=== PATIENT | female | born 1940 | race Caucasian/White ===

== ENCOUNTER 2017-12-24 05:22 | Inpatient (IN) | payer MEDICARE, OTHER, SELFPAY ==
[2017-12-24] VITALS (15 sets, daily range): BP systolic 144–180; BP diastolic 81–107; PULSE 78–112; RESP 16–23; TEMP 36.4–37.1; O2SAT 91–97
--- NOTE | 2017-12-24 05:44 | DI.REPORT_ITS ---
SYMPTOM/DIAGNOSIS: NAUSEA, VOMITING, STATUS POST COLECTOMY FLAT AND UPRIGHT ABDOMEN: Free air is seen beneath the diaphragm, consistent with prior surgery. There is also a question of tiny bilateral pleural effusions. There are dilated bowel loops in the upper abdomen. Suture material is seen in the right upper abdomen. Findings may indicate ileus. IMPRESSION: Mild bowel dilatation.
--- NOTE | 2017-12-24 05:45 | ED.GENADUL ---
Disposition Clinical Impression: Ileus following gastrointestinal surgery Disposition: [facility] INPATIENT Condition: Good Medical Decision Making - Lab Data Laboratory Results - last 24 hr 12/24/17 12/24/17 05:50 05:50 WBC 10.58 RBC 3.56 L Hgb 11.3 L Hct 33.9 L MCV 95.2 H MCH 31.7 MCHC 33.3 RDW 13.2 Plt Count 218 MPV 11.1 H Immature Gran % 0.8 Neutrophils % 90.3 Lymphocytes % 3.2 Monocytes % 5.5 Eosinophils % 0.0 Basophils % 0.2 Absolute Neutrophils 9.56 H Absolute Lymphocytes 0.34 L Absolute Monocytes 0.58 Absolute Eosinophils 0.00 Absolute Basophils 0.02 Sodium 139 Potassium 3.3 L D Chloride 99 Carbon Dioxide 30.3 Anion Gap 9.7 BUN 20 H Creatinine 0.96 Estimated GFR/1.73 m2 56.21 Glucose 169 H Calcium 9.1 Total Bilirubin 0.96 AST 16 ALT 28 Alkaline Phosphatase 86 Total Protein 7.0 Albumin 2.4 L Results reviewed for labs ordered during visit: Yes - EKG Data -: EKG Interpreted by Me 12/24/17 06:35 Sinus tachycardia, rate 103, QRS is narrow, there is no ST segment elevation present. - Radiology Data Radiology results: report reviewed, image reviewed - Medical Decision Making 69-year-old female, postop day #4 status post partial colectomy presents with bloating and nausea. She is afebrile, has a borderline tachycardia, is otherwise well-appearing. Surgical incisions are clean, dry, intact. Differential diagnosis includes ileus, obstruction. Patient IV access established, given antiemetic, fluids, referred for laboratory testing and radiograph. CBC shows white blood cell count of 10. Electrolytes: Notable for mild hypokalemia of 3.3 X-ray consistent dilated small bowel loops with wall thickening. Positive air-fluid levels. There is question of free air per the radiologist. Note the patient was insufflated for laparoscopy. Case discussed with Dr. Bañuelos. Will admit with parenteral fluids, antiemetic, period of observation/re-examination. Will hold on further advanced imaging at this time. History of Present Illness - General Chief complaint: Nausea/Vomit/Diar Stated complaint: PER T DOC Time Seen by Provider: 12/24/17 05:38 Source: patient Mode of arrival: ambulatory Limitations: no limitations - History of Present Illness Initial comments: Vomitin-year-old female who is now postop day #4 status post partial colectomy with Dr. Zhao. She states that she has been at home for 3 days. Today she had the gradual onset of mild bloating and nausea followed by numerous episodes of nonbilious emesis. It has been moderate, intermittent, without significant associated pain. She has not had a fever. States she has been passing some small amounts of flatus but no stool. - Related Data Cholecalciferol (Vitamin D3) [Vitamin D3] 1 cap PO DAILY 12/25/13 Simvastatin 40 mg PO DAILY 12/25/13 Ibuprofen [Motrin] 400 mg PO PRN 12/27/13 Biotin 5 mg PO DAILY 11/21/17 Cyanocobalamin (Vitamin B-12) [Vitamin B12] 5,000 mcg PO DAILY 11/30/17 Gluc Ross/MSM/Magnesium/Vit C [Glucosamine Complex-MSM Cap] 1 each PO DAILY 11/30/17 Polyethylene Glycol 3350 [Miralax] 17 g PO DAILY #255 gm 12/12/17 Acetaminophen [Tylenol] 650 mg PO Q4H PRN PRN #30 tab 12/22/17 Ibuprofen 600 mg PO Q6H PRN PRN #30 tablet 12/22/17 Oxycodone HCl 5 mg PO TID PRN PRN #15 tablet 12/22/17 Allergies Allergy/AdvReac Type Severity Reaction Status Date / Time No Known Allergies Allergy Unverified 12/24/17 05:29 Review of Systems Other: 6 systems reviewed, otherwise negative Past Medical History - Past Medical History Surgical history: cancer surgery General Exam - General Limitations: no limitations General appearance: alert, in no apparent distress - Head Head exam: Present: atraumatic, normocephalic - Eye Eye exam: Present: normal apperance, EOMI - ENT ENT exam: Present: normal exam, mucous membranes dry - Neck Neck exam: Present: normal inspection, full ROM. Absent: meningismus - Respiratory Respiratory exam: Present: normal lung sounds bilaterally. Absent: respiratory distress - Cardiovascular Cardiovascular Exam: Present: normal rhythm, tachycardia - GI/Abdominal GI/Abdominal exam: Present: soft, distended, diminished bowel sounds, other (Surgical incisions clean, dry, intact). Absent: tenderness - Extremities Exam Extremities exam: Present: normal inspection, full ROM - Neurological Exam Neurological exam: Present: alert, oriented X3 - Psychiatric Psychiatric exam: Present: normal affect, normal mood - Skin Skin exam: Present: warm, dry, intact Course Vital Signs - 24 hr 12/24/17 05:27 Temperature 36.6 C Pulse 104 H Respiratory 18 Rate Pulse Oximetry 93 L
--- NOTE | 2017-12-24 05:48 | ED.GENADUL_ITS ---
Disposition Clinical Impression: Ileus following gastrointestinal surgery Disposition: [facility] INPATIENT Condition: Good Medical Decision Making - Lab Data Laboratory Results - last 24 hr 12/24/17 12/24/17 05:50 05:50 WBC 10.58 RBC 3.56 L Hgb 11.3 L Hct 33.9 L MCV 95.2 H MCH 31.7 MCHC 33.3 RDW 13.2 Plt Count 218 MPV 11.1 H Immature Gran % 0.8 Neutrophils % 90.3 Lymphocytes % 3.2 Monocytes % 5.5 Eosinophils % 0.0 Basophils % 0.2 Absolute Neutrophils 9.56 H Absolute Lymphocytes 0.34 L Absolute Monocytes 0.58 Absolute Eosinophils 0.00 Absolute Basophils 0.02 Sodium 139 Potassium 3.3 L D Chloride 99 Carbon Dioxide 30.3 Anion Gap 9.7 BUN 20 H Creatinine 0.96 Estimated GFR/1.73 m2 56.21 Glucose 169 H Calcium 9.1 Total Bilirubin 0.96 AST 16 ALT 28 Alkaline Phosphatase 86 Total Protein 7.0 Albumin 2.4 L Results reviewed for labs ordered during visit: Yes - EKG Data -: EKG Interpreted by Me 12/24/17 06:35 Sinus tachycardia, rate 103, QRS is narrow, there is no ST segment elevation present. - Radiology Data Radiology results: report reviewed, image reviewed - Medical Decision Making 69-year-old female, postop day #4 status post partial colectomy presents with bloating and nausea. She is afebrile, has a borderline tachycardia, is otherwise well-appearing. Surgical incisions are clean, dry, intact. Differential diagnosis includes ileus, obstruction. Patient IV access established, given antiemetic, fluids, referred for laboratory testing and radiograph. CBC shows white blood cell count of 10. Electrolytes: Notable for mild hypokalemia of 3.3 X-ray consistent dilated small bowel loops with wall thickening. Positive air- fluid levels. There is question of free air per the radiologist. Note the patient was insufflated for laparoscopy. Case discussed with Dr. Bañuelos. Will admit with parenteral fluids, antiemetic , period of observation/re-examination. Will hold on further advanced imaging at this time. History of Present Illness - General Chief complaint: Nausea/Vomit/Diar Stated complaint: PER T DOC Time Seen by Provider: 12/24/17 05:38 Source: patient Mode of arrival: ambulatory Limitations: no limitations - History of Present Illness Initial comments: Vomitin-year-old female who is now postop day #4 status post partial colectomy with Dr. Zhao. She states that she has been at home for 3 days. Today she had the gradual onset of mild bloating and nausea followed by numerous episodes of nonbilious emesis. It has been moderate, intermittent, without significant associated pain. She has not had a fever. States she has been passing some small amounts of flatus but no stool. - Related Data Cholecalciferol (Vitamin D3) [Vitamin D3] 1 cap PO DAILY 12/25/13 Simvastatin 40 mg PO DAILY 12/25/13 Ibuprofen [Motrin] 400 mg PO PRN 12/27/13 Biotin 5 mg PO DAILY 11/21/17 Cyanocobalamin (Vitamin B-12) [Vitamin B12] 5,000 mcg PO DAILY 11/30/17 Gluc Ross/MSM/Magnesium/Vit C [Glucosamine Complex-MSM Cap] 1 each PO DAILY Polyethylene Glycol 3350 [Miralax] 17 g PO DAILY #255 gm 12/12/17 Acetaminophen [Tylenol] 650 mg PO Q4H PRN PRN #30 tab 12/22/17 Ibuprofen 600 mg PO Q6H PRN PRN #30 tablet 12/22/17 Oxycodone HCl 5 mg PO TID PRN PRN #15 tablet 12/22/17 Allergies Allergy/AdvReac Type Severity Reaction Status Date / Time No Known Allergies Allergy Unverified 12/24/17 05:29 Review of Systems Other: 6 systems reviewed, otherwise negative Past Medical History - Past Medical History Surgical history: cancer surgery General Exam - General Limitations: no limitations General appearance: alert, in no apparent distress - Head Head exam: Present: atraumatic, normocephalic - Eye Eye exam: Present: normal apperance, EOMI - ENT ENT exam: Present: normal exam, mucous membranes dry - Neck Neck exam: Present: normal inspection, full ROM. Absent: meningismus - Respiratory Respiratory exam: Present: normal lung sounds bilaterally. Absent: respiratory distress - Cardiovascular Cardiovascular Exam: Present: normal rhythm, tachycardia - GI/Abdominal GI/Abdominal exam: Present: soft, distended, diminished bowel sounds, other ( Surgical incisions clean, dry, intact). Absent: tenderness - Extremities Exam Extremities exam: Present: normal inspection, full ROM - Neurological Exam Neurological exam: Present: alert, oriented X3 - Psychiatric Psychiatric exam: Present: normal affect, normal mood - Skin Skin exam: Present: warm, dry, intact Course Vital Signs - 24 hr 12/24/17 05:27 Temperature 36.6 C Pulse 104 H Respiratory 18 Rate Pulse Oximetry 93 L
[2017-12-24] MEDS: Normal Saline 1,000 ML 1000 ML IV (06:01)
[2017-12-24] MEDS: Ondansetron 4 MG/2 ML VIAL IVP ×2 (06:01→07:18)
[2017-12-24 06:05] LABS: Abs Immature Grans 0.08 k/cumm (0.0-0.09); Absolute Basophil Count 0.02 k/cumm (0.0-0.2); Absolute Lymphocyte Count 0.34 k/cumm (1.2-3.4); Absolute Monocyte Count 0.58 k/cumm (0.11-0.7); Absolute Neutrophil Count 9.56 k/cumm (1.2-6.7); Basophils % 0.2; HCT 33.9 % (36.0-46.0); HGB 11.3 g/dL (12.0-15.5); Immature Grans % 0.8; Lymphocytes % 3.2; Mean Corp. HGB Concentration 33.3 g/dL (32.0-36.0); Mean Corpuscular Hemoglobin 31.7 pg (27.0-33.0); Mean Corpuscular Volume 95.2 fL (80-95); Mean Platelet Volume 11.1 fL (8.0-11.0); Monocytes % 5.5; Neutrophils % 90.3; Platelet Count 218 x1000/uL (130-400); RBC 3.56 m/cumm (4.00-5.20); RBC Distribution Width 13.2 % (11.7-14.6); White Blood Cell Count 10.58 k/cumm (4.4-10.8)
[2017-12-24 06:15] LABS: ALT 28 U/L (14-59); AST 16 U/L (15-37); Albumin 2.4 g/dL (3.4-5.0); Alkaline Phosphatase 86 U/L (46-116); Anion Gap 9.7 mmol/L (3-11); BUN 20 mg/dL (7-18); Bilirubin, Total 0.96 mg/dL (0.2-1.0); CO2 30.3 mmol/L (21.0-32.0); CREATININE 0.96 mg/dL (0.55-1.02); Calcium 9.1 mg/dL (8.5-10.1); Chloride 99 mmol/L (98-107); Estimated GFR 56.21 (mL/min/1.73m2); Glucose 169 mg/dL (70-100); Sodium 139 mmol/L (136-145)
[2017-12-24 06:22] LABS: Potassium 3.3 mmol/L (3.5-5.1)
--- NOTE | 2017-12-24 06:26 | DI.VRAD_ITS ---
EXAM: XR Abdomen, 2 Views CLINICAL HISTORY: 77 years old, female; Pain; Abdominal pain TECHNIQUE: Frontal view of the abdomen/pelvis with upright view of the abdomen. COMPARISON: No relevant prior studies available. FINDINGS: Intraperitoneal space: Possible free intraperitoneal air. Gastrointestinal tract: Dilated small bowel loops with wall thickening. There are air-fluid levels. Organs: Unremarkable as visualized. Bones/joints: Unremarkable. IMPRESSION: Enteritis and/or small bowel obstruction. Suboptimal imaging of the hemidiaphragms but there is question of free intraperitoneal air. Consider a CT scan. Dictated and Authenticated by: Andre Lynn MD. Ordering:FARIDA GARCÍA MD
[2017-12-24] MEDS: Pantoprazole 40 MG VIAL IVP (06:30)
--- NOTE | 2017-12-24 08:27 | PDOC.HP_ITS ---
Assessment/Plan - Assessment/Plan (1) Postoperative ileus Assessment: patient is stable at this time Has some HTN. Will monitor. She is not usually on BP meds Plan: IV hydration and bowel rest If symptoms progress will get a CT scan History of Present Illness - History of Present Illness Chief Complaint: POst Op Ileus History of Present Illness: Mrs Grant is a pleasant 77 year old female who underwent a Right Hemicolectomy on Tuesday with Dr. Ceja. She did quite well after surgery and was passing gas and having BM's on POD #1. POD #2 she was eating a regular diet, walking around and pain was well controlled on Toradol and Tylenol. She went home and did well up until last night, early this am when she started to feel bloated and had nausea and vomiting. She came back to the ER. XRay showed an ileus pattern. Patient states she is passing some gas but a lot less then on . - Past Medical History Cardiac: Hyperlipidemia CHIEF EMBALMER: Other (neuropathic pain) Gastrointestinal: Other (splenic hemangioma, tubulovillous adenoma of cecum) Psych: Anxiety Musculoskeletal: Other (osteopenia) Endocrine: Hypothyroidism (subclinical), Other (Vitamin D deficiency) Dermatology: Other (hidrotic ectodermal dysplacia syndrome) - Past Surgical History Past Surgical History: Arthroscopy, Hysterectomy, Other (colonoscopy x 2), Other (Right hemicolectomy) - Past Family History Family History: Other (melanoma) - Past Social History Smoke: Quit Alcohol: Rare Drugs: None Lives: Alone Review of Systems - Review of Systems Constitutional: denies: Fever, Chills, Sweats, Weakness, Malaise, Other Respiratory: denies: Cough, Dry, Shortness of Breath, Hemoptysis, SOB with Excertion, Pleuritic Pain, Sputum, Wheezing, Other Cardiovascular: denies: Chest Pain, Palpitations, Orthopnea, Paroxysmal Noc. Dyspnea, Edema, Light Headedness, Other Gastrointestinal: Nausea, Vomiting. denies: Abdominal Pain, Diarrhea, Constipation, Melena, Hematochezia, Other Genitourinary: denies: Dysuria, Frequency, Incontinence, Hematuria, Retention, Other Musculoskeletal: denies: Neck Pain, Shoulder Pain, Arm Pain, Back Pain, Hand Pain, Leg Pain, Foot Pain, Other Skin: denies: Rash, Lesions, Amari, Bruising, Other Neurological: denies: Weakness, Numbness, Incoordination, Change in Speech, Confusion, Seizures, Other - Medications/Allergies Allergies/Adverse Reactions: Allergies Allergy/AdvReac Type Severity Reaction Status Date / Time No Known Allergies Allergy Unverified 12/24/17 05:29 Medications: Current Medications Acetaminophen 1,000 mg/ Device 100 mls @ 400 mls/hr IVPB Q8H RASHEEDA Potassium Chloride/Sodium Chloride (Kcl 20meq/D5-0.45% Nacl) 1,000 mls @ 125 mls/hr IV INFUSION RASHEEDA Famotidine 20 mg/ Device 50 mls @ 100 mls/hr IVPB Q12H RASHEEDA Potassium Chloride 10 meq/ (Device) 100 mls @ 100 mls/hr IVPB NOW ONE Stop: 12/24/17 09:15 IV Miscellaneous Supplies () 1 each IV DIRECTED RASHEEDA IV Miscellaneous Supplies () 1 each IV DIRECTED RASHEEDA Ketorolac Tromethamine (Toradol Injection) 15 mg IVP Q6H PRN PRN Stop: 12/29/17 08:11 Ondansetron HCl (Zofran Injection) 4 mg IVP Q4H PRN PRN Sodium Chloride (Saline Flush 10 Ml Syringe) 0 ml IVP PRN PRN Sodium Chloride (Saline Flush 10 Ml Syringe) 0 ml IVP PRN PRN Objective - Exam Vitals and I&O: Vital Signs Temp 36.5 C 12/24/17 08:01 Pulse 97 H 12/24/17 08:01 Resp 20 12/24/17 08:01 BP 167/107 12/24/17 08:01 Pulse Ox 97 12/24/17 08:01 Intake & Output 12/23/17 12/23/17 12/24/17 11:59 23:59 11:59 Weight 79.379 kg General: Alert, Oriented x3, Cooperative, No acute distress HEENT: Atraumatic Neck: Supple Lungs: Clear to auscultation Cardiovascular: Regular rate Abdomen: Soft, Tenderness (mildly tender to palpation ), Other (hypoactive BS) Extremities: Normal pulses. denies: Clubbing, Cyanosis, Edema Psych/Mental Status: Mental status NL Results - Laboratory Data Result Diagrams: 12/24/17 05:50 12/24/17 05:50 Laboratory Results: Laboratory Tests 12/24/17 12/24/17 05:50 05:50 WBC 10.58 RBC 3.56 L Hgb 11.3 L Hct 33.9 L MCV 95.2 H MCH 31.7 MCHC 33.3 RDW 13.2 Plt Count 218 MPV 11.1 H Immature Gran % 0.8 Neutrophils % 90.3 Lymphocytes % 3.2 Monocytes % 5.5 Eosinophils % 0.0 Basophils % 0.2 Absolute Neutrophils 9.56 H Absolute Lymphocytes 0.34 L Absolute Monocytes 0.58 Absolute Eosinophils 0.00 Absolute Basophils 0.02 Sodium 139 Potassium 3.3 L D Chloride 99 Carbon Dioxide 30.3 Anion Gap 9.7 BUN 20 H Creatinine 0.96 Estimated GFR/1.73 m2 56.21 Glucose 169 H Calcium 9.1 Total Bilirubin 0.96 AST 16 ALT 28 Alkaline Phosphatase 86 Total Protein 7.0 Albumin 2.4 L
[2017-12-24] MEDS: POTASSIUM CHLORIDE/D5-0.45NACL 1,000 ML 125 MEQ IV ×2 (08:48→21:02)
[2017-12-24] MEDS: Normal Saline Flush 10 ML SYR IVP (08:48)
--- NOTE | 2017-12-24 11:12 | PDOC.CMIN ---
Care Management Initial Assess REASON FOR HOSPITALIZATION:: Post Operative Ileus PAST MEDICAL HISTORY/PAST SURGICAL HISTORY:: Anxiety, Asymptomatic varicose veins, colon polyps, hemangioma of spleen, hidrotic ectodermal dysplasia syndrome, hyperlipidemia, hypothyroid, neuropathic pain, osteopenia, Vitamin D deficiency, former smoker, cataracts, hysterectomy, knee surgery/arthroscopy, menorrhagia, fracture right shoulder, intraocular lens PREVIOUS FUNCTIONAL STATUS/SOCIAL/FAMILY SUPPORTS:: Vannessa resides in [place], [place]. She shares her after a period of illness at [facility]. She identifies spirtually as Jainism and attends services at [facility]. Her primary support is her son, Phylicia ([phone]) who resides in [facility]. She reports a close friend and neighbor who had the same surgical intervention; and reports the two enjoy walking the trails together. Vannessa discharged from [facility] 12/22/17, and is re-admitted for suspected ileus. CURRENT FUNCTIONAL STATUS:: Vannessa remains pleasant in interaction, she requested to update her HIPPA to add her friend, grandson and neighbor/friend; Marisol Saeed who she reports has provided much support to her through this ordeal. ADVANCE DIRECTIVES:: None on file at [facility]. Has patient been provided with information about the portal?: Yes Did the patient sign up for the portal?: No CODE STATUS:: Full Code INSURANCE COVERAGE / FINANCIAL ISSUES:: Medicare. CURRENT HOME/COMMUNITY SERVICES/EQUIPMENT:: Grab bars, hand held shower PRIMARY CARE PHYSICIAN:: Andre Davidson M.D. POTENTIAL DISCHARGE NEEDS:: Review community based supports, follow up appointment with Dr. Davidson and [facility] Surgical services. PATIENT/FAMILY EDUCATION NEEDS:: Review community based supports, discharge instructions, discuss Ask Me Three. ANTICIPATED BARRIERS TO DISCHARGE:: None identified at this time. TRANSPORTATION:: Via private vehicle with her friend, Katherin. PLAN:: Due to developing an ileus, Vannessa was admitted to [facility] and will be monitored and treated with IV fluids and bowel rest, if symptoms persist she will have a CT scan to inform next steps in treatment. Vannessa will return home when ready per MD, she will follow up with [facility] Surgical services and her plan of care as prescribed as well as her PCP. No additional services anticipated at this time. She will transport home via private vehicle with her friend, Paige
[2017-12-24] MEDS: Calcium Carbonate *TUMS* 500 MG CHEW PO (11:31)
[2017-12-24] MEDS: LORazepam 0.5 MG TAB PO (11:31)
[2017-12-24] MEDS: Potassium Chloride 10 MEQ TABCR 20 MEQ PO (14:22)
--- NOTE | 2017-12-24 14:25 | INITIAL_ITS ---
Care Management Initial Assess REASON FOR HOSPITALIZATION:: Post Operative Ileus PAST MEDICAL HISTORY/PAST SURGICAL HISTORY:: Anxiety, Asymptomatic varicose veins, colon polyps, hemangioma of spleen, hidrotic ectodermal dysplasia syndrome, hyperlipidemia, hypothyroid, neuropathic pain, osteopenia, Vitamin D deficiency, former smoker, cataracts, hysterectomy, knee surgery/arthroscopy, menorrhagia, fracture right shoulder, intraocular lens PREVIOUS FUNCTIONAL STATUS/SOCIAL/FAMILY SUPPORTS:: Vannessa resides in [place], [place]. She shares her after a period of illness at [facility]. She identifies spirtually as Anabaptism and attends services at [facility]. Her primary support is her son, Phylicia ([phone]) who resides in [facility]. She reports a close friend and neighbor who had the same surgical intervention; and reports the two enjoy walking the trails together. Vannessa discharged from [facility] 12/22/17, and is re-admitted for suspected ileus. CURRENT FUNCTIONAL STATUS:: Vannessa remains pleasant in interaction, she requested to update her HIPPA to add her friend, grandson and neighbor/friend; Marisol Saeed who she reports has provided much support to her through this ordeal. ADVANCE DIRECTIVES:: None on file at [facility]. Has patient been provided with information about the portal?: Yes Did the patient sign up for the portal?: No CODE STATUS:: Full Code INSURANCE COVERAGE / FINANCIAL ISSUES:: Medicare. CURRENT HOME/COMMUNITY SERVICES/EQUIPMENT:: Grab bars, hand held shower PRIMARY CARE PHYSICIAN:: Andre Davidson M.D. POTENTIAL DISCHARGE NEEDS:: Review community based supports, follow up appointment with Dr. Davidson and [facility] Surgical services. PATIENT/FAMILY EDUCATION NEEDS:: Review community based supports, discharge instructions, discuss Ask Me Three. ANTICIPATED BARRIERS TO DISCHARGE:: None identified at this time. TRANSPORTATION:: Via private vehicle with her friend, Katherin. PLAN:: Due to developing an ileus, Vannessa was admitted to [facility] and will be monitored and treated with IV fluids and bowel rest, if symptoms persist she will have a CT scan to inform next steps in treatment. Vannessa will return home when ready per MD, she will follow up with [facility] Surgical services and her plan of care as prescribed as well as her PCP. No additional services anticipated at this time. She will transport home via private vehicle with her friend, Paige
[2017-12-24 14:32] LABS: Abs Immature Grans 0.09 k/cumm (0.0-0.09); Absolute Basophil Count 0.01 k/cumm (0.0-0.2); Absolute Eosinophil Count 0.03 k/cumm (0.0-0.7); Absolute Lymphocyte Count 0.56 k/cumm (1.2-3.4); Absolute Monocyte Count 1.18 k/cumm (0.11-0.7); Absolute Neutrophil Count 8.85 k/cumm (1.2-6.7); Basophils % 0.1; Eosinophils % 0.3; HCT 31.5 % (36.0-46.0); HGB 10.3 g/dL (12.0-15.5); Immature Grans % 0.8; Lymphocytes % 5.2; Mean Corp. HGB Concentration 32.7 g/dL (32.0-36.0); Mean Corpuscular Hemoglobin 31.5 pg (27.0-33.0); Mean Corpuscular Volume 96.3 fL (80-95); Mean Platelet Volume 11.4 fL (8.0-11.0); Neutrophils % 82.6; Platelet Count 188 x1000/uL (130-400); RBC 3.27 m/cumm (4.00-5.20); RBC Distribution Width 13.2 % (11.7-14.6); White Blood Cell Count 10.72 k/cumm (4.4-10.8)
[2017-12-24 14:42] LABS: Anion Gap 8.1 mmol/L (3-11); BUN 22 mg/dL (7-18); CO2 27.9 mmol/L (21.0-32.0); CREATININE 0.95 mg/dL (0.55-1.02); Calcium 8.7 mg/dL (8.5-10.1); Chloride 101 mmol/L (98-107); Estimated GFR 56.89 (mL/min/1.73m2); Glucose 159 mg/dL (70-100); Potassium 3.5 mmol/L (3.5-5.1); Sodium 137 mmol/L (136-145)
[2017-12-24 14:43] LABS: Magnesium 1.8 mg/dL (1.8-2.4)
--- NOTE | 2017-12-24 14:43 | PROG.BLANK ---
Date of Service: 12/24/17 Time of Service: 14:30 Progress Note Called at home regrading patient BP being elevated and heart rate in the 100's. No abdominal pain per report S: Vannessa feels fine. She states that her abdomen doesn't hurt. She denies passing gas. She does complain of burping and intermittent heart Burn. She also told the nurse she feels like there is a knot in her chest. When I asked her about the heart burn and whether it started after she vomited last night she tells me that she started with heart burn first and then threw up. TUMS does seem to help. She did get some ativan and that did not help. O: BP: 172/103 P 100 Afeb Narrow Complex tachycardia of monitor in ICU EKG from this morning and now look the same, but it is different then the EKG from 2005. Abdomen: soft, distended, NTTP, minimal BS incisions c/d/i A: Continued hypertension and tachycardia despite hydration. Heart Burn ? vs a cardiac issue She has no know history of hypertension or cardiovascular disease. She does have hyperlipidemia which is treated with simvastatin. P: I have asked Dr. Dugan to consult on the patient. Draw stat CBC, BMP, MAG EKG and Troponin ordered by Dr. Dugan. Appreciate Dr. Dugan assisting me with Vannessa's care
[2017-12-24] MEDS: Metoprolol 25 MG TAB PO ×2 (14:59→21:02)
[2017-12-24 15:02] LABS: Troponin I < 0.02 ng/mL (0.00-0.06)
[2017-12-24] MEDS: Normal Saline 500 ML IV (15:42)
[2017-12-24] MEDS: Aspirin 325 MG TAB PO (16:44)
[2017-12-24 19:22] LABS: Troponin I < 0.02 ng/mL (0.00-0.06)
[2017-12-24] MEDS: Atorvastatin 40 MG TAB 80 MG PO (21:02)
[2017-12-24 23:54] LABS: Troponin I < 0.02 ng/mL (0.00-0.06)
[2017-12-25] VITALS (18 sets, daily range): BP systolic 92–186; BP diastolic 48–100; PULSE 86–157; RESP 18–36; TEMP 36.7–38.3; O2SAT 92–99
[2017-12-25 06:55] LABS: Abs Immature Grans 0.11 k/cumm (0.0-0.09); Absolute Eosinophil Count 0.04 k/cumm (0.0-0.7); Absolute Lymphocyte Count 0.42 k/cumm (1.2-3.4); Absolute Monocyte Count 1.28 k/cumm (0.11-0.7); Eosinophils % 0.6; HCT 29.3 % (36.0-46.0); HGB 9.5 g/dL (12.0-15.5); Immature Grans % 1.6; Lymphocytes % 6.1; Mean Corp. HGB Concentration 32.4 g/dL (32.0-36.0); Mean Corpuscular Hemoglobin 31.5 pg (27.0-33.0); Mean Platelet Volume 11.3 fL (8.0-11.0); Monocytes % 18.6; Neutrophils % 73.1; Platelet Count 205 x1000/uL (130-400); RBC 3.02 m/cumm (4.00-5.20); RBC Distribution Width 13.1 % (11.7-14.6)
[2017-12-25 07:04] LABS: Anion Gap 5.4 mmol/L (3-11); BUN 17 mg/dL (7-18); CO2 26.6 mmol/L (21.0-32.0); CREATININE 0.83 mg/dL (0.55-1.02); Calcium 8.1 mg/dL (8.5-10.1); Chloride 102 mmol/L (98-107); Cholesterol 133 mg/dL (50-200); Glucose 161 mg/dL (70-100); HDL Cholesterol 15 mg/dL (40-60); LDL CHOLESTEROL 94 mg/dL (<100); Magnesium 1.8 mg/dL (1.8-2.4); Potassium 3.7 mmol/L (3.5-5.1); Sodium 134 mmol/L (136-145); Triglyceride 133 mg/dL (30-150)
[2017-12-25 07:06] LABS: Absolute Neutrophil Count 5.04 k/cumm (1.2-6.7)
[2017-12-25] MEDS: Normal Saline Flush 10 ML SYR IVP ×2 (07:39→19:44)
[2017-12-25] MEDS: Pantoprazole 40 MG VIAL IVP ×2 (07:39→19:41)
[2017-12-25] MEDS: Metoprolol 25 MG TAB PO (07:40)
[2017-12-25] MEDS: Aspirin E.C. 81 MG TABEC PO (07:40)
--- NOTE | 2017-12-25 07:44 | PDOC.CMPRO ---
Care Management Progress Note S/O: Vannessa diet was advance to full around lunchtime today. She has been up walking independently. Dr. Bañuelos requested Med consult with Dr. Dugan as there is some question as to if Vannessa is presenting with cardiac issue as her BP had been elevated and heart rate in the 100s. Vannessa will likely meet with the penal officer tomorrow. CM will continue to follow and support discharge planning considerations. A: 77 year old female admitted to [facility] 12/24/17 for Post Operative Ileus P: Vannessa will return home when ready per MD, she will follow up with [facility] Surgical services and her plan of care as prescribed as well as her PCP. CM will continue to monitor need for further discharge considerations. She will transport home via private vehicle with her friend, Katherin.
--- NOTE | 2017-12-25 07:50 | CMPROGNOTE_ITS ---
Care Management Progress Note S/O: Vannessa diet was advance to full around lunchtime today. She has been up walking independently. Dr. Bañuelos requested Med consult with Dr. Dugan as there is some question as to if Vannessa is presenting with cardiac issue as her BP had been elevated and heart rate in the 100s. Vannessa will likely meet with the milk treater tomorrow. CM will continue to follow and support discharge planning considerations. A: 77 year old female admitted to [facility] 12/24/17 for Post Operative Ileus P: Vannessa will return home when ready per MD, she will follow up with [facility] Surgical services and her plan of care as prescribed as well as her PCP. CM will continue to monitor need for further discharge considerations. She will transport home via private vehicle with her friend, Katherin.
[2017-12-25] MEDS: Magnesium Oxide 400 MG TAB PO (08:07)
[2017-12-25] MEDS: Potassium Chloride 10 MEQ TABCR 30 MEQ PO (08:07)
[2017-12-25] MEDS: Metoprolol 12.5 MG TAB PO (08:07)
--- NOTE | 2017-12-25 10:36 | PROG.BLANK ---
Date of Service: 12/25/17 Time of Service: 10:00 Progress Note PAD #2 s/p Ileus S: Vannessa is feeling better today. The chest pressure and heart burn is almost gone except for right after she takes her pills. She is hungry and has had several BM's and is passing gas. She tells me she has been up and walking as well. O: VSS AFeb BP is lower then yesterday. Still with slight tachycardia. Troponins negative ABdomen: soft, NTTP, mild distention. Some bowel sounds A: Vannessa is 5 days status post right hemicolectomy. She was readmitted with an ileus. yesterday she had Hypertension and chest pressure with heart burn. Dr. Dugan was consulted and a cardiac workup started. BP today is better. Her chest pressure has resolved. She still has heart burn but feels that now it is only when she is taking oral meds on an empty stomach. She has had several BM's, has passed gas and is hungry. P: Start on clear liquids and advance as tolerated. Appreciate Dr. Dugan assisting with cardiac workup and hypertension Patient is scheduled for ECHO and cardiac consult for tomorrow.
--- NOTE | 2017-12-25 11:45 | PHARADMIT ---
Addendum entered by Kali Turpin III 01/06/18 10:27: Pharmacy Note Subjective Patient transferring to Swing Bed today, on Hospitalist service with Surgical consult. Objective VS-OK K+3.1 WBC-21.23 H&H-up 9.1/28.8 Liquid BM 01/05 Assessment Vanccomycin & Zosyn switching to Cipro later today. Plan Awaiting orders for Swing Bed transition Original Note: Addendum entered by Kali Turpin III 01/05/18 16:14: Pharmacy Note Subjective Ate 50% of lunch (240cc). MD reports improving Objective BP-159/88 HR-101, K+3.7 Mag-2.1 No WBC/Afebrile, Last BM-01/01 Assessment Vancomycin trough (16.4) no changes, Zosyn continues for Enterococcus & Enterobacter Plan MD anticipates Swing Bed 01/06 pending progress. Original Note: Addendum entered by Alice Benavidez 01/04/18 16:53: Pharmacy Note Subjective pt taking some PO Objective HR-95 other VS okay Na-134 WBC-27.66 (down slightly) h/h-8.6/27.2 Assessment TPN and fat emulsion discontinued along with insulin aspart sliding scale vanco dose retimed and one dose of zosyn missed yesterday due to pt leaving the facility for a procedure at [facility] [place] Plan trough scheduled for tomorrow @1300, adjust vanco dosing if needed watch WBC Original Note: Addendum entered by Kali Turpin III 01/02/18 12:26: Pharmacy Note Subjective No new surgery notes yet Objective HR-99 BP-158/91 K+3.1 Mag-2.0 Na-136 Albumin-1.1 WBC-29.71 Assessment Vancomycin started yesterday, Zosyn continues. TPN- K-phos added, K+ to 30mEq/bag total addition plus what's in the Nutrilytes. Potassium 20mEq x 2 bolus bags for todays low K+3.1 Plan Watch Vanco trough, JJA-Keexm-Qdme &K+, WBC Original Note: Addendum entered by Alice Benavidez 01/01/18 11:30: Pharmacy Note Subjective pt confused which is not her baseline per morning report Objective HR-99 other VS okay Na-134 K+3.4 WBC-29.37(up) Assessment TPN continues, zosyn continues, blood cultures pending Plan MD mentioned possibly adding vanco yesterday to cover for entercoccus but no order yet. Watch for BC results and possible addition/change in antibiotics Original Note: Addendum entered by Kali Turpin III 12/30/17 15:03: Pharmacy Note Subjective Patient transferred to [facility], Not eating well yet. Objective BP-149/96 HR-102 K+3.2 Mag-1.5 WBC-16.81 Wgt-89 kg Assessment TPN formula adjusted (Mag 1gm/KCl-!0mEq,Pepcid 20mg/per bag added) KCL 10mEq boluses x 4 given this AM. Lasix 20mg IVP x1 for fluid overload Plan Follow lytes in TPN and wgt , Zosyn continues for now. Original Note: Addendum entered by Kali Turpin III 12/29/17 15:51: Pharmacy Note Subjective Patient reported to be feeling better, but weak. Has not eaten in 5 days, TPN started, MD to advance diet slowly. Objective VS-OK Pain: 03/05 Lytes-OK WBC-15.86 H&H-down (8.1/24.7) Plts-225 Wgt-UP (90.6 kg) Assessment Zosyn continues Plan Will transferred to [facility] tomorrow Original Note: Addendum entered by Kali Turpin III 12/28/17 16:46: Pharmacy Note Subjective Transfered to Hospitalist service. no notes Objective VS-OK HR-101 K+3.3 SCr-0.95 WBC-20.111 H&H-declining, Assessment Turned Off Epidural, dc'D Norepi, Phenylephrine drips. Zosyn continues Plan No MD note yet today. Original Note: Addendum entered by Iris Cuadra 12/27/17 15:12: Pharmacy Note Subjective Hypotensive last evening from the OR, had Norepi drip and Phenylephrine drips going Anesthesia had started an Epidural ~ 6pm for pain control Objective BP 105/56 HR>100, lytes good, Scr 1.35 w/CrCl~32ml/min, wt about the same WBC up 24.78, H/H 9.8/29.6 Micro of Peritoneum: Heavy growth Enterococcus & Gram neg rods Micro of Urine: 10-50K also being treated w/Zosyn court officer concerned w/fluid overload post-op, so watch weights/I&O closely, has julio, has G-tube w/drainage Had procedure resulting in Ileostomy Epidural was stopped by Anesthesia inventory control supervisor due to low BP's. (I noted to nurse that the original order was never documented as being started, she will mention to Anesthesia) Pressors have been on hold since this morning Has Fentanyl IVPush for pain Has Heparin SC for DVT prophylaxis MD aware of high WBC, continues on Zosyn Possible PICC line tomorrow if needed Zantac is IVP q8h Plan Watch for Micro sensitivities, I/O and weight, pain control, BP, WBC Remains NPO at this time, being treated by Surgery Original Note: Admission Pharmacy Clinical Review Post-op ileus Code Status DNR/DNI Current Weight Wgt-79.3 kg Renally Cleared and Narrow Therapeutic Index Meds CrCl~ 52.2 mL/min Meds-OK QTc Value / Action Taken QTc-435 na BP Control, Fever BP-137/83 Tmax-37.3C Electrolytes reviewed Na-134 K+3.7 Mag-1.8 Ca++ 8.1 DVT Prophylaxis none (??Surgery) Opiate Usage / Scheduled Bowel Regimen Ordered No No Plt/SCr for Heparin / Enoxaparin Plts-205 SCr-0.83 INR for Warfarin na H/H stable, WBC/Bands H&H- 9.5/29.3 WBC-6.90 Antibiotic appropriateness none Cultures and Sensitivities none Surgical ABX d/c within 24 hr na DM control / Insulin Dosing BG-161 Heart Failure (Check EF%) (ELIJAH's, B-Block, Diuretics) Lopressor, NTG Oint & Tabs IV to PO Switch No Home Meds Reviewed Yes Home Meds Not Ordered Biotin, Vit-D, Gluco/Chondr, Ibuprofen, Oxycodone, Simvastatin, Vit-B12 Comments
--- NOTE | 2017-12-25 11:51 | MCONE_ITS ---
DATE OF CONSULTATION: December 24, 2017 DATE OF ADMISSION: December 24, 2017 ASSESSMENT AND PLAN: #1. Heartburn. Patient with development of heartburn that she indicates represents a substernal-lik e pressure in the setting of a recent operation and/or potential postoperative ileus/small bowel obst ruction. Mrs. Grant's EKG does have some subtle ST segment abnormalities anteriorly, and this does appear to be a change from her prior EKG, but her prior tracing from 2005. However, given the fact that sublingu al nitroglycerin did relieve her symptoms of heartburn, and given her age, setting of her symptoms, h istory, and development of SVTs, it is prudent to ensure lack of cardiac etiology for the patient's s ymptoms. Administered large-dose aspirin now followed by daily low-dose aspirin. The patient was started on b eta fito therapy with plans on titration for improved heart rate and blood pressure control. Home statin was changed to a high-potency statin, with a check of a.m. lipids as well. The patient will be maintained on telemetry, an echocardiogram was obtained. Nitroglycerin in the form of sublingual tablets on a p.r.n. basis, as well as low-dose topical nitroglycerin have been ordered. The patient' s Toradol was also discontinued. Of note, although the patient's age is over 65 and she likely has r isk factors for underlying CAD, she does not have any known underlying coronary disease or any daily aspirin use over the last seven days. Her symptoms also do no consist of severe angina, and there is no evidence of significant ST deviation. Her JAIDA score currently does not justify benefit from act zita anticoagulation or early revascularization. Will instead rule her out with serial cardiac biomar kers and monitor her closely. Approximately 60 minutes were spent in review of patient's history and in providing care for today's consultation. CONSULTING SERVICE: Chanda Bañuelos M.D., General Surgery CONSULTED SERVICE: Hospitalist Team DICTATING PHYSICIAN: Kirill Dugan M.D. REASON FOR CONSULTATION: Tachycardia, chest pressure. HISTORY OF PRESENT ILLNESS: Very pleasant 77-year-old woman admitted from the [facility] Emergency [facility] ent today with a possible postop ileus, with the Hospitalist Team being consulted for evaluation and treatment of development of a rapid heart rate as well as potential chest pressure in the form of he artburn. Mrs. Grant is a very pleasant woman who underwent a colonoscopy due to heme-positive stools in early . At that time evidence of a fairly large tubulovillous adenoma was found in the cecum, for whic h she underwent an elective right-sided hemicolectomy on the of this month. Following her hemic olectomy, she was hospitalized until 12/22/17, at which time she had passed flatus, had had a successf ul bowel movement, and was tolerating oral intake well. Upon return home, the patient initially did well, but the day after her discharge she began to experi ence a decrease in appetite and the start of what she describes as heartburn, which upon further qu estioning appears to be a pressure type sensation in her substernal area. She initially took Rolaids with some modest relief, but with return of her symptoms. By overnight her nausea and vomiting bibi me quite significant, and were accompanied by fairly distressing symptoms that included heartburn aga in. At that time, she presented to the Emergency Department. In the ER, the patient was found to have fairly insignificant lab work, but imaging of her abdomen sh owed evidence of possible enteritis and/or a small bowel obstruction. At that time the decision was made to admit the patient for further evaluation and treatment by the surgical team. Following admission, Mrs. Grant went to experience continued symptoms, with ongoing nausea that appear ed to be intractable. She also went on to develop a rapid heart rate which appeared to be SVTs by te lemetry, with some premature ventricular beats. At that time, given her overall symptoms, the Hospit alist Team was consulted for further assistance. PAST MEDICAL HISTORY: 1. Dyslipidemia. 2. Splenic hemangioma. 3. History of villous adenomas, including a large tubulovillous adenoma with high-grade dysplasia ne cessitating right-sided hemicolectomy. 4. Anxiety. 5. Osteopenia. 6. Subclinical hypothyroidism. 7. Vitamin D deficiency. 8. History of anal fissures. PAST SURGICAL HISTORY: 1. Right-sided laparoscopic hemicolectomy with anastomosis. 2. Status post hysterectomy. FAMILY HISTORY: Apparent CVA in both mother and father. Denies any history of heart disease in pare nts or siblings. SOCIAL HISTORY: The patient is , her approximately seven years ago of com plications of Parkinson's disease. This was her second marriage. She has two children from her firs t marriage. 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 She has a 20 + pack year history of smoking, quit approximately 35 years ago. Minimal alcohol use only. ALLERGIES: No known drug allergies. HOME MEDICATIONS: 1. Simvastatin 40 mg daily. 2. Vitamin D3 1000 units daily. 3. Ibuprofen 400 mg p.r.n. 4. Biotin 5 mg daily. 5. Vitamin B12 5000 mcg daily. 6. MiraLAX 17 grams daily p.r.n. 7. Oxycodone 5 mg t.i.d. p.r.n. 8. Tylenol 650 mg q.4h. p.r.n. REVIEW OF SYSTEMS: Full twelve-point review of systems performed. Pertinent positives include nause a, vomiting, chest pressure, and heartburn as per history of present illness. Minimal abdominal di scomfort also noted. All other review of systems are negative. Specifically, the patient denies fev ers, chills, dyspnea, neck or jaw pain, or upper extremity discomfort. PHYSICAL EXAM: General: The patient is lying in bed, anxious appearing but in no acute distress. Awake, alert, gloria ented x3. Vitals: Temperature 36.6 and afebrile. Blood pressure 152/95 with a systolic range of 150s to 180s. Heart rate 106 with a range in the 90s to one teens. Pulse oximetry 94% on room air. Neck: Supple. CV: Regular, non-tachycardic at time of exam, 3/6 murmur left lower sternal border. Pulm: Clear to auscultation bilaterally, without crackles, rhonchi, or wheezing. Abdomen: Bowel sounds are diminished. Abdomen appears minimally distended only but soft. Minimal d iffuse tenderness only. Musculoskeletal: No reproducible chest wall pain. Vascular: No overt lower extremity edema. Neurologic: Cranial nerves II-XII appear grossly intact. No focal deficits noted. The patient is m oving all four extremities. LABS: Sodium 137, potassium 3.5, chloride 101, bicarb 27.9, BUN 22, creatinine 0.95, magnesium 1.8. LFTs are normal. Troponin checked and initial value <0.02. CBC with a normal white count, hemoglobin 10.3, platelet count 188,000. STUDIES: #1. X-ray of the abdomen: Enteritis and/or small bowel obstruction. Suboptimal imaging of the kelly diaphragm but there is a question of free intraperitoneal air. Consider CT scan. #2. EKG: Normal sinus rhythm. Normal axis. Questionable left atrial enlargement. Potential Q wav e limited to lead III, appears chronic. T wave abnormalities with an inverted T wave in V1 and V2, n ew as compared with EKG from 2006. [address] segment abnormalities noted.
[2017-12-25 12:33] LABS: Bilirubin Negative (Negative); Blood Small (Negative); Clarity Clear; Glucose 250 mg/dL (Negative); Ketones Negative (Negative); Leukocyte Esterase Negative (Negative); Nitrite Negative (Negative); Specific Gravity >= 1.030 (1.005-1.025); Urobilinogen 0.2 EU/dL (Up TO 0.2)
[2017-12-25 12:46] LABS: Epithelial Cells Many HPF (Negative)
[2017-12-25 12:47] LABS: Bacteria Negative HPF (Negative); C & S Indicated? No/Sq. Contamination; Casts Negative LPF (Negative); Crystals Negative HPF (Negative); Mucus Negative (Negative)
[2017-12-25] MEDS: POTASSIUM CHLORIDE/D5-0.45NACL 1,000 ML 80 MEQ IV (15:46)
--- NOTE | 2017-12-25 17:02 | PGE_ITS ---
DECEMBER 25, 2017 >>>>>>>>>>>>>>>>>>>>>>>>>>>>>> ASSESSMENT AND PLAN: 1. HEARTBURN The patient with development of heartburn that she indicated also representing substernal pressure-li ke sensation in the setting of a recent operation and postop ileus/ small bowel obstruction. Ms. Grant's EKG was checked and had some subtle ST segment abnormalities anteriorly which were a valladares e, but as in comparison to a prior tracing from 2005. Nitroglycerin also did alleviate her pain. She also had development of supraventricular tachycardia. Serially cardiac biomarkers were checked and remained negative. The patient was initiated on daily aspirin and high potency statin as well as beta fito therapy. Beta fito was increased today for additional blood pressure control and she was started on low dos e bright inhibitor as well. Unsure if the patient's symptoms are arising from a cardiac or GI origin. Will discontinue the patient's Nitro paste and continue attempts at blood pressure control. Interesting that she has similar sensation when swallowing hot liquids that she did yesterday, making cardiac etiology less likely although not impossible. Will wait and see if the patient's symptoms reappear again with discontinuation of nitro patch. Will increase proton pump inhibitor coverage to b.i.d. dosing. Await echocardiogram results tomorrow and consider official cardiac consultation as well in regards to potential stress testing or further evaluation. Approximately 40 minutes were spent on coordinating today's care. >>>>>>>>>>>>>>>>>>>>>>>>>>>>>> SUBJECTIVE: Very pleasant, 77-year-old woman admitted to [facility] with a possible postop ileus versus sm all bowel obstruction following a right sided hemicolectomy on December 24. Medical Services were consulted by surgery for development of supraventricular tachycardia along with significant heartburn causing nausea and vomiting. Following initial evaluation the patient was started on a regimen that included an aspirin, a statin and beta fito therapy. Since that time telemetry shows no further runs of supraventricular tachy cardia and an improvement in her blood pressure overall. She was also started on Nitroglycerin, both sublingual and by paste. Interestingly, the patient does report that while her heartburn has improved she still experiences the sensation, especially with ta samira oral medication, and now that she is eating again, with ingestion of hot liquids such as her nithya p. Serial cardiac biomarkers were obtained and remained undetectable and negative. There were no other overnight events reported. The patient remains afebrile. HYSICAL EXAMINATION: VITAL SIGNS - temperature 37.1 and afebrile, blood pressure 137/83 with a ran ge between 130s to 180s, pulse 86, pulse oximetry 94% on room air. GENERAL - the patient appears quite comfortable sitting in bed. No acute distress noted. She is florina ke, alert, oriented x3. NECK - supple. CARDIOVASCULAR - regular, nontachycardic. III/ left lower sternal border murmur. PULM - clear to auscultation bilaterally without crackles, rhonchi or wheezing. ABDOMEN - bowel sounds continue to be diminished but are present. Minimally distended but soft. VASCULAR - no overt lower extremity edema noted. CLINICAL DATA: LABORATORY STUDIES: Sodium 134, potassium 3.7, chloride 102, bicarb 26, BUN 17, creatinine .83, glu cose 161, magnesium 1.8. LDL 94, HDL 15. WBC 6.9, platelet count 206,000, hemoglobin 9.5 (down from 10.3 previously). Urinalysis was checked and was negative for nitrites or leukocyte esterase with 5-10 WBCs only. Troponin also checked and trended serially, undetectable with less than 0.02 x3.
[2017-12-25] MEDS: Metoprolol 5 MG/5 ML VIAL IVP (19:41)
--- NOTE | 2017-12-25 21:25 | PDOC.PROG ---
Date of Service: 12/25/17 Time of Service: 21:26 History of Present Illness - History of Present Illness Chief Complaint: none History of Present Illness: Called to see the patient for abrupt onset of intense rigors with teeth chattering and confusion. The patient herself is comfortable confused, and has no specific c/o. She has not pain, is disoriented to place and time, identifies her son and names him correctly, but cannot identify me as a doctor. She responds to questions with normal prosody but does not make sense, relating to me the details of her neighbors finding her at home vomiting. Review of Systems - Review of Systems Constitutional: Chills. denies: Fever, Sweats, Weakness Eyes: denies: Vision Change Respiratory: denies: Cough, Shortness of Breath Cardiovascular: denies: Chest Pain Gastrointestinal: Other (abdomen soft, doughy, with mild diffuse tenderness, bowel sounds absent). denies: Nausea, Vomiting, Abdominal Pain Neurological: Incoordination, Confusion, Other (pupils are equal, facies symmetric, grossly nonfocal, ). denies: Change in Speech - Medications/Allergies Allergies/Adverse Reactions: Allergies Allergy/AdvReac Type Severity Reaction Status Date / Time No Known Allergies Allergy Unverified 12/24/17 05:29 Medications: Current Medications Calcium Carbonate (Tums) 500 mg PO QID PRN PRN Last Admin: 12/24/17 11:31 Dose: 500 mg Haloperidol Lactate (Haldol Injection) 1 mg IM/IV Q1H PRN Hydralazine HCl (Apresoline Injection) 10 mg IVP Q6H PRN PRN Ringer's Solution () 1,000 mls @ 125 mls/hr IV [facility] IV Miscellaneous Supplies () 1 each IV DIRECTED [facility] Metoprolol Tartrate (Lopressor Injection) 5 mg IVP Q6H [facility] Last Admin: 12/25/17 19:41 Dose: 5 mg Nitroglycerin (Nitrostat) 0.4 mg SL Q5 MIN PRN X3 PRN PRN Reason: Chest Pain Last Admin: 12/24/17 20:27 Dose: 0.4 mg Ondansetron HCl (Zofran Injection) 4 mg IVP Q4H PRN PRN Pantoprazole Sodium (Protonix Injection) 40 mg IVP BID [facility] Last Admin: 04/01/18 19:41 Dose: 40 mg Sodium Chloride (Saline Flush 10 Ml Syringe) 0 ml IVP PRN PRN Last Admin: 12/25/17 19:44 Dose: 10 ml Objective - Exam Vitals and I&O: Vital Signs Temp 36.7 C 12/25/17 15:37 Pulse 118 H 12/25/17 19:29 Resp 36 H 12/25/17 19:29 BP 133/74 12/25/17 20:42 Pulse Ox 95 12/25/17 19:29 Intake & Output 12/24/17 12/25/17 12/25/17 23:59 11:59 23:59 Intake Total 1721 1306 1003 Output Total 25 525 650 Balance 1696 781 353 Intake: IV 1721 1026 1003 Oral 280 Output: Gastric Drainage 0 Right Nare 0 Urine 25 525 550 Emesis 100 Other: Urine Color Yellow Light Calista Yellow Urine Appearance Clear Clear Urine Odor Normal Strong Comment Unable to send for UA, contaminated with stool. Amt in hat from previous void. Stool Size Moderate Small Smear Stool Characteristics Soft Soft Brown Brown Black Emesis Description Bile Voiding Methods Toilet Toilet Toilet - Results Results: Laboratory Results WBC 6.90 k/cumm (4.4-10.8) D 12/25/17 06:05 RBC 3.02 m/cumm (4.00-5.20) L 12/25/17 06:05 Hgb 9.5 g/dL (12.0-15.5) L 12/25/17 06:05 Hct 29.3 % (36.0-46.0) L 12/25/17 06:05 MCV 97.0 fL (80-95) H 12/25/17 06:05 MCH 31.5 pg (27.0-33.0) 12/25/17 06:05 MCHC 32.4 g/dL (32.0-36.0) 12/25/17 06:05 RDW 13.1 % (11.7-14.6) 12/25/17 06:05 Plt Count 205 x1000/uL (130-400) 12/25/17 06:05 MPV 11.3 fL (8.0-11.0) H 12/25/17 06:05 Immature Gran % 1.6 12/25/17 06:05 Neutrophils % 73.1 12/25/17 06:05 Lymphocytes % 6.1 12/25/17 06:05 Monocytes % 18.6 12/25/17 06:05 Eosinophils % 0.6 12/25/17 06:05 Basophils % 0.0 12/25/17 06:05 Absolute Neutrophils 5.04 k/cumm (1.2-6.7) 12/25/17 06:05 Absolute Lymphocytes 0.42 k/cumm (1.2-3.4) L 12/25/17 06:05 Absolute Monocytes 1.28 k/cumm (0.11-0.7) H 12/25/17 06:05 Absolute Eosinophils 0.04 k/cumm (0.0-0.7) 12/25/17 06:05 Absolute Basophils 0.00 k/cumm (0.0-0.2) 12/25/17 06:05 Sodium 134 mmol/L (136-145) L 12/25/17 06:05 Potassium 3.7 mmol/L (3.5-5.1) 12/25/17 06:05 Chloride 102 mmol/L (98-107) 12/25/17 06:05 Carbon Dioxide 26.6 mmol/L (21.0-32.0) 12/25/17 06:05 Anion Gap 5.4 mmol/L (3-11) 12/25/17 06:05 BUN 17 mg/dL (7-18) 12/25/17 06:05 Creatinine 0.83 mg/dL (0.55-1.02) 12/25/17 06:05 Estimated GFR/1.73 m2 >= 60.00 (mL/min/1.73m2) 12/25/17 06:05 Glucose 161 mg/dL (70-100) H 12/25/17 06:05 Calcium 8.1 mg/dL (8.5-10.1) L 12/25/17 06:05 Magnesium 1.8 mg/dL (1.8-2.4) 12/25/17 06:05 Total Bilirubin 0.96 mg/dL (0.2-1.0) 12/24/17 05:50 AST 16 U/L (15-37) 12/24/17 05:50 ALT 28 U/L (14-59) 12/24/17 05:50 Alkaline Phosphatase 86 U/L (46-116) 12/24/17 05:50 Troponin I < 0.02 ng/mL (0.00-0.06) 12/24/17 23:01 Total Protein 7.0 g/dL (6.4-8.2) 12/24/17 05:50 Albumin 2.4 g/dL (3.4-5.0) L 12/24/17 05:50 Triglycerides 133 mg/dL (30-150) 12/25/17 06:05 Total Cholesterol 133 mg/dL (50-200) 12/25/17 06:05 LDL Cholesterol Direct 94 mg/dL (<100) 12/25/17 06:05 HDL Cholesterol 15 mg/dL (40-60) L 12/25/17 06:05 Urine Color Yellow (Yellow) 12/25/17 12:25 Urine Clarity Clear 12/25/17 12:25 Urine pH 6.0 (5-8) 12/25/17 12:25 Ur Specific Turrell >= 1.030 (1.005-1.025) H 12/25/17 12:25 Urine Protein 100 mg/dL (Negative) H 12/25/17 12:25 Urine Ketones Negative mg/dL (Negative) 12/25/17 12:25 Urine Blood Small (Negative) H 12/25/17 12:25 Urine Nitrite Negative (Negative) 12/25/17 12:25 Urine Bilirubin Negative (Negative) 12/25/17 12:25 Urine Urobilinogen 0.2 EU/dL (Up TO 0.2) 12/25/17 12:25 Ur Leukocyte Esterase Negative (Negative) 12/25/17 12:25 Urine RBC 5-10 (0-2) H 12/25/17 12:25 Urine WBC 3-5 HPF (0-5) 12/25/17 12:25 Ur Epithelial Cells Many HPF (Negative) 12/25/17 12:25 Urine Crystals Negative HPF (Negative) 12/25/17 12:25 Urine Bacteria Negative HPF (Negative) 12/25/17 12:25 Urine Casts Negative LPF (Negative) 12/25/17 12:25 Urine Mucus Negative (Negative) 12/25/17 12:25 Ur Culture Indicated? No/sq. contamination 12/25/17 12:25 Urine Glucose 250 mg/dL (Negative) H 12/25/17 12:25
[2017-12-25] MEDS: Lactated Ringers 1,000 ML 125 ML IV (21:36)
--- NOTE | 2017-12-25 21:36 | PDOC.PROG_ITS ---
Date of Service: 12/25/17 Time of Service: 21:26 History of Present Illness - History of Present Illness Chief Complaint: none History of Present Illness: Called to see the patient for abrupt onset of intense rigors with teeth chattering and confusion. The patient herself is comfortable confused, and has no specific c/o. She has not pain, is disoriented to place and time, identifies her son and names him correctly, but cannot identify me as a doctor. She responds to questions with normal prosody but does not make sense, relating to me the details of her neighbors finding her at home vomiting. Review of Systems - Review of Systems Constitutional: Chills. denies: Fever, Sweats, Weakness Eyes: denies: Vision Change Respiratory: denies: Cough, Shortness of Breath Cardiovascular: denies: Chest Pain Gastrointestinal: Other (abdomen soft, doughy, with mild diffuse tenderness, bowel sounds absent). denies: Nausea, Vomiting, Abdominal Pain Neurological: Incoordination, Confusion, Other (pupils are equal, facies symmetric, grossly nonfocal, ). denies: Change in Speech - Medications/Allergies Allergies/Adverse Reactions: Allergies Allergy/AdvReac Type Severity Reaction Status Date / Time No Known Allergies Allergy Unverified 12/24/17 05:29 Medications: Current Medications Calcium Carbonate (Tums) 500 mg PO QID PRN PRN Last Admin: 12/24/17 11:31 Dose: 500 mg Haloperidol Lactate (Haldol Injection) 1 mg IM/IV Q1H PRN Hydralazine HCl (Apresoline Injection) 10 mg IVP Q6H PRN PRN Ringer's Solution () 1,000 mls @ 125 mls/hr IV INFUSION [facility] IV Miscellaneous Supplies () 1 each IV DIRECTED [facility] Metoprolol Tartrate (Lopressor Injection) 5 mg IVP Q6H [facility] Last Admin: 12/25/17 19:41 Dose: 5 mg Nitroglycerin (Nitrostat) 0.4 mg SL Q5 MIN PRN X3 PRN PRN Reason: Chest Pain Last Admin: 12/24/17 20:27 Dose: 0.4 mg Ondansetron HCl (Zofran Injection) 4 mg IVP Q4H PRN PRN Pantoprazole Sodium (Protonix Injection) 40 mg IVP BID [facility] Last Admin: 04/01/18 19:41 Dose: 40 mg Sodium Chloride (Saline Flush 10 Ml Syringe) 0 ml IVP PRN PRN Last Admin: 12/25/17 19:44 Dose: 10 ml Objective - Exam Vitals and I&O: Vital Signs Temp 36.7 C 12/25/17 15:37 Pulse 118 H 12/25/17 19:29 Resp 36 H 12/25/17 19:29 BP 133/74 12/25/17 20:42 Pulse Ox 95 12/25/17 19:29 Intake & Output 12/24/17 12/25/17 12/25/17 23:59 11:59 23:59 Intake Total 1721 1306 1003 Output Total 25 525 650 Balance 1696 781 353 Intake: IV 1721 1026 1003 Oral 280 Output: Gastric Drainage 0 Right Nare 0 Urine 25 525 550 Emesis 100 Other: Urine Color Yellow Light Calista Yellow Urine Appearance Clear Clear Urine Odor Normal Strong Comment Unable to send for UA, contaminated with stool. Amt in hat from previous void. Stool Size Moderate Small Smear Stool Characteristics Soft Soft Brown Brown Black Emesis Description Bile Voiding Methods Toilet Toilet Toilet - Results Results: Laboratory Results WBC 6.90 k/cumm (4.4-10.8) D 12/25/17 06:05 RBC 3.02 m/cumm (4.00-5.20) L 12/25/17 06:05 Hgb 9.5 g/dL (12.0-15.5) L 12/25/17 06:05 Hct 29.3 % (36.0-46.0) L 12/25/17 06:05 MCV 97.0 fL (80-95) H 12/25/17 06:05 MCH 31.5 pg (27.0-33.0) 12/25/17 06:05 MCHC 32.4 g/dL (32.0-36.0) 12/25/17 06:05 RDW 13.1 % (11.7-14.6) 12/25/17 06:05 Plt Count 205 x1000/uL (130-400) 12/25/17 06:05 MPV 11.3 fL (8.0-11.0) H 12/25/17 06:05 Immature Gran % 1.6 12/25/17 06:05 Neutrophils % 73.1 12/25/17 06:05 Lymphocytes % 6.1 12/25/17 06:05 Monocytes % 18.6 12/25/17 06:05 Eosinophils % 0.6 12/25/17 06:05 Basophils % 0.0 12/25/17 06:05 Absolute Neutrophils 5.04 k/cumm (1.2-6.7) 12/25/17 06:05 Absolute Lymphocytes 0.42 k/cumm (1.2-3.4) L 12/25/17 06:05 Absolute Monocytes 1.28 k/cumm (0.11-0.7) H 12/25/17 06:05 Absolute Eosinophils 0.04 k/cumm (0.0-0.7) 12/25/17 06:05 Absolute Basophils 0.00 k/cumm (0.0-0.2) 12/25/17 06:05 Sodium 134 mmol/L (136-145) L 12/25/17 06:05 Potassium 3.7 mmol/L (3.5-5.1) 12/25/17 06:05 Chloride 102 mmol/L (98-107) 12/25/17 06:05 Carbon Dioxide 26.6 mmol/L (21.0-32.0) 12/25/17 06:05 Anion Gap 5.4 mmol/L (3-11) 12/25/17 06:05 BUN 17 mg/dL (7-18) 12/25/17 06:05 Creatinine 0.83 mg/dL (0.55-1.02) 12/25/17 06:05 Estimated GFR/1.73 m2 >= 60.00 (mL/min/1.73m2) 12/25/17 06:05 Glucose 161 mg/dL (70-100) H 12/25/17 06:05 Calcium 8.1 mg/dL (8.5-10.1) L 12/25/17 06:05 Magnesium 1.8 mg/dL (1.8-2.4) 12/25/17 06:05 Total Bilirubin 0.96 mg/dL (0.2-1.0) 12/24/17 05:50 AST 16 U/L (15-37) 12/24/17 05:50 ALT 28 U/L (14-59) 12/24/17 05:50 Alkaline Phosphatase 86 U/L (46-116) 12/24/17 05:50 Troponin I < 0.02 ng/mL (0.00-0.06) 12/24/17 23:01 Total Protein 7.0 g/dL (6.4-8.2) 12/24/17 05:50 Albumin 2.4 g/dL (3.4-5.0) L 12/24/17 05:50 Triglycerides 133 mg/dL (30-150) 12/25/17 06:05 Total Cholesterol 133 mg/dL (50-200) 12/25/17 06:05 LDL Cholesterol Direct 94 mg/dL (<100) 12/25/17 06:05 HDL Cholesterol 15 mg/dL (40-60) L 12/25/17 06:05 Urine Color Yellow (Yellow) 12/25/17 12:25 Urine Clarity Clear 12/25/17 12:25 Urine pH 6.0 (5-8) 12/25/17 12:25 Ur Specific [place] >= 1.030 (1.005-1.025) H 12/25/17 12:25 Urine Protein 100 mg/dL (Negative) H 12/25/17 12:25 Urine Ketones Negative mg/dL (Negative) 12/25/17 12:25 Urine Blood Small (Negative) H 12/25/17 12:25 Urine Nitrite Negative (Negative) 12/25/17 12:25 Urine Bilirubin Negative (Negative) 12/25/17 12:25 Urine Urobilinogen 0.2 EU/dL (Up TO 0.2) 12/25/17 12:25 Ur Leukocyte Esterase Negative (Negative) 12/25/17 12:25 Urine RBC 5-10 (0-2) H 12/25/17 12:25 Urine WBC 3-5 HPF (0-5) 12/25/17 12:25 Ur Epithelial Cells Many HPF (Negative) 12/25/17 12:25 Urine Crystals Negative HPF (Negative) 12/25/17 12:25 Urine Bacteria Negative HPF (Negative) 12/25/17 12:25 Urine Casts Negative LPF (Negative) 12/25/17 12:25 Urine Mucus Negative (Negative) 12/25/17 12:25 Ur Culture Indicated? No/sq. contamination 12/25/17 12:25 Urine Glucose 250 mg/dL (Negative) H 12/25/17 12:25
[2017-12-25 21:37] LABS: Bilirubin Negative (Negative); Blood Small (Negative); Clarity Clear; Glucose 250 mg/dL (Negative); Ketones Negative (Negative); Leukocyte Esterase Negative (Negative); Nitrite Negative (Negative); Specific Gravity >= 1.030 (1.005-1.025); Urobilinogen 0.2 EU/dL (Up TO 0.2)
[2017-12-25 21:48] LABS: Bacteria Few HPF (Negative); Crystals Negative HPF (Negative); Epithelial Cells Many HPF (Negative); Mucus Negative (Negative); RBC 0-2 (0-2)
[2017-12-25 21:49] LABS: C & S Indicated? C&S Done As Ordered; Casts Negative LPF (Negative)
[2017-12-25 21:51] LABS: Abs Immature Grans 0.09 k/cumm (0.0-0.09); HCT 34.9 % (36.0-46.0); HGB 11.6 g/dL (12.0-15.5); Mean Corp. HGB Concentration 33.2 g/dL (32.0-36.0); Mean Corpuscular Hemoglobin 31.5 pg (27.0-33.0); Mean Corpuscular Volume 94.8 fL (80-95); Mean Platelet Volume 10.9 fL (8.0-11.0); Platelet Count 240 x1000/uL (130-400); RBC 3.68 m/cumm (4.00-5.20); RBC Distribution Width 13.1 % (11.7-14.6); White Blood Cell Count 3.88 k/cumm (4.4-10.8)
[2017-12-25 22:00] LABS: C-Reactive Protein 17.25 mg/dL (0.0-0.3)
[2017-12-25 22:04] LABS: ALT 98 U/L (14-59); AST 96 U/L (15-37); Alkaline Phosphatase 198 U/L (46-116); Anion Gap 11.4 mmol/L (3-11); BUN 14 mg/dL (7-18); Bilirubin, Total 2.03 mg/dL (0.2-1.0); CO2 24.6 mmol/L (21.0-32.0); CREATININE 0.88 mg/dL (0.55-1.02); Calcium 8.1 mg/dL (8.5-10.1); Chloride 99 mmol/L (98-107); Glucose 157 mg/dL (70-100); Potassium 3.6 mmol/L (3.5-5.1); Sodium 135 mmol/L (136-145); Total Protein 6.1 g/dL (6.4-8.2)
[2017-12-25 22:12] LABS: TSH (W/Ref FT4) 1.41 uIU/mL (0.358-3.74)
[2017-12-25 22:16] LABS: Absolute Neutrophil Count 3.14 k/cumm (1.2-6.7)
[2017-12-25 22:17] LABS: Absolute Eosinophil Count 0.04 k/cumm (0.0-0.7); Absolute Lymphocyte Count 0.27 k/cumm (1.2-3.4); Absolute Monocyte Count 0.27 k/cumm (0.11-0.7); Anisocytosis 2+; Atypical Lymphocytes % 0; Diff Comment Manual Differential
--- NOTE | 2017-12-25 22:18 | DI.RPTCT_ITS ---
SYMPTOM/DIAGNOSIS: ACUTE CONFUSION, NEW DX COLON CA. NONCONTRAST HEAD CT: There is mild atrophy. Patchy areas of decreased attenuation in the white matter consistent with microvascular disease. No skull fracture, acute hemorrhage or mass is seen. The ventricles are normal in size for degree of atrophy. IMPRESSION: No acute abnormality.
--- NOTE | 2017-12-25 22:19 | DI.REPORT_ITS ---
SYMPTOM/DIAGNOSIS: RIGORS, CHILLS AP AND LATERAL CHEST: Comparison is made with 03 Oct 1996. The heart size is normal. The lungs are expiratory. Free air is noted beneath the diaphragm, presumably post operative. There is basilar atelectasis and small bilateral pleural effusions. IMPRESSION: Basilar atelectasis and tiny pleural effusions.
--- NOTE | 2017-12-25 22:36 | DI.VRAD_ITS ---
EXAM: XR Chest, 2 Views CLINICAL HISTORY: 77 years old, female; Signs and symptoms; Fever; Prior surgery; Surgery date: <1 month; Surgery type: Bowel resection. HX colon ca; Patient HX: Rigors, chils. Pt has had bowel resection within the last 2 weeks TECHNIQUE: Frontal and lateral views of the chest. COMPARISON: CT - CHEST ABD PELVIS WITH CONTRAST 2017-12-09 09:48 FINDINGS: Lungs: Bibasilar atelectasis. Pleural space: Suspect small right effusion No pneumothorax. Heart: Unremarkable. No cardiomegaly. Mediastinum: Unremarkable. Bones/joints: Degenerative changes throughout the spine. Vasculature: Atherosclerotic calcification of the aorta without aneurysm. Upper abdomen: There appears to be free air in the upper abdomen as described on prior abdomen study of 12/25/2015. This may have increased slightly. IMPRESSION: 1. Suspected free intraperitoneal air is increased relative to study of 12/24/2017. 2. Bibasilar atelectasis. 3. Small right effusion. Dictated and Authenticated by: Dutch Doll MD. Ordering:YAAKOV WARNER MD
[2017-12-25 22:40] LABS: ESR 93 MM/HR (0-30)
[2017-12-25] MEDS: Haloperidol 5 MG/ML VIAL 1 MG IM (22:41)
--- NOTE | 2017-12-25 22:45 | DI.VRAD_ITS ---
EXAM: CT Head Without Intravenous Contrast CLINICAL HISTORY: 77 years old, female; Signs and symptoms; Altered mental status/memory loss; Confusion or disorientation; Patient HX: Acute confusion, new dx colon ca TECHNIQUE: Axial computed tomography images of the head/brain without intravenous contrast. All CT scans at this facility use one or more dose reduction techniques, viz.: automated exposure control; ma/kV adjustment per patient size (including targeted exams where dose is matched to indication; i.e. head); or iterative reconstruction technique. Coronal and sagittal reformatted images were created and reviewed. COMPARISON: No relevant prior studies available. FINDINGS: Brain: Mild chronic age-related ischemic white matter disease. No hemorrhage. Ventricles: Mild prominence of the ventricular system compatible with volume loss/atrophy. Bones/joints: Unremarkable. No acute fracture. Soft tissues: Unremarkable. Sinuses: Unremarkable as visualized. No acute sinusitis. Mastoid air cells: Unremarkable as visualized. No mastoid effusion. IMPRESSION: No acute findings. Mild atrophy with chronic age-related ischemic white matter disease. Dictated and Authenticated by: Dutch Doll MD. Ordering:YAAKOV WARNER MD
[2017-12-25] MEDS: Haloperidol 5 MG/ML VIAL 2 MG IM (23:36)
[2017-12-26] VITALS (106 sets, daily range): BP systolic 60–171; BP diastolic 12–98; PULSE 63–168; RESP 9–40; TEMP 36.4–37.4; O2SAT 78–99
[2017-12-26] MEDS: Normal Saline 1,000 ML 1000 ML IV ×2 (00:10→19:35)
[2017-12-26] MEDS: Haloperidol 5 MG/ML VIAL 2 MG IM (01:19)
[2017-12-26] MEDS: Normal Saline 1,000 ML 200 ML IV (01:40)
[2017-12-26] MEDS: Metoprolol 5 MG/5 ML VIAL IVP (05:03)
[2017-12-26 07:19] LABS: HCT 32.4 % (36.0-46.0); HGB 10.8 g/dL (12.0-15.5); Mean Corp. HGB Concentration 33.3 g/dL (32.0-36.0); Mean Corpuscular Hemoglobin 31.4 pg (27.0-33.0); Mean Corpuscular Volume 94.2 fL (80-95); Mean Platelet Volume 11.3 fL (8.0-11.0); RBC 3.44 m/cumm (4.00-5.20); RBC Distribution Width 13.2 % (11.7-14.6); White Blood Cell Count 12.53 k/cumm (4.4-10.8)
--- NOTE | 2017-12-26 07:40 | MERGE_ITS ---
*[facility]* *[facility]* [address] [place] [address] Date of study: 12/26/2017 Transthoracic Echocardiography M-mode, complete 2D, complete spectral Doppler, and color Doppler *STUDY CONCLUSIONS* Summary: 1. Left ventricle: The cavity size was normal. Wall thickness was increased in a pattern of mild LVH. Systolic function was hyperdynamic. The estimated ejection fraction was 65-70%. 2. Right ventricle: The cavity size was normal. Wall thickness was normal. The moderator band was prominent. Systolic function was normal. 3. Atrial septum: No defect or patent foramen ovale was identified. 4. Pulmonary arteries: Pulmonary systolic pressure was in the range of 45mm Hg to 55mm Hg. 5. Inferior vena cava: The vessel was normal in size. The respirophasic diameter changes were in the normal range (greater than or equal to 50%), consistent with normal central venous pressure. *PATIENT PRESENTATION* Height: 167.6cm ((66in) ) S/D Pressure: 103 / 69 Weight: 79.4kg ((174.6lb) ) BSA: 1.94m^2 Test start time: 07:40 AM. Test stop time: 08:46 AM. PERFORMING Unknown ORDERING Kirill Dugan REFERRING Kirill Dugan PERFORMING [facility] CLERICAL PROOFREADER RT Asaf (R)([email or web address])PEREZ *PROCEDURE DATA* Procedure information: The patient was identified by two identifiers. This study was interpreted by [facility]. Pertinent images and digital data are archived for permanent storage and are available for subsequent review. No prior study was available for comparison. Study status: Routine. Transthoracic echocardiography. M-mode, complete 2D, complete spectral Doppler, and color Doppler. A Transthoracic Echocardiogram was performed. Scanning was performed from the parasternal, apical, subcostal, and suprasternal notch acoustic windows. Images were obtained using an [id number] cardiac ultrasound machine. Image quality was adequate. Study completion: The patient tolerated the procedure well. History: PMH: EKG changes. Post of ileus. Heartburn in elderly female. *CARDIAC ANATOMY* Left ventricle: The cavity size was normal. Wall thickness was increased in a pattern of mild LVH. Systolic function was hyperdynamic. The estimated ejection fraction was 65-70%. The tissue Doppler parameters were normal. Diastolic parameters were normal for age. There was no evidence of elevated ventricular filling pressure by Doppler parameters. Aortic valve: Probably trileaflet; mildly thickened, mildly calcified leaflets. Doppler: There was no stenosis. There was no regurgitation. VTI ratio of LVOT to aortic valve: 0.7. Valve area (VTI): 2cm^2. Indexed valve area (VTI): 1.1cm^2/m^2. Peak velocity ratio of LVOT to aortic valve: 0.71. Valve area (Vmax): 2.1cm^2. Indexed valve area (Vmax): 1.1cm^2/m^2. Mean velocity ratio of LVOT to aortic valve: 0.87. Valve area (Vmean): 2.5cm^2. Indexed valve area (Vmean): 1.3cm^2/m^2. Mean gradient (S): 6.8mm Hg. Peak gradient (S): 13mm Hg. Aorta: Aortic root: The aortic root was normal in size. Ascending aorta: The ascending aorta was normal in size. Mitral valve: Doppler: There was no evidence for stenosis. There was no significant regurgitation. Valve area by pressure half-time: 11.7cm^2. Indexed valve area by pressure half-time: 6cm^2/m^2. Left atrium: The atrium was normal in size. Atrial septum: No defect or patent foramen ovale was identified. Right ventricle: The cavity size was normal. Wall thickness was normal. The moderator band was prominent. Systolic function was normal. Pulmonic valve: Doppler: There was no evidence for stenosis. There was trivial regurgitation. Peak gradient (S): 10.9mm Hg. Tricuspid valve: Doppler: There was mild regurgitation. Pulmonary artery: Poorly visualized. Pulmonary systolic pressure was in the range of 45mm Hg to 55mm Hg. Right atrium: The atrium was normal in size. Pericardium: There was no significant pericardial effusion. Systemic veins: Inferior vena cava: Poorly visualized. The vessel was normal in size. The respirophasic diameter changes were in the normal range (greater than or equal to 50%), consistent with normal central venous pressure. Baseline ECG: Tachycardia. Measurements Left ventricle Value Reference LV ID, ED, PLAX (L) 3.4 cm 3.5 - 6.0 LV ID, ES, PLAX 2.4 cm 2.1 - 4.0 LV PW thickness, ED, PLAX 1.1 cm LV end-diastolic volume, 1-p A2C 26 ml LV ejection fraction, 1-p A2C 62 % LV end-diastolic volume, 1-p A4C 40 ml LV ejection fraction, 1-p A4C 70 % LV e', medial 0.075 m/sec LV E/e', medial 8 Ventricular septum Value Reference IVS thickness, ED, PLAX 1.3 cm LVOT Value Reference LVOT ID, A-P 1.9 cm LVOT area 2.9 cm^2 LVOT peak velocity, S 1.28 m/sec LVOT mean velocity, S 1.08 m/sec LVOT VTI, S 17.3 cm LVOT peak gradient, S 6.5 mm Hg LVOT mean gradient, S 4.9 mm Hg Stroke volume (SV), LVOT DP 50 ml Stroke index (SV/bsa), LVOT DP 26 ml/m^2 Aortic valve Value Reference Aortic valve peak velocity, S 1.8 m/sec Aortic valve mean velocity, S 1.23 m/sec Aortic valve VTI, S 24.5 cm Aortic mean gradient, S 6.8 mm Hg Aortic peak gradient, S 13 mm Hg VTI ratio, LVOT/AV 0.7 Aortic valve area, VTI 2 cm^2 Velocity ratio, peak, LVOT/AV 0.71 Aortic valve area, peak velocity 2.1 cm^2 Velocity ratio, mean, LVOT/AV 0.87 Aortic valve area, mean velocity 2.5 cm^2 Aortic valve area/bsa, mean velocity 1.3 cm^2/m^2 Aorta Value Reference Aortic root ID, ED 2.9 cm Ascending aorta ID, A-P, S 3.1 cm RVOT Value Reference RVOT VTI, S 14.3 cm Left atrium Value Reference LA ID, A-P, ES 3.6 cm LA ID/bsa, A-P 1.8 cm/m^2 <=2.2 LA area, ES, A4C 14.3 cm^2 8.8 - 23.4 LA area, ES, A2C 14 cm^2 LA volume/bsa, ES, 1-p A4C 21 ml/m^2 LA volume, ES, 2-p 34 ml LA volume/bsa, ES, 2-p 17 ml/m^2 LA/aortic root ratio 1.22 Mitral valve Value Reference Mitral E-wave peak velocity 0.64 m/sec Mitral A-wave peak velocity 1.19 m/sec Mitral deceleration time (L) 65 ms 150 - 230 Mitral pressure half-time 19 ms Mitral E/A ratio, peak 0.54 Mitral valve area, PHT, DP 11.7 cm^2 Pulmonary veins Value Reference Pulmonary vein peak velocity, S 0.44 m/sec Tricuspid valve Value Reference Tricuspid regurg peak velocity 3.4 m/sec Tricuspid peak RV-RA gradient 45.1 mm Hg Right atrium Value Reference RA area, ES, A4C 8.7 cm^2 8.3 - 19.5 Pulmonic valve Value Reference Pulmonic peak gradient, S 10.9 mm Hg Legend: (L) and (H) kendall values outside specified reference range. I have personally reviewed the images and have reviewed and edited the reported findings. Electronically signed by Benny Rodrigues MD 12/26/2017 10:24
[2017-12-26 07:47] LABS: ALT 74 U/L (14-59); AST 63 U/L (15-37); Albumin 1.6 g/dL (3.4-5.0); Alkaline Phosphatase 150 U/L (46-116); Anion Gap 11.8 mmol/L (3-11); BUN 17 mg/dL (7-18); Bilirubin, Total 1.59 mg/dL (0.2-1.0); CO2 21.2 mmol/L (21.0-32.0); CREATININE 1.09 mg/dL (0.55-1.02); Calcium 7.6 mg/dL (8.5-10.1); Chloride 104 mmol/L (98-107); Estimated GFR 48.55 (mL/min/1.73m2); Glucose 136 mg/dL (70-100); Potassium 3.8 mmol/L (3.5-5.1); Sodium 137 mmol/L (136-145)
[2017-12-26 08:23] LABS: Troponin I 0.06 ng/mL (0.00-0.06)
[2017-12-26 08:47] LABS: Hemoglobin A1C 5.5 % (4.5-6.2)
[2017-12-26] MEDS: Omnipaque 350 MG/ML 50 ML BTL PO (08:58)
[2017-12-26 08:59] LABS: Lipase 54 U/L (73-393)
[2017-12-26] MEDS: Breeza Beverage 473 ML BTL PO ×2 (08:59→09:00)
[2017-12-26] MEDS: Pantoprazole 40 MG VIAL IVP (09:44)
[2017-12-26] MEDS: Normal Saline Flush 10 ML SYR IVP ×2 (09:44→20:34)
--- NOTE | 2017-12-26 10:15 | PDOC.PROG ---
Date of Service: 12/26/17 Time of Service: 07:15 Assessment/Plan - Assessment/Plan (1) Postoperative ileus Assessment: POST-operative ileus. New onset of confusion, rigors and temp last night I am worried about a small leak no although up until last night she had had no fevers and her abdomen was soft and NT Now has bandemia as well. Plan: CT scan ABDO and pelvis ordered. Patient may need to go back to surgery for exploration History of Present Illness - History of Present Illness Chief Complaint: POst-op Ilesu History of Present Illness: Events of last night reviewed. Patient became very confused. She had rigors last night as well. Repeat WBC count last night did show bandemia which is new from yesterday morning. Patient vomited after eating a clear liquid tray last night. This morning patient is still very confused, trying to get out of bed. keeps stating that she needs to get dressed and go to [place]. No Bm's since yesterday afternoon. NO flatus, but patient is not a reliable historian at this point. Review of Systems - Review of Systems Constitutional: Fever. denies: Chills, Sweats, Weakness, Malaise, Other Respiratory: denies: Cough, Dry, Shortness of Breath, Hemoptysis, SOB with Excertion, Pleuritic Pain, Sputum, Wheezing, Other Cardiovascular: denies: Chest Pain, Palpitations, Orthopnea, Paroxysmal Noc. Dyspnea, Edema, Light Headedness, Other Gastrointestinal: Vomiting. denies: Nausea, Abdominal Pain, Diarrhea, Constipation, Melena, Hematochezia - Medications/Allergies Allergies/Adverse Reactions: Allergies Allergy/AdvReac Type Severity Reaction Status Date / Time No Known Allergies Allergy Unverified 12/24/17 05:29 Medications: Current Medications Hydralazine HCl (Apresoline Injection) 10 mg IVP Q6H PRN PRN Sodium Chloride (Saline 1000ml Bag) 1,000 mls @ 150 mls/hr IV INFUSION [facility] Last Admin: 12/26/17 01:40 Dose: 200 mls/hr Piperacillin/Tazobactam/ (Dextrose 3.375 gm/ Device) 50 mls @ 100 mls/hr IVPB Q6H [facility] IV Miscellaneous Supplies () 1 each IV DIRECTED [facility] Miscellaneous Medication (Breeza Tropical Fruit Flavor) 473 ml PO DIRECTED [facility] Last Admin: 12/26/17 09:00 Dose: 473 ml Nitroglycerin (Nitrostat) 0.4 mg SL Q5 MIN PRN X3 PRN PRN Reason: Chest Pain Last Admin: 12/24/17 20:27 Dose: 0.4 mg Ondansetron HCl (Zofran Injection) 4 mg IVP Q4H PRN PRN Pantoprazole Sodium (Protonix Injection) 40 mg IVP BID [facility] Last Admin: 12/26/17 09:44 Dose: 40 mg Sodium Chloride (Saline Flush 10 Ml Syringe) 0 ml IVP PRN PRN Last Admin: 12/26/17 09:44 Dose: 20 ml Objective - Exam Vitals and I&O: Vital Signs Temp 37.4 C 12/26/17 07:10 Pulse 117 H 12/26/17 07:10 Resp 19 12/26/17 07:10 BP 109/74 12/26/17 07:10 Pulse Ox 92 L 12/26/17 07:10 Intake & Output 12/25/17 12/25/17 12/26/17 11:59 23:59 11:59 Intake Total 1306 1457 1901 Output Total 525 1050 150 Balance 933 191 0822 Intake: IV 1026 1457 1901 Oral 280 Output: Gastric Drainage 0 Right Nare 0 Urine 525 550 150 Emesis 500 Other: Urine Color Light Calista Yellow Dark Calista Urine Appearance Clear Clear Clear Urine Odor Normal Strong Comment Unable to send for UA, contaminated with stool. Amt in hat from previous void. Stool Size Small Smear Moderate Stool Characteristics Soft Brown Black Emesis Description Bile Fecal Voiding Methods Toilet Toilet General: Alert, Mild distress, Other (confused) Lungs: Clear to auscultation. denies: Normal air movement, Other Cardiovascular: Regular rate (tachycradic) Abdomen: Other (absent BS, more distended and firm then yesterday) Extremities: denies: Clubbing, Cyanosis, Edema, Normal pulses, Tenderness/swelling, Other Psych/Mental Status: Other (confused) - Results Results: Laboratory Results WBC 12.53 k/cumm (4.4-10.8) H D 12/26/17 06:32 RBC 3.44 m/cumm (4.00-5.20) L 12/26/17 06:32 Hgb 10.8 g/dL (12.0-15.5) L 12/26/17 06:32 Hct 32.4 % (36.0-46.0) L 12/26/17 06:32 MCV 94.2 fL (80-95) 12/26/17 06:32 MCH 31.4 pg (27.0-33.0) 12/26/17 06:32 MCHC 33.3 g/dL (32.0-36.0) 12/26/17 06:32 RDW 13.2 % (11.7-14.6) 12/26/17 06:32 Plt Count 250 x1000/uL (130-400) 12/26/17 06:32 MPV 11.3 fL (8.0-11.0) H 12/26/17 06:32 Immature Gran % 0.0 12/25/17 21:45 Neutrophils % 34.0 12/25/17 21:45 Lymphocytes % 7.0 12/25/17 21:45 Monocytes % 7.0 12/25/17 21:45 Eosinophils % 1.0 12/25/17 21:45 Basophils % 0.0 12/25/17 21:45 Absolute Neutrophils 3.14 k/cumm (1.2-6.7) 12/25/17 21:45 Band Neutrophils 47.0 % 12/25/17 21:45 Absolute Lymphocytes 0.27 k/cumm (1.2-3.4) L 12/25/17 21:45 Absolute Monocytes 0.27 k/cumm (0.11-0.7) 12/25/17 21:45 Absolute Eosinophils 0.04 k/cumm (0.0-0.7) 12/25/17 21:45 Absolute Basophils 0.00 k/cumm (0.0-0.2) 12/25/17 21:45 Metamyelocytes 4.0 % 12/25/17 21:45 Differential Comment Manual differential 12/25/17 21:45 Atypical Lymphocytes 0 12/25/17 21:45 RBC Morphology See below 12/25/17 21:45 Anisocytosis 2+ 12/25/17 21:45 ESR 93 MM/HR (0-30) H 12/25/17 21:45 Sodium 137 mmol/L (136-145) 12/26/17 06:32 Potassium 3.8 mmol/L (3.5-5.1) 12/26/17 06:32 Chloride 104 mmol/L (98-107) 12/26/17 06:32 Carbon Dioxide 21.2 mmol/L (21.0-32.0) 12/26/17 06:32 Anion Gap 11.8 mmol/L (3-11) H 12/26/17 06:32 BUN 17 mg/dL (7-18) 12/26/17 06:32 Creatinine 1.09 mg/dL (0.55-1.02) H 12/26/17 06:32 Estimated GFR/1.73 m2 48.55 (mL/min/1.73m2) 12/26/17 06:32 Glucose 136 mg/dL (70-100) H 12/26/17 06:32 Hemoglobin A1c 5.5 % (4.5-6.2) 12/25/17 21:45 Calcium 7.6 mg/dL (8.5-10.1) L 12/26/17 06:32 Magnesium 1.8 mg/dL (1.8-2.4) 12/25/17 06:05 Total Bilirubin 1.59 mg/dL (0.2-1.0) H 12/26/17 06:32 AST 63 U/L (15-37) H 12/26/17 06:32 ALT 74 U/L (14-59) H 12/26/17 06:32 Alkaline Phosphatase 150 U/L (46-116) H 12/26/17 06:32 Troponin I 0.06 ng/mL (0.00-0.06) 12/26/17 06:23 C-Reactive Protein 17.25 mg/dL (0.0-0.3) H 12/25/17 21:45 Total Protein 5.0 g/dL (6.4-8.2) L 12/26/17 06:32 Albumin 1.6 g/dL (3.4-5.0) L 12/26/17 06:32 Triglycerides 133 mg/dL (30-150) 12/25/17 06:05 Total Cholesterol 133 mg/dL (50-200) 12/25/17 06:05 LDL Cholesterol Direct 94 mg/dL (<100) 12/25/17 06:05 HDL Cholesterol 15 mg/dL (40-60) L 12/25/17 06:05 Lipase 54 U/L (73-393) L 12/26/17 06:32 TSH 1.41 uIU/mL (0.358-3.74) 12/25/17 21:45 Urine Color Yellow (Yellow) 12/25/17 21:27 Urine Clarity Clear 12/25/17 21: Urine pH 6.0 (5-8) 12/25/17 21:27 Ur Specific [place] >= 1.030 (1.005-1.025) H 12/25/17 21:27 Urine Protein 100 mg/dL (Negative) H 12/25/17 21:27 Urine Ketones Negative mg/dL (Negative) 12/25/17 21: Urine Blood Small (Negative) H 12/25/17 21:27 Urine Nitrite Negative (Negative) 12/25/17 21:27 Urine Bilirubin Negative (Negative) 12/25/17 21:27 Urine Urobilinogen 0.2 EU/dL (Up TO 0.2) 12/25/17 21:27 Ur Leukocyte Esterase Negative (Negative) 12/25/17 21:27 Urine RBC 0-2 (0-2) 12/25/17 21:27 Urine WBC 3-5 HPF (0-5) 12/25/17 21:27 Ur Epithelial Cells Many HPF (Negative) 12/25/17 21:27 Urine Crystals Negative HPF (Negative) 12/25/17 21:27 Urine Bacteria Few HPF (Negative) 12/25/17 21:27 Urine Casts Negative LPF (Negative) 12/25/17 21:27 Urine Mucus Negative (Negative) 12/25/17 21:27 Ur Culture Indicated? C&s done as ordered 12/25/17 21:27 Urine Glucose 250 mg/dL (Negative) H 12/25/17 21:27 Path Cons Comment Cancelled 12/25/17 21:45
--- NOTE | 2017-12-26 10:28 | DI.RPTCT_ITS ---
SYMPTOM/DIAGNOSIS: POST OPERATIVE ILEUS, NOT RESOLVING CT ABDOMEN AND PELVIS: Comparison is made with 09 Dec 2017. The patient is status post right hemicolectomy. Images were performed from the lung bases through the ischial tuberosities after IV and oral contrast. There are small to moderate size bilateral pleural effusions and adjacent atelectasis. No definite consolidation is seen. The stomach and proximal small bowel are markedly distended. There is gradual tapering of the bowel, normal caliber bowel distally. The colon is decompressed. The area of the anastomosis appears grossly intact. There is no evidence of obstruction at the level of the anastomosis. There is fluid in the pelvis and surrounding the liver containing multiple bubbles of free air. A Sultana catheter is noted in the bladder which is decompressed. No focal abscess is identified. Multiple low density lesions are again noted in the spleen. The liver, gallbladder, pancreas, adrenals and kidneys are unremarkable. IMPRESSION: Large quantity of fluid in the abdomen and pelvis with large amount of free air. The area of the anastomosis appears grossly intact. There is dilatation of the stomach and proximal small bowel. No definite focal transition point is identified.
--- NOTE | 2017-12-26 10:36 | PDOC.PROG ---
Date of Service: 12/25/17 Time of Service: 23:00 History of Present Illness - History of Present Illness History of Present Illness: Additional note; After my preliminary evaluation for rigors and confusion the patient became hypotensive and febrile. Head CT and CXR WNL, WBC now elevated, exam unchanged, H/H elevated. She appears to be volume depleted and impending sepsis, likely from abdominal process. Will fluid resuscitate, place julio, start empiric Zosyn, hold metoprolol. Staff advised to call general surgery for abd pain, worsening of condition, recurrent fever, etc. Total duration of critical care 110 minutes. Review of Systems - Review of Systems Respiratory: denies: Cough, Shortness of Breath Cardiovascular: denies: Chest Pain Gastrointestinal: denies: Nausea, Vomiting, Abdominal Pain, Diarrhea Neurological: Confusion. denies: Weakness, Incoordination, Change in Speech - Medications/Allergies Allergies/Adverse Reactions: Allergies Allergy/AdvReac Type Severity Reaction Status Date / Time No Known Allergies Allergy Unverified 12/24/17 05:29 Medications: Current Medications Hydralazine HCl (Apresoline Injection) 10 mg IVP Q6H PRN PRN Sodium Chloride (Saline 1000ml Bag) 1,000 mls @ 150 mls/hr IV INFUSION [facility] Last Admin: 12/26/17 01:40 Dose: 200 mls/hr Piperacillin/Tazobactam/ (Dextrose 3.375 gm/ Device) 50 mls @ 100 mls/hr IVPB Q6H [facility] IV Miscellaneous Supplies () 1 each IV DIRECTED [facility] Miscellaneous Medication (Breeza Tropical Fruit Flavor) 473 ml PO DIRECTED [facility] Last Admin: 12/26/17 09:00 Dose: 473 ml Nitroglycerin (Nitrostat) 0.4 mg SL Q5 MIN PRN X3 PRN PRN Reason: Chest Pain Last Admin: 12/24/17 20:27 Dose: 0.4 mg Ondansetron HCl (Zofran Injection) 4 mg IVP Q4H PRN PRN Pantoprazole Sodium (Protonix Injection) 40 mg IVP BID [facility] Last Admin: 12/26/17 09:44 Dose: 40 mg Sodium Chloride (Saline Flush 10 Ml Syringe) 0 ml IVP PRN PRN Last Admin: 12/26/17 09:44 Dose: 20 ml Objective - Exam Vitals and I&O: Vital Signs Temp 37.4 C 12/26/17 07:10 Pulse 117 H 12/26/17 07:10 Resp 19 12/26/17 07:10 BP 109/74 12/26/17 07:10 Pulse Ox 92 L 12/26/17 07:10 Intake & Output 12/25/17 12/25/17 12/26/17 11:59 23:59 11:59 Intake Total 1306 1457 1921 Output Total 525 1050 150 Balance 737 211 2617 Intake: IV 1026 1457 1921 Oral 280 Output: Gastric Drainage 0 Right Nare 0 Urine 525 550 150 Emesis 500 Other: Urine Color Light Calista Yellow Dark Calista Urine Appearance Clear Clear Clear Urine Odor Normal Strong Comment Unable to send for UA, contaminated with stool. Amt in hat from previous void. Stool Size Small Smear Moderate Stool Characteristics Soft Brown Black Emesis Description Bile Fecal Voiding Methods Toilet Toilet General: Alert, Cooperative, No acute distress. denies: Oriented x3 Lungs: Clear to auscultation Cardiovascular: Regular rate. denies: Murmurs Abdomen: Soft, Tenderness (exam unchanged, soft abdomen with mild diffuse tenderness, no peritoneal signs). denies: Normal bowel sounds Extremities: denies: Edema - Results Results: Laboratory Results WBC 12.53 k/cumm (4.4-10.8) H D 12/26/17 06:32 RBC 3.44 m/cumm (4.00-5.20) L 12/26/17 06:32 Hgb 10.8 g/dL (12.0-15.5) L 12/26/17 06:32 Hct 32.4 % (36.0-46.0) L 12/26/17 06:32 MCV 94.2 fL (80-95) 12/26/17 06:32 MCH 31.4 pg (27.0-33.0) 12/26/17 06:32 MCHC 33.3 g/dL (32.0-36.0) 12/26/17 06:32 RDW 13.2 % (11.7-14.6) 12/26/17 06:32 Plt Count 250 x1000/uL (130-400) 12/26/17 06:32 MPV 11.3 fL (8.0-11.0) H 12/26/17 06:32 Immature Gran % 0.0 12/25/17 21:45 Neutrophils % 34.0 12/25/17 21:45 Lymphocytes % 7.0 12/25/17 21:45 Monocytes % 7.0 12/25/17 21:45 Eosinophils % 1.0 12/25/17 21:45 Basophils % 0.0 12/25/17 21:45 Absolute Neutrophils 3.14 k/cumm (1.2-6.7) 12/25/17 21:45 Band Neutrophils 47.0 % 12/25/17 21:45 Absolute Lymphocytes 0.27 k/cumm (1.2-3.4) L 12/25/17 21:45 Absolute Monocytes 0.27 k/cumm (0.11-0.7) 12/25/17 21:45 Absolute Eosinophils 0.04 k/cumm (0.0-0.7) 12/25/17 21:45 Absolute Basophils 0.00 k/cumm (0.0-0.2) 12/25/17 21:45 Metamyelocytes 4.0 % 12/25/17 21:45 Differential Comment Manual differential 12/25/17 21:45 Atypical Lymphocytes 0 12/25/17 21:45 RBC Morphology See below 12/25/17 21:45 Anisocytosis 2+ 12/25/17 21:45 ESR 93 MM/HR (0-30) H 12/25/17 21:45 Sodium 137 mmol/L (136-145) 12/26/17 06:32 Potassium 3.8 mmol/L (3.5-5.1) 12/26/17 06:32 Chloride 104 mmol/L (98-107) 12/26/17 06:32 Carbon Dioxide 21.2 mmol/L (21.0-32.0) 12/26/17 06:32 Anion Gap 11.8 mmol/L (3-11) H 12/26/17 06:32 BUN 17 mg/dL (7-18) 12/26/17 06:32 Creatinine 1.09 mg/dL (0.55-1.02) H 12/26/17 06:32 Estimated GFR/1.73 m2 48.55 (mL/min/1.73m2) 12/26/17 06:32 Glucose 136 mg/dL (70-100) H 12/26/17 06:32 Hemoglobin A1c 5.5 % (4.5-6.2) 12/25/17 21:45 Calcium 7.6 mg/dL (8.5-10.1) L 12/26/17 06:32 Magnesium 1.8 mg/dL (1.8-2.4) 12/25/17 06:05 Total Bilirubin 1.59 mg/dL (0.2-1.0) H 12/26/17 06:32 AST 63 U/L (15-37) H 12/26/17 06:32 ALT 74 U/L (14-59) H 12/26/17 06:32 Alkaline Phosphatase 150 U/L (46-116) H 12/26/17 06:32 Troponin I 0.06 ng/mL (0.00-0.06) 12/26/17 06:23 C-Reactive Protein 17.25 mg/dL (0.0-0.3) H 12/25/17 21:45 Total Protein 5.0 g/dL (6.4-8.2) L 12/26/17 06:32 Albumin 1.6 g/dL (3.4-5.0) L 12/26/17 06:32 Triglycerides 133 mg/dL (30-150) 12/25/17 06:05 Total Cholesterol 133 mg/dL (50-200) 12/25/17 06:05 LDL Cholesterol Direct 94 mg/dL (<100) 12/25/17 06:05 HDL Cholesterol 15 mg/dL (40-60) L 12/25/17 06:05 Lipase 54 U/L (73-393) L 12/26/17 06:32 TSH 1.41 uIU/mL (0.358-3.74) 12/25/17 21:45 Urine Color Yellow (Yellow) 12/25/17 21:27 Urine Clarity Clear 12/25/17 21:27 Urine pH 6.0 (5-8) 12/25/17 21:27 Ur Specific [place] >= 1.030 (1.005-1.025) H 12/25/17 21:27 Urine Protein 100 mg/dL (Negative) H 12/25/17 21:27 Urine Ketones Negative mg/dL (Negative) 12/25/17 21:27 Urine Blood Small (Negative) H 12/25/17 21:27 Urine Nitrite Negative (Negative) 12/25/17 21:27 Urine Bilirubin Negative (Negative) 12/25/17 21:27 Urine Urobilinogen 0.2 EU/dL (Up TO 0.2) 12/25/17 21:27 Ur Leukocyte Esterase Negative (Negative) 12/25/17 21:27 Urine RBC 0-2 (0-2) 12/25/17 21:27 Urine WBC 3-5 HPF (0-5) 12/25/17 21:27 Ur Epithelial Cells Many HPF (Negative) 12/25/17 21:27 Urine Crystals Negative HPF (Negative) 12/25/17 21:27 Urine Bacteria Few HPF (Negative) 12/25/17 21:27 Urine Casts Negative LPF (Negative) 12/25/17 21:27 Urine Mucus Negative (Negative) 12/25/17 21:27 Ur Culture Indicated? C&s done as ordered 12/25/17 21:27 Urine Glucose 250 mg/dL (Negative) H 12/25/17 21:27 Path Cons Comment Cancelled 12/25/17 21:45
--- NOTE | 2017-12-26 10:41 | PDOC.PROG_ITS ---
Date of Service: 12/25/17 Time of Service: 23:00 History of Present Illness - History of Present Illness History of Present Illness: Additional note; After my preliminary evaluation for rigors and confusion the patient became hypotensive and febrile. Head CT and CXR WNL, WBC now elevated, exam unchanged, H/H elevated. She appears to be volume depleted and impending sepsis, likely from abdominal process. Will fluid resuscitate, place julio, start empiric Zosyn , hold metoprolol. Staff advised to call general surgery for abd pain, worsening of condition, recurrent fever, etc. Total duration of critical care 110 minutes. Review of Systems - Review of Systems Respiratory: denies: Cough, Shortness of Breath Cardiovascular: denies: Chest Pain Gastrointestinal: denies: Nausea, Vomiting, Abdominal Pain, Diarrhea Neurological: Confusion. denies: Weakness, Incoordination, Change in Speech - Medications/Allergies Allergies/Adverse Reactions: Allergies Allergy/AdvReac Type Severity Reaction Status Date / Time No Known Allergies Allergy Unverified 12/24/17 05:29 Medications: Current Medications Hydralazine HCl (Apresoline Injection) 10 mg IVP Q6H PRN PRN Sodium Chloride (Saline 1000ml Bag) 1,000 mls @ 150 mls/hr IV INFUSION [facility] Last Admin: 12/26/17 01:40 Dose: 200 mls/hr Piperacillin/Tazobactam/ (Dextrose 3.375 gm/ Device) 50 mls @ 100 mls/hr IVPB Q6H [facility] IV Miscellaneous Supplies () 1 each IV DIRECTED [facility] Miscellaneous Medication (Breeza Tropical Fruit Flavor) 473 ml PO DIRECTED [facility] Last Admin: 12/26/17 09:00 Dose: 473 ml Nitroglycerin (Nitrostat) 0.4 mg SL Q5 MIN PRN X3 PRN PRN Reason: Chest Pain Last Admin: 12/24/17 20:27 Dose: 0.4 mg Ondansetron HCl (Zofran Injection) 4 mg IVP Q4H PRN PRN Pantoprazole Sodium (Protonix Injection) 40 mg IVP BID [facility] Last Admin: 12/26/17 09:44 Dose: 40 mg Sodium Chloride (Saline Flush 10 Ml Syringe) 0 ml IVP PRN PRN Last Admin: 12/26/17 09:44 Dose: 20 ml Objective - Exam Vitals and I&O: Vital Signs Temp 37.4 C 12/26/17 07:10 Pulse 117 H 12/26/17 07:10 Resp 19 12/26/17 07:10 BP 109/74 12/26/17 07:10 Pulse Ox 92 L 12/26/17 07:10 Intake & Output 12/25/17 12/25/17 12/26/17 11:59 23:59 11:59 Intake Total 1306 1457 1921 Output Total 525 1050 150 Balance 256 687 6818 Intake: IV 1026 1457 1921 Oral 280 Output: Gastric Drainage 0 Right Nare 0 Urine 525 550 150 Emesis 500 Other: Urine Color Light Calista Yellow Dark Calista Urine Appearance Clear Clear Clear Urine Odor Normal Strong Comment Unable to send for UA, contaminated with stool. Amt in hat from previous void. Stool Size Small Smear Moderate Stool Characteristics Soft Brown Black Emesis Description Bile Fecal Voiding Methods Toilet Toilet General: Alert, Cooperative, No acute distress. denies: Oriented x3 Lungs: Clear to auscultation Cardiovascular: Regular rate. denies: Murmurs Abdomen: Soft, Tenderness (exam unchanged, soft abdomen with mild diffuse tenderness, no peritoneal signs). denies: Normal bowel sounds Extremities: denies: Edema - Results Results: Laboratory Results WBC 12.53 k/cumm (4.4-10.8) H D 12/26/17 06:32 RBC 3.44 m/cumm (4.00-5.20) L 12/26/17 06:32 Hgb 10.8 g/dL (12.0-15.5) L 12/26/17 06:32 Hct 32.4 % (36.0-46.0) L 12/26/17 06:32 MCV 94.2 fL (80-95) 12/26/17 06:32 MCH 31.4 pg (27.0-33.0) 12/26/17 06:32 MCHC 33.3 g/dL (32.0-36.0) 12/26/17 06:32 RDW 13.2 % (11.7-14.6) 12/26/17 06:32 Plt Count 250 x1000/uL (130-400) 12/26/17 06:32 MPV 11.3 fL (8.0-11.0) H 12/26/17 06:32 Immature Gran % 0.0 12/25/17 21:45 Neutrophils % 34.0 12/25/17 21:45 Lymphocytes % 7.0 12/25/17 21:45 Monocytes % 7.0 12/25/17 21:45 Eosinophils % 1.0 12/25/17 21:45 Basophils % 0.0 12/25/17 21:45 Absolute Neutrophils 3.14 k/cumm (1.2-6.7) 12/25/17 21:45 Band Neutrophils 47.0 % 12/25/17 21:45 Absolute Lymphocytes 0.27 k/cumm (1.2-3.4) L 12/25/17 21:45 Absolute Monocytes 0.27 k/cumm (0.11-0.7) 12/25/17 21:45 Absolute Eosinophils 0.04 k/cumm (0.0-0.7) 12/25/17 21:45 Absolute Basophils 0.00 k/cumm (0.0-0.2) 12/25/17 21:45 Metamyelocytes 4.0 % 12/25/17 21:45 Differential Comment Manual differential 12/25/17 21:45 Atypical Lymphocytes 0 12/25/17 21:45 RBC Morphology See below 12/25/17 21:45 Anisocytosis 2+ 12/25/17 21:45 ESR 93 MM/HR (0-30) H 12/25/17 21:45 Sodium 137 mmol/L (136-145) 12/26/17 06:32 Potassium 3.8 mmol/L (3.5-5.1) 12/26/17 06:32 Chloride 104 mmol/L (98-107) 12/26/17 06:32 Carbon Dioxide 21.2 mmol/L (21.0-32.0) 12/26/17 06:32 Anion Gap 11.8 mmol/L (3-11) H 12/26/17 06:32 BUN 17 mg/dL (7-18) 12/26/17 06:32 Creatinine 1.09 mg/dL (0.55-1.02) H 12/26/17 06:32 Estimated GFR/1.73 m2 48.55 (mL/min/1.73m2) 12/26/17 06:32 Glucose 136 mg/dL (70-100) H 12/26/17 06:32 Hemoglobin A1c 5.5 % (4.5-6.2) 12/25/17 21:45 Calcium 7.6 mg/dL (8.5-10.1) L 12/26/17 06:32 Magnesium 1.8 mg/dL (1.8-2.4) 12/25/17 06:05 Total Bilirubin 1.59 mg/dL (0.2-1.0) H 12/26/17 06:32 AST 63 U/L (15-37) H 12/26/17 06:32 ALT 74 U/L (14-59) H 12/26/17 06:32 Alkaline Phosphatase 150 U/L (46-116) H 12/26/17 06:32 Troponin I 0.06 ng/mL (0.00-0.06) 12/26/17 06:23 C-Reactive Protein 17.25 mg/dL (0.0-0.3) H 12/25/17 21:45 Total Protein 5.0 g/dL (6.4-8.2) L 12/26/17 06:32 Albumin 1.6 g/dL (3.4-5.0) L 12/26/17 06:32 Triglycerides 133 mg/dL (30-150) 12/25/17 06:05 Total Cholesterol 133 mg/dL (50-200) 12/25/17 06:05 LDL Cholesterol Direct 94 mg/dL (<100) 12/25/17 06:05 HDL Cholesterol 15 mg/dL (40-60) L 12/25/17 06:05 Lipase 54 U/L (73-393) L 12/26/17 06:32 TSH 1.41 uIU/mL (0.358-3.74) 12/25/17 21:45 Urine Color Yellow (Yellow) 12/25/17 21:27 Urine Clarity Clear 12/25/17 21:27 Urine pH 6.0 (5-8) 12/25/17 21:27 Ur Specific [place] >= 1.030 (1.005-1.025) H 12/25/17 21:27 Urine Protein 100 mg/dL (Negative) H 12/25/17 21:27 Urine Ketones Negative mg/dL (Negative) 12/25/17 21:27 Urine Blood Small (Negative) H 12/25/17 21:27 Urine Nitrite Negative (Negative) 12/25/17 21:27 Urine Bilirubin Negative (Negative) 12/25/17 21:27 Urine Urobilinogen 0.2 EU/dL (Up TO 0.2) 12/25/17 21:27 Ur Leukocyte Esterase Negative (Negative) 12/25/17 21:27 Urine RBC 0-2 (0-2) 12/25/17 21:27 Urine WBC 3-5 HPF (0-5) 12/25/17 21:27 Ur Epithelial Cells Many HPF (Negative) 12/25/17 21:27 Urine Crystals Negative HPF (Negative) 12/25/17 21:27 Urine Bacteria Few HPF (Negative) 12/25/17 21:27 Urine Casts Negative LPF (Negative) 12/25/17 21:27 Urine Mucus Negative (Negative) 12/25/17 21:27 Ur Culture Indicated? C&s done as ordered 12/25/17 21:27 Urine Glucose 250 mg/dL (Negative) H 12/25/17 21:27 Path Cons Comment Cancelled 12/25/17 21:45
[2017-12-26 10:59] LABS: Absolute Lymphocyte Count 1.38 k/cumm (1.2-3.4); Absolute Monocyte Count 1.38 k/cumm (0.11-0.7); Absolute Neutrophil Count 9.52 k/cumm (1.2-6.7)
[2017-12-26] MEDS: Omnipaque 350 MG/ML 100 ML BTL IJ (10:59)
[2017-12-26 11:00] LABS: Diff Comment Manual Differential; Nucleated RBC 1 /100WBC
[2017-12-26 11:02] LABS: Platelet Count 250 x1000/uL (130-400)
[2017-12-26] MEDS: Lactated Ringers 1,000 ML 1900 ML IV (13:07)
[2017-12-26] MEDS: Propofol 200 MG/20 ML VIAL 50 MG IV (13:10)
[2017-12-26] MEDS: Ondansetron 4 MG/2 ML VIAL IV (13:10)
[2017-12-26] MEDS: Ketamine 500 MG/5 ML VIAL 40 MG IV (13:10)
[2017-12-26] MEDS: Succinylcholine 100 MG/5 ML SYR IV (13:10)
[2017-12-26] MEDS: Dexamethasone 4 MG/ML VIAL IV (13:10)
[2017-12-26] MEDS: Rocuronium 50 MG/5 ML SYR 70 MG IV (13:25)
[2017-12-26] MEDS: Lidocaine 1% Pres-Free 5 ML VIAL 30 ML (13:35)
[2017-12-26] MEDS: Phenylephrine 10 MG/ML VIAL 16 MG IV (13:40)
--- NOTE | 2017-12-26 14:23 | BOWEL_PTH ---
PATIENT: Vannessa Grant LOC: U#:[id number] AGE/SX: 77/F ROOM: RE12/24/[address]: Gregor Ceja DO : 1940 BED: A DIS: 01/06/2018 SPEC #: [id number] RECD: 12/26/17 18:23 STATUS: JUAN REQ #: [id number] HORTENSIA: 12/26/17 14:[address]: Gregor Ceja DEPT: Surgical Specimen RECD BY: Chiquis Nash ENTERED: 12/26/17 18:24 SP TYPE: Bowel OTHR DR: MD Stuart Lugo Timothy Tissues: 1 - BOWEL RESECTION(OTHER) Procedures: GROSS AND MICRO LEVEL 5 Comments: [id number]
[2017-12-26] MEDS: Lactated Ringers 1,000 ML 800 ML IV (15:26)
--- NOTE | 2017-12-26 15:34 | PGE_ITS ---
DATE OF SERVICE: December 26, 2017 ASSESSMENT AND PLAN: #1. Sepsis. Suspected sepsis based on development of a fever, tachycardia, leukocytosis with signif icant bandemia, and a new unexplained altered mental status, with suspected infectious source being i ntraabdominal. Patient also with significant hypotension overnight. Continue aggressive IV fluid resuscitation. The patient was started on piperacillin/tazobactam by th e covering physician overnight. Plan per Surgery is for continuation of n.p.o. status and surgical e valuation of her abdomen. Will await results of this. #2. Heartburn. Following workup that included EKG, echocardiogram, and telemetry monitoring, unlike ly that the patient's symptoms represent ischemia. Will recommend that after the patient's acute gunjan nts are over consideration may be given to further workup with stress testing, likely as an outpatien t. For now continue b.i.d. PPI. SUBJECTIVE: Pleasant 77-year-old woman admitted to [facility] with probable small bowel obstruction versus postoperative ileus following a right-sided hemicolectomy. Following hospitalization, the patient developed supraventricular tachycardia, with the Medicine Serv ice consulted for further evaluation. She was also found to have heartburn and some mild changes on EKG, with a concern for possible underlying ischemia. The patient under went further evaluation with negative serial troponins, was started on a cardiac regimen without anticoagulation, and echocardiog cheo was also obtained. Following reinitiation of a liquid diet yesterday, Mrs. Grant went on to develop significant vomiting again. Overnight she also went to develop confusion, rigors, and hypotension with tachycardia. At t hat time her antihypertensive regimen was discontinued appropriately and she was started on aggressiv e IV fluid resuscitation. White count this morning appears elevated with a significant bandemia. PHYSICAL EXAM: General: The patient is awake and alert but does appear confused and off of her baseline. Vitals: Temperature 37.1 with a T-max of 38.3 overnight. Blood pressure 103/69 with a range of 92 t o 116, down from prior values yesterday that were mainly in the 150s to 170s range. Pulse oximetry 9 2% on room air. Heart rate 124 at last check. Neck: Supple. CV: Regular, tachycardic. Pulm: Clear to auscultation on somewhat limited anterior and lateral exam. Abdomen: Bowel sounds are further diminished than prior exam, increased distention noted since yeste rday but continues to be soft. Diffuse tenderness also noted. Vascular: No overt lower extremity edema noted. LABS: Sodium 137, potassium 3.8, chloride 104, bicarb 21, BUN 17, creatinine 1.09. LFTs elevated wi th an AST of 63, ALT of 74, alkaline phosphatase of 150. White count now increased at 12.53 with 22% segs and 54 bands, 11 lymphocytes, 11 monocytes. Urine without evidence of nitrite or leukocyte esterase. STUDIES: #1. CT of the abdomen and pelvis: Large quantity of fluid in the abdomen and pelvis with a large am ount of free air. The area of the anastomosis appears grossly intact. There is distention of the st omach and proximal small bowel. No definitive focal transition point is identified. #2. Echocardiogram performed 12/26/17: Normal LV systolic function. Hyperdynamic mild LVH. Normal R V systolic function. Pulmonary arterial pressures of 45-55. No mention of wall motion abnormalities . #3. Chest x-ray: Basilar atelectasis and tiny pleural effusions. #4. Head CT: Official read from [facility] with no acute findings. Mild atrophy and chronic age-related ischemic white matter disease.
[2017-12-26] MEDS: Bupivacaine 0.25% Pres-Free 30 ML VIAL (15:51)
--- NOTE | 2017-12-26 16:30 | PDOC.CMPRO ---
Care Management Progress Note S/O: Vannessa had a challenging night last night. She was confused, vomiting and febrile with rigors last night. Vannessa was brought to the OR today for exploration. Undetermined course at this time. A: 77 year old female admitted to [facility] 12/24/17 for Post Operative Ileus P: Undetermined course at this time. CM will continue to monitor need for further discharge considerations. She will likely transport home via private vehicle with her friend, Katherin and may require increased services.
--- NOTE | 2017-12-26 16:33 | CMPROGNOTE_ITS ---
Care Management Progress Note S/O: Vannessa had a challenging night last night. She was confused, vomiting and febrile with rigors last night. Vannessa was brought to the OR today for exploration. Undetermined course at this time. A: 77 year old female admitted to [facility] 12/24/17 for Post Operative Ileus P: Undetermined course at this time. CM will continue to monitor need for further discharge considerations. She will likely transport home via private vehicle with her friend, Katherin and may require increased services.
[2017-12-26 17:14] LABS: Abs Immature Grans 0.13 k/cumm (0.0-0.09); HCT 35.9 % (36.0-46.0); HGB 11.8 g/dL (12.0-15.5); Mean Corp. HGB Concentration 32.9 g/dL (32.0-36.0); Mean Corpuscular Volume 94.2 fL (80-95); Mean Platelet Volume 10.8 fL (8.0-11.0); Platelet Count 274 x1000/uL (130-400); RBC 3.81 m/cumm (4.00-5.20); RBC Distribution Width 13.9 % (11.7-14.6); White Blood Cell Count 13.14 k/cumm (4.4-10.8)
[2017-12-26 17:22] LABS: Anion Gap 13.2 mmol/L (3-11); BUN 21 mg/dL (7-18); CO2 17.8 mmol/L (21.0-32.0); CREATININE 1.39 mg/dL (0.55-1.02); Calcium 7.6 mg/dL (8.5-10.1); Chloride 104 mmol/L (98-107); Estimated GFR 36.67 (mL/min/1.73m2); Glucose 134 mg/dL (70-100); Magnesium 2.2 mg/dL (1.8-2.4); Sodium 135 mmol/L (136-145)
[2017-12-26 17:47] LABS: Absolute Lymphocyte Count 1.05 k/cumm (1.2-3.4); Absolute Monocyte Count 0.79 k/cumm (0.11-0.7); Absolute Neutrophil Count 10.77 k/cumm (1.2-6.7); Atypical Lymphocytes % 0
--- NOTE | 2017-12-26 21:52 | ROE_ITS ---
DATE: December 26, 2017 PREOPERATIVE DIAGNOSIS: Abdominal abscess. POSTOPERATIVE DIAGNOSIS: Anastomotic leak with abscess. PROCEDURES: #1. Diagnostic laparoscopy converted to exploratory laparotomy with single enterotomy repair. #2. Diverting loop ileostomy. SURGEON: Gregor Ceja D.O. EMPLOYEE RELATIONS MANAGER: Chanda Bañuelos M.D. ANESTHESIA: General by Hasmukh Perdue CRNA ASA III Mallampati class II Local 1% lidocaine, 0.25% Bupivicaine, 1.3% exparel ESTIMATED BLOOD LOSS: 100 mL SPECIMEN: Anastomosis. 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 She did well after the surgery and was discharged in two days, tolerating a diet, afebrile, up walking around. On postop day #5 she returned to the Emergency Room with what was believed to be a postoperative ileus. She was admitted and treated conservatively but failed to improve. A CT scan performed earlier in the day of surgery did demonstrate a few large fluid collections, one in the pelvis and one above the liver with air-fluid levels in this concerning for an abscess. No definitive leak was seen of the anastomosis and no other area of potential perforation was identified. It was recommended she undergo diagnostic laparoscopy and possible exploratory laparotomy. The risks and benefits were discussed with her and consent was obtained to proceed. FINDINGS: On entering the abdomen, the proximal small bowel was still dilated though the stomach had been decompressed by OG tube placement. The fluid collection in the pelvis and above the liver was noted to be a lot of bilious fluid with a lot of inflammatory phlegmon present. I could not see the anastomosis due to the omentum overlying it. Given these findings, the procedure was converted to an open procedure. The anastomosis was exposed and a leak was identified, though the size and whether it had been walled off was undetermined due to the further injury by exposing it. The anastomosis was subsequently redone and a diverting ileostomy was performed. PROCEDURE: The patient was brought to the preanesthesia staging area where identification was confirmed and consent signed. Prior to bringing her to the Operating Room an OG tube had been placed with decompression of the stomach and over 3 liters of fluid being drained. She was then brought to the Operating Room and positioned supine. A Sultana catheter had been placed prior to being brought to the Operating Room when she was on Med/Surg. Sequential compression devices were placed. An endotracheal tube was placed and sedation was titrated for effect. Once adequate sedation was reached her abdomen was prepped with ChloraPrep and block draped in a standard sterile fashion. Her arms were tucked at her side. All bony prominences were padded. I began by making a stab incision in the left upper quadrant in the midclavicular line subcostally. A Veress needle was introduced in the abdomen. The abdomen was then insufflated to 18 mmHg without apparent incident. I then placed a 5-mm trocar in the left upper quadrant through a prior trocar incision site. Under direct visualization this was advanced into the abdomen. I inspected the area under my trocar insertion and saw no apparent injury. I examined the Veress needle insertion site and saw no injury. I examined the abdomen and the bowel was still fairly distended. I could see the fluid collection present over the liver and when closely examined there was a lot of inflammatory exudate and fluid. I placed a second 5-mm trocar at the level of the umbilicus in the anterior axillary line under direct visualization. Once this was in place, I did take down most of the filmy inflammatory adhesions over the liver. I evacuated a large amount of fluid. It was murky bilious colored. No mary stool was seen. I could not see the anastomosis due to the omentum overlying this. I then lifted the pelvis and saw again more murky fluid with inflammatory adhesions present. I tried to evacuate as much fluid as I could and take the adhesions as much as possible though in doing this I did not spend an inordinate amount of time to be able to visualize the anastomosis. It was hanson now so I proceeded to open the abdomen which was left insufflated but I turned my attention to a prior linear transverse incision in the right upper quadrant just above the umbilicus. I opened this incision and carried it down to the anterior rectus fascia. I divided this and then continue through the posterior fascia which had been closed. Once these were opened, I extended the skin and fascial incision laterally past the fascia into the transversalis fascia and through the internal/external oblique musculature. Medially this was extended past the midline into the left rectus anterior and posterior fascia for approximately 2 cm. This allowed good visualization. We then started to peel back the omentum overlying the anastomosis. In doing so , I did free up the anastomosis which had a lot of inflammation around it. In so doing, I did enter the anastomosis causing a tear. It was clear that there had been a leak from this though the size was unobtainable as now I did cause an almost complete tear of anastomosis from the large bowel to the terminal ileum, so I am not able to describe how large the leak was. There were a lot of inflammatory markers around this, a lot of shotty looking like it had leaked. I do think the leak had been contained but due to the amount of inflammation this clearly needed to be repaired even prior to my injuring it further. Once this was found, I then ran the small bowel from the anastomotic site to the ligament of Treitz. I saw only one small serosal tear which was repaired in limbric fashion with #3-0 silk sutures. There was some inflammatory exudate over the bowel. I removed as I possibly could easily without causing any further injury. I then turned my attention to repairing the ileocolo anastomosis. It looked like there might have been some ischemia in the small bowel part which could have caused a small leak though unsure. I did trim back the small and large bowel probably 4 to 5 cm on each end to healthy tissue. Windows were created in the mesentery on each side and an EndoGIA linear cutting stapler 75-mm long with 3.8-mm ankit was used to divide and create new ends and the stumps were passed off. I cleared the mesentery back long enough to make viable anastomotic ends of the small bowel and colon. I then created an end-to-end sewn anastomosis with the small bowel placed next to the transverse colon without tension. A posterior line of silk limbric sutures was placed. Then the staple lines were divided. Then, using a #2-0 Vicryl suture, I did full- thickness suturing of the posterior bowel schuster and sewed those together placing two sutures, one running from the center laterally to the left, and the other running to the right, sewing out laterally until I inverted the suture, and then started going from outside to inside, inside to outside. I then started running my suture back on itself, closing the anterior wall again with an outside to inside, inside to outside closures. Once I had brought both sides to the center of the outside full-thickness stitch, I tied these off, and leak tested the anastomosis. I then closed the anterior with a second layer of silk limbric sutures across. With my anastomosis done and leak tested, I then irrigated out the abdomen. I irrigated out over the liver, evacuating any fluid collection and washing out as much fibrinous material as possible. I continued that with the pelvis and then over the spleen, trying to evacuate many pockets, and then 3 liters of saline were used to wash out the abdomen until the effluent was fairly clear on evacuation. With the abdomen evacuated, I created my ileostomy site two fingerbreadths below the umbilicus and two fingerbreadths lateral to the right of the umbilicus. The skin was grasped with an Allis clamp and elevated. A 10 blade suture was used to create a circular defect in the skin. I then removed the fat with a cylinder running down to the fascia. A cruciate incision was made in the anterior rectus fascia and I used #0 Vicryl sutures to tag each corner of the cruciate. Once that was done, I created a hole in the posterior rectus fascia, brought the limbus loop of small bowel up through this, positioning it so it was not twisted. I then reinspected the anastomosis and made sure there was no bleeding. I closed the posterior rectus fascia and lateral fascia using #0 Vicryl suture in a running suture, midline running lateral to the right. I did create a second midline suture of #0 Vicryl suture running from midline to the left, closing the small defect, and running over the midline. Once the posterior rectus fascia was closed, the anterior rectus fascia was closed using #1 Vicryl suture in [id number] stitches. The skin was closed using ankit. I then matured the ostomy. The #0 Vicryl suture that I had used for stay sutures for the corners of the cruciate incision were then tacked in four-point fixation to the serosa of the ileostomy at the fascia level. Then using #3-0 Vicryl sutures to tack down the ileostomy edges after the antimesenteric border was opened using cautery, full-thickness bites were obtained through the edges in four quadrants and tacked down to the fascia through the serosa into the skin. Once this was done, I then filled in the spaces in between using a full- thickness suture through the stoma and to the skin. With this having been completed, an ostomy bag was attached. Prior to closure of the abdominal wound , the OG tube had been replaced with an NG tube and the new NG tube was placed in the body of the stomach manually by palpation. The patient was extubated in the Operating Room and brought directly to the ICU. All counts were recorded as correct.There were no apparent complications. The patient tolerated the procedure well.
[2017-12-27] VITALS (106 sets, daily range): BP systolic 71–133; BP diastolic 39–98; PULSE 85–126; RESP 10–37; TEMP 36.3–37; O2SAT 92–97
[2017-12-27] MEDS: Normal Saline Flush 10 ML SYR IVP ×4 (02:54→18:58)
--- NOTE | 2017-12-27 04:49 | NUR.NOTE ---
Nursing Note: Patient receiving Phenylephrine--order is to titrate--Unable to titrate in [place]. Nursing detail supervisor, IS an Pharmacy notified--they are unable to fix titration in emar at this time. Follwoing are titration doses and times for Phenylephrine: 2158 - 55 mcg/min 2220 - 60 mcg/min 2310 - 65 mcg/min 2330 - 70 mcg/min 0035 - 75 mcg/min 0130 - 80 mcg/min 0240 - 85 mcg/min
[2017-12-27] MEDS: Lactated Ringers 1,000 ML 125 ML IV ×3 (06:43→19:52)
[2017-12-27 07:19] LABS: Anion Gap 13.5 mmol/L (3-11); BUN 25 mg/dL (7-18); CO2 17.5 mmol/L (21.0-32.0); CREATININE 1.35 mg/dL (0.55-1.02); Calcium 7.1 mg/dL (8.5-10.1); Chloride 107 mmol/L (98-107); Estimated GFR 37.93 (mL/min/1.73m2); Glucose 101 mg/dL (70-100); Magnesium 2.1 mg/dL (1.8-2.4); Potassium 3.8 mmol/L (3.5-5.1); Sodium 138 mmol/L (136-145)
[2017-12-27 07:41] LABS: HCT 29.6 % (36.0-46.0); HGB 9.8 g/dL (12.0-15.5); Mean Corp. HGB Concentration 33.1 g/dL (32.0-36.0); Mean Corpuscular Hemoglobin 30.6 pg (27.0-33.0); Mean Corpuscular Volume 92.5 fL (80-95); Mean Platelet Volume 11.2 fL (8.0-11.0); Platelet Count 286 x1000/uL (130-400); RBC Distribution Width 13.7 % (11.7-14.6); White Blood Cell Count 24.78 k/cumm (4.4-10.8)
[2017-12-27 07:55] LABS: Absolute Lymphocyte Count 1.24 k/cumm (1.2-3.4); Absolute Monocyte Count 0.99 k/cumm (0.11-0.7); Absolute Neutrophil Count 22.55 k/cumm (1.2-6.7); Burr Cells (echinocyte) 2+; Polychromasia Present
[2017-12-27 07:56] LABS: Diff Comment Manual Differential
--- NOTE | 2017-12-27 09:19 | PDOC.CMPRO ---
Date of Service: 12/27/17 Time of Service: 09:20 Care Management Progress Note S/O:CM met with patient at the bedside. She is pleasant with occasional smile, she states she is feeling a little better. She has a NG tube she is unaware of the ileostomy and some of the most recent events leading up to surgery. She continues to require ICU level of care anticipate no changes in status today. CM completed chart review, participated in multidisciplinary rounds and met consulted with primary nurse r/t A: 77 year old female admitted to [facility] 12/24/17 for Post Operative Ileus, s/p ileostomy on 12/26/17 P: Discharge plan to be determined anticipate pt will return home with increase in services through [facility]. CM will continue to monitor need for further discharge considerations. Anticipate new home health services for nursing, OT and PT. She will likely transport home via private vehicle with her friend, Katherin.
--- NOTE | 2017-12-27 09:22 | CMPROGNOTE_ITS ---
Date of Service: 12/27/17 Time of Service: 09:20 Care Management Progress Note S/O:CM met with patient at the bedside. She is pleasant with occasional smile, she states she is feeling a little better. She has a NG tube she is unaware of the ileostomy and some of the most recent events leading up to surgery. She continues to require ICU level of care anticipate no changes in status today. CM completed chart review, participated in multidisciplinary rounds and met consulted with primary nurse r/t A: 77 year old female admitted to [facility] 12/24/17 for Post Operative Ileus, s/p ileostomy on 12/26/17 P: Discharge plan to be determined anticipate pt will return home with increase in services through [facility]. CM will continue to monitor need for further discharge considerations. Anticipate new home health services for nursing, OT and PT. She will likely transport home via private vehicle with her friend, Katherin.
[2017-12-27] MEDS: fentaNYL 100 MCG/2 ML VIAL 50 MCG IVP ×2 (10:18→18:58)
--- NOTE | 2017-12-27 11:15 | CHAPLAIN ---
Vannessa and I remembered each other from her pervious admission, last week. She is bed watching TV when I visit. She tells me she's feeling about the same and can't remember exactly when she was admitted. Vannessa is a member of the [employer], and she said her administration specialist, Rev. Mohit Giles, knows she is here. Vannessa was looking for magazines to read, and we found some for her. She asked me to pray for her.
--- NOTE | 2017-12-27 11:39 | PGE_ITS ---
PROGRESS NOTE DATE OF SERVICE December 27, 2017 at 9 -19 a.m. DIAGNOSIS Ileocolonic anastomotic leak. ASSESSMENT A 77-year-old female stable after repair of anastomotic leak and washout of abdomen with loop ileosto my creation. PLAN Neuro. We have turned off her epidural for now due to blood pressure issues, which seemed to have im proved. She is really not having much pain. She currently has fentanyl ordered if she does need some thing. We will try to limit narcotics to limit confusion. CARDIAC - Aggressively wean her pressors off today. I think that she if she is more awake, she will b e able to tolerate that better. RESPIRATORY - She seems to be doing well. Will continue pulmonary toilet. GASTROINTESTINAL - NG tube is still putting out a large amount. We will continue to watch this and on ce the volumes start dropping off, remove this and start seeing if we can advance her diet once we st art to see some bowel return. GENITOURINARY - Creatinine 1.35, remains stable. Slightly improved from yesterday. Her bicarb remai ns stable. Hopefully, this will improve as we wean off pressors and start reperfusing the kidneys a l ittle better. Will continue to monitor this. VASCULAR - Will continue DVT prophylaxes. INFECTIOUS DISEASE - Will continue her on Zosyn. Cultures are pending, though I suspect this multi m icrobial given the source. White count is elevated today, but not unexpected given the amount of infl ammatory tissue we washed out, so will continue to follow this. LINES AND TUBES - Will continue gastric tube until we start to see this drop off. We may need to plac e a central line today, but if we could wean off pressors today, will plan on PICC line tomorrow. DISPOSITION Continue current care. SUBJECTIVE The patient is stable overnight. Still requiring pressors, but good oxygenation. No nausea or vomiti ng. No fevers. Mentation is better this morning. OBJECTIVE VITAL SIGNS - T-max 37.4, T-current 36.3. Vital signs have been stable. Overnight her MAPS have bee n hovering in the 60s Jae-Synephrine and norepinephrine. The most recent blood pressure shows 103/60 . MAP is 65. Pulse 101. Respiratory rate 34. O2 sats 95% on room air. She had 6 liters in, 1350 out. Overnight she has put out about 1.3 liters in gastric drainage, 600 in urine and 30 out of her ileostomy. GENERAL - She is awake, alert and oriented it appears x3. CHEST - Lungs are clear, diminished at the bases a little. HEART - Heart is regular. ABDOMEN - Abdomen is soft. Tender to palpation over her incisions. Her wound is clean, dry, and int act. Ostomy is pink mostly just sweat in the bag, no air. EXTREMITIES - No clubbing, cyanosis, or edema. INTEGUMENT - Warm and dry. LABS Potassium 3.8, bicarb is 17.5, BUN 25, creatinine 1.35, glucose 101, calcium 7.1, magnesium 2.1 . White count is 24.78 this morning, hemoglobin 9.8, hematocrit 30, platelets 286, 76% neutrophils, 5% lymphs, 4% monos.
--- NOTE | 2017-12-27 14:23 | NUR.NOTE ---
Addendum entered by Alicja Gonzales 12/27/17 14:24: shut off per Dr. Ceja Original Note: 0852 Phenylephrine shut off at this time. BP 138/65, HR 102. 0900 BP 94/75. 0906 113/63 Peña Sweet RN Nursing Note:
--- NOTE | 2017-12-27 18:36 | PROG.BLANK ---
Date of Service: 12/27/17 Time of Service: 18:30 Progress Note POD #1 s/p ex-lap S: Patient is doing OK. Minimal pain. Has had one dose of fentanyl this morning. Mostly complaining of back pain O: VSS AFEB BP are slightly lower then earlier and she is a bit more tachycardic Chest: CTA CVS: RRR ABDO: soft, distended, dressings intact NG with 200 cc bilious discharge in last 2 hours UOP: about 30 cc and hour. STill very dark meryl A: status post exploration. Found an anastamotic leak. Anastamosis redone and diverting loop ileostomy created. P: Continue with monitoring Give a 500 cc bolus of LR Patient may have ice chips, hard candy and chewing gum Continue with NG decompression
[2017-12-27] MEDS: Lactated Ringers 500 ML IV (19:15)
[2017-12-28] VITALS (103 sets, daily range): BP systolic 106–154; BP diastolic 51–120; PULSE 91–115; RESP 17–39; TEMP 36.2–37.2; O2SAT 90–97
[2017-12-28] MEDS: Normal Saline Flush 10 ML SYR IVP ×4 (01:56→15:12)
[2017-12-28] MEDS: Lactated Ringers 1,000 ML 125 ML IV (04:38)
[2017-12-28 07:29] LABS: Abs Immature Grans 0.32 k/cumm (0.0-0.09); HCT 27.1 % (36.0-46.0); HGB 8.9 g/dL (12.0-15.5); Mean Corp. HGB Concentration 32.8 g/dL (32.0-36.0); Mean Corpuscular Volume 94.4 fL (80-95); Platelet Count 227 x1000/uL (130-400); RBC 2.87 m/cumm (4.00-5.20); RBC Distribution Width 13.8 % (11.7-14.6); White Blood Cell Count 20.11 k/cumm (4.4-10.8)
[2017-12-28 07:32] LABS: Anion Gap 13.3 mmol/L (3-11); BUN 24 mg/dL (7-18); CO2 19.7 mmol/L (21.0-32.0); CREATININE 0.95 mg/dL (0.55-1.02); Calcium 7.9 mg/dL (8.5-10.1); Chloride 108 mmol/L (98-107); Estimated GFR 56.89 (mL/min/1.73m2); Glucose 74 mg/dL (70-100); Magnesium 2.1 mg/dL (1.8-2.4); Potassium 3.3 mmol/L (3.5-5.1); Sodium 141 mmol/L (136-145)
[2017-12-28 08:03] LABS: Absolute Monocyte Count 1.21 k/cumm (0.11-0.7)
[2017-12-28 08:04] LABS: Diff Comment Manual Differential; Polychromasia Present
[2017-12-28] MEDS: POTASSIUM CHLORIDE/D5-0.45NACL 1,000 ML 125 MEQ IV ×2 (09:19→19:55)
--- NOTE | 2017-12-28 13:14 | DI.REPORT_ITS ---
SYMPTOMS/DIAGNOSIS: PICC LINE PLACEMENT CONFIRMATION PORTABLE CHEST: Comparison is made with [id number]. A PICC line has been inserted via the left arm. The tip projects in the upper right atrium. The PICC line should be pulled back 4-5 cm. There are stable bilateral pleural effusions. The free air previously visible is no longer seen. An nasogastric tube is in place. IMPRESSION: PICC line is positioned in the right atrium. Stable bilateral pleural effusions.
--- NOTE | 2017-12-28 13:59 | DI.REPORT_ITS ---
SYMPTOMS/DIAGNOSIS: PICC LINE PLACEMENT CONFIRMATION PORTABLE CHEST: Comparison is made with the exam performed earlier the same day. The PICC line has been pulled back and now lies in the lower SVC. There is no evidence of pneumothorax. There are stable bilateral pleural effusions. There has been no change in the positioning of the nasogastric tube, projecting in the stomach. IMPRESSION: Satisfactory placement of left sided PICC line. Stable bilateral pleural effusions.
--- NOTE | 2017-12-28 15:52 | PDOC.ANES ---
Date of Service: 12/28/17 Time of Service: 15:52 Anesthesia Note - Report Anesthesia Note: Patient upstairs doing well. She c/o pain 1/10 when supine. Upon ambulation, pain is tolerable per patient. Decision made to remove epidural catheter. Pt. moved to lateral position, dressing removed, noted scant amount of serous drainage from insertion site. Catheter tip intact after easy removal without resistance. Site cleaned with alcohol prep, 2x2 gauze and band aide placed over site. Advised RN to contact anesthesia if any concerns arise (spinal headache etc). Pt. has no complaints of numbness/tingling in lower extremities and no back discomfort. Last dose of Heparin > 6 hours ago. Epidural solution returned to pharmacy.
--- NOTE | 2017-12-28 16:04 | PDOC.CMPRO ---
Care Management Progress Note S/O: Vannessa remains in ICU at this time. She had a long day, visiting with visitors and speaking on the phone most of the morning and then spending hours this afternoon getting her PICC line inserted. She was sleeping soundly when CM attempted to meet with her, Johnie was in agreement to allow Vannessa to rest. A: 77 year old female admitted to [facility] 12/24/17 for Post Operative Ileus P: Undetermined course at this time. CM will continue to monitor need for further discharge considerations. She will likely transport home via private vehicle with her friend, Katherin and will likely require increased services.
--- NOTE | 2017-12-28 20:08 | PGE_ITS ---
DATE: December 28, 2017 ASSESSMENT: Gnhbays-whkaf-sequ-old female doing well after repair of anastomotic leak and diverting loop ileostomy. PLAN: #1. Neuro. Spoke with Anesthesia. Plan for removal of epidural today if pain remains minimal. Flavio l try to minimize any narcotics for any confusion. #2. Cardiac. Continue cardiac monitoring. Blood pressure much improved. Will continue to watch ta chycardia but I think this will improve as we get her more mobilized. #3. Respiratory. On room air and seems to be doing well. Will watch fluid and try to decrease this , don't want to overload her. #4. GI. Awaiting start of bowel function. Her NG tube output is dropping off. Will do a clamping trial today and remove the tube. Possibly start her on diet tomorrow if her ostomy continues to incr ease its output. May start TPN at the same time as I think she needs more nutrition. #5. . Creatinine improved to <1. Continue to monitor. Might need to give her some Lasix to [place] more fluid. #6. Nutrition/electrolytes. Will replace potassium today. Recheck this tomorrow. Consider startin g TPN. Try to limit her overall fluids though I think she needs nutrition and will try to start her on a diet also. #7. Lines/tubes. Will have a PICC line placed today in anticipation of possible TPN though she seem s to be doing well. #8. Infectious Disease. Will continue on IV antibiotics. White count continues to improve. She wi ll probably need to continue on at least a two-week regimen. #9. Disposition. Continue current care. Possible transfer to floor tomorrow. DIAGNOSIS: Anastomotic leak with sepsis. SUBJECTIVE: The patient did well overnight. No nausea or vomiting. NG tube putting out over a lite r. No fever or chills. Pain under good control. OBJECTIVE: VITAL SIGNS: T-max 37.2, T-current 36.2. Remainder of vital signs have been stable. Most recent set of vital signs: Blood pressure 137/60, MAP is 79. Pulse 101. Respiratory rate 32. O2 saturation is 96% on room air. She is up fairly significantly on weight with her current weight 92.5 kg, up from 79.1 kg yesterday. GENERAL: She is awake, alert, appropriate. LUNGS: Diminished at the bases. HEART: Regular, a little tachy. ABDOMEN: Soft, nondistended. Tender to palpation over incision. Ostomy is pink and patent. INTEGUMENT: Warm and dry. LABS: Potassium 3.3, chloride 108, CO2 19.7, BUN 24, creatinine 0.95, glucose 74, calcium 7.9, magne sium 2.1. White count 20.11 today, hemoglobin 8.9, hematocrit 27, platelets 227,000, 85% neutrophils.
[2017-12-29] VITALS (29 sets, daily range): BP systolic 120–163; BP diastolic 61–131; PULSE 80–110; RESP 17–35; TEMP 36–36.9; O2SAT 92–98
[2017-12-29] MEDS: POTASSIUM CHLORIDE/D5-0.45NACL 1,000 ML 125 MEQ IV (05:18)
[2017-12-29] MEDS: Normal Saline Flush 10 ML SYR IVP ×2 (05:41→08:17)
[2017-12-29 07:02] LABS: Abs Immature Grans 0.31 k/cumm (0.0-0.09); HCT 24.7 % (36.0-46.0); HGB 8.1 g/dL (12.0-15.5); Mean Corp. HGB Concentration 32.8 g/dL (32.0-36.0); Mean Corpuscular Hemoglobin 30.9 pg (27.0-33.0); Mean Corpuscular Volume 94.3 fL (80-95); Mean Platelet Volume 10.8 fL (8.0-11.0); Platelet Count 225 x1000/uL (130-400); RBC 2.62 m/cumm (4.00-5.20); RBC Distribution Width 13.7 % (11.7-14.6); White Blood Cell Count 15.86 k/cumm (4.4-10.8)
[2017-12-29 07:17] LABS: Anion Gap 6.7 mmol/L (3-11); BUN 20 mg/dL (7-18); CO2 24.3 mmol/L (21.0-32.0); CREATININE 0.86 mg/dL (0.55-1.02); Calcium 7.3 mg/dL (8.5-10.1); Chloride 107 mmol/L (98-107); Glucose 130 mg/dL (70-100); Potassium 3.9 mmol/L (3.5-5.1); Sodium 138 mmol/L (136-145)
[2017-12-29 07:23] LABS: Absolute Eosinophil Count 0.63 k/cumm (0.0-0.7); Absolute Lymphocyte Count 0.63 k/cumm (1.2-3.4); Absolute Monocyte Count 0.32 k/cumm (0.11-0.7); Absolute Neutrophil Count 14.12 k/cumm (1.2-6.7); Atypical Lymphocytes % 1; Diff Comment Manual Differential; Polychromasia Present
[2017-12-29] MEDS: Furosemide 20 MG/2 ML VIAL IVP (08:16)
[2017-12-29 09:17] LABS: Bilirubin, Total 1.47 mg/dL (0.2-1.0)
--- NOTE | 2017-12-29 10:24 | IN_ITS ---
INPATIENT PHYSICAL THERAPY EVALUATION Date:12/29/17 Referring Doctor: Gregor Ceja PT Orders: PT Consult eval/treat post operative strengthening Precautions: Fall precautions PATIENT PROFILE/ADMITTING DIAGNOSIS: Pt is a 77yr old female admitted with post operative ileus s/p right hemicolectomy, during admission she underwent exploratory laparotomy with enterotomy repair and diverting loop ileostomy PMHX: osteopenia, anxiety, right shoulder fracture, knee arthroscopy, neuropathic pain, hyperlipidemia, splenic hemangioma, tubulovillous adenoma cecum, hypothyroidism, vitamin D deficiency, hidrotic ectodermal dysplasia syndrome, hysterectomy, colonoscopy 2x2 Social History/Home Situation: Lives alone in house in [place], 4 steps with railing to enter, baseline mobility independent gait with no device, walking 5 miles per day, independent with ADLS. Was attending [facility] for right hip strengthening prior to admission. Equipment owned/DME: grab bars, hand held shower SUBJECTIVE: Pt sitting on commode, states she cannot go, agreeable to PT consult. States she is very tired because she has not been walking for several days since admission but she want to improve her mobility. OBJECTIVE: General Observation: ileostomy, telemetry, IV, julio catheter, pt was on room air 02 sats 90-95% Mental Status: A& O x3 Pain: c/o pain in abdomen with movement, not rates Vital Signs: room air 90-95% oxygen ROM: RUE: AROM WNL LUE AROM WNL RLE AROM WNL LLE AROM WNL STRENGTH: RUE: 4/5throughout LUE 4/5 throughout RLE 4/5 throughout LLE 4/5 throughout BED MOBILITY/TRANSFERS: Sit-stand: CGA with FWW, cues for hand placement Chair-bed: CGA with FWW Stand-sit: SBA Sit-supine: HOB Flat maxA for LE's into bed GAIT: CGA with FWW 15ft in room. Pt stating she is too tired to mobilize out of room this morning. THEREX Pt sat at edge of bed for sitting therex: long arc quads x 10, hip flexion x 3 bilaterally BALANCE: Static sitting normal Dynamic Sitting normal Static Standing fair Dynamic Standing fair SPECIAL TESTS: Mobility Limitations Standardized Measure [facility] -PAC 6 clicks Basic Mobility Inpatient Short Form: raw score: 18 standardized score: 43.63 CMS score: 46.58% CMS modifier: CK INFORMED CONSENT/EDUCATION: Pt instructed in purpose of PT Consult and plan of care ASSESSMENT: Pt is a 77yr old female admitted with post operative ileus s/p right hemicolectomy, during admission she underwent exploratory laparotomy with enterotomy repair and diverting loop ileostomy 12/26/17 in setting of osteopenia, anxiety, right shoulder fracture, knee arthroscopy, neuropathic pain. Patient presents with the following impairment level findings: generalized weakness post operatively due to immobility, decreased strength with bed mobility requiring assist to get legs into bed, decreased strength with standing transfers and gait requiring FWW for stability due to weakness and decreased standing balance. Pt will benefit from skilled therapy intervention to assist return to prior level of function. May require rehab stay prior to return to home setting. Pt would benefit from FWW for gait stability at discharge. Impairments are contributing to the following functional limitations: AMPAC score CMS score: 46.58% Patient is assessed as a * high [id number] complexity based on the following: History: post operative ileus s/p right hemicolectomy, during admission she underwent exploratory laparotomy with enterotomy repair and diverting loop ileostomy 12/26/17 in setting of osteopenia, anxiety, right shoulder fracture, knee arthroscopy, neuropathic pain. Examination: generalized weakness post operatively due to immobility, decreased strength with bed mobility requiring assist to get legs into bed, decreased strength with standing transfers and gait requiring FWW for stability due to weakness and decreased standing balance. Presentation: evolving Decision Making: AMPAC score CMS score: 46.58% GOALS Goals x1 week 1. Supine-sit: independent 2. Sit-Supine: independent 3. Sit-Stand: independent 4. Stand-sit: independent 5. Bed-chair: supervision with FWW 6. Chair-bed: supervision with FWW 7. Gait: supervision with FWW 75ftx2 8. Stairs: up/down 4 steps with railing, supervision PLAN OF CARE/TREATMENT PLAN: 1-2x/day, 7 days/ week x 1 week Plan of care has been reviewed with the SANITARY AIDE providing the service under Physical therapy direction. Initiate physical therapy intervention for strengthening, bed mobility, transfers, gait, stairs, balance training, use of assistive device. DISCHARGE RECOMMENDATIONS Rehab vs home with home PT, may need FWW at discharge TREATMENT TIME/MINUTES/CODES 20min IE 9:25 G Codes in the area mobility of walking and moving around: current status [id number] -CK projected status GP [id number] . Discharge status ( if discharging) GP [id number] kdkri on AMPAC score CMS score: 46.58% Kati Nayak PT
--- NOTE | 2017-12-29 10:55 | PDOC.CMPRO ---
Date of Service: 12/29/17 Time of Service: 10:55 Care Management Progress Note S/O:CM met with pt at the bedside she states that she is feeling better but still weak. She will continue in the ICU today and have TPN started. Plan to transfer for her on Tuesday to acute status. CM reviewed SB1 with pt for short term rehab here at [facility] after consulting with PT. She would appreciate transition to SB1 here when ready. Pt is at baseline very active she walks daily prior to acute illness. A: 77 year old female admitted to [facility] 12/24/17 for Post Operative Ileus, s/p ileostomy on 12/26/17 P: Pt will continue ICU level of care today anticipate transition to medical surgical unit on Tuesday. Pt will transition to SB1 after her acute stay as recommended by PT. After her SB1 stay she will transition to home with new home health services [facility]. CM will continue to monitor need for further discharge considerations. She will likely transport home via private vehicle with her friend, Marisol-Darlin or family.
--- NOTE | 2017-12-29 11:10 | CMPROGNOTE_ITS ---
Date of Service: 12/29/17 Time of Service: 10:55 Care Management Progress Note S/O:CM met with pt at the bedside she states that she is feeling better but still weak. She will continue in the ICU today and have TPN started. Plan to transfer for her on Tuesday to acute status. CM reviewed SB1 with pt for short term rehab here at [facility] after consulting with PT. She would appreciate transition to SB1 here when ready. Pt is at baseline very active she walks daily prior to acute illness. A: 77 year old female admitted to [facility] 12/24/17 for Post Operative Ileus, s/p ileostomy on 12/26/17 P: Pt will continue ICU level of care today anticipate transition to medical surgical unit on Tuesday. Pt will transition to SB1 after her acute stay as recommended by PT. After her SB1 stay she will transition to home with new home health services [facility]. CM will continue to monitor need for further discharge considerations. She will likely transport home via private vehicle with her friend, Marisol-Darlin or family.
--- NOTE | 2017-12-29 12:06 | NT_ITS ---
OT orders received, however, unable to see due to nursing procedure then PT with patient. Will see tomorrow.
[2017-12-29] MEDS: Acetaminophen 325 MG TAB 650 MG PO ×2 (14:10→22:23)
--- NOTE | 2017-12-29 16:37 | PGE_ITS ---
DATE: December 29, 2017 ASSESSMENT: [age]ia[age]vbnvc[age]ief-old woman continuing to improve after repair of anastomotic leak with diverting ileostomy. PLANS: #1. Neuro. Epidural catheter removed. She is not requiring much for pain medication now that she i s receiving Tylenol. We will convert this to p.o. Will add in other pain medications if needed. Fo r now will keep the IV Tylenol and supplement with Dilaudid as needed. Minimized confusion. #2. Cardiac. Blood pressure much improved though her urine output is still low and her weight is sl ightly up. Will try to give her a little Lasix to try to even out her fluid balance. #3. Respiratory. Still is on 2 liters of nasal cannula today. She dropped into the 80s overnight. Will wean oxygen today as she is doing fine. Also Lasix may help with this. #4. GI. Ostomy is starting to work. We will advance her diet. #5. Nutrition and electrolytes. Electrolytes look pretty good. We replaced her potassium yesterday and it looks much better today at 3.9. Magnesium is still good. For nutrition besides advancing he r diet I am going to start TPN for a few days as I don't think she is going to eat a while lot at [facility] and she has been nutritionally deplete for awhile. #6. . Bicarb continues to improve, normalized today at 24. Creatinine is normal at 0.86. Will p onesimo to remove Sultana tomorrow. #7. Musculoskeletal. Will have Physical Therapy and Occupational Therapy work with her for strength ening and ADLs. #8. Infectious Disease. Continue Zosyn for now. Her white count continues to drop. She has been a febrile. #9. Hematology. Hemoglobin is 8.1, some of this is dilutional. I have turned down her fluid rate o nce TPN is started. #10. Lines/tubes. PICC line is in place. We will start using that today. #11. Disposition. Anticipate transfer to floor. DIAGNOSIS: Anastomotic leak. SUBJECTIVE: Postop day #3. The patient did well overnight. NG tube was removed without nausea or v omiting. Ostomy started functioning this morning with some gas and stool in the bag. OBJECTIVE: VITAL SIGNS: T-max 36.0, T-current 36.6. Remainder of vital signs are stable. Please see EMR for t he last 24 hours. Most recent set of vital signs: Blood pressure 156/75, MAP is 96. Pulse 88. Respiratory rate 17. O2 saturation 98% on 2 liters nasal cannula. She has 3.4 liters in yesterday, 2.2 liters out. GENERAL: She is awake, alert, appropriate. LUNGS: Normal air movement, diminished at the bases bilaterally. HEART: Regular. ABDOMEN: Soft. Tender to palpation over incisions. Wound clean, dry, and intact. EXTREMITIES: No clubbing, cyanosis, or edema. INTEGUMENT: Warm and dry. LABS: Potassium 3.9, chloride 107, CO2 24, BUN 20, creatinine 0.86, calcium 7.3, bilirubin 1.47. White count 15.9, hemoglobin 8.1, hematocrit 25, platelets 225,000, 88% neutrophils.
--- NOTE | 2017-12-29 16:52 | NUR.NOTE ---
12/29/17 0077 Peña Sweet RN was in the room with the patient every hour today and emotional support and care was given in helping patient cope with discouragement. Patient had very busy day with medications, assessments, feedings, and needs. Patient was closely monitored and was improving over the course of the shift mentally and physically. IV sites remained intact, dressings CD&I, and patient having appropriate output from ostomy and julio Nursing Note:
[2017-12-30] VITALS (25 sets, daily range): BP systolic 141–189; BP diastolic 76–96; PULSE 84–113; RESP 18–37; TEMP 35.6–37.5; O2SAT 94–98
[2017-12-30] MEDS: Insulin Aspart 300 UNITS/3 ML PEN SC ×2 (00:28→14:12)
[2017-12-30] MEDS: POTASSIUM CHLORIDE/D5-0.45NACL 1,000 ML 75 MEQ IV (00:31)
--- NOTE | 2017-12-30 04:58 | CMPROGNOTE_ITS ---
Date of Service: 12/30/17 Time of Service: 04:58 Care Management Progress Note S/O:CM met with pt at the bedside she is moving better and working with PT. Plan to have pt transition to the medical surgical unit today. She will transition to SB1 for PT and OT when medically ready. A: 77 year old female admitted to [facility] 12/24/17 for Post Operative Ileus, s/p ileostomy on 12/26/17 P: Anticipate pt will transition to medical surgical unit today. Pt will transition to SB1 after her acute stay as recommended by PT. After her SB1 stay she will transition to home with new home health services [facility]. CM will continue to monitor need for further discharge considerations. She will likely transport home via private vehicle with her friend, Marisol-Darlin or family.
[2017-12-30] MEDS: Ondansetron 4 MG/2 ML VIAL IVP (06:11)
[2017-12-30] MEDS: Normal Saline Flush 10 ML SYR IVP ×4 (06:13→15:07)
[2017-12-30 07:23] LABS: Abs Immature Grans 1.45 k/cumm (0.0-0.09); HCT 27.3 % (36.0-46.0); HGB 8.9 g/dL (12.0-15.5); Mean Corp. HGB Concentration 32.6 g/dL (32.0-36.0); Mean Corpuscular Hemoglobin 30.8 pg (27.0-33.0); Mean Corpuscular Volume 94.5 fL (80-95); Mean Platelet Volume 10.8 fL (8.0-11.0); Platelet Count 218 x1000/uL (130-400); RBC 2.89 m/cumm (4.00-5.20); RBC Distribution Width 13.6 % (11.7-14.6); White Blood Cell Count 16.81 k/cumm (4.4-10.8)
[2017-12-30] MEDS: Acetaminophen 325 MG TAB 650 MG PO (07:45)
[2017-12-30 07:47] LABS: ALT 29 U/L (14-59); AST 39 U/L (15-37); Alkaline Phosphatase 169 U/L (46-116); Anion Gap 6.7 mmol/L (3-11); BUN 15 mg/dL (7-18); Bilirubin, Total 1.12 mg/dL (0.2-1.0); CO2 26.3 mmol/L (21.0-32.0); CREATININE 0.72 mg/dL (0.55-1.02); Calcium 7.4 mg/dL (8.5-10.1); Chloride 104 mmol/L (98-107); Glucose 139 mg/dL (70-100); Magnesium 1.5 mg/dL (1.8-2.4); Potassium 3.2 mmol/L (3.5-5.1); Sodium 137 mmol/L (136-145); Total Protein 4.9 g/dL (6.4-8.2)
[2017-12-30 08:02] LABS: Absolute Lymphocyte Count 1.01 k/cumm (1.2-3.4); Absolute Monocyte Count 1.68 k/cumm (0.11-0.7); Absolute Neutrophil Count 13.78 k/cumm (1.2-6.7)
[2017-12-30 08:03] LABS: Diff Comment Manual Differential; Nucleated RBC 3 /100WBC
--- NOTE | 2017-12-30 09:33 | OTIE_ITS ---
INPATIENT OCCUPATIONAL THERAPY EVALUATION Date:12/30/17 Referring Doctor: Gregor Ceja OT Orders: OT Consult post operative strengthening eval/treat Precautions: Fall precautions, standard. PATIENT PROFILE/ADMITTING DIAGNOSIS: Pt is a 77yr old female admitted with post operative ileus s/p right hemicolectomy. During admission she underwent exploratory laparotomy with enterotomy repair and diverting loop ileostomy PMHX: Osteopenia, anxiety, right shoulder fracture, knee arthroscopy, neuropathic pain, hyperlipidemia, splenic hemangioma, tubulovillous adenoma cecum, hypothyroidism, vitamin D deficiency, hidrotic ectodermal dysplasia syndrome, hysterectomy and colonoscopy 2x2 Social History/Home Situation: Lives alone in house in [place], 2 steps then landing and 2 more steps with rails to enter home. One level home with tub shower. Has bars, no bench. Baseline mobility independent gait with no device, walking 5 miles per day, independent with ADLS. Was attending [facility] for right hip strengthening prior to admission. Equipment owned/DME: grab bars, hand held shower SUBJECTIVE: Pt sitting up in chair and agreeable to OT. OBJECTIVE: General Observation: ileostomy, telemetry, IV, julio catheter, Mental Status: A& O x3 Pain: c/o pain in abdomen with movement and back. Rates as achey ROM: RUE: AROM WNL LUE AROM WNL STRENGTH: RUE: 4/5throughout LUE 4/5 throughout FUNCTIONAL MOBILITY/ADLS: Transfers Sit-Stand min assist to come forward in chair, then SBA with v/cs hand placement. Stand-sit SBA with v/cs hand placement. Functional mobility: CGA with FWW. BATHING Bathing UE I Post setup seated. Bathing LE SBA standing post setup for ruy area. Dep. below knees. DRESSING Dressing UE I post setup seated. Dressing LE Max assist. GROOMING I post setup seated. TOILETING Not tested. Julio and ileostomy. EATING I BALANCE: Static sitting N Dynamic Sitting G Static Standing G Dynamic Standing F SPECIAL TESTS: Daily Activity Limitations Standardized Measure [facility] AM -PAC 6 clicks Daily Activity Inpatient Short Form: Raw score: 17 standardized score: 37.26 CMS score: 50.11% CMS modifier: CK INFORMED CONSENT/EDUCATION: Pt instructed in purpose of OT Consult and plan of care. ADLS session completed. ASSESSMENT: Patient is a 77-year-old female, referred to occupational therapy services with diagnosis of post operative ileus s/p right hemicolectomy. Patient presents with clinical signs and symptoms consistent with diagnosis , as demonstrated by the following impairment level findings: Weakness, decreased tolerance to activity, pain, decreased balance. Impairments are contributing to the following functional limitations: Decreased I with transfers , mobility and adls. [facility] score 17 . Patient is assessed as a Low 97161 Moderate 97162__x____ high 97163 complexity based on the following: History: post operative ileus s/p right hemicolectomy.Osteopenia, anxiety, right shoulder fracture, knee arthroscopy, neuropathic pain, hyperlipidemia, splenic hemangioma, tubulovillous adenoma cecum, hypothyroidism, vitamin D deficiency, hidrotic ectodermal dysplasia syndrome, hysterectomy and colonoscopy 2x2 Examination: See eval. Presentation: Evolving Decision Making: [facility] 17 GOALS Goals x1 week 1. Transfers for ADLS i in hospital setting. 2. Dressing I with AE PRN 3. Bathing I with AE PRN 4. Toileting I with AE PRN PLAN OF CARE/TREATMENT PLAN: 1x/day, 5 days/ week x 1week Initiate Occupational Therapy Services for bathing, dressing, grooming, toileting, AE training, transfer training. DISCHARGE RECOMMENDATIONS Swing stay with HH on returning home. TREATMENT TIME/MINUTES/CODES 45 mns 1IE 1 sct G Codes in the area of self- : washing oneself, toileting, dressing, eating and drinking, current status [id number] ____CK___ projected status GP [id number] . Discharge status (if discharging) GP [id number]-
[2017-12-30] MEDS: Furosemide 20 MG/2 ML VIAL IVP (09:45)
--- NOTE | 2017-12-30 10:44 | PDOC.PROG ---
Date of Service: 12/30/17 Time of Service: 10:44 Assessment/Plan - Assessment/Plan (1) Postop check Assessment: POD # 4 s/p repair of anastomotic leak and diverting loop ileostomy. Plan: Encouraged po as tolerated. Labs reviewed. Continue TPN. Discussed adjusting electrolytes in TPN with pharmacist. Pain controlled with epidural d/c'd 12/29/17. To have julio d/c'd today. (2) Peritoneal abscess Assessment: Enterococcus and enterobacter on peritoneal culture. Plan: Monitor WBC. Afebrile. Continue Zosyn. History of Present Illness - History of Present Illness Chief Complaint: s/p repair of anastomotic leak, diverting loop ileostomy 12/26 History of Present Illness: 77 y/o female s/p lap hand-assisted right hemicolectomy 12/20/17. s/p repair of anastomotic leak and diverting loop ileostomy 12/26. Patient c/o feeling tired. Took only small amount of po this am - 1/2 ice cream and 1/2 milk. On TPN. Review of Systems - Medications/Allergies Allergies/Adverse Reactions: Allergies Allergy/AdvReac Type Severity Reaction Status Date / Time No Known Allergies Allergy Unverified 12/24/17 05:29 Medications: Current Medications Acetaminophen (Tylenol) 650 mg PO Q4H PRN PRN Last Admin: 12/30/17 07:45 Dose: 650 mg Fentanyl Citrate (Sublimaze) 50 mcg IVP Q2H PRN PRN Last Admin: 12/27/17 18:58 Dose: 50 mcg Heparin Sodium (Porcine) () 5,000 units SC Q12H [facility] Last Admin: 12/30/17 06:13 Dose: 5,000 units Piperacillin/Tazobactam/ (Dextrose 3.375 gm/ Device) 50 mls @ 100 mls/hr IVPB Q6H [facility] Last Admin: 12/30/17 07:46 Dose: 100 mls/hr Fat Emulsion 250 ml/ Device 250 mls @ 31.25 mls/hr IV DAILY@1000 [facility] Last Admin: 12/29/17 10:17 Dose: 31.25 mls/hr Sodium/Potass/Mag/Gregg/Chlor/Acetate 20 ml/ Multivitamins 10 ml/ Chromium/Copper/Manganese/Zinc 1 ml/ Amino Acids/Dextrose 1,031 mls @ 85.917 mls/hr IV .BY DURATION [facility] Last Admin: 12/30/17 03:34 Dose: 85.917 mls/hr Sodium/Potass/Mag/Gregg/Chlor/Acetate 20 ml/ Amino Acids/Dextrose 1,020 mls @ 85 mls/hr IV .BY DURATION [facility] Last Admin: 12/30/17 01:52 Dose: Not Given Sodium Chloride (Saline 1000ml Bag) 1,000 mls @ 0 mls/hr IV INFUSION [facility] PRN Reason: KVO Potassium Chloride 10 meq/ (Device) 100 mls @ 100 mls/hr IVPB Q1H [facility] Stop: 12/30/17 12:59 Last Admin: 12/30/17 09:46 Dose: 100 mls/hr IV Miscellaneous Supplies () 1 each IV DIRECTED [facility] Insulin Aspart (Novolog Flexpen) 0 units SC Q6H [facility] PRN Reason: Protocol Last Admin: 12/30/17 06:14 Dose: Not Given Naloxone HCl (Narcan) 0 mg IVP DIRECTED PRN Nitroglycerin (Nitrostat) 0.4 mg SL Q5 MIN PRN X3 PRN PRN Reason: Chest Pain Last Admin: 12/24/17 20:27 Dose: 0.4 mg Ondansetron HCl (Zofran Injection) 4 mg IVP Q6H PRN PRN Last Admin: 12/30/17 06:11 Dose: 4 mg Ranitidine HCl (Zantac Injection) 50 mg IVP Q8H [facility] Last Admin: 12/30/17 09:46 Dose: 50 mg Sodium Chloride (Saline Flush 10 Ml Syringe) 0 ml IVP PRN PRN Last Admin: 12/30/17 09:47 Dose: 30 ml Objective - Exam Vitals and I&O: Vital Signs Temp 36.3 C L 12/30/17 07:45 Pulse 95 H 12/30/17 08:02 Resp 26 H 12/30/17 10:00 BP 176/90 12/30/17 08:02 Pulse Ox 97 12/30/17 03:53 Intake & Output 12/29/17 12/29/17 12/30/17 11:59 23:59 11:59 Intake Total 1071 2410 1596 Output Total 930 3701 6018 Balance 453 -1225 171 Weight 90.6 kg 89 kg Intake: IV 928 1700 1296 Oral 150 50 300 Output: Urine 300 2400 1175 Stool 325 575 250 Other: Urine Color Light Meryl Light Meryl Straw Urine Appearance Cloudy Clear Clear Urine Odor Normal Comment Julio in place at this time Julio in place at this time with meryl urine julio in place draining dark yellow urine Stool Occult Blood Positive Stool Size Large Stool Characteristics Brown Brown Green Green Voiding Methods Indwelling Catheter General: Alert, Oriented x3, Cooperative, No acute distress HEENT: Atraumatic, EOMI Lungs: Other (breathing comfortably at rest on room air) Cardiovascular: Regular rate Abdomen: Soft, Other (dressings - D/C/I; ilesotomy - functioning). denies: Tenderness Skin: denies: Rashes Neurological: Normal speech Psych/Mental Status: Mental status NL, Mood NL - Results Results: Laboratory Results WBC 16.81 k/cumm (4.4-10.8) H 12/30/17 06:20 RBC 2.89 m/cumm (4.00-5.20) L 12/30/17 06:20 Hgb 8.9 g/dL (12.0-15.5) L 12/30/17 06:20 Hct 27.3 % (36.0-46.0) L 12/30/17 06:20 MCV 94.5 fL (80-95) 12/30/17 06:20 MCH 30.8 pg (27.0-33.0) 12/30/17 06:20 MCHC 32.6 g/dL (32.0-36.0) 12/30/17 06:20 RDW 13.6 % (11.7-14.6) 12/30/17 06:20 Plt Count 218 x1000/uL (130-400) 12/30/17 06:20 MPV 10.8 fL (8.0-11.0) 12/30/17 06:20 Immature Gran % See Differential 12/30/17 06:20 Neutrophils % 80.0 12/30/17 06:20 Lymphocytes % 6.0 12/30/17 06:20 Monocytes % 10.0 12/30/17 06:20 Eosinophils % 0.0 12/30/17 06:20 Basophils % 0.0 12/30/17 06:20 Absolute Neutrophils 13.78 k/cumm (1.2-6.7) H 12/30/17 06:20 Band Neutrophils 2.0 % 12/30/17 06:20 Absolute Lymphocytes 1.01 k/cumm (1.2-3.4) L 12/30/17 06:20 Absolute Monocytes 1.68 k/cumm (0.11-0.7) H 12/30/17 06:20 Absolute Eosinophils 0.00 k/cumm (0.0-0.7) 12/30/17 06:20 Absolute Basophils 0.00 k/cumm (0.0-0.2) 12/30/17 06:20 Metamyelocytes 1.0 % 12/30/17 06:20 Nucleated RBCs 3 /100WBC 12/30/17 06:20 Differential Comment Manual differential 12/30/17 06:20 Atypical Lymphocytes 1 12/29/17 06:10 RBC Morphology See below 12/29/17 06:10 Polychromasia Present 12/29/17 06:10 Anisocytosis 2+ 12/25/17 21:45 [place] Cells 2+ 12/27/17 06:25 ESR 93 MM/HR (0-30) H 12/25/17 21:45 Sodium 137 mmol/L (136-145) 12/30/17 06:20 Potassium 3.2 mmol/L (3.5-5.1) L 12/30/17 06:20 Chloride 104 mmol/L (98-107) 12/30/17 06:20 Carbon Dioxide 26.3 mmol/L (21.0-32.0) 12/30/17 06:20 Anion Gap 6.7 mmol/L (3-11) 12/30/17 06:20 BUN 15 mg/dL (7-18) 12/30/17 06:20 Creatinine 0.72 mg/dL (0.55-1.02) 12/30/17 06:20 Estimated GFR/1.73 m2 >= 60.00 (mL/min/1.73m2) 12/30/17 06:20 Glucose 139 mg/dL (70-100) H 12/30/17 06:20 Hemoglobin A1c 5.5 % (4.5-6.2) 12/25/17 21:45 Calcium 7.4 mg/dL (8.5-10.1) L 12/30/17 06:20 Magnesium 1.5 mg/dL (1.8-2.4) L 12/30/17 06:20 Total Bilirubin 1.12 mg/dL (0.2-1.0) H 12/30/17 06:20 AST 39 U/L (15-37) H 12/30/17 06:20 ALT 29 U/L (14-59) 12/30/17 06:20 Alkaline Phosphatase 169 U/L (46-116) H 12/30/17 06:20 Troponin I 0.06 ng/mL (0.00-0.06) 12/26/17 06:23 C-Reactive Protein 17.25 mg/dL (0.0-0.3) H 12/25/17 21:45 Total Protein 4.9 g/dL (6.4-8.2) L 12/30/17 06:20 Albumin 1.0 g/dL (3.4-5.0) L 12/30/17 06:20 Triglycerides 133 mg/dL (30-150) 12/25/17 06:05 Total Cholesterol 133 mg/dL (50-200) 12/25/17 06:05 LDL Cholesterol Direct 94 mg/dL (<100) 12/25/17 06:05 HDL Cholesterol 15 mg/dL (40-60) L 12/25/17 06:05 Lipase 54 U/L (73-393) L 12/26/17 06:32 TSH 1.41 uIU/mL (0.358-3.74) 12/25/17 21:45 Urine Color Yellow (Yellow) 12/25/17 21:27 Urine Clarity Clear 12/25/17 21:27 Urine pH 6.0 (5-8) 12/25/17 21:27 Ur Specific [place] >= 1.030 (1.005-1.025) H 12/25/17 21:27 Urine Protein 100 mg/dL (Negative) H 12/25/17 21:27 Urine Ketones Negative mg/dL (Negative) 12/25/17 21:27 Urine Blood Small (Negative) H 12/25/17 21:27 Urine Nitrite Negative (Negative) 12/25/17 21: Urine Bilirubin Negative (Negative) 12/25/17 21: Urine Urobilinogen 0.2 EU/dL (Up TO 0.2) 12/25/17 21:27 Ur Leukocyte Esterase Negative (Negative) 12/25/17 21:27 Urine RBC 0-2 (0-2) 12/25/17 21:27 Urine WBC 3-5 HPF (0-5) 12/25/17 21:27 Ur Epithelial Cells Many HPF (Negative) 12/25/17 21:27 Urine Crystals Negative HPF (Negative) 12/25/17 21:27 Urine Bacteria Few HPF (Negative) 12/25/17 21:27 Urine Casts Negative LPF (Negative) 12/25/17 21:27 Urine Mucus Negative (Negative) 12/25/17 21:27 Ur Culture Indicated? C&s done as ordered 12/25/17 21:27 Urine Glucose 250 mg/dL (Negative) H 12/25/17 21:27 Path Cons Comment 12/26/17 06:32
--- NOTE | 2017-12-30 10:47 | PDOC.PROG_ITS ---
Date of Service: 12/30/17 Time of Service: 10:44 Assessment/Plan - Assessment/Plan (1) Postop check Assessment: POD # 4 s/p repair of anastomotic leak and diverting loop ileostomy. Plan: Encouraged po as tolerated. Labs reviewed. Continue TPN. Discussed adjusting electrolytes in TPN with pharmacist. Pain controlled with epidural d/c'd . To have julio d/c'd today. (2) Peritoneal abscess Assessment: Enterococcus and enterobacter on peritoneal culture. Plan: Monitor WBC. Afebrile. Continue Zosyn. History of Present Illness - History of Present Illness Chief Complaint: s/p repair of anastomotic leak, diverting loop ileostomy 12/26 History of Present Illness: 77 y/o female s/p lap hand-assisted right hemicolectomy 12/20/17. s/p repair of anastomotic leak and diverting loop ileostomy 12/26. Patient c/o feeling tired. Took only small amount of po this am - 1/2 ice cream and 1/2 milk. On TPN. Review of Systems - Medications/Allergies Allergies/Adverse Reactions: Allergies Allergy/AdvReac Type Severity Reaction Status Date / Time No Known Allergies Allergy Unverified 12/24/17 05:29 Medications: Current Medications Acetaminophen (Tylenol) 650 mg PO Q4H PRN PRN Last Admin: 12/30/17 07:45 Dose: 650 mg Fentanyl Citrate (Sublimaze) 50 mcg IVP Q2H PRN PRN Last Admin: 12/27/17 18:58 Dose: 50 mcg Heparin Sodium (Porcine) () 5,000 units SC Q12H [facility] Last Admin: 12/30/17 06:13 Dose: 5,000 units Piperacillin/Tazobactam/ (Dextrose 3.375 gm/ Device) 50 mls @ 100 mls/hr IVPB Q6H [facility] Last Admin: 12/30/17 07:46 Dose: 100 mls/hr Fat Emulsion 250 ml/ Device 250 mls @ 31.25 mls/hr IV DAILY@1000 [facility] Last Admin: 12/29/17 10:17 Dose: 31.25 mls/hr Sodium/Potass/Mag/Gregg/Chlor/Acetate 20 ml/ Multivitamins 10 ml/ Chromium/Copper/ Manganese/Zinc 1 ml/ Amino Acids/Dextrose 1,031 mls @ 85.917 mls/hr IV .BY DURATION [facility] Last Admin: 12/30/17 03:34 Dose: 85.917 mls/hr Sodium/Potass/Mag/Gregg/Chlor/Acetate 20 ml/ Amino Acids/Dextrose 1,020 mls @ 85 mls/hr IV .BY DURATION [facility] Last Admin: 12/30/17 01:52 Dose: Not Given Sodium Chloride (Saline 1000ml Bag) 1,000 mls @ 0 mls/hr IV INFUSION [facility] PRN Reason: KVO Potassium Chloride 10 meq/ (Device) 100 mls @ 100 mls/hr IVPB Q1H [facility] Stop: 12/30/17 12:59 Last Admin: 12/30/17 09:46 Dose: 100 mls/hr IV Miscellaneous Supplies () 1 each IV DIRECTED [facility] Insulin Aspart (Novolog Flexpen) 0 units SC Q6H [facility] PRN Reason: Protocol Last Admin: 12/30/17 06:14 Dose: Not Given Naloxone HCl (Narcan) 0 mg IVP DIRECTED PRN Nitroglycerin (Nitrostat) 0.4 mg SL Q5 MIN PRN X3 PRN PRN Reason: Chest Pain Last Admin: 12/24/17 20:27 Dose: 0.4 mg Ondansetron HCl (Zofran Injection) 4 mg IVP Q6H PRN PRN Last Admin: 12/30/17 06:11 Dose: 4 mg Ranitidine HCl (Zantac Injection) 50 mg IVP Q8H [facility] Last Admin: 12/30/17 09:46 Dose: 50 mg Sodium Chloride (Saline Flush 10 Ml Syringe) 0 ml IVP PRN PRN Last Admin: 12/30/17 09:47 Dose: 30 ml Objective - Exam Vitals and I&O: Vital Signs Temp 36.3 C L 12/30/17 07:45 Pulse 95 H 12/30/17 08:02 Resp 26 H 12/30/17 10:00 BP 176/90 12/30/17 08:02 Pulse Ox 97 12/30/17 03:53 Intake & Output 12/29/17 12/29/17 12/30/17 11:59 23:59 11:59 Intake Total 1075 5140 1596 Output Total 792 4168 2150 Balance 453 -1225 171 Weight 90.6 kg 89 kg Intake: IV 928 1700 1296 Oral 150 50 300 Output: Urine 300 2400 1175 Stool 325 575 250 Other: Urine Color Light Meryl Light Meryl Straw Urine Appearance Cloudy Clear Clear Urine Odor Normal Comment Julio in place at this time Julio in place at this time with meryl urine julio in place draining dark yellow urine Stool Occult Blood Positive Stool Size Large Stool Characteristics Brown Brown Green Green Voiding Methods Indwelling Catheter General: Alert, Oriented x3, Cooperative, No acute distress HEENT: Atraumatic, EOMI Lungs: Other (breathing comfortably at rest on room air) Cardiovascular: Regular rate Abdomen: Soft, Other (dressings - D/C/I; ilesotomy - functioning). denies: Tenderness Skin: denies: Rashes Neurological: Normal speech Psych/Mental Status: Mental status NL, Mood NL - Results Results: Laboratory Results WBC 16.81 k/cumm (4.4-10.8) H 12/30/17 06:20 RBC 2.89 m/cumm (4.00-5.20) L 12/30/17 06:20 Hgb 8.9 g/dL (12.0-15.5) L 12/30/17 06:20 Hct 27.3 % (36.0-46.0) L 12/30/17 06:20 MCV 94.5 fL (80-95) 12/30/17 06:20 MCH 30.8 pg (27.0-33.0) 12/30/17 06:20 MCHC 32.6 g/dL (32.0-36.0) 12/30/17 06:20 RDW 13.6 % (11.7-14.6) 12/30/17 06:20 Plt Count 218 x1000/uL (130-400) 12/30/17 06:20 MPV 10.8 fL (8.0-11.0) 12/30/17 06:20 Immature Gran % See Differential 12/30/17 06:20 Neutrophils % 80.0 12/30/17 06:20 Lymphocytes % 6.0 12/30/17 06:20 Monocytes % 10.0 12/30/17 06:20 Eosinophils % 0.0 12/30/17 06:20 Basophils % 0.0 12/30/17 06:20 Absolute Neutrophils 13.78 k/cumm (1.2-6.7) H 12/30/17 06:20 Band Neutrophils 2.0 % 12/30/17 06:20 Absolute Lymphocytes 1.01 k/cumm (1.2-3.4) L 12/30/17 06:20 Absolute Monocytes 1.68 k/cumm (0.11-0.7) H 12/30/17 06:20 Absolute Eosinophils 0.00 k/cumm (0.0-0.7) 12/30/17 06:20 Absolute Basophils 0.00 k/cumm (0.0-0.2) 12/30/17 06:20 Metamyelocytes 1.0 % 12/30/17 06:20 Nucleated RBCs 3 /100WBC 12/30/17 06:20 Differential Comment Manual differential 12/30/17 06:20 Atypical Lymphocytes 1 12/29/17 06:10 RBC Morphology See below 12/29/17 06:10 Polychromasia Present 12/29/17 06:10 Anisocytosis 2+ 12/25/17 21:45 [place] Cells 2+ 12/27/17 06:25 ESR 93 MM/HR (0-30) H 12/25/17 21:45 Sodium 137 mmol/L (136-145) 12/30/17 06:20 Potassium 3.2 mmol/L (3.5-5.1) L 12/30/17 06:20 Chloride 104 mmol/L (98-107) 12/30/17 06:20 Carbon Dioxide 26.3 mmol/L (21.0-32.0) 12/30/17 06:20 Anion Gap 6.7 mmol/L (3-11) 12/30/17 06:20 BUN 15 mg/dL (7-18) 12/30/17 06:20 Creatinine 0.72 mg/dL (0.55-1.02) 12/30/17 06:20 Estimated GFR/1.73 m2 >= 60.00 (mL/min/1.73m2) 12/30/17 06:20 Glucose 139 mg/dL (70-100) H 12/30/17 06:20 Hemoglobin A1c 5.5 % (4.5-6.2) 12/25/17 21:45 Calcium 7.4 mg/dL (8.5-10.1) L 12/30/17 06:20 Magnesium 1.5 mg/dL (1.8-2.4) L 12/30/17 06:20 Total Bilirubin 1.12 mg/dL (0.2-1.0) H 12/30/17 06:20 AST 39 U/L (15-37) H 12/30/17 06:20 ALT 29 U/L (14-59) 12/30/17 06:20 Alkaline Phosphatase 169 U/L (46-116) H 12/30/17 06:20 Troponin I 0.06 ng/mL (0.00-0.06) 12/26/17 06:23 C-Reactive Protein 17.25 mg/dL (0.0-0.3) H 12/25/17 21:45 Total Protein 4.9 g/dL (6.4-8.2) L 12/30/17 06:20 Albumin 1.0 g/dL (3.4-5.0) L 12/30/17 06:20 Triglycerides 133 mg/dL (30-150) 12/25/17 06:05 Total Cholesterol 133 mg/dL (50-200) 12/25/17 06:05 LDL Cholesterol Direct 94 mg/dL (<100) 12/25/17 06:05 HDL Cholesterol 15 mg/dL (40-60) L 12/25/17 06:05 Lipase 54 U/L (73-393) L 12/26/17 06:32 TSH 1.41 uIU/mL (0.358-3.74) 12/25/17 21:45 Urine Color Yellow (Yellow) 12/25/17 21:27 Urine Clarity Clear 12/25/17 21:27 Urine pH 6.0 (5-8) 12/25/17 21:27 Ur Specific [place] >= 1.030 (1.005-1.025) H 12/25/17 21:27 Urine Protein 100 mg/dL (Negative) H 12/25/17 21:27 Urine Ketones Negative mg/dL (Negative) 12/25/17 21:27 Urine Blood Small (Negative) H 12/25/17 21:27 Urine Nitrite Negative (Negative) 12/25/17 21: Urine Bilirubin Negative (Negative) 12/25/17 21: Urine Urobilinogen 0.2 EU/dL (Up TO 0.2) 12/25/17 21:27 Ur Leukocyte Esterase Negative (Negative) 12/25/17 21:27 Urine RBC 0-2 (0-2) 12/25/17 21:27 Urine WBC 3-5 HPF (0-5) 12/25/17 21:27 Ur Epithelial Cells Many HPF (Negative) 12/25/17 21:27 Urine Crystals Negative HPF (Negative) 12/25/17 21:27 Urine Bacteria Few HPF (Negative) 12/25/17 21:27 Urine Casts Negative LPF (Negative) 12/25/17 21:27 Urine Mucus Negative (Negative) 12/25/17 21:27 Ur Culture Indicated? C&s done as ordered 12/25/17 21:27 Urine Glucose 250 mg/dL (Negative) H 12/25/17 21:27 Path Cons Comment 12/26/17 06:32
--- NOTE | 2017-12-30 11:19 | NT_ITS ---
12/30/17 Held morning PT session, per nursing, as patient is fatigued following transfers and mobility in room with nursing this morning. Will attempt to resume PT services this afternoon. Shirley Bishop, PAVING MACHINE OPERATOR
[2017-12-30] MEDS: Metoprolol 12.5 MG TAB PO ×2 (12:20→19:46)
--- NOTE | 2017-12-30 13:24 | NT_ITS ---
Physical Therapy Note Date:12/30/17 Pt sleeping soundly, hold PT per RN to allow pt to rest. Will see 12/31/17. Mari Resendiz SPT under direct supervision of Kati Nayak PT
--- NOTE | 2017-12-30 14:58 | NUR.NOTE ---
Nursing Note: 12/30/17@1432-Transfered from ICU to room 206 via recliner chair. See VS intervention. Oriented to call [place] system. States is comfortable. Enc to sit up for a little bit.
--- NOTE | 2017-12-30 15:10 | SATEXT_ITS ---
Assessment: Ms. Grant presents with anastomotic leak. She has been NPO for 5 days this admission. She started a regular diet with a normal consistency on 12/29/17. She has been unable to take much PO intake at all. We are offering her soft, high protein, nutrient dense foods like custards and milkshake type foods. She reports that her appetite is poor. She is 65 and her current weight is 89 kg which is down from the last few days but up from admission. Suspect there is some fluid variation in her weight. Her BMI currently is 31 c/ w class 1 obesity. Nutritional Diagnosis: Inadequate intake of oral foods and fluids. Intervention: We will continue to see Ms. Grant prior to each meal and offer and encourage nutrient dense soft foods. Will track her intake via percent eaten in [employer] and by meal rounds. Would consider nutrition support if Ms. Grant is unable to consistently consume 75% of her meals or greater consistently after the next 48 hours to prevent malnutrition. Monitoring and Evaluation: 1. Monitor weight and PO intakes. 2. Evaluate nutrition care plan on going and adjust accordingly.
[2017-12-30] MEDS: Normal Saline 1,000 ML 30 ML IV (15:58)
[2017-12-31] VITALS (8 sets, daily range): BP systolic 144–171; BP diastolic 72–97; PULSE 98–103; RESP 16–20; TEMP 36.5–37.8; O2SAT 93–97
[2017-12-31] MEDS: Acetaminophen 325 MG TAB 650 MG PO ×2 (00:04→11:23)
[2017-12-31] MEDS: Insulin Aspart 300 UNITS/3 ML PEN SC ×2 (00:10→06:40)
[2017-12-31 07:36] LABS: Abs Immature Grans 3.44 k/cumm (0.0-0.09); HGB 8.7 g/dL (12.0-15.5); Mean Corp. HGB Concentration 32.2 g/dL (32.0-36.0); Mean Corpuscular Hemoglobin 30.6 pg (27.0-33.0); Mean Corpuscular Volume 95.1 fL (80-95); Mean Platelet Volume 11.2 fL (8.0-11.0); Platelet Count 243 x1000/uL (130-400); RBC 2.84 m/cumm (4.00-5.20); RBC Distribution Width 13.7 % (11.7-14.6)
[2017-12-31 07:50] LABS: ALT 25 U/L (14-59); AST 32 U/L (15-37); Albumin 1.1 g/dL (3.4-5.0); Alkaline Phosphatase 197 U/L (46-116); Anion Gap 6.9 mmol/L (3-11); BUN 17 mg/dL (7-18); Bilirubin, Total 0.76 mg/dL (0.2-1.0); CO2 28.1 mmol/L (21.0-32.0); CREATININE 0.69 mg/dL (0.55-1.02); Calcium 7.5 mg/dL (8.5-10.1); Chloride 105 mmol/L (98-107); Glucose 118 mg/dL (70-100); Magnesium 1.8 mg/dL (1.8-2.4); Potassium 3.1 mmol/L (3.5-5.1); Sodium 140 mmol/L (136-145); Total Protein 5.1 g/dL (6.4-8.2)
[2017-12-31 08:13] LABS: Absolute Eosinophil Count 0.27 k/cumm (0.0-0.7); Absolute Lymphocyte Count 1.86 k/cumm (1.2-3.4); Absolute Monocyte Count 2.66 k/cumm (0.11-0.7); Absolute Neutrophil Count 19.69 k/cumm (1.2-6.7); White Blood Cell Count 26.61 k/cumm (4.4-10.8)
[2017-12-31 08:15] LABS: Diff Comment Manual Differential; Nucleated RBC 2 /100WBC; Other Cells 1
--- NOTE | 2017-12-31 09:33 | PDOC.PROG ---
Date of Service: 12/31/17 Time of Service: 09:33 Assessment/Plan - Assessment/Plan (1) Postop check Assessment: Elevated WBC and low grade fever today. May be related to wound infection. Wound care and dressing changes ordered. Continue Zosyn. Will check blood cultures and CXR. If leukcytosis persists, will consider CT abd/pelvis. Labs reviewed. On TPN. Patient seen and discussed with RN. (2) Peritoneal abscess Assessment: Continue Zosyn. History of Present Illness - History of Present Illness Chief Complaint: s/p repair of anastomotic leak/diverting loop ileostomy 12/26 History of Present Illness: Patient was noted by staff to be confused this am - A&O to self only. She is more lucid at this time - A&O x 3 on questioning. Patient noted to have low grade temp overnight to 37.7. WBC up to ~ 27k. Taking small amounts of po full liquids. Abdomen somewhat sore but denies any significant abdominal pain, nausea, or vomiting. Ileostomy functioning. Few drops of clear fluid noted on back this am from previous epidural site. Anesthesia notified and dry dressing applied. Review of Systems - Medications/Allergies Allergies/Adverse Reactions: Allergies Allergy/AdvReac Type Severity Reaction Status Date / Time No Known Allergies Allergy Unverified 12/24/17 05:29 Medications: Current Medications Acetaminophen (Tylenol) 650 mg PO Q4H PRN PRN Last Admin: 12/31/17 00:04 Dose: 650 mg Fentanyl Citrate (Sublimaze) 50 mcg IVP Q2H PRN PRN Last Admin: 12/27/17 18:58 Dose: 50 mcg Heparin Sodium (Porcine) () 5,000 units SC Q12H [facility] Last Admin: 12/31/17 06:14 Dose: 5,000 units Piperacillin/Tazobactam/ (Dextrose 3.375 gm/ Device) 50 mls @ 100 mls/hr IVPB Q6H [facility] Last Admin: 12/31/17 08:27 Dose: 100 mls/hr Fat Emulsion 250 ml/ Device 250 mls @ 31.25 mls/hr IV DAILY@1000 [facility] Last Admin: 12/30/17 11:26 Dose: 31.25 mls/hr Sodium Chloride (Saline 1000ml Bag) 1,000 mls @ 0 mls/hr IV INFUSION [facility] PRN Reason: KVO Last Admin: 12/30/17 15:58 Dose: 30 mls/hr Sodium/Potass/Mag/Gregg/Chlor/Acetate 20 ml/ Multivitamins 10 ml/ Chromium/Copper/Manganese/Zinc 1 ml/ Magnesium Sulfate 8.12 meq/ Potassium Chloride 10 meq/ Famotidine 20 mg/ Amino Acids/Dextrose 1,040 mls @ 85.917 mls/hr IV .BY DURATION [facility] Stop: 12/30/18 16:59 Last Admin: 12/30/17 16:42 Dose: 85.917 mls/hr Sodium/Potass/Mag/Gregg/Chlor/Acetate 20 ml/ Magnesium Sulfate 8.12 meq/ Potassium Chloride 10 meq/ Famotidine 20 mg/ Amino Acids/Dextrose 1,029 mls @ 85 mls/hr IV .BY DURATION [facility] Stop: 12/30/18 16:59 Last Admin: 12/31/17 04:42 Dose: 85 mls/hr IV Miscellaneous Supplies () 1 each IV DIRECTED [facility] Insulin Aspart (Novolog Flexpen) 0 units SC Q6H [facility] PRN Reason: Protocol Last Admin: 12/31/17 00:10 Dose: 2 units Metoprolol Tartrate (Lopressor) 12.5 mg PO BID [facility] Last Admin: 12/30/17 19:46 Dose: 12.5 mg Naloxone HCl (Narcan) 0 mg IVP DIRECTED PRN Nitroglycerin (Nitrostat) 0.4 mg SL Q5 MIN PRN X3 PRN PRN Reason: Chest Pain Last Admin: 12/24/17 20:27 Dose: 0.4 mg Ondansetron HCl (Zofran Injection) 4 mg IVP Q6H PRN PRN Last Admin: 12/30/17 06:11 Dose: 4 mg Sodium Chloride (Saline Flush 10 Ml Syringe) 0 ml IVP PRN PRN Last Admin: 12/30/17 15:07 Dose: 20 ml Objective - Exam Vitals and I&O: Vital Signs Temp 36.5 C 12/31/17 07:36 Pulse 102 H 12/31/17 07:36 Resp 20 12/31/17 07:36 BP 146/72 12/31/17 07:36 Pulse Ox 94 L 12/31/17 07:36 Intake & Output 12/30/17 12/30/17 12/31/17 11:59 23:59 11:59 Intake Total 1686 2087 1688 Output Total 1721 3140 1425 Balance -39 -1513 263 Weight 89 kg Intake: IV 1386 1987 1438 Oral 300 100 250 Output: Urine 1175 2900 1350 Stool 550 700 75 Other: Urine Color Yellow Yellow Yellow Urine Appearance Cloudy Clear Clear Urine Odor Normal Normal Comment Sultana in place at this time Incontinent (of a large amount of urine) x1 in the briefs. Pt. also voided on the bedside commode. Briefs and bedpad were changed. Stool Characteristics Brown Green Voiding Methods Indwelling Catheter Bedside Commode Bedside Commode General: Alert, Oriented x3, Cooperative, No acute distress HEENT: Atraumatic Lungs: Other (breathing comfortably at rest on room air) Abdomen: Soft, Other (dressing removed from transverse abdominal incision - purulent drainage noted on skin, a few ankit removed and skin edges gently probed with minimal drainage noted). denies: Tenderness Skin: denies: Rashes Neurological: Normal speech Psych/Mental Status: Mood NL - Results Results: Laboratory Results WBC 26.61 k/cumm (4.4-10.8) H* D 12/31/17 06:30 RBC 2.84 m/cumm (4.00-5.20) L 12/31/17 06:30 Hgb 8.7 g/dL (12.0-15.5) L 12/31/17 06:30 Hct 27.0 % (36.0-46.0) L 12/31/17 06:30 MCV 95.1 fL (80-95) H 12/31/17 06:30 MCH 30.6 pg (27.0-33.0) 12/31/17 06:30 MCHC 32.2 g/dL (32.0-36.0) 12/31/17 06:30 RDW 13.7 % (11.7-14.6) 12/31/17 06:30 Plt Count 243 x1000/uL (130-400) 12/31/17 06:30 MPV 11.2 fL (8.0-11.0) H 12/31/17 06:30 Immature Gran % See Differential 12/31/17 06:30 Neutrophils % 66.0 12/31/17 06:30 Lymphocytes % 7.0 12/31/17 06:30 Monocytes % 10.0 12/31/17 06:30 Eosinophils % 1.0 12/31/17 06:30 Basophils % 0.0 12/31/17 06:30 Absolute Neutrophils 19.69 k/cumm (1.2-6.7) H 12/31/17 06:30 Band Neutrophils 8.0 % 12/31/17 06:30 Absolute Lymphocytes 1.86 k/cumm (1.2-3.4) 12/31/17 06:30 Absolute Monocytes 2.66 k/cumm (0.11-0.7) H 12/31/17 06:30 Absolute Eosinophils 0.27 k/cumm (0.0-0.7) 12/31/17 06:30 Absolute Basophils 0.00 k/cumm (0.0-0.2) 12/31/17 06:30 Metamyelocytes 5.0 % 12/31/17 06:30 Myelocytes 2.0 % 12/31/17 06:30 Nucleated RBCs 2 /100WBC 12/31/17 06:30 Differential Comment Manual differential 12/31/17 06:30 Atypical Lymphocytes 1 12/29/17 06:10 Other Cell Type 1 12/31/17 06:30 RBC Morphology See below 12/29/17 06:10 Polychromasia Present 12/29/17 06:10 Anisocytosis 2+ 12/25/17 21:45 [place] Cells 2+ 12/27/17 06:25 ESR 93 MM/HR (0-30) H 12/25/17 21:45 Sodium 140 mmol/L (136-145) 12/31/17 06:30 Potassium 3.1 mmol/L (3.5-5.1) L 12/31/17 06:30 Chloride 105 mmol/L (98-107) 12/31/17 06:30 Carbon Dioxide 28.1 mmol/L (21.0-32.0) 12/31/17 06:30 Anion Gap 6.9 mmol/L (3-11) 12/31/17 06:30 BUN 17 mg/dL (7-18) 12/31/17 06:30 Creatinine 0.69 mg/dL (0.55-1.02) 12/31/17 06:30 Estimated GFR/1.73 m2 >= 60.00 (mL/min/1.73m2) 12/31/17 06:30 Glucose 118 mg/dL (70-100) H 12/31/17 06:30 Hemoglobin A1c 5.5 % (4.5-6.2) 12/25/17 21:45 Calcium 7.5 mg/dL (8.5-10.1) L 12/31/17 06:30 Magnesium 1.8 mg/dL (1.8-2.4) 12/31/17 06:30 Total Bilirubin 0.76 mg/dL (0.2-1.0) 12/31/17 06:30 AST 32 U/L (15-37) 12/31/17 06:30 ALT 25 U/L (14-59) 12/31/17 06:30 Alkaline Phosphatase 197 U/L (46-116) H 12/31/17 06:30 Troponin I 0.06 ng/mL (0.00-0.06) 12/26/17 06:23 C-Reactive Protein 17.25 mg/dL (0.0-0.3) H 12/25/17 21:45 Total Protein 5.1 g/dL (6.4-8.2) L 12/31/17 06:30 Albumin 1.1 g/dL (3.4-5.0) L 12/31/17 06:30 Triglycerides 133 mg/dL (30-150) 12/25/17 06:05 Total Cholesterol 133 mg/dL (50-200) 12/25/17 06:05 LDL Cholesterol Direct 94 mg/dL (<100) 12/25/17 06:05 HDL Cholesterol 15 mg/dL (40-60) L 12/25/17 06:05 Lipase 54 U/L (73-393) L 12/26/17 06:32 TSH 1.41 uIU/mL (0.358-3.74) 12/25/17 21:45 Urine Color Yellow (Yellow) 12/25/17 21: Urine Clarity Clear 12/25/17 21:27 Urine pH 6.0 (5-8) 12/25/17 21:27 Ur Specific [place] >= 1.030 (1.005-1.025) H 12/25/17 21:27 Urine Protein 100 mg/dL (Negative) H 12/25/17 21:27 Urine Ketones Negative mg/dL (Negative) 12/25/17 21:27 Urine Blood Small (Negative) H 12/25/17 21:27 Urine Nitrite Negative (Negative) 12/25/17 21:27 Urine Bilirubin Negative (Negative) 12/25/17 21:27 Urine Urobilinogen 0.2 EU/dL (Up TO 0.2) 12/25/17 21:27 Ur Leukocyte Esterase Negative (Negative) 12/25/17 21:27 Urine RBC 0-2 (0-2) 12/25/17 21:27 Urine WBC 3-5 HPF (0-5) 12/25/17 21:27 Ur Epithelial Cells Many HPF (Negative) 12/25/17 21:27 Urine Crystals Negative HPF (Negative) 12/25/17 21:27 Urine Bacteria Few HPF (Negative) 12/25/17 21:27 Urine Casts Negative LPF (Negative) 12/25/17 21:27 Urine Mucus Negative (Negative) 12/25/17 21:27 Ur Culture Indicated? C&s done as ordered 12/25/17 21:27 Urine Glucose 250 mg/dL (Negative) H 12/25/17 21:27 Path Cons Comment 12/26/17 06:32
[2017-12-31] MEDS: Normal Saline Flush 10 ML SYR IVP ×2 (09:34→14:26)
[2017-12-31] MEDS: Metoprolol 12.5 MG TAB PO ×2 (09:34→19:44)
--- NOTE | 2017-12-31 09:37 | PDOC.PROG_ITS ---
Date of Service: 12/31/17 Time of Service: 09:33 Assessment/Plan - Assessment/Plan (1) Postop check Assessment: Elevated WBC and low grade fever today. May be related to wound infection. Wound care and dressing changes ordered. Continue Zosyn. Will check blood cultures and CXR. If leukcytosis persists, will consider CT abd/pelvis. Labs reviewed. On TPN. Patient seen and discussed with RN. (2) Peritoneal abscess Assessment: Continue Zosyn. History of Present Illness - History of Present Illness Chief Complaint: s/p repair of anastomotic leak/diverting loop ileostomy 12/26 History of Present Illness: Patient was noted by staff to be confused this am - A&O to self only. She is more lucid at this time - A&O x 3 on questioning. Patient noted to have low grade temp overnight to 37.7. WBC up to ~ 27k. Taking small amounts of po full liquids. Abdomen somewhat sore but denies any significant abdominal pain, nausea, or vomiting. Ileostomy functioning. Few drops of clear fluid noted on back this am from previous epidural site. Anesthesia notified and dry dressing applied. Review of Systems - Medications/Allergies Allergies/Adverse Reactions: Allergies Allergy/AdvReac Type Severity Reaction Status Date / Time No Known Allergies Allergy Unverified 12/24/17 05:29 Medications: Current Medications Acetaminophen (Tylenol) 650 mg PO Q4H PRN PRN Last Admin: 12/31/17 00:04 Dose: 650 mg Fentanyl Citrate (Sublimaze) 50 mcg IVP Q2H PRN PRN Last Admin: 12/27/17 18:58 Dose: 50 mcg Heparin Sodium (Porcine) () 5,000 units SC Q12H [facility] Last Admin: 12/31/17 06:14 Dose: 5,000 units Piperacillin/Tazobactam/ (Dextrose 3.375 gm/ Device) 50 mls @ 100 mls/hr IVPB Q6H [facility] Last Admin: 12/31/17 08:27 Dose: 100 mls/hr Fat Emulsion 250 ml/ Device 250 mls @ 31.25 mls/hr IV DAILY@1000 RASHEEDA Last Admin: 12/30/17 11:26 Dose: 31.25 mls/hr Sodium Chloride (Saline 1000ml Bag) 1,000 mls @ 0 mls/hr IV INFUSION [facility] PRN Reason: KVO Last Admin: 12/30/17 15:58 Dose: 30 mls/hr Sodium/Potass/Mag/Gregg/Chlor/Acetate 20 ml/ Multivitamins 10 ml/ Chromium/Copper/ Manganese/Zinc 1 ml/ Magnesium Sulfate 8.12 meq/ Potassium Chloride 10 meq/ Famotidine 20 mg/ Amino Acids/Dextrose 1,040 mls @ 85.917 mls/hr IV .BY DURATION [facility] Stop: 12/30/18 16:59 Last Admin: 12/30/17 16:42 Dose: 85.917 mls/hr Sodium/Potass/Mag/Gregg/Chlor/Acetate 20 ml/ Magnesium Sulfate 8.12 meq/ Potassium Chloride 10 meq/ Famotidine 20 mg/ Amino Acids/Dextrose 1,029 mls @ 85 mls/hr IV .BY DURATION [facility] Stop: 12/30/18 16:59 Last Admin: 12/31/17 04:42 Dose: 85 mls/hr IV Miscellaneous Supplies () 1 each IV DIRECTED [facility] Insulin Aspart (Novolog Flexpen) 0 units SC Q6H [facility] PRN Reason: Protocol Last Admin: 12/31/17 00:10 Dose: 2 units Metoprolol Tartrate (Lopressor) 12.5 mg PO BID [facility] Last Admin: 12/30/17 19:46 Dose: 12.5 mg Naloxone HCl (Narcan) 0 mg IVP DIRECTED PRN Nitroglycerin (Nitrostat) 0.4 mg SL Q5 MIN PRN X3 PRN PRN Reason: Chest Pain Last Admin: 12/24/17 20:27 Dose: 0.4 mg Ondansetron HCl (Zofran Injection) 4 mg IVP Q6H PRN PRN Last Admin: 12/30/17 06:11 Dose: 4 mg Sodium Chloride (Saline Flush 10 Ml Syringe) 0 ml IVP PRN PRN Last Admin: 12/30/17 15:07 Dose: 20 ml Objective - Exam Vitals and I&O: Vital Signs Temp 36.5 C 12/31/17 07:36 Pulse 102 H 12/31/17 07:36 Resp 20 12/31/17 07:36 BP 146/72 12/31/17 07:36 Pulse Ox 94 L 12/31/17 07:36 Intake & Output 12/30/17 12/30/17 12/31/17 11:59 23:59 11:59 Intake Total 1686 2087 1688 Output Total 1726 3950 1425 Balance -39 -1513 263 Weight 89 kg Intake: IV 1386 1987 1438 Oral 300 100 250 Output: Urine 1175 2900 1350 Stool 550 700 75 Other: Urine Color Yellow Yellow Yellow Urine Appearance Cloudy Clear Clear Urine Odor Normal Normal Comment Sultana in place at this time Incontinent (of a large amount of urine) x1 in the briefs. Pt. also voided on the bedside commode. Briefs and bedpad were changed. Stool Characteristics Brown Green Voiding Methods Indwelling Catheter Bedside Commode Bedside Commode General: Alert, Oriented x3, Cooperative, No acute distress HEENT: Atraumatic Lungs: Other (breathing comfortably at rest on room air) Abdomen: Soft, Other (dressing removed from transverse abdominal incision - purulent drainage noted on skin, a few ankit removed and skin edges gently probed with minimal drainage noted). denies: Tenderness Skin: denies: Rashes Neurological: Normal speech Psych/Mental Status: Mood NL - Results Results: Laboratory Results WBC 26.61 k/cumm (4.4-10.8) H* D 12/31/17 06:30 RBC 2.84 m/cumm (4.00-5.20) L 12/31/17 06:30 Hgb 8.7 g/dL (12.0-15.5) L 12/31/17 06:30 Hct 27.0 % (36.0-46.0) L 12/31/17 06:30 MCV 95.1 fL (80-95) H 12/31/17 06:30 MCH 30.6 pg (27.0-33.0) 12/31/17 06:30 MCHC 32.2 g/dL (32.0-36.0) 12/31/17 06:30 RDW 13.7 % (11.7-14.6) 12/31/17 06:30 Plt Count 243 x1000/uL (130-400) 12/31/17 06:30 MPV 11.2 fL (8.0-11.0) H 12/31/17 06:30 Immature Gran % See Differential 12/31/17 06:30 Neutrophils % 66.0 12/31/17 06:30 Lymphocytes % 7.0 12/31/17 06:30 Monocytes % 10.0 12/31/17 06:30 Eosinophils % 1.0 12/31/17 06:30 Basophils % 0.0 12/31/17 06:30 Absolute Neutrophils 19.69 k/cumm (1.2-6.7) H 12/31/17 06:30 Band Neutrophils 8.0 % 12/31/17 06:30 Absolute Lymphocytes 1.86 k/cumm (1.2-3.4) 12/31/17 06:30 Absolute Monocytes 2.66 k/cumm (0.11-0.7) H 12/31/17 06:30 Absolute Eosinophils 0.27 k/cumm (0.0-0.7) 12/31/17 06:30 Absolute Basophils 0.00 k/cumm (0.0-0.2) 12/31/17 06:30 Metamyelocytes 5.0 % 12/31/17 06:30 Myelocytes 2.0 % 12/31/17 06:30 Nucleated RBCs 2 /100WBC 12/31/17 06:30 Differential Comment Manual differential 12/31/17 06:30 Atypical Lymphocytes 1 12/29/17 06:10 Other Cell Type 1 12/31/17 06:30 RBC Morphology See below 12/29/17 06:10 Polychromasia Present 12/29/17 06:10 Anisocytosis 2+ 12/25/17 21:45 Amanda Cells 2+ 12/27/17 06:25 ESR 93 MM/HR (0-30) H 12/25/17 21:45 Sodium 140 mmol/L (136-145) 12/31/17 06:30 Potassium 3.1 mmol/L (3.5-5.1) L 12/31/17 06:30 Chloride 105 mmol/L (98-107) 12/31/17 06:30 Carbon Dioxide 28.1 mmol/L (21.0-32.0) 12/31/17 06:30 Anion Gap 6.9 mmol/L (3-11) 12/31/17 06:30 BUN 17 mg/dL (7-18) 12/31/17 06:30 Creatinine 0.69 mg/dL (0.55-1.02) 12/31/17 06:30 Estimated GFR/1.73 m2 >= 60.00 (mL/min/1.73m2) 12/31/17 06:30 Glucose 118 mg/dL (70-100) H 12/31/17 06:30 Hemoglobin A1c 5.5 % (4.5-6.2) 12/25/17 21:45 Calcium 7.5 mg/dL (8.5-10.1) L 12/31/17 06:30 Magnesium 1.8 mg/dL (1.8-2.4) 12/31/17 06:30 Total Bilirubin 0.76 mg/dL (0.2-1.0) 12/31/17 06:30 AST 32 U/L (15-37) 12/31/17 06:30 ALT 25 U/L (14-59) 12/31/17 06:30 Alkaline Phosphatase 197 U/L (46-116) H 12/31/17 06:30 Troponin I 0.06 ng/mL (0.00-0.06) 12/26/17 06:23 C-Reactive Protein 17.25 mg/dL (0.0-0.3) H 12/25/17 21:45 Total Protein 5.1 g/dL (6.4-8.2) L 12/31/17 06:30 Albumin 1.1 g/dL (3.4-5.0) L 12/31/17 06:30 Triglycerides 133 mg/dL (30-150) 12/25/17 06:05 Total Cholesterol 133 mg/dL (50-200) 12/25/17 06:05 LDL Cholesterol Direct 94 mg/dL (<100) 12/25/17 06:05 HDL Cholesterol 15 mg/dL (40-60) L 12/25/17 06:05 Lipase 54 U/L (73-393) L 12/26/17 06:32 TSH 1.41 uIU/mL (0.358-3.74) 12/25/17 21:45 Urine Color Yellow (Yellow) 12/25/17 21: Urine Clarity Clear 12/25/17 21:27 Urine pH 6.0 (5-8) 12/25/17 21:27 Ur Specific [place] >= 1.030 (1.005-1.025) H 12/25/17 21:27 Urine Protein 100 mg/dL (Negative) H 12/25/17 21:27 Urine Ketones Negative mg/dL (Negative) 12/25/17 21:27 Urine Blood Small (Negative) H 12/25/17 21:27 Urine Nitrite Negative (Negative) 12/25/17 21:27 Urine Bilirubin Negative (Negative) 12/25/17 21:27 Urine Urobilinogen 0.2 EU/dL (Up TO 0.2) 12/25/17 21:27 Ur Leukocyte Esterase Negative (Negative) 12/25/17 21:27 Urine RBC 0-2 (0-2) 12/25/17 21:27 Urine WBC 3-5 HPF (0-5) 12/25/17 21:27 Ur Epithelial Cells Many HPF (Negative) 12/25/17 21:27 Urine Crystals Negative HPF (Negative) 12/25/17 21:27 Urine Bacteria Few HPF (Negative) 12/25/17 21:27 Urine Casts Negative LPF (Negative) 12/25/17 21:27 Urine Mucus Negative (Negative) 12/25/17 21:27 Ur Culture Indicated? C&s done as ordered 12/25/17 21:27 Urine Glucose 250 mg/dL (Negative) H 12/25/17 21:27 Path Cons Comment 12/26/17 06:32
--- NOTE | 2017-12-31 09:48 | DI.REPORT_ITS ---
SYMPTOM/DIAGNOSIS: LEUKOCYTOSIS, LOW GRADE FEVER PORTABLE CHEST: Comparison is made with 28 December 2017. There has been no change in small bilateral pleural effusions and adjacent atelectasis. There has been no change in the positioning of the left sided PICC line. The nasogastric tube has been removed. There is some air in the stomach but no abnormal gastric distension. IMPRESSION: Stable bilateral pleural effusions.
--- NOTE | 2017-12-31 10:04 | DI.VRAD_ITS ---
EXAM: XR Chest, 1 View CLINICAL HISTORY: 77 years old, female; Signs and symptoms; Fever TECHNIQUE: Frontal view of the chest. COMPARISON: CR - PORTABLE AP CHEST, POST LINE 2017-12-28 14:22 FINDINGS: Lungs: Unremarkable. No consolidation. Pleural space: Persistent bibasilar pleural effusions are noted. No pneumothorax. Heart: Unremarkable. No cardiomegaly. Mediastinum: Unremarkable. Bones/joints: Unremarkable. Vasculature: A left upper extremity PIC line remains unchanged in position with its distal tip in the region of the SVC. IMPRESSION: 1. A left upper extremity PIC line remains unchanged in position. 2. Small bibasilar persistent pleural effusions are noted. 3. No significant interval change. Dictated and Authenticated by: Shiv Hyatt MD. Ordering:LIZZIE WILKINSON MD
--- NOTE | 2017-12-31 10:31 | NT_ITS ---
Pt declined treatment today, she said that she is really exhausted and did not sleep well last night, reported she will do more next session.
--- NOTE | 2017-12-31 13:23 | PDOC.CMPRO ---
Care Management Progress Note S/O: Vannessa was just returning to bed and required assistance from the clinical staff for ambulation and also to raise her legs back up onto the bed. Remains acute level of care at this time and further diagnostic testing as well as medication adjustments may be needed. Alert and readily engaged in conversation. A: 77 year old female admitted to 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 P: When medically cleared for level of care change, plan SB1 as recommended by PT. After her SB1 stay she will transition to home with new home health services through [facility] if needed. Anticipate transport home via private vehicle with her friend, Marisol-Darlin or family at time of discharge.
--- NOTE | 2017-12-31 13:30 | CMPROGNOTE_ITS ---
Care Management Progress Note S/O: Vannessa was just returning to bed and required assistance from the clinical staff for ambulation and also to raise her legs back up onto the bed. Remains acute level of care at this time and further diagnostic testing as well as medication adjustments may be needed. Alert and readily engaged in conversation. A: 77 year old female admitted to [facility] 12/24/17 for Post Operative Ileus, s/p ileostomy on 12/26/17. P: When medically cleared for level of care change, plan SB1 as recommended by PT. After her SB1 stay she will transition to home with new home health services through [facility] if needed. Anticipate transport home via private vehicle with her friend, Marisol-Darlin or family at time of discharge.
[2018-01-01] MEDS: Insulin Aspart 300 UNITS/3 ML PEN SC (00:44)
[2018-01-01] MEDS: Acetaminophen 325 MG TAB 650 MG PO (01:13)
[2018-01-01 03:20] VITALS: BP 131/84; PULSE 117; RESP 18; TEMP 36.8; O2SAT 95
[2018-01-01] MEDS: Normal Saline 1,000 ML 30 ML IV ×2 (04:49→19:08)
[2018-01-01 07:24] VITALS: BP 148/87; PULSE 99; RESP 18; TEMP 36.7; O2SAT 95
[2018-01-01] MEDS: Normal Saline Flush 10 ML SYR IVP ×2 (07:44→13:08)
[2018-01-01 08:36] LABS: Abs Immature Grans 3.71 k/cumm (0.0-0.09); HCT 26.8 % (36.0-46.0); HGB 8.7 g/dL (12.0-15.5); Mean Corp. HGB Concentration 32.5 g/dL (32.0-36.0); Mean Corpuscular Volume 95.4 fL (80-95); Mean Platelet Volume 10.9 fL (8.0-11.0); Platelet Count 309 x1000/uL (130-400); RBC 2.81 m/cumm (4.00-5.20); RBC Distribution Width 13.7 % (11.7-14.6)
[2018-01-01 08:42] LABS: White Blood Cell Count 29.37 k/cumm (4.4-10.8)
[2018-01-01 08:52] LABS: ALT 23 U/L (14-59); AST 28 U/L (15-37); Albumin 1.1 g/dL (3.4-5.0); Alkaline Phosphatase 208 U/L (46-116); Anion Gap 3.8 mmol/L (3-11); BUN 18 mg/dL (7-18); CO2 27.2 mmol/L (21.0-32.0); CREATININE 0.63 mg/dL (0.55-1.02); Calcium 7.5 mg/dL (8.5-10.1); Chloride 103 mmol/L (98-107); Glucose 152 mg/dL (70-100); Potassium 3.4 mmol/L (3.5-5.1); Sodium 134 mmol/L (136-145); Total Protein 5.4 g/dL (6.4-8.2)
[2018-01-01] MEDS: Metoprolol 12.5 MG TAB PO ×2 (08:54→20:01)
[2018-01-01 08:55] LABS: Absolute Lymphocyte Count 2.35 k/cumm (1.2-3.4); Absolute Neutrophil Count 20.56 k/cumm (1.2-6.7)
[2018-01-01 08:56] LABS: Absolute Monocyte Count 2.64 k/cumm (0.11-0.7); Diff Comment Manual Differential; Nucleated RBC 5 /100WBC; Other Cells 1
--- NOTE | 2018-01-01 09:10 | PDOC.PROG ---
Date of Service: 01/01/18 Time of Service: 09:10 Assessment/Plan - Assessment/Plan (1) Postop check Assessment: Clinically looks better. Elevated WBC to 29k. Afebrile. Blood cultures pending. CXR 12/31/17 stable with small bilateral effusions. Plan: Encouraged po as tolerated. Continue TPN. (2) Peritoneal abscess Plan: Continue Zosyn. Will check CT abd/pelvis with po/iv contrast to r/o persistent peritoneal abscess. (3) Wound infection after surgery Assessment: Few ankit d/c'd 12/31/17 to allow drainage. Draining adequately. Plan: Continue dry dressing changes. History of Present Illness - History of Present Illness Chief Complaint: s/p repair of anasdtomotic leak/ diverting loop ileostomy 12/26 History of Present Illness: Patient is up in chair doing exercises. Patient notes that she is feeling a little stronger today. Denies nausea or vomiting. Tolerating some po. WBC elevated to ~ 29k. Afebrile. Review of Systems - Medications/Allergies Allergies/Adverse Reactions: Allergies Allergy/AdvReac Type Severity Reaction Status Date / Time No Known Allergies Allergy Unverified 12/24/17 05:29 Medications: Current Medications Acetaminophen (Tylenol) 650 mg PO Q4H PRN PRN Last Admin: 01/01/18 01:13 Dose: 650 mg Fentanyl Citrate (Sublimaze) 50 mcg IVP Q2H PRN PRN Last Admin: 12/27/17 18:58 Dose: 50 mcg Heparin Sodium (Porcine) () 5,000 units SC Q12H [facility] Last Admin: 01/01/18 07:27 Dose: 5,000 units Piperacillin/Tazobactam/ (Dextrose 3.375 gm/ Device) 50 mls @ 100 mls/hr IVPB Q6H [facility] Last Admin: 01/01/18 08:54 Dose: 100 mls/hr Fat Emulsion 250 ml/ Device 250 mls @ 31.25 mls/hr IV DAILY@1000 RASHEEDA Last Admin: 12/31/17 11:14 Dose: 31.25 mls/hr Sodium Chloride (Saline 1000ml Bag) 1,000 mls @ 0 mls/hr IV INFUSION [facility] PRN Reason: KVO Last Admin: 01/01/18 04:49 Dose: 30 mls/hr Sodium/Potass/Mag/Gregg/Chlor/Acetate 20 ml/ Multivitamins 10 ml/ Chromium/Copper/Manganese/Zinc 1 ml/ Magnesium Sulfate 8.12 meq/ Potassium Chloride 10 meq/ Famotidine 20 mg/ Amino Acids/Dextrose 1,040 mls @ 85.917 mls/hr IV .BY DURATION [facility] Stop: 12/30/18 16:59 Last Admin: 12/31/17 17:40 Dose: 85.917 mls/hr Sodium/Potass/Mag/Gregg/Chlor/Acetate 20 ml/ Magnesium Sulfate 8.12 meq/ Potassium Chloride 10 meq/ Famotidine 20 mg/ Amino Acids/Dextrose 1,029 mls @ 85 mls/hr IV .BY DURATION [facility] Stop: 12/30/18 16:59 Last Admin: 01/01/18 05:41 Dose: 85 mls/hr IV Miscellaneous Supplies () 1 each IV DIRECTED [facility] Insulin Aspart (Novolog Flexpen) 0 units SC Q6H [facility] PRN Reason: Protocol Last Admin: 01/01/18 07:26 Dose: Not Given Metoprolol Tartrate (Lopressor) 12.5 mg PO BID [facility] Last Admin: 01/01/18 08:54 Dose: 12.5 mg Naloxone HCl (Narcan) 0 mg IVP DIRECTED PRN Nitroglycerin (Nitrostat) 0.4 mg SL Q5 MIN PRN X3 PRN PRN Reason: Chest Pain Last Admin: 12/24/17 20:27 Dose: 0.4 mg Ondansetron HCl (Zofran Injection) 4 mg IVP Q6H PRN PRN Last Admin: 12/30/17 06:11 Dose: 4 mg Sodium Chloride (Saline Flush 10 Ml Syringe) 0 ml IVP PRN PRN Last Admin: 01/01/18 07:44 Dose: 20 ml Objective - Exam Vitals and I&O: Vital Signs Temp 36.7 C 01/01/18 07:24 Pulse 99 H 01/01/18 07:24 Resp 18 01/01/18 07:24 BP 148/87 01/01/18 07:24 Pulse Ox 95 01/01/18 07:24 Intake & Output 12/31/17 12/31/17 01/01/18 11:59 23:59 11:59 Intake Total 1987 7501 606 Output Total 1999 6341 1225 Balance -12 793 -619 Intake: IV 1498 2105 266 Oral 490 250 340 Output: Urine 2725 644 5592 Stool 350 750 Other: Urine Color Yellow Yellow Straw Straw Urine Appearance Clear Clear Clear Urine Odor Strong Normal Normal Stool Size Smear Stool Characteristics Liquid Brown Voiding Methods Bedside Commode Bedside Commode Bedside Commode General: Alert, Cooperative, No acute distress HEENT: Atraumatic, EOMI Lungs: Other (breathing comfortably at rest on room air) Abdomen: Soft, Other (remaining ankit intact - draining small amount of purulent fluid on dressing; ileostomy viable and functioning). denies: Tenderness Skin: denies: Rashes Neurological: Normal speech Psych/Mental Status: Mental status NL, Mood NL - Results Results: Laboratory Results WBC 29.37 k/cumm (4.4-10.8) H* 01/01/18 08:25 RBC 2.81 m/cumm (4.00-5.20) L 01/01/18 08:25 Hgb 8.7 g/dL (12.0-15.5) L 01/01/18 08:25 Hct 26.8 % (36.0-46.0) L 01/01/18 08:25 MCV 95.4 fL (80-95) H 01/01/18 08:25 MCH 31.0 pg (27.0-33.0) 01/01/18 08:25 MCHC 32.5 g/dL (32.0-36.0) 01/01/18 08:25 RDW 13.7 % (11.7-14.6) 01/01/18 08:25 Plt Count 309 x1000/uL (130-400) 01/01/18 08:25 MPV 10.9 fL (8.0-11.0) 01/01/18 08:25 Immature Gran % See Differential 01/01/18 08:25 Neutrophils % 62.0 01/01/18 08:25 Lymphocytes % 8.0 01/01/18 08:25 Monocytes % 9.0 01/01/18 08:25 Eosinophils % 0.0 01/01/18 08:25 Basophils % 0.0 01/01/18 08:25 Absolute Neutrophils 20.56 k/cumm (1.2-6.7) H 01/01/18 08:25 Band Neutrophils 8.0 % 01/01/18 08:25 Absolute Lymphocytes 2.35 k/cumm (1.2-3.4) 01/01/18 08:25 Absolute Monocytes 2.64 k/cumm (0.11-0.7) H 01/01/18 08:25 Absolute Eosinophils 0.00 k/cumm (0.0-0.7) 01/01/18 08:25 Absolute Basophils 0.00 k/cumm (0.0-0.2) 01/01/18 08:25 Metamyelocytes 10.0 % 01/01/18 08:25 Myelocytes 2.0 % 01/01/18 08:25 Nucleated RBCs 5 /100WBC 01/01/18 08:25 Differential Comment Manual differential 01/01/18 08:25 Atypical Lymphocytes 1 12/29/17 06:10 Other Cell Type 1 01/01/18 08:25 RBC Morphology See below 12/29/17 06:10 Polychromasia Present 12/29/17 06:10 Anisocytosis 2+ 12/25/17 21:45 Amanda Cells 2+ 12/27/17 06:25 ESR 93 MM/HR (0-30) H 12/25/17 21:45 Sodium 134 mmol/L (136-145) L 01/01/18 08:25 Potassium 3.4 mmol/L (3.5-5.1) L 01/01/18 08:25 Chloride 103 mmol/L (98-107) 01/01/18 08:25 Carbon Dioxide 27.2 mmol/L (21.0-32.0) 01/01/18 08:25 Anion Gap 3.8 mmol/L (3-11) 01/01/18 08:25 BUN 18 mg/dL (7-18) 01/01/18 08:25 Creatinine 0.63 mg/dL (0.55-1.02) 01/01/18 08:25 Estimated GFR/1.73 m2 >= 60.00 (mL/min/1.73m2) 01/01/18 08:25 Glucose 152 mg/dL (70-100) H 01/01/18 08:25 Hemoglobin A1c 5.5 % (4.5-6.2) 12/25/17 21:45 Calcium 7.5 mg/dL (8.5-10.1) L 01/01/18 08:25 Magnesium 2.0 mg/dL (1.8-2.4) 01/01/18 08:25 Total Bilirubin 0.60 mg/dL (0.2-1.0) 01/01/18 08:25 AST 28 U/L (15-37) 01/01/18 08:25 ALT 23 U/L (14-59) 01/01/18 08:25 Alkaline Phosphatase 208 U/L (46-116) H 01/01/18 08:25 Troponin I 0.06 ng/mL (0.00-0.06) 12/26/17 06:23 C-Reactive Protein 17.25 mg/dL (0.0-0.3) H 12/25/17 21:45 Total Protein 5.4 g/dL (6.4-8.2) L 01/01/18 08:25 Albumin 1.1 g/dL (3.4-5.0) L 01/01/18 08:25 Triglycerides 133 mg/dL (30-150) 12/25/17 06:05 Total Cholesterol 133 mg/dL (50-200) 12/25/17 06:05 LDL Cholesterol Direct 94 mg/dL (<100) 12/25/17 06:05 HDL Cholesterol 15 mg/dL (40-60) L 12/25/17 06:05 Lipase 54 U/L (73-393) L 12/26/17 06:32 TSH 1.41 uIU/mL (0.358-3.74) 12/25/17 21:45 Urine Color Yellow (Yellow) 12/25/17 21:27 Urine Clarity Clear 12/25/17 21:27 Urine pH 6.0 (5-8) 12/25/17 21:27 Ur Specific [place] >= 1.030 (1.005-1.025) H 12/25/17 21:27 Urine Protein 100 mg/dL (Negative) H 12/25/17 21:27 Urine Ketones Negative mg/dL (Negative) 12/25/17 21:27 Urine Blood Small (Negative) H 12/25/17 21:27 Urine Nitrite Negative (Negative) 12/25/17 21: Urine Bilirubin Negative (Negative) 12/25/17 21: Urine Urobilinogen 0.2 EU/dL (Up TO 0.2) 12/25/17 21:27 Ur Leukocyte Esterase Negative (Negative) 12/25/17 21:27 Urine RBC 0-2 (0-2) 12/25/17 21:27 Urine WBC 3-5 HPF (0-5) 12/25/17 21:27 Ur Epithelial Cells Many HPF (Negative) 12/25/17 21:27 Urine Crystals Negative HPF (Negative) 12/25/17 21:27 Urine Bacteria Few HPF (Negative) 12/25/17 21:27 Urine Casts Negative LPF (Negative) 12/25/17 21:27 Urine Mucus Negative (Negative) 12/25/17 21:27 Ur Culture Indicated? C&s done as ordered 12/25/17 21:27 Urine Glucose 250 mg/dL (Negative) H 12/25/17 21:27 Path Cons Comment 12/26/17 06:32
--- NOTE | 2018-01-01 09:13 | PDOC.PROG_ITS ---
Date of Service: 01/01/18 Time of Service: 09:10 Assessment/Plan - Assessment/Plan (1) Postop check Assessment: Clinically looks better. Elevated WBC to 29k. Afebrile. Blood cultures pending. CXR 12/31/17 stable with small bilateral effusions. Plan: Encouraged po as tolerated. Continue TPN. (2) Peritoneal abscess Plan: Continue Zosyn. Will check CT abd/pelvis with po/iv contrast to r/o persistent peritoneal abscess. (3) Wound infection after surgery Assessment: Few ankit d/c'd 12/31/17 to allow drainage. Draining adequately. Plan: Continue dry dressing changes. History of Present Illness - History of Present Illness Chief Complaint: s/p repair of anasdtomotic leak/ diverting loop ileostomy 12/26 History of Present Illness: Patient is up in chair doing exercises. Patient notes that she is feeling a little stronger today. Denies nausea or vomiting. Tolerating some po. WBC elevated to ~ 29k. Afebrile. Review of Systems - Medications/Allergies Allergies/Adverse Reactions: Allergies Allergy/AdvReac Type Severity Reaction Status Date / Time No Known Allergies Allergy Unverified 12/24/17 05:29 Medications: Current Medications Acetaminophen (Tylenol) 650 mg PO Q4H PRN PRN Last Admin: 01/01/18 01:13 Dose: 650 mg Fentanyl Citrate (Sublimaze) 50 mcg IVP Q2H PRN PRN Last Admin: 12/27/17 18:58 Dose: 50 mcg Heparin Sodium (Porcine) () 5,000 units SC Q12H [facility] Last Admin: 01/01/18 07:27 Dose: 5,000 units Piperacillin/Tazobactam/ (Dextrose 3.375 gm/ Device) 50 mls @ 100 mls/hr IVPB Q6H [facility] Last Admin: 01/01/18 08:54 Dose: 100 mls/hr Fat Emulsion 250 ml/ Device 250 mls @ 31.25 mls/hr IV DAILY@1000 RASHEEDA Last Admin: 12/31/17 11:14 Dose: 31.25 mls/hr Sodium Chloride (Saline 1000ml Bag) 1,000 mls @ 0 mls/hr IV INFUSION [facility] PRN Reason: KVO Last Admin: 01/01/18 04:49 Dose: 30 mls/hr Sodium/Potass/Mag/Gregg/Chlor/Acetate 20 ml/ Multivitamins 10 ml/ Chromium/Copper/ Manganese/Zinc 1 ml/ Magnesium Sulfate 8.12 meq/ Potassium Chloride 10 meq/ Famotidine 20 mg/ Amino Acids/Dextrose 1,040 mls @ 85.917 mls/hr IV .BY DURATION [facility] Stop: 12/30/18 16:59 Last Admin: 12/31/17 17:40 Dose: 85.917 mls/hr Sodium/Potass/Mag/Gregg/Chlor/Acetate 20 ml/ Magnesium Sulfate 8.12 meq/ Potassium Chloride 10 meq/ Famotidine 20 mg/ Amino Acids/Dextrose 1,029 mls @ 85 mls/hr IV .BY DURATION [facility] Stop: 12/30/18 16:59 Last Admin: 01/01/18 05:41 Dose: 85 mls/hr IV Miscellaneous Supplies () 1 each IV DIRECTED [facility] Insulin Aspart (Novolog Flexpen) 0 units SC Q6H [facility] PRN Reason: Protocol Last Admin: 01/01/18 07:26 Dose: Not Given Metoprolol Tartrate (Lopressor) 12.5 mg PO BID [facility] Last Admin: 01/01/18 08:54 Dose: 12.5 mg Naloxone HCl (Narcan) 0 mg IVP DIRECTED PRN Nitroglycerin (Nitrostat) 0.4 mg SL Q5 MIN PRN X3 PRN PRN Reason: Chest Pain Last Admin: 12/24/17 20:27 Dose: 0.4 mg Ondansetron HCl (Zofran Injection) 4 mg IVP Q6H PRN PRN Last Admin: 12/30/17 06:11 Dose: 4 mg Sodium Chloride (Saline Flush 10 Ml Syringe) 0 ml IVP PRN PRN Last Admin: 01/01/18 07:44 Dose: 20 ml Objective - Exam Vitals and I&O: Vital Signs Temp 36.7 C 01/01/18 07:24 Pulse 99 H 01/01/18 07:24 Resp 18 01/01/18 07:24 BP 148/87 01/01/18 07:24 Pulse Ox 95 01/01/18 07:24 Intake & Output 12/31/17 12/31/17 01/01/18 11:59 23:59 11:59 Intake Total 1987 9530 606 Output Total 1999 2128 1225 Balance -12 793 -619 Intake: IV 1498 4891 266 Oral 490 250 340 Output: Urine 4929 042 0851 Stool 350 750 Other: Urine Color Yellow Yellow Straw Straw Urine Appearance Clear Clear Clear Urine Odor Strong Normal Normal Stool Size Smear Stool Characteristics Liquid Brown Voiding Methods Bedside Commode Bedside Commode Bedside Commode General: Alert, Cooperative, No acute distress HEENT: Atraumatic, EOMI Lungs: Other (breathing comfortably at rest on room air) Abdomen: Soft, Other (remaining ankit intact - draining small amount of purulent fluid on dressing; ileostomy viable and functioning). denies: Tenderness Skin: denies: Rashes Neurological: Normal speech Psych/Mental Status: Mental status NL, Mood NL - Results Results: Laboratory Results WBC 29.37 k/cumm (4.4-10.8) H* 01/01/18 08:25 RBC 2.81 m/cumm (4.00-5.20) L 01/01/18 08:25 Hgb 8.7 g/dL (12.0-15.5) L 01/01/18 08:25 Hct 26.8 % (36.0-46.0) L 01/01/18 08:25 MCV 95.4 fL (80-95) H 01/01/18 08:25 MCH 31.0 pg (27.0-33.0) 01/01/18 08:25 MCHC 32.5 g/dL (32.0-36.0) 01/01/18 08:25 RDW 13.7 % (11.7-14.6) 01/01/18 08:25 Plt Count 309 x1000/uL (130-400) 01/01/18 08:25 MPV 10.9 fL (8.0-11.0) 01/01/18 08:25 Immature Gran % See Differential 01/01/18 08:25 Neutrophils % 62.0 01/01/18 08:25 Lymphocytes % 8.0 01/01/18 08:25 Monocytes % 9.0 01/01/18 08:25 Eosinophils % 0.0 01/01/18 08:25 Basophils % 0.0 01/01/18 08:25 Absolute Neutrophils 20.56 k/cumm (1.2-6.7) H 01/01/18 08:25 Band Neutrophils 8.0 % 01/01/18 08:25 Absolute Lymphocytes 2.35 k/cumm (1.2-3.4) 01/01/18 08:25 Absolute Monocytes 2.64 k/cumm (0.11-0.7) H 01/01/18 08:25 Absolute Eosinophils 0.00 k/cumm (0.0-0.7) 01/01/18 08:25 Absolute Basophils 0.00 k/cumm (0.0-0.2) 01/01/18 08:25 Metamyelocytes 10.0 % 01/01/18 08:25 Myelocytes 2.0 % 01/01/18 08:25 Nucleated RBCs 5 /100WBC 01/01/18 08:25 Differential Comment Manual differential 01/01/18 08:25 Atypical Lymphocytes 1 12/29/17 06:10 Other Cell Type 1 01/01/18 08:25 RBC Morphology See below 12/29/17 06:10 Polychromasia Present 12/29/17 06:10 Anisocytosis 2+ 12/25/17 21:45 Worth Cells 2+ 12/27/17 06:25 ESR 93 MM/HR (0-30) H 12/25/17 21:45 Sodium 134 mmol/L (136-145) L 01/01/18 08:25 Potassium 3.4 mmol/L (3.5-5.1) L 01/01/18 08:25 Chloride 103 mmol/L (98-107) 01/01/18 08:25 Carbon Dioxide 27.2 mmol/L (21.0-32.0) 01/01/18 08:25 Anion Gap 3.8 mmol/L (3-11) 01/01/18 08:25 BUN 18 mg/dL (7-18) 01/01/18 08:25 Creatinine 0.63 mg/dL (0.55-1.02) 01/01/18 08:25 Estimated GFR/1.73 m2 >= 60.00 (mL/min/1.73m2) 01/01/18 08:25 Glucose 152 mg/dL (70-100) H 01/01/18 08:25 Hemoglobin A1c 5.5 % (4.5-6.2) 12/25/17 21:45 Calcium 7.5 mg/dL (8.5-10.1) L 01/01/18 08:25 Magnesium 2.0 mg/dL (1.8-2.4) 01/01/18 08:25 Total Bilirubin 0.60 mg/dL (0.2-1.0) 01/01/18 08:25 AST 28 U/L (15-37) 01/01/18 08:25 ALT 23 U/L (14-59) 01/01/18 08:25 Alkaline Phosphatase 208 U/L (46-116) H 01/01/18 08:25 Troponin I 0.06 ng/mL (0.00-0.06) 12/26/17 06:23 C-Reactive Protein 17.25 mg/dL (0.0-0.3) H 12/25/17 21:45 Total Protein 5.4 g/dL (6.4-8.2) L 01/01/18 08:25 Albumin 1.1 g/dL (3.4-5.0) L 01/01/18 08:25 Triglycerides 133 mg/dL (30-150) 12/25/17 06:05 Total Cholesterol 133 mg/dL (50-200) 12/25/17 06:05 LDL Cholesterol Direct 94 mg/dL (<100) 12/25/17 06:05 HDL Cholesterol 15 mg/dL (40-60) L 12/25/17 06:05 Lipase 54 U/L (73-393) L 12/26/17 06:32 TSH 1.41 uIU/mL (0.358-3.74) 12/25/17 21:45 Urine Color Yellow (Yellow) 12/25/17 21:27 Urine Clarity Clear 12/25/17 21:27 Urine pH 6.0 (5-8) 12/25/17 21:27 Ur Specific [place] >= 1.030 (1.005-1.025) H 12/25/17 21:27 Urine Protein 100 mg/dL (Negative) H 12/25/17 21:27 Urine Ketones Negative mg/dL (Negative) 12/25/17 21:27 Urine Blood Small (Negative) H 12/25/17 21:27 Urine Nitrite Negative (Negative) 12/25/17 21: Urine Bilirubin Negative (Negative) 12/25/17 21: Urine Urobilinogen 0.2 EU/dL (Up TO 0.2) 12/25/17 21:27 Ur Leukocyte Esterase Negative (Negative) 12/25/17 21:27 Urine RBC 0-2 (0-2) 12/25/17 21:27 Urine WBC 3-5 HPF (0-5) 12/25/17 21:27 Ur Epithelial Cells Many HPF (Negative) 12/25/17 21:27 Urine Crystals Negative HPF (Negative) 12/25/17 21:27 Urine Bacteria Few HPF (Negative) 12/25/17 21:27 Urine Casts Negative LPF (Negative) 12/25/17 21:27 Urine Mucus Negative (Negative) 12/25/17 21:27 Ur Culture Indicated? C&s done as ordered 12/25/17 21:27 Urine Glucose 250 mg/dL (Negative) H 12/25/17 21:27 Path Cons Comment 12/26/17 06:32
--- NOTE | 2018-01-01 10:34 | INPTTR_ITS ---
PHYSICAL THERAPY PROGRESS NOTE Date: 01/01/18 SUBJECTIVE: Vannessa stating she feels pretty tired. She does complain of some back pain while lying in bed. OBJECTIVE Supine in bed upon entering room. Agreeable to PT treatment. BED MOBILITY/TRANSFERS Supine-sit: Min A Sit-stand: CGA Stand-sit: CGA GAIT Assistive Device FWW Weightbearing Full Assist: CGA Distance: 10' THEREX: Perform static standing in place x 1 minute followed by standing marching x 1 minute with UE support to walker. She also performs seated UE/LE strengthening exercises as noted on her flow sheet. See flow sheet for specifics. ASSESSMENT: Pt slightly confused today. She did recognize who I am as we know each other outside the hospital. She continues to require motivation to get up and move and fatigues quickly. PLAN: Continue current POC. TREATMENT CODES/TIME: 25 minutes TA/RACHEL Thomas, RFID ANALYST
[2018-01-01 12:15] VITALS: BP 162/89; PULSE 100; RESP 20; TEMP 37.3; O2SAT 97
[2018-01-01] MEDS: Omnipaque 350 MG/ML 100 ML BTL IJ (12:48)
--- NOTE | 2018-01-01 12:56 | DI.RPTCT_ITS ---
SYMPTOM/DIAGNOSIS: ELEVATED WBC, S/P REPAIR OF ANASTOMOTIC LEAK AND ILEOSTOMY 12/26. RT COLON RESECTION 12/20 CT ABDOMEN AND PELVIS: Comparison is made with January 11. Images were performed from the lung bases through the ischial tuberosities after IV and oral contrast. The oral contrast is seen in the stomach and small bowel. The patient is status post right hemicolectomy. The amount of bowel dilatation has decreased when compared with the previous exam. There is now a right ileostomy. There is a loculated fluid collection containing air seen around the liver and anterior inferior to the liver. An additional somewhat loculated appearing collection is seen in the low pelvis , containing air bubbles. The air bubbles could be secondary to the recent surgery. There is some enhancement surrounding the collection which may indicate superimposed infection. There is some wall thickening involving loops of small bowel which could be infectious, inflammatory or ischemic. There is perfusion of the abdominal vasculature. The liver, gallbladder, pancreas, kidneys and adrenals are unremarkable. Low density lesions are again noted in the spleen. There are bilateral pleural effusions and adjacent basilar atelectasis, right greater than left. IMPRESSION: Enhancing fluid collection seen in the pelvis as well as beneath the diaphragm containing air bubbles may indicate infection. There has been improvement in bowel dilatation status post repair of the anastomotic leak and ileostomy. There are some loops of bowel with thickened wall which may be secondary to infection.
[2018-01-01] MEDS: Omnipaque 350 MG/ML 50 ML BTL IJ (13:01)
--- NOTE | 2018-01-01 13:22 | DI.VRAD_ITS ---
EXAM: CT Abdomen and Pelvis With Intravenous Contrast CLINICAL HISTORY: 77 years old, female; Signs and symptoms; Other: Elevated wbc, S/P repair of anastomotic leak and ileostomy 4/2; Prior surgery; Surgery date: <1 month; Surgery type: Colon recection; Patient HX: Elevated wbc, S/P repair of anastomotic leak and ileostomy 12/26, r colon resection 12/20 TECHNIQUE: Axial computed tomography images of the abdomen and pelvis with intravenous contrast. All CT scans at this facility use one or more dose reduction techniques, viz.: automated exposure control; ma/kV adjustment per patient size (including targeted exams where dose is matched to indication; i.e. head); or iterative reconstruction technique. Coronal and sagittal reformatted images were created and reviewed. CONTRAST: 114 mL of OMNIPAQUE 350 administered intravenously. COMPARISON: CT - ABD PELVIS WITH CONTRAST 2017-12-26 10:15 FINDINGS: Lung bases: Second large air-fluid collection in the anterior aspect of the right abdomen 13.5 x 4.6 by 22 cm. The air fluid collection extends superiorly to the diaphragm. Consolidation in both lower lobes may represent atelectasis or pneumonia. Pleural space: Bilateral pleural effusions. Heart: Coronary artery calcifications may indicate coronary artery disease ABDOMEN: Liver: Unremarkable. No mass. Gallbladder and bile ducts: Unremarkable. No calcified stones. No ductal dilation. Pancreas: Unremarkable. No mass. No ductal dilation. Spleen: Multiple low attenuation areas in the spleen were present on the prior study. Some are cystic. Others measure up to 45 Hounsfield units and could represent infection or neoplasm. Adrenals: Unremarkable. No mass. Kidneys and ureters: Prominence of the right extrarenal pelvis and proximal right ureter may be secondary to partial obstruction from inflammatory processes in the pelvis. Stomach and bowel: There are additional smaller fluid collections in the small bowel mesentery which most likely represent infection. Low-attenuation bowel wall thickening is seen throughout the colon consistent with colitis. Differential diagnosis includes infectious and inflammatory etiologies. Multiple loops of small bowel in the pelvis with marked bowel wall thickening and infiltration of the adjacent fat consistent with significant enteritis. Right lower quadrant ostomy. Loops of bowel within the ostomy demonstrating bowel wall thickening and are inflamed. No obstruction. Appendix: No findings to suggest acute appendicitis. PELVIS: Bladder: Unremarkable. No mass. Reproductive: Unremarkable as visualized. ABDOMEN and PELVIS: Intraperitoneal space: Enhancing peritoneum around 15 x9x 6 cm air-fluid collection in the pelvis and posterior cul-de-sac most likely represents abscess given the history. Free air in the abdomen most likely secondary to recent surgery. Bones/joints: No acute fracture. No dislocation. Soft tissues: Surgical clips in the subcutaneous fat of Vasculature: Unremarkable. No abdominal aortic aneurysm. Lymph nodes: Unremarkable. No enlarged lymph nodes. IMPRESSION: 1. Enhancing peritoneum around 15 x9x 6 cm air-fluid collection in the pelvis and posterior cul-de-sac most likely represents abscess given the history. 2. Second large air-fluid collection in the anterior aspect of the right abdomen 13.5 x 4.6 by 22 cm. The air fluid collection extends superiorly to the diaphragm. 3. There are additional smaller fluid collections in the small bowel mesentery which most likely represent infection. 4. Low-attenuation bowel wall thickening is seen throughout the colon consistent with colitis. Differential diagnosis includes infectious and inflammatory etiologies. 5. Multiple low attenuation areas in the spleen were present on the prior study. Some are cystic. Others measure up to 45 Hounsfield units and could represent infection or neoplasm. 6. Free air in the abdomen most likely secondary to recent surgery. 7. Consolidation in both lower lobes may represent atelectasis or pneumonia. 8. Bilateral pleural effusions. 9. Multiple loops of small bowel in the pelvis with marked bowel wall thickening and infiltration of the adjacent fat consistent with significant enteritis. 10. Right lower quadrant ostomy. Loops of bowel within the ostomy demonstrating bowel wall thickening and are inflamed. THIS REPORT CONTAINS FINDINGS THAT MAY BE CRITICAL TO PATIENT CARE. The findings were verbally communicated via telephone conference with nurse practitioner Ced Aguilera at 1:21 PM EDT on 01/01/2018. The findings were acknowledged and understood. Dictated and Authenticated by: Jaylan Cortés MD. Ordering:LIZZIE WILKINSON MD
--- NOTE | 2018-01-01 14:15 | NUR.NOTE ---
Nursing Note: 1400: pt noted to have fluid draining from posterior lower back; this is the same area that was draining and discussed with KAUSHIK and on 12/31/17.
--- NOTE | 2018-01-01 14:35 | PROG.BLANK ---
Date of Service: 01/01/18 Time of Service: 13:[address] Devries was notified by me of [facility]Rad Wet Read: 20cm and 15 cm fluid collections - abscess. First, extending from right kelly diaphragm posteriorly to kidney extending to ostomy. Second, Posterior cul-de-sac anteriorly.+++Enteritis. Made aware that Interventional Radiology is not available.
[2018-01-01 15:35] VITALS: BP 154/91; PULSE 100; RESP 17; TEMP 37; O2SAT 94
--- NOTE | 2018-01-01 17:22 | PROG.BLANK ---
Date of Service: 01/01/18 Time of Service: 17:22 Progress Note Notified earlier this afternoon of CT abd/pelvis results showing 2 large fluid collections. Films reviewed. Preliminary report noted. A [id number] cm fluid collection is noted in the pelvis and posterior cul-de-sac as well as a second anterior collection measuring 13.5x4.6x22 cm in the right abdomen. Suspect that the anterior collection is draining via her incision. Peritoneal cultures from surgery on 12/26/17 had grown Enterobacter cloacae sensitive to Zosyn, which she is currently on, as well as Enterococcus sensitive to Vancomycin. Patient is clinically stable. Last set of VS at 1535 - T - 37. HR - 100. BP - 154/91. O2 sats - 94% RA Discussed with Clinical Coordinator. Will add Vancomycin to antibiotic coverage. Follow-up labs in am. I was made aware that interventional radiology is not available for CT guided drainage locally but can be arranged at [facility]. Will defer operative drain placement vs. interventional drain placement to Dr. Ceja. Will make patient NPO after midnight for possible intervention 01/02/18.
--- NOTE | 2018-01-01 17:27 | PROG.BLANK_ITS ---
Date of Service: 01/01/18 Time of Service: 17:22 Progress Note Notified earlier this afternoon of CT abd/pelvis results showing 2 large fluid collections. Films reviewed. Preliminary report noted. A [id number] cm fluid collection is noted in the pelvis and posterior cul-de-sac as well as a second anterior collection measuring 13.5x4.6x22 cm in the right abdomen. Suspect that the anterior collection is draining via her incision. Peritoneal cultures from surgery on 12/26/17 had grown Enterobacter cloacae sensitive to Zosyn, which she is currently on, as well as Enterococcus sensitive to Vancomycin. Patient is clinically stable. Last set of VS at 1535 - T - 37. HR - 100. BP - 154/91. O2 sats - 94% RA Discussed with Clinical Coordinator. Will add Vancomycin to antibiotic coverage. Follow-up labs in am. I was made aware that interventional radiology is not available for CT guided drainage locally but can be arranged at [facility]. Will defer operative drain placement vs. interventional drain placement to Dr. Ceja. Will make patient NPO after midnight for possible intervention 01/02/18.
--- NOTE | 2018-01-01 18:21 | PDOC.CMPRO ---
Care Management Progress Note /O: Vannessa was lying in bed and visiting with her son. States she feels just a little bit better each day. Nursing reports that she has periods of confusion. Remains acute level of care. Alert and readily engaged in conversation. A: 77 year old female admitted to [facility] 12/24/17 for Post Operative Ileus, s/p ileostomy on 12/26/17. P: When medically cleared for level of care change, plan SB1 as recommended by PT. After her SB1 stay she will transition to home with new home health services through [facility] if needed. Anticipate transport home via private vehicle with her friend, Marisol-Darlin or family at time of discharge.
--- NOTE | 2018-01-01 18:24 | CMPROGNOTE_ITS ---
Care Management Progress Note /O: Vannessa was lying in bed and visiting with her son. States she feels just a little bit better each day. Nursing reports that she has periods of confusion. Remains acute level of care. Alert and readily engaged in conversation. A: 77 year old female admitted to [facility] 12/24/17 for Post Operative Ileus, s/p ileostomy on 12/26/17. P: When medically cleared for level of care change, plan SB1 as recommended by PT. After her SB1 stay she will transition to home with new home health services through [facility] if needed. Anticipate transport home via private vehicle with her friend, Marisol-Darlin or family at time of discharge.
[2018-01-01 19:37] VITALS: BP 139/82; PULSE 103; RESP 17; TEMP 37.2; O2SAT 96
[2018-01-01] MEDS: VANCOMYCIN 1,250 MG in Normal Saline 250 ML 250 MG IV (21:21)
[2018-01-02] VITALS (8 sets, daily range): BP systolic 117–164; BP diastolic 55–91; PULSE 97–146; RESP 16–32; TEMP 36.6–37.2; O2SAT 94–96
[2018-01-02] MEDS: Insulin Aspart 300 UNITS/3 ML PEN SC ×3 (00:34→12:10)
[2018-01-02 07:28] LABS: Abs Immature Grans 2.14 k/cumm (0.0-0.09); HCT 25.4 % (36.0-46.0); HGB 8.3 g/dL (12.0-15.5); Mean Corp. HGB Concentration 32.7 g/dL (32.0-36.0); Mean Corpuscular Hemoglobin 31.4 pg (27.0-33.0); Mean Corpuscular Volume 96.2 fL (80-95); Mean Platelet Volume 11.1 fL (8.0-11.0); RBC 2.64 m/cumm (4.00-5.20); RBC Distribution Width 13.7 % (11.7-14.6)
[2018-01-02 07:45] LABS: ALT 24 U/L (14-59); AST 28 U/L (15-37); Albumin 1.1 g/dL (3.4-5.0); Alkaline Phosphatase 190 U/L (46-116); BUN 17 mg/dL (7-18); CREATININE 0.63 mg/dL (0.55-1.02); Calcium 7.4 mg/dL (8.5-10.1); Chloride 100 mmol/L (98-107); Glucose 126 mg/dL (70-100); Potassium 3.1 mmol/L (3.5-5.1); Sodium 136 mmol/L (136-145); Total Protein 5.3 g/dL (6.4-8.2)
[2018-01-02 07:46] LABS: White Blood Cell Count 29.17 k/cumm (4.4-10.8)
[2018-01-02 07:51] LABS: Absolute Neutrophil Count 21.29 k/cumm (1.2-6.7)
[2018-01-02 07:52] LABS: Absolute Eosinophil Count 0.58 k/cumm (0.0-0.7); Absolute Lymphocyte Count 2.04 k/cumm (1.2-3.4); Absolute Monocyte Count 1.46 k/cumm (0.11-0.7); Atypical Lymphocytes % 2; Diff Comment Manual Differential; Nucleated RBC 3 /100WBC
[2018-01-02 07:53] LABS: Hypochromasia 2+
[2018-01-02 07:54] LABS: Platelet Count 384 x1000/uL (130-400)
[2018-01-02] MEDS: Metoprolol 12.5 MG TAB PO ×2 (07:58→20:28)
--- NOTE | 2018-01-02 08:30 | PDOC.CMPRO ---
Date of Service: 01/02/18 Time of Service: 08:30 Care Management Progress Note S/O:CM met with pt in the room she is alert and engaged. She met with the MD this morning she states she was told she may have to go to [facility] to have fluid drained from abscesses. CM education pt on procedure and details related to interventional radiology and then return to [facility]. Pt continues to receive TPN and IV antibiotics. CM tp provide son Phylicia an update over the phone. A: 77 year old female admitted to [facility] 12/24/17 for Post Operative Ileus, s/p ileostomy on 12/26/17. P:Possible down and return to [facility] for interventional radiology for abscesses seen on CT scan. She will continue on IV antibiotics and TPN. When medically cleared for level of care change, plan SB1 as recommended by PT. After her SB1 stay she will transition to home with new home health services through [facility] if needed. Anticipate transport home via private vehicle with her friend, Marisol-Darlin or family at time of discharge.
--- NOTE | 2018-01-02 08:33 | CMPROGNOTE_ITS ---
Date of Service: 01/02/18 Time of Service: 08:30 Care Management Progress Note S/O:CM met with pt in the room she is alert and engaged. She met with the MD this morning she states she was told she may have to go [place] [facility] [place] have fluid [place] from abscesses. CM education pt on procedure and details related to interventional radiology and then return to [facility]. Pt continues to receive TPN and IV antibiotics. CM tp provide son Phylicia an update over the phone. A: 77 year old female admitted to [facility] 12/24/17 for Post Operative Ileus, s/p ileostomy on 12/26/17. P:Possible down and return to [facility] [place] interventional radiology for abscesses seen on CT scan. She will continue on IV antibiotics and TPN. When medically cleared for level of care change, plan SB1 as recommended by PT. After her SB1 stay she will transition to home with new home health services through [facility] if needed. Anticipate transport home via private vehicle with her friend, Marisol-Darlin or family at time of discharge.
--- NOTE | 2018-01-02 09:38 | OTTR_ITS ---
OCCUPATIONAL THERAPY TREATMENT NOTE Date: 01/02/2018 PRECAUTIONS:Standard SUBJECTIVE: C/O L lower back pain. OBJECTIVE FUNCTIONAL MOBILITY Sit-stand: SBA with v/cs hand placement. Stand-sit: SBA with v/cs hand placement. BATHING: Upper Body I post setup. Lower Body SBA to knees. mod assist below knees. DRESSING: Upper Extremity I post setup. Lower Extremity Mod assist with briefs. Dep socks. ASSESSMENT: Patient with decreased motivation, increased pain and some mild confusion. PLAN: Continue TREATMENT CODES/TIME: \25 mins 2 sct
[2018-01-02] MEDS: VANCOMYCIN 1,000 MG in Normal Saline 250 ML 166.667 MG IV ×2 (10:10→23:37)
--- NOTE | 2018-01-02 11:18 | NT_ITS ---
PHYSICAL THERAPY NOTE 01/02/18 Attempted to see patient for PT treatment, pt reports she is too tired after working with OT and being up in the chair. States she is not sure if she is having a procedure done today or going to [facility], she is waiting to hear from the doctor. Hold session per patient request. Kati Nayak PT
--- NOTE | 2018-01-02 14:29 | NT_ITS ---
Physical Therapy Note Date: 01/02/18 Attempted to see pt this afternoon, pt states she is waiting to get fluid drained and may be transferred to [facility] tomorrow for possible procedure. Hold PT until procedures completed, may need new order post-operatively to resume services. Mari Resendiz SPT under direct supervision of Kati Nayak PT
[2018-01-02] MEDS: Normal Saline 1,000 ML 100 ML IV (15:36)
[2018-01-02] MEDS: Propofol 500 MG/50 ML VIAL 230 MG IV (15:40)
--- NOTE | 2018-01-02 17:19 | PGE_ITS ---
DATE: January 02, 2018 ASSESSMENT: Jewcmuj-hnubl-nklv-old female with abdominal abscesses after anastomotic leak and repair . PLANS: #1. Neurological. Seems to be doing well with Tylenol for pain and as little Dilaudid as necessary trying to minimize any confusion. #2. Cardiac. Blood pressure is a little high but this could be related to pain or her anxiety. She is otherwise stable. She has been started on metoprolol which seems to be working overall although could go up in dosing. #3. Respiratory. Continue pulmonary toilet and DVT prophylaxis. She is working with Occupational T herapy and Physical Therapy and doing reasonably well with that. #4. GI. Ostomy is functioning. We will advance her diet pending drain placement, but will feed her as much as I can in between procedures. #5. Nutrition and electrolytes. Potassium is 3.1, will replace this. Her magnesium is okay. I am supplementing this in her TPN. Will continue TPN for the moment until I make sure she is eating adeq uate p.o., hopefully over the next day or two. #6. . Creatinine is fine. Will continue to monitor with the vancomycin. #7. Musculoskeletal. OT and PT have been ordered for strengthening for activities of daily living a nd she seems to be doing well with this. #8. Infectious Disease. She is on Zosyn and vancomycin. Dosing for vancomycin is per Pharmacy. Bhaskar lamas is due for a trough tomorrow. Pelvic abscess to be drained today through the rectum. Plan is for Interventional Radiology to drain abdominal abscess percutaneously. #9. Lines/tubes. No signs of infection at her PICC line site. It is functioning well. Blood cultu res have been negative so far. Will continue to monitor this. #10. Endocrine. Glucose has been slightly elevated. She is getting supplemented insulin for this t palomo I suspect it is related to her abscesses. #11. Disposition. Continue current care. DIAGNOSIS: Anastomotic leak. SUBJECTIVE: The patient did well overnight. No further fevers. She denies any nausea or vomiting. Her ostomy is functioning. Pelvic and abdominal CT yesterday showed fluid collection suspicious for abscess given her elevated white count. The patient was made n.p.o. pending plans today. OBJECTIVE: VITAL SIGNS: T-max 37.2, T-current 37.2. Remainder of vital signs are stable. Please see EMR for t he last 24 hours. Most recent set of vital signs: Blood pressure 164/84. Pulse 99. Respirations 19. O2 saturation i s 96% on room air. She took in 2.3 liters yesterday and had 4.5 liters out. He has 1300 of stool yesterday, 250 so far today though it has not been updated recently. GENERAL: She is awake, alert, a little anxious which is more her baseline. LUNGS: Clear, diminished at the bases. HEART: Regular. ABDOMEN: Soft. She has some minimal tenderness over her incision. Ostomy is pink, patent. EXTREMITIES: No clubbing, cyanosis, or edema. INTEGUMENT: Warm and dry. LABS: Sodium 136, potassium 3.1, chloride 100, CO2 29, BUN 17, creatinine 0.63, calcium 7.4, albumin 1.1. Liver enzymes are normal. White count 29.7, hemoglobin 8.3, hematocrit 25, platelets 384,000, neutrophils 67%, lymphocytes 5%, monocytes 5%. Micro from cultures growing out Enterobacter cloacae complex and Enterococcus species. Enterobacter cloacae is sensitive to Zosyn. Enterococcus species is sensitive it looks like to ampicillin, vancom ycin, and Cipro.
--- NOTE | 2018-01-02 18:17 | ROE_ITS ---
DATE: January 02, 2018 PREOPERATIVE DIAGNOSIS: Pelvic abscess. POSTOPERATIVE DIAGNOSIS: Pelvic abscess. PROCEDURE: Incision and drainage of pelvic abscess through rectum. SURGEON: Gregor Ceja D.O. ANESTHESIA: Monitored anesthesia care by Roc hZang CRNA ASA III Mallampati class II ESTIMATED BLOOD LOSS: Minimal. SPECIMEN: 250 mL of purulent fluid drained. INDICATIONS: This is a 77-year-old female who had originally undergone a laparoscopic hand-assisted right hemicolectomy for a tubulovillous adenoma of the cecum. She subsequently had an anastomotic leak with repair and diverting ileostomy, along with a washout of the abdomen, but has developed a right upper quadrant abscess and a pelvic abscess. The pelvic abscess was felt to reachable for drainage through the rectum. I discussed this with the patient and consent was obtained to proceed. The abdominal abscess will be percutaneously drained. The risks and benefits of the pelvic drainage were discussed with her and all of her questions were answered to her satisfaction. Consent was obtained to proceed. FINDINGS: 250 cc of purulent fluid were drained through the rectum. Aspirate was obtained first and sent for culture. PROCEDURE: The patient was brought to the preanesthesia staging area where identification was confirmed and consent signed. She was then brought to the Operating Room and positioned supine. An appropriate time-out was taken reviewing the patient's identification, allergies, medications, and procedure. Sedation was titrated for effect. Once adequate sedation was reached, she was placed in stirrups for lithotomy position. Her perineum was prepped with Betadine and block draped in a standard sterile fashion. I began by performing a digital rectal exam and I could feel a bulge at the appropriate level to suggest the abscess was in contact with the rectal wall. I then placed an anoscope, inspecting the anterior wall of the rectum. Using an 18-gauge spinal needle I advanced this into the area that I had felt the abscess would be until I returned purulent fluid. I left the needle in place and then using a Monserrat clamp followed the needle up to its insertion site in the anterior rectum. I performed a blunt perforation of the rectum at this spot, with subsequent drainage of copious purulent fluid for a total of about 250 mL, although it may have been a little bit more than this. I did do some minimal irrigation and there was minimal bleeding from the site. The patient has a diverting ileostomy so I left the wound open to close on its own. It was an approximately 5-mm defect created in the rectal wall. The patient was then taken out of lithotomy, awakened in the Operating Room, and brought to the Post Anesthesia Care Unit in good condition. There were no complications during the procedure. The patient tolerated it very well. All counts were recorded as correct x2.
[2018-01-03] VITALS (7 sets, daily range): BP systolic 143–165; BP diastolic 84–94; PULSE 92–101; RESP 16–36; TEMP 36.4–37.7; O2SAT 95–98
[2018-01-03] MEDS: Insulin Aspart 300 UNITS/3 ML PEN SC (01:20)
[2018-01-03 06:07] LABS: INR 0.9 (1.0-3.5); PTT Activated 22.6 sec (21.0-31.4)
[2018-01-03 06:09] LABS: Anion Gap 5.5 mmol/L (3-11); BUN 17 mg/dL (7-18); CO2 28.5 mmol/L (21.0-32.0); CREATININE 0.64 mg/dL (0.55-1.02); Calcium 7.4 mg/dL (8.5-10.1); Chloride 103 mmol/L (98-107); Glucose 131 mg/dL (70-100); Magnesium 2.1 mg/dL (1.8-2.4); Potassium 3.7 mmol/L (3.5-5.1); Sodium 137 mmol/L (136-145)
[2018-01-03] MEDS: DEXTROSE 5%-0.9% SALINE 1,000 ML 75 ML IV (06:27)
--- NOTE | 2018-01-03 09:00 | NT_ITS ---
PHYSICAL THERAPY NOTE 01/03/18 HOLD PT treatment this morning, pt is out of room at procedure. Kati Nayak PT
--- NOTE | 2018-01-03 10:02 | INDS_ITS ---
PHYSICAL THERAPY INPATIENT DISCHARGE NOTE Date: 01/03/18 Dates of Service: 12/29/17-01/01/18 SUBJECTIVE: NT OBJECTIVE 12/29/17-01/01/18 BED MOBILITY/TRANSFERS: Supine-sit: minAx1 Sit-supine: MinAx1 Sit-stand: CGA Stand-sit: CGA Bed-chair: CGA Chair-bed: CGA GAIT: CGA with FWW 10-15ft BALANCE: Static sitting normal Dynamic Sitting normal Static Standing fair Dynamic Standing fair ASSESSMENT: Pt is a 77yr old female admitted with post operative ileus s/p right hemicolectomy, during admission she underwent exploratory laparotomy with enterotomy repair and diverting loop ileostomy 12/26/17 in setting of osteopenia, anxiety, right shoulder fracture, knee arthroscopy, neuropathic pain. Patient was seen for only 2 PT visits in the last 6 days due to medical issues, pt is at [facility] today for medical procedure and is s/p abscess drain of pelvis 01/02/18. Discharge PT service at this time due to medical procedures requiring order of therapy post operatively. Recommend MD re-order PT when pt is medically stable and able to participate in progressive therapy. GOALS Goals x1 week 1. Supine-sit: independent 2. Sit-Supine: independent 3. Sit-Stand: independent 4. Stand-sit: independent 5. Bed-chair: supervision with FWW 6. Chair-bed: supervision with FWW 7. Gait: supervision with FWW 75ftx2 8. Stairs: up/down 4 steps with railing, supervision Pt did not meet goals due to medical complications. DISCHARGE RECOMMENDATIONS home with home PT, may need FWW at discharge G Codes in the area mobility of walking and moving around: projected status GP [id number] CK_. Discharge status (if discharging) GP [id number] Kati Nayak PT
--- NOTE | 2018-01-03 10:29 | NT_ITS ---
Patient not seen as patient at [facility] for medical procedure.
--- NOTE | 2018-01-03 11:11 | PDOC.CMPRO ---
Date of Service: 01/03/18 Time of Service: 11:11 Care Management Progress Note S/O:Vannessa left early this am [place] [facility] [place] she will then return to [facility]. She was transported by ambulance. CM will contact son Phylicia this afternoon once pt returns to provide update. A:77 year old female admitted to [facility] 12/24/17 for Post Operative Ileus, s/p ileostomy on 12/26/17. 01/01/2018 CT preformed and Intra abdominal abscess identified. Vannessa return to the OR on 01/02/18 to have one abscess drained, on 01/03/18 she was transferred to same day IR at [facility] for second abscess to be drained. P:Vannessa will return to [facility] via ambulance once her procedure is complete. CM to update son upon pt return. She will continue on IV antibiotics and TPN. When medically cleared for level of care change, plan SB1 as recommended by PT. After her SB1 stay she will transition to home with new home health services through [facility] if needed. Anticipate transport home via private vehicle with her friend, Marisol-Darlin or family at time of discharge.
--- NOTE | 2018-01-03 11:22 | CMPROGNOTE_ITS ---
Date of Service: 01/03/18 Time of Service: 11:11 Care Management Progress Note S/O:Vannessa left early this am for [facility] to have her abscess drained she will then return to [facility]. She was transported by ambulance. CM will contact son Phylicia this afternoon once pt returns to provide update. A:77 year old female admitted to [facility] 12/24/17 for Post Operative Ileus, s/p ileostomy on 12/26/17. 01/01/2018 CT preformed and Intra abdominal abscess identified. Vannessa return to the OR on 01/02/18 to have one abscess drained, on she was transferred to same day IR at [facility] for second abscess to be drained. P:Vannessa will return to [facility] via ambulance once her procedure is complete. CM to update son upon pt return. She will continue on IV antibiotics and TPN. When medically cleared for level of care change, plan SB1 as recommended by PT. After her SB1 stay she will transition to home with new home health services through [facility] if needed. Anticipate transport home via private vehicle with her friend, Marisol-Darlin or family at time of discharge.
--- NOTE | 2018-01-03 11:45 | NUR.NOTE ---
Nursing Note: Report called from [facility] @[id number], nurse reported Pt will be leaving via ambulance at 1200. Per report, Pt had 2 drains placed, but one was removed due to no fluid drainage. The other drain was placed and 75 cc's of fluid was aspirated from abscess site. Pt tolerated well. Per nurse, we are NOT to flush the site as an order. CC and aware.
[2018-01-03] MEDS: Normal Saline Flush 10 ML SYR IVP ×2 (13:33→19:35)
[2018-01-03] MEDS: POTASSIUM CHLORIDE/D5-0.45NACL 1,000 ML 45 MEQ IV (13:34)
[2018-01-03] MEDS: Metoprolol 12.5 MG TAB PO (19:34)
--- NOTE | 2018-01-03 21:03 | PGE_ITS ---
DATE: January 03, 2018 ASSESSMENT: Vodegpc-ufrxh-bnpn-old female doing well. Abdominal drain placed for right upper quadra nt fluid collection. PLANS: #1. Neuro. She is still on Tylenol and seems to be doing well with her pain. #2. Cardiac. She is on a small dose of metoprolol. Will probably increase this. Blood pressure se ems to be tolerating it as is her heart rate. #3. Respiratory. Continue pulmonary toilet, DVT prophylaxis, and ambulation. #4. GI. Ostomy is functioning. We will start to wean off her TPN and turn up her diet. #5. . Creatinine normal. Making good urine. #6. Infectious Disease. Pelvic abscess drained. Now right upper quadrant abscess is drained. Will plan to recheck her white count again tomorrow. She is on Zosyn and vancomycin for coverage of Ente robacter cloacae and Enterococcus species. Will look for this to continue to improve. #7. Lines/tubes. PICC line without signs of infection. #8. Disposition. Continue current care. SUBJECTIVE: The patient did well overnight. She was transferred to [facility] for outpatient procedu re without complications and returned. OBJECTIVE: VITAL SIGNS: T-max 37.7, T-current 36.5. Remainder of vital signs have been stable. Most recent se t of vital signs: Blood pressure 143/80. Pulse 92. Respirations 15. O2 saturation is 96% on room air. I's and O's: She had 3.5 liters in over the last 24 hours, 2.8 liters out, 550 of that was ostomy ou tput. GENERAL: She looks very good today. Awake, alert, appropriate at baseline. LUNGS: Clear. HEART: Regular. ABDOMEN: Soft. Minimal tenderness over incision. Ostomy is pink and patent. Drain is present with murky brown drainage. EXTREMITIES: No clubbing, cyanosis, or edema. INTEGUMENT: Warm and dry.
[2018-01-04 03:15] VITALS: BP 167/96; PULSE 99; RESP 22; TEMP 36.8; O2SAT 96
[2018-01-04] MEDS: Acetaminophen 325 MG TAB 650 MG PO (05:46)
[2018-01-04 07:29] VITALS: BP 149/87; PULSE 97; RESP 25; TEMP 36.6; O2SAT 96
[2018-01-04 08:25] VITALS: O2SAT 95
--- NOTE | 2018-01-04 08:49 | OTDS_ITS ---
OCCUPATIONAL THERAPY DISCHARGE SUMMARY Date:01/04/18 Precautions: Fall precautions, standard. PATIENT PROFILE/ADMITTING DIAGNOSIS: Pt is a 77yr old female admitted with post operative ileus s/p right hemicolectomy. During admission she underwent exploratory laparotomy with enterotomy repair and diverting loop ileostomy PMHX: Osteopenia, anxiety, right shoulder fracture, knee arthroscopy, neuropathic pain, hyperlipidemia, splenic hemangioma, tubulovillous adenoma cecum, hypothyroidism, vitamin D deficiency, hidrotic ectodermal dysplasia syndrome, hysterectomy and colonoscopy 2x2 Social History/Home Situation: Lives alone in house in [place], 2 steps then landing and 2 more steps with rails to enter home. One level home with tub shower. Has bars, no bench. Baseline mobility independent gait with no device, walking 5 miles per day, independent with ADLS. Was attending [facility] for right hip strengthening prior to admission. Equipment owned/DME: grab bars, hand held shower OBJECTIVE: Mental Status: A& O x3 ROM: RUE: AROM WNL LUE AROM WNL STRENGTH: RUE: 4/5throughout LUE 4/5 throughout FUNCTIONAL MOBILITY/ADLS: Transfers Sit-Stand min assist to come forward in chair, then SBA with v/cs hand placement. Stand-sit SBA with v/cs hand placement. Functional mobility: CGA with FWW. BATHING Bathing UE I Post setup seated. Bathing LE SBA standing post setup for ruy area. Dep. below knees. DRESSING Dressing UE I post setup seated. Dressing LE Max assist. GROOMING I post setup seated. TOILETING Not tested. Sultana and ileostomy. EATING I BALANCE: Static sitting N Dynamic Sitting G Static Standing G Dynamic Standing F INFORMED CONSENT/EDUCATION: Pt instructed in purpose of OT Consult and plan of care. ADLS session completed. ASSESSMENT: Patient is a 77-year-old female, referred to occupational therapy services with diagnosis of post operative ileus s/p right hemicolectomy. Patient presents with clinical signs and symptoms consistent with diagnosis , as demonstrated by the following impairment level findings: Weakness, decreased tolerance to activity, pain, decreased balance. Impairments are contributing to the following functional limitations: Decreased I with transfers , mobility and adls. Patient discharged from services due to 2 surgeries. GOALS Not met due to medical procedures and OT d/c Goals x1 week 1. Transfers for ADLS i in hospital setting. 2. Dressing I with AE PRN 3. Bathing I with AE PRN 4. Toileting I with AE PRN DISCHARGE RECOMMENDATIONS Refer back to OT services when medically stable. G Codes in the area of self- : washing oneself, toileting, dressing, eating and drinking, current status [id number] ____CK___ projected status GP [id number]___[id number] . Discharge status (if discharging) GP [id number]___JS___
[2018-01-04 08:55] LABS: Anion Gap 9.8 mmol/L (3-11); BUN 14 mg/dL (7-18); CO2 23.2 mmol/L (21.0-32.0); CREATININE 0.74 mg/dL (0.55-1.02); Calcium 7.7 mg/dL (8.5-10.1); Chloride 101 mmol/L (98-107); Glucose 131 mg/dL (70-100); Potassium 3.7 mmol/L (3.5-5.1); Sodium 134 mmol/L (136-145)
[2018-01-04] MEDS: Normal Saline Flush 10 ML SYR IVP ×2 (08:56→14:25)
[2018-01-04] MEDS: Metoprolol 12.5 MG TAB PO ×2 (08:56→22:43)
--- NOTE | 2018-01-04 09:02 | PDOC.CMPRO ---
Date of Service: 01/04/18 Time of Service: 09:02 Care Management Progress Note S/O:CM met with pt at the bedside she is alert, she states she is tolerating some food. She is aware her TPN will stop today and she is looking forward to continued progress. She states she still feels fuzzy and confused at times but it clears as the day progresses. She states she is not sleeping well due to back pain, she informs life underwriter she does not like to take medication. She would like a Tylenol at bedtime. She reports that she was able to sleep some after she received it during the night. ANDI reviewed the disposition plan with pt, she agrees to SB1 prior to transition home. She will need to learn Ileostomy care and receive pt and ot during her SB1 stay. She will transition home with home health services nursing, pt and ot once she is discharged. A:77 year old female admitted to [facility] 12/24/17 for Post Operative Ileus, s/p ileostomy on 12/26/17. 01/01/2018 CT preformed and Intra abdominal abscess identified. Vannessa return to the OR on 01/02/18 to have one abscess drained, on 01/03/18 she was transferred to same day IR at [facility] [place] second abscess to be drained. P: Anticipate that Vannessa will transition to [facility] on Tuesday. Her TPN should be compete today. When medically cleared for level of care change, plan SB1 as recommended by PT. After her SB1 stay she will transition to home with new home health services through [facility]. Anticipate transport home via private vehicle with her friend, Marisol-Darlin or family at time of discharge.
[2018-01-04 09:06] LABS: Abs Immature Grans 0.75 k/cumm (0.0-0.09); HCT 27.2 % (36.0-46.0); HGB 8.6 g/dL (12.0-15.5); Mean Corp. HGB Concentration 31.6 g/dL (32.0-36.0); Mean Corpuscular Hemoglobin 30.6 pg (27.0-33.0); Mean Corpuscular Volume 96.8 fL (80-95); Mean Platelet Volume 10.7 fL (8.0-11.0); Platelet Count 547 x1000/uL (130-400); RBC 2.81 m/cumm (4.00-5.20); RBC Distribution Width 14.5 % (11.7-14.6)
[2018-01-04 09:25] LABS: Absolute Eosinophil Count 0.28 k/cumm (0.0-0.7); Absolute Lymphocyte Count 1.11 k/cumm (1.2-3.4); Absolute Monocyte Count 2.21 k/cumm (0.11-0.7); Absolute Neutrophil Count 22.96 k/cumm (1.2-6.7); Hypochromasia 1+; White Blood Cell Count 27.66 k/cumm (4.4-10.8)
[2018-01-04 09:26] LABS: Diff Comment Manual Differential; Polychromasia Present
[2018-01-04 11:34] VITALS: BP 150/89; PULSE 89; RESP 22; TEMP 37.2; O2SAT 97
[2018-01-04] MEDS: Insulin Aspart 300 UNITS/3 ML PEN SC (12:31)
[2018-01-04 16:07] VITALS: BP 138/84; PULSE 95; RESP 16; TEMP 37; O2SAT 96
--- NOTE | 2018-01-04 16:27 | PGE_ITS ---
DATE: January 04, 2018 ASSESSMENT: Vyqmbtj-ugphc-jnuc-old female doing well after IR drainage of right upper quadrant absce ss and rectal drainage of pelvic abscess. PLANS: #1. Anastomotic leak. Pathology came back with ischemia. #2. Right hemicolectomy revision with diverting ileostomy. Continue pulmonary toilet, DVT prophylax is, and ambulation. #3. Pain management. She seems to be doing well on her Tylenol and is really not having a lot of pa in. #4. Nutrition and electrolytes. We are going to stop her TPN. She is eating. Will start turning o ff her fluids. Watching as her p.o. intake increases. #5. Musculoskeletal. Will continue Physical Therapy and Occupational Therapy for strengthening and activities of daily living. #6. Infectious Disease. Abscesses drained. White count is starting to go down. Will continue to f ollow the trend. Continue IV antibiotics. Once we clearly see a trend down in her white count and i nflammatory markers such as platelets we will plan to convert to p.o. #7. Lines/drains. Right upper quadrant drain with still turbid fluid. Left PICC drain without sign s of infection. #8. Disposition. Anticipate potential for discharge to swing bed on Tuesday though this is dependent on resolution of her abscesses. DIAGNOSIS: Anastomotic leak with abdominal abscesses. SUBJECTIVE: Postop day #9. The patient did well overnight, no nausea, no vomiting. Tolerating diet though she is not eating a lot. She does feel hungry. No fevers, no chills. Pain minimal. Up amb ulating. OBJECTIVE: VITAL SIGNS: T-max 37.2, T-current 37.2. Remainder of vital signs have been stable for the last 24 hours. Most recent set of vital signs: Blood pressure 150/89. Pulse 89. Respirations 22. O2 saturation i s 97% on room air. Her I's and O's are incomplete for the last 24 hours though she is negative on her fluid balance. GENERAL: She is awake, alert, a little confused. She seems to be pretty close to her baseline. LUNGS: Clear. HEART: Regular. ABDOMEN: Soft. Minimal tenderness over incision. Ostomy is pink and patent. Wound is clean, dry, and intact. INTEGUMENT: Warm and dry. LABS: Sodium is 134 today. Potassium is 3.7. Chloride 101. CO2 23. BUN 14. Creatinine 0.74. Ca lcium 7.7. Magnesium 2. White count is 27.6 today. Hemoglobin is 8.6. Hematocrit is 27. Platelets are 547,000.
[2018-01-04] MEDS: POTASSIUM CHLORIDE/D5-0.45NACL 1,000 ML 30 MEQ IV (19:33)
[2018-01-04 22:00] VITALS: BP 152/87; PULSE 101; RESP 28; TEMP 36.2; O2SAT 95
[2018-01-05] VITALS (8 sets, daily range): BP systolic 116–157; BP diastolic 72–89; PULSE 92–105; RESP 18–25; TEMP 35.1–37.1; O2SAT 94–96
[2018-01-05] MEDS: Acetaminophen 325 MG TAB 650 MG PO (02:30)
[2018-01-05 07:25] LABS: Abs Immature Grans 0.52 k/cumm (0.0-0.09); HCT 26.8 % (36.0-46.0); HGB 8.4 g/dL (12.0-15.5); Mean Corp. HGB Concentration 31.3 g/dL (32.0-36.0); Mean Corpuscular Hemoglobin 30.5 pg (27.0-33.0); Mean Corpuscular Volume 97.5 fL (80-95); Mean Platelet Volume 10.8 fL (8.0-11.0); Platelet Count 568 x1000/uL (130-400); RBC 2.75 m/cumm (4.00-5.20); RBC Distribution Width 14.9 % (11.7-14.6); White Blood Cell Count 24.11 k/cumm (4.4-10.8)
[2018-01-05 07:51] LABS: Absolute Eosinophil Count 0.48 k/cumm (0.0-0.7); Absolute Lymphocyte Count 0.96 k/cumm (1.2-3.4); Absolute Monocyte Count 1.93 k/cumm (0.11-0.7); Absolute Neutrophil Count 20.49 k/cumm (1.2-6.7)
[2018-01-05 07:52] LABS: Hypochromasia 2+; Polychromasia Present
[2018-01-05 07:53] LABS: Diff Comment Manual Differential
[2018-01-05] MEDS: Metoprolol 12.5 MG TAB PO ×2 (08:21→20:15)
--- NOTE | 2018-01-05 10:54 | PDOC.PROG ---
Date of Service: 01/05/18 Time of Service: 10:54 Assessment/Plan - Assessment/Plan (1) Postop check Assessment: Improving. POD # 16(Right colectomy)/ 10(Ileostomy, repair of anastomotic leak)/ 3(Drainage of peritoneal/ pelvic abscesses) Plan: Encouraged po intake/ OOB as tolerated. Anticipate change to swing bed status 01/06/18 pending progress. (2) Peritoneal abscess Assessment: Cultures grew enterococcus and enterobacter sensitive to Zosyn/ Vancomycin. WBC improving. Afebrile. Plan: Monitor WBC. Continue Zosyn/ Vancomycin. History of Present Illness - History of Present Illness Chief Complaint: Weak History of Present Illness: s/p lap assisted right colon resection, repair of anastomotic leak with diverting loop ileostomy, drainage of peritoneal/pelvic abscesses. Patient is tolerating po and off TPN. Denies nausea or vomiting. Denies pain except back discomfort from lying in bed. Review of Systems - Medications/Allergies Allergies/Adverse Reactions: Allergies Allergy/AdvReac Type Severity Reaction Status Date / Time No Known Allergies Allergy Unverified 12/24/17 05:29 Medications: Current Medications Acetaminophen (Tylenol) 650 mg PO Q4H PRN PRN Last Admin: 01/05/18 02:30 Dose: 650 mg Fentanyl Citrate (Sublimaze) 50 mcg IVP Q2H PRN PRN Last Admin: 12/27/17 18:58 Dose: 50 mcg Heparin Sodium (Porcine) () 5,000 units SC Q12H [facility] Last Admin: 01/05/18 07:19 Dose: 5,000 units Piperacillin/Tazobactam/ (Dextrose 3.375 gm/ Device) 50 mls @ 100 mls/hr IVPB Q6H [facility] Last Admin: 01/05/18 08:37 Dose: 100 mls/hr Potassium Chloride/Sodium Chloride (Kcl 20meq/D5-0.45% Nacl) 1,000 mls @ 30 mls/hr IV INFUSION [facility] Last Admin: 01/04/18 19:33 Dose: 30 mls/hr Vancomycin HCl/Dextrose 1 gm/ (Device) 200 mls @ 133.333 mls/hr IV Q12H [facility] PRN Reason: Protocol Last Admin: 01/05/18 03:01 Dose: 133.333 mls/hr IV Miscellaneous Supplies () 1 each IV DIRECTED [facility] Metoprolol Tartrate (Lopressor) 12.5 mg PO BID [facility] Last Admin: 01/05/18 08:21 Dose: 12.5 mg Naloxone HCl (Narcan) 0 mg IVP DIRECTED PRN Nitroglycerin (Nitrostat) 0.4 mg SL Q5 MIN PRN X3 PRN PRN Reason: Chest Pain Last Admin: 12/24/17 20:27 Dose: 0.4 mg Ondansetron HCl (Zofran Injection) 4 mg IVP Q6H PRN PRN Last Admin: 12/30/17 06:11 Dose: 4 mg Sodium Chloride (Saline Flush 10 Ml Syringe) 0 ml IVP PRN PRN Last Admin: 01/04/18 14:25 Dose: 40 ml Objective - Exam Vitals and I&O: Vital Signs Temp 36.8 C 01/05/18 07:58 Pulse 104 H 01/05/18 07:58 Resp 21 01/05/18 07:58 BP 116/76 01/05/18 07:58 Pulse Ox 94 L 01/05/18 09:45 Intake & Output 01/04/18 01/04/18 01/05/18 11:59 23:59 11:59 Intake Total 280 1827 280 Output Total 1290 1500 1080 Balance -1010 327 -800 Intake: IV 1527 80 Oral 280 300 200 Output: Drainage 65 60 30 Abdomen 65 60 30 Urine 800 940 300 Stool 425 500 750 Other: Urine Color Yellow Yellow Yellow Urine Appearance Clots Clear Clear Urine Odor Normal Normal Stool Characteristics Liquid Liquid Green Brown Voiding Methods Bedside Commode Bedside Commode Bedside Commode General: Alert, Oriented x3, Cooperative, No acute distress Lungs: Other (breathing comfortably at rest on room air) Abdomen: Soft, Other (nondistended; ankit intact, ostomy functioning and viable; abdominal drain - serous fluid in bulb). denies: Tenderness Skin: denies: Rashes Neurological: Normal speech Psych/Mental Status: Mood NL - Results Results: Laboratory Results WBC 24.11 k/cumm (4.4-10.8) H 01/05/18 06:28 RBC 2.75 m/cumm (4.00-5.20) L 01/05/18 06:28 Hgb 8.4 g/dL (12.0-15.5) L 01/05/18 06:28 Hct 26.8 % (36.0-46.0) L 01/05/18 06:28 MCV 97.5 fL (80-95) H 01/05/18 06:28 MCH 30.5 pg (27.0-33.0) 01/05/18 06:28 MCHC 31.3 g/dL (32.0-36.0) L 01/05/18 06:28 RDW 14.9 % (11.7-14.6) H 01/05/18 06:28 Plt Count 568 x1000/uL (130-400) H 01/05/18 06:28 MPV 10.8 fL (8.0-11.0) 01/05/18 06:28 Immature Gran % See Differential 01/05/18 06:28 Neutrophils % 82.0 01/05/18 06:28 Lymphocytes % 4.0 01/05/18 06:28 Monocytes % 8.0 01/05/18 06:28 Eosinophils % 2.0 01/05/18 06:28 Basophils % 0.0 01/05/18 06:28 Absolute Neutrophils 20.49 k/cumm (1.2-6.7) H 01/05/18 06:28 Band Neutrophils 3.0 % 01/05/18 06:28 Absolute Lymphocytes 0.96 k/cumm (1.2-3.4) L 01/05/18 06:28 Absolute Monocytes 1.93 k/cumm (0.11-0.7) H 01/05/18 06:28 Nucleated RBCs 3 /100WBC 01/02/18 07:00 Absolute Eosinophils 0.48 k/cumm (0.0-0.7) 01/05/18 06:28 Absolute Basophils 0.00 k/cumm (0.0-0.2) 01/05/18 06:28 Metamyelocytes 1.0 % 01/05/18 06:28 Myelocytes 3.0 % 01/04/18 08:37 Atypical Lymphocytes 2 01/02/18 07:00 Differential Comment Manual differential 01/05/18 06:28 Other Cell Type 1 01/01/18 08:25 Anisocytosis 2+ 12/25/17 21:45 RBC Morphology See below 01/05/18 06:28 Amanda Cells 2+ 12/27/17 06:25 Polychromasia Present 01/05/18 06:28 Hypochromasia 2+ 01/05/18 06:28 ESR 93 MM/HR (0-30) H 12/25/17 21:45 PT 9.0 sec (9.3-10.8) L 01/03/18 05:00 INR 0.9 (1.0-3.5) L 01/03/18 05:00 APTT 22.6 sec (21.0-31.4) 01/03/18 05:00 Sodium 134 mmol/L (136-145) L 01/04/18 08:37 Potassium 3.7 mmol/L (3.5-5.1) 01/04/18 08:37 Chloride 101 mmol/L (98-107) 01/04/18 08:37 Carbon Dioxide 23.2 mmol/L (21.0-32.0) 01/04/18 08:37 Anion Gap 9.8 mmol/L (3-11) 01/04/18 08:37 BUN 14 mg/dL (7-18) 01/04/18 08:37 Creatinine 0.74 mg/dL (0.55-1.02) 01/04/18 08:37 Estimated GFR/1.73 m2 >= 60.00 (mL/min/1.73m2) 01/04/18 08:37 Glucose 131 mg/dL (70-100) H 01/04/18 08:37 Hemoglobin A1c 5.5 % (4.5-6.2) 12/25/17 21:45 Calcium 7.7 mg/dL (8.5-10.1) L 01/04/18 08:37 Total Bilirubin 0.60 mg/dL (0.2-1.0) 01/02/18 07:00 Magnesium 2.0 mg/dL (1.8-2.4) 01/04/18 08:37 AST 28 U/L (15-37) 01/02/18 07:00 ALT 24 U/L (14-59) 01/02/18 07:00 Alkaline Phosphatase 190 U/L (46-116) H 01/02/18 07:00 Troponin I 0.06 ng/mL (0.00-0.06) 12/26/17 06:23 C-Reactive Protein 17.25 mg/dL (0.0-0.3) H 12/25/17 21:45 Total Protein 5.3 g/dL (6.4-8.2) L 01/02/18 07:00 Albumin 1.1 g/dL (3.4-5.0) L 01/02/18 07:00 Triglycerides 133 mg/dL (30-150) 12/25/17 06:05 Total Cholesterol 133 mg/dL (50-200) 12/25/17 06:05 LDL Cholesterol Direct 94 mg/dL (<100) 12/25/17 06:05 HDL Cholesterol 15 mg/dL (40-60) L 12/25/17 06:05 Lipase 54 U/L (73-393) L 12/26/17 06:32 TSH 1.41 uIU/mL (0.358-3.74) 12/25/17 21:45 Urine Color Yellow (Yellow) 12/25/17 21:27 Urine Clarity Clear 12/25/17 21: Urine pH 6.0 (5-8) 12/25/17 21:27 Ur Specific [place] >= 1.030 (1.005-1.025) H 12/25/17 21:27 Urine Protein 100 mg/dL (Negative) H 12/25/17 21:27 Urine Ketones Negative mg/dL (Negative) 12/25/17 21: Urine Blood Small (Negative) H 12/25/17 21:27 Urine Nitrite Negative (Negative) 12/25/17 21: Urine Bilirubin Negative (Negative) 12/25/17 21: Urine Urobilinogen 0.2 EU/dL (Up TO 0.2) 12/25/17 21:27 Ur Leukocyte Esterase Negative (Negative) 12/25/17 21:27 Urine RBC 0-2 (0-2) 12/25/17 21:27 Urine WBC 3-5 HPF (0-5) 12/25/17 21:27 Ur Epithelial Cells Many HPF (Negative) 12/25/17 21: Urine Crystals Negative HPF (Negative) 12/25/17 21: Urine Bacteria Few HPF (Negative) 12/25/17 21: Urine Casts Negative LPF (Negative) 12/25/17 21: Urine Mucus Negative (Negative) 12/25/17 21: Ur Culture Indicated? C&s done as ordered 12/25/17 21:27 Urine Glucose 250 mg/dL (Negative) H 12/25/17 21:27 Path Cons Comment See comment 12/31/17 06:30
--- NOTE | 2018-01-05 10:57 | PDOC.PROG_ITS ---
Date of Service: 01/05/18 Time of Service: 10:54 Assessment/Plan - Assessment/Plan (1) Postop check Assessment: Improving. POD # 16(Right colectomy)/ 10(Ileostomy, repair of anastomotic leak) / 3(Drainage of peritoneal/ pelvic abscesses) Plan: Encouraged po intake/ OOB as tolerated. Anticipate change to swing bed status pending progress. (2) Peritoneal abscess Assessment: Cultures grew enterococcus and enterobacter sensitive to Zosyn/ Vancomycin. WBC improving. Afebrile. Plan: Monitor WBC. Continue Zosyn/ Vancomycin. History of Present Illness - History of Present Illness Chief Complaint: Weak History of Present Illness: s/p lap assisted right colon resection, repair of anastomotic leak with diverting loop ileostomy, drainage of peritoneal/pelvic abscesses. Patient is tolerating po and off TPN. Denies nausea or vomiting. Denies pain except back discomfort from lying in bed. Review of Systems - Medications/Allergies Allergies/Adverse Reactions: Allergies Allergy/AdvReac Type Severity Reaction Status Date / Time No Known Allergies Allergy Unverified 12/24/17 05:29 Medications: Current Medications Acetaminophen (Tylenol) 650 mg PO Q4H PRN PRN Last Admin: 01/05/18 02:30 Dose: 650 mg Fentanyl Citrate (Sublimaze) 50 mcg IVP Q2H PRN PRN Last Admin: 12/27/17 18:58 Dose: 50 mcg Heparin Sodium (Porcine) () 5,000 units SC Q12H [facility] Last Admin: 01/05/18 07:19 Dose: 5,000 units Piperacillin/Tazobactam/ (Dextrose 3.375 gm/ Device) 50 mls @ 100 mls/hr IVPB Q6H [facility] Last Admin: 01/05/18 08:37 Dose: 100 mls/hr Potassium Chloride/Sodium Chloride (Kcl 20meq/D5-0.45% Nacl) 1,000 mls @ 30 mls /hr IV INFUSION [facility] Last Admin: 01/04/18 19:33 Dose: 30 mls/hr Vancomycin HCl/Dextrose 1 gm/ (Device) 200 mls @ 133.333 mls/hr IV Q12H [facility] PRN Reason: Protocol Last Admin: 01/05/18 03:01 Dose: 133.333 mls/hr IV Miscellaneous Supplies () 1 each IV DIRECTED [facility] Metoprolol Tartrate (Lopressor) 12.5 mg PO BID [facility] Last Admin: 01/05/18 08:21 Dose: 12.5 mg Naloxone HCl (Narcan) 0 mg IVP DIRECTED PRN Nitroglycerin (Nitrostat) 0.4 mg SL Q5 MIN PRN X3 PRN PRN Reason: Chest Pain Last Admin: 12/24/17 20:27 Dose: 0.4 mg Ondansetron HCl (Zofran Injection) 4 mg IVP Q6H PRN PRN Last Admin: 12/30/17 06:11 Dose: 4 mg Sodium Chloride (Saline Flush 10 Ml Syringe) 0 ml IVP PRN PRN Last Admin: 01/04/18 14:25 Dose: 40 ml Objective - Exam Vitals and I&O: Vital Signs Temp 36.8 C 01/05/18 07:58 Pulse 104 H 01/05/18 07:58 Resp 21 01/05/18 07:58 BP 116/76 01/05/18 07:58 Pulse Ox 94 L 01/05/18 09:45 Intake & Output 01/04/18 01/04/18 01/05/18 11:59 23:59 11:59 Intake Total 280 1827 280 Output Total 1290 1500 1080 Balance -1010 327 -800 Intake: IV 1527 80 Oral 280 300 200 Output: Drainage 65 60 30 Abdomen 65 60 30 Urine 800 940 300 Stool 425 500 750 Other: Urine Color Yellow Yellow Yellow Urine Appearance Clots Clear Clear Urine Odor Normal Normal Stool Characteristics Liquid Liquid Green Brown Voiding Methods Bedside Commode Bedside Commode Bedside Commode General: Alert, Oriented x3, Cooperative, No acute distress Lungs: Other (breathing comfortably at rest on room air) Abdomen: Soft, Other (nondistended; ankit intact, ostomy functioning and viable; abdominal drain - serous fluid in bulb). denies: Tenderness Skin: denies: Rashes Neurological: Normal speech Psych/Mental Status: Mood NL - Results Results: Laboratory Results WBC 24.11 k/cumm (4.4-10.8) H 01/05/18 06:28 RBC 2.75 m/cumm (4.00-5.20) L 01/05/18 06:28 Hgb 8.4 g/dL (12.0-15.5) L 01/05/18 06:28 Hct 26.8 % (36.0-46.0) L 01/05/18 06:28 MCV 97.5 fL (80-95) H 01/05/18 06:28 MCH 30.5 pg (27.0-33.0) 01/05/18 06:28 MCHC 31.3 g/dL (32.0-36.0) L 01/05/18 06:28 RDW 14.9 % (11.7-14.6) H 01/05/18 06:28 Plt Count 568 x1000/uL (130-400) H 01/05/18 06:28 MPV 10.8 fL (8.0-11.0) 01/05/18 06:28 Immature Gran % See Differential 01/05/18 06:28 Neutrophils % 82.0 01/05/18 06:28 Lymphocytes % 4.0 01/05/18 06:28 Monocytes % 8.0 01/05/18 06:28 Eosinophils % 2.0 01/05/18 06:28 Basophils % 0.0 01/05/18 06:28 Absolute Neutrophils 20.49 k/cumm (1.2-6.7) H 01/05/18 06:28 Band Neutrophils 3.0 % 01/05/18 06:28 Absolute Lymphocytes 0.96 k/cumm (1.2-3.4) L 01/05/18 06:28 Absolute Monocytes 1.93 k/cumm (0.11-0.7) H 01/05/18 06:28 Nucleated RBCs 3 /100WBC 01/02/18 07:00 Absolute Eosinophils 0.48 k/cumm (0.0-0.7) 01/05/18 06:28 Absolute Basophils 0.00 k/cumm (0.0-0.2) 01/05/18 06:28 Metamyelocytes 1.0 % 01/05/18 06:28 Myelocytes 3.0 % 01/04/18 08:37 Atypical Lymphocytes 2 01/02/18 07:00 Differential Comment Manual differential 01/05/18 06:28 Other Cell Type 1 01/01/18 08:25 Anisocytosis 2+ 12/25/17 21:45 RBC Morphology See below 01/05/18 06:28 Amanda Cells 2+ 12/27/17 06:25 Polychromasia Present 01/05/18 06:28 Hypochromasia 2+ 01/05/18 06:28 ESR 93 MM/HR (0-30) H 12/25/17 21:45 PT 9.0 sec (9.3-10.8) L 01/03/18 05:00 INR 0.9 (1.0-3.5) L 01/03/18 05:00 APTT 22.6 sec (21.0-31.4) 01/03/18 05:00 Sodium 134 mmol/L (136-145) L 01/04/18 08:37 Potassium 3.7 mmol/L (3.5-5.1) 01/04/18 08:37 Chloride 101 mmol/L (98-107) 01/04/18 08:37 Carbon Dioxide 23.2 mmol/L (21.0-32.0) 01/04/18 08:37 Anion Gap 9.8 mmol/L (3-11) 01/04/18 08:37 BUN 14 mg/dL (7-18) 01/04/18 08:37 Creatinine 0.74 mg/dL (0.55-1.02) 01/04/18 08:37 Estimated GFR/1.73 m2 >= 60.00 (mL/min/1.73m2) 01/04/18 08:37 Glucose 131 mg/dL (70-100) H 01/04/18 08:37 Hemoglobin A1c 5.5 % (4.5-6.2) 12/25/17 21:45 Calcium 7.7 mg/dL (8.5-10.1) L 01/04/18 08:37 Total Bilirubin 0.60 mg/dL (0.2-1.0) 01/02/18 07:00 Magnesium 2.0 mg/dL (1.8-2.4) 01/04/18 08:37 AST 28 U/L (15-37) 01/02/18 07:00 ALT 24 U/L (14-59) 01/02/18 07:00 Alkaline Phosphatase 190 U/L (46-116) H 01/02/18 07:00 Troponin I 0.06 ng/mL (0.00-0.06) 12/26/17 06:23 C-Reactive Protein 17.25 mg/dL (0.0-0.3) H 12/25/17 21:45 Total Protein 5.3 g/dL (6.4-8.2) L 01/02/18 07:00 Albumin 1.1 g/dL (3.4-5.0) L 01/02/18 07:00 Triglycerides 133 mg/dL (30-150) 12/25/17 06:05 Total Cholesterol 133 mg/dL (50-200) 12/25/17 06:05 LDL Cholesterol Direct 94 mg/dL (<100) 12/25/17 06:05 HDL Cholesterol 15 mg/dL (40-60) L 12/25/17 06:05 Lipase 54 U/L (73-393) L 12/26/17 06:32 TSH 1.41 uIU/mL (0.358-3.74) 12/25/17 21:45 Urine Color Yellow (Yellow) 12/25/17 21:27 Urine Clarity Clear 12/25/17 21: Urine pH 6.0 (5-8) 12/25/17 21:27 Ur Specific [place] >= 1.030 (1.005-1.025) H 12/25/17 21:27 Urine Protein 100 mg/dL (Negative) H 12/25/17 21:27 Urine Ketones Negative mg/dL (Negative) 12/25/17 21: Urine Blood Small (Negative) H 12/25/17 21:27 Urine Nitrite Negative (Negative) 12/25/17 21: Urine Bilirubin Negative (Negative) 12/25/17 21: Urine Urobilinogen 0.2 EU/dL (Up TO 0.2) 12/25/17 21:27 Ur Leukocyte Esterase Negative (Negative) 12/25/17 21:27 Urine RBC 0-2 (0-2) 12/25/17 21:27 Urine WBC 3-5 HPF (0-5) 12/25/17 21:27 Ur Epithelial Cells Many HPF (Negative) 12/25/17 21: Urine Crystals Negative HPF (Negative) 12/25/17 21: Urine Bacteria Few HPF (Negative) 12/25/17 21: Urine Casts Negative LPF (Negative) 12/25/17 21: Urine Mucus Negative (Negative) 12/25/17 21: Ur Culture Indicated? C&s done as ordered 12/25/17 21:27 Urine Glucose 250 mg/dL (Negative) H 12/25/17 21:27 Path Cons Comment See comment 12/31/17 06:30
--- NOTE | 2018-01-05 11:01 | PDOC.CMPRO ---
Care Management Progress Note S/O-Met with Vannessa today. She reports feeling better. No change to overall plan for SB1 until ready to transition home. A-77 yo woman admitted for post operative ileus s/p ileostomy, with subsequent abscess drainage. P-Anticipate transition to SB1 of Tuesday for ostomy teaching and PT/OT services.
[2018-01-05 13:43] LABS: Vancomycin, Trough 16.4 ug/mL (5.0-10.0)
[2018-01-05] MEDS: Normal Saline Flush 10 ML SYR IVP (14:30)
[2018-01-06] MEDS: Normal Saline Flush 10 ML SYR IVP (02:09)
[2018-01-06 05:07] VITALS: BP 136/83; PULSE 96; RESP 19; TEMP 35.7; O2SAT 92
[2018-01-06 07:30] VITALS: BP 140/91; PULSE 95; RESP 21; O2SAT 93
[2018-01-06 07:30] LABS: Abs Immature Grans 0.42 k/cumm (0.0-0.09); HCT 28.8 % (36.0-46.0); HGB 9.1 g/dL (12.0-15.5); Mean Corp. HGB Concentration 31.6 g/dL (32.0-36.0); Mean Corpuscular Hemoglobin 30.7 pg (27.0-33.0); Mean Corpuscular Volume 97.3 fL (80-95); Mean Platelet Volume 10.5 fL (8.0-11.0); Platelet Count 575 x1000/uL (130-400); RBC 2.96 m/cumm (4.00-5.20); RBC Distribution Width 15.1 % (11.7-14.6); White Blood Cell Count 21.23 k/cumm (4.4-10.8)
[2018-01-06 07:35] LABS: Anion Gap 9.2 mmol/L (3-11); BUN 10 mg/dL (7-18); CO2 25.8 mmol/L (21.0-32.0); CREATININE 0.74 mg/dL (0.55-1.02); Calcium 7.9 mg/dL (8.5-10.1); Chloride 101 mmol/L (98-107); Glucose 114 mg/dL (70-100); Potassium 3.1 mmol/L (3.5-5.1); Sodium 136 mmol/L (136-145)
[2018-01-06 07:46] LABS: Absolute Eosinophil Count 0.21 k/cumm (0.0-0.7); Absolute Lymphocyte Count 0.64 k/cumm (1.2-3.4); Absolute Monocyte Count 1.49 k/cumm (0.11-0.7); Absolute Neutrophil Count 18.26 k/cumm (1.2-6.7)
[2018-01-06 07:47] LABS: Diff Comment Manual Differential; Hypochromasia 2+
[2018-01-06] MEDS: Potassium Chloride 10 MEQ TABCR PO ×2 (09:15→13:45)
[2018-01-06] MEDS: Metoprolol 12.5 MG TAB PO (09:15)
[2018-01-06 09:36] VITALS: TEMP 36.6
[2018-01-06] MEDS: Ciprofloxacin 500 MG TAB PO (11:39)
[2018-01-06 13:39] VITALS: BP 138/82; PULSE 90; RESP 20; TEMP 36.7; O2SAT 94
--- NOTE | 2018-01-06 14:07 | PDOC.CMPRO ---
Date of Service: 01/06/18 Time of Service: 14:07 Care Management Progress Note S/O: CM met with pt at the bedside she is feeling better tolerating oral intake. She agrees to swing bed as reviewed with pt by ANDI. CM completed SB1 contract with pt she will plan for SB1 x 2 weeks for PT, OT and ostomy teaching. CM provided update to her Son Phylicia. A: 77 year old female admitted to [facility] 12/24/17 for Post Operative Ileus, s/p ileostomy on 12/26/17. 01/01/2018 CT preformed and Intra abdominal abscess identified. Vannessa return to the OR on 01/02/18 to have one abscess drained, on 01/03/18 she was transferred to same day IR at [facility] for second abscess to be drained. She is now no longer acute and will transition to SB1 status under the care of hospitalist. She will have a surgical consult for ongoing management. P:Change in status today to SB1 as recommended by PT. After her SB1 stay she will transition to home with new home health services through [facility]. Anticipate transport home via private vehicle with her friend, Marisol-Darlin or family at time of discharge.
--- NOTE | 2018-01-06 15:01 | CMPROGNOTE_ITS ---
Date of Service: 01/06/18 Time of Service: 14:07 Care Management Progress Note S/O: CM met with pt at the bedside she is feeling better tolerating oral intake. She agrees to swing bed as reviewed with pt by ANDI. CM completed SB1 contract with pt she will plan for SB1 x 2 weeks for PT, OT and ostomy teaching. CM provided update to her Son Phylicia. A: 77 year old female admitted to [facility] 12/24/17 for Post Operative Ileus, s/p ileostomy on 12/26/17. 01/01/2018 CT preformed and Intra abdominal abscess identified. Vannessa return to the OR on 01/02/18 to have one abscess drained, on she was transferred to same day IR at [facility] for second abscess to be drained. She is now no longer acute and will transition to SB1 status under the care of hospitalist. She will have a surgical consult for ongoing management. P:Change in status today to SB1 as recommended by PT. After her SB1 stay she will transition to home with new home health services through [facility]. Anticipate transport home via private vehicle with her friend, Marisol-Darlin or family at time of discharge.
--- NOTE | 2018-01-06 15:38 | NUR.NOTE ---
Nursing Note: 01/06/18 @ 1355-admited to swing bed status from acute.
--- NOTE | 2018-01-06 17:12 | DSE_ITS ---
DATE OF ADMISSION: December 24, 2017 DATE OF DISCHARGE FROM ACUTE: January 06, 2018 ADMITTED TO SWING BED: January 07, 2018 CONSULTATIONS: 1. Dr. Dugan, hospitalist. 2. [facility] Interventional Radiology, Dr. Gallegos. PROCEDURES: 1. Exploratory laparotomy with revision ileocolostomy and loop ileostomy. 2. Drainage of pelvic abscess. 3. IR placement right upper quadrant drain. OTHER CONSULTS: 1. Occupational Therapy Consult. 2. Physical Therapy Consult. 3. Nutrition Consult. 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 It was recommended she undergo laparoscopic hand-assisted right hemicolectomy to remove the polyp. She agreed to this and underwent surgery at the end of November. She did well from this, discharged in about two days, doing well. But on returning home, she was home for two days then started to have ill -defined abdominal pain, confusion; started to develop fevers. She returned after two days to the Emergency Room with vague complaints. X-rays at the time were suggestive of ileus and she was admitted to Surgery care. HOSPITAL COURSE: The patient was admitted for observation. She became more confused and spiked a fever that night. Medicine was following along. She had undergone an echocardiogram with concerns for a myocardial infarction, though her echocardiogram was fine. When she spiked a fever a CT was ordered and there was fluid in the pelvis and right upper quadrant with free-air and it was suspected that she had an anastomotic leak. She underwent exploratory laparotomy on hospital day 2 after being started on antibiotics with some improvement. She underwent exploratory laparotomy for confirmation of a leak. On exploratory laparotomy along with a washout of the abdomen and pelvis she was found to have a leak at the ileocolostomy. This was subsequently taken down and repaired and the portion sent off for pathology later confirmed to be a leak from ischemic segment. Her postoperative course from this she did fairly well. She was kept in the ICU and fluid-resuscitated, started on TPN after a PICC line was placed on hospital day 5. She did require some minimal vasopressor support immediately postoperative in the ICU and overnight, but this was weaned and she was given increased fluid to allow her to wean from this. Her urine output remained well. She had some renal insufficiency that resolved with fluid resuscitation. Once she was hemodynamically stable TPN was started. She was weaned off her fluids, kept on antibiotics. Occupational Therapy and Physical Therapy were started on her and she started to mobilize. Over the next few days her progress was slow but she did progress reasonably well. Her diet was advanced with return of bowel function. She was starting p.o. She was continued on TPN until her p.o. intake was improved. Though she started to develop fevers again approximately on hospital day 7 or [address] showed a reaccumulation of fluid in the right upper quadrant and pelvis, concerning for an abscess. Her pelvic abscess was drained through the rectum and her right upper quadrant abscess was drained with IR placement of a drain to the right upper quadrant. Her white count had climbed up to 29, 000 but after adequate drainage of her two collections her white count continued to go down. Cultures did show Enterobacter Cloacae and Enterococcus species. She was on Zosyn then Vancomycin was started after return of the Enterococcus species to have double coverage, but both are sensitive to Ciprofloxacin. Throughout her hospital course and the TPN her electrolytes were aggressively treated and corrected as needed with potassium, magnesium and calcium as needed. She remained hemodynamically stable after a course. Her renal function returned without difficulty. At baseline she has some mild confusion with time but readily good at recognizing faces and place. By hospital day 14 her white count was trending down and she was doing well. Had no fevers for over 48 hours. Pain was minimal, only requiring Tylenol. She was up ambulating. Her strength had really improved. She only needed a standby assist. She had reached a point where she could transition from acute staging to rehabilitative staging. On day 14 she is being transferred to Swing Bed. She will continue with p.o. antibiotics and further rehab with Occupational and Physical Therapy. DISPOSITION: Discharged to Swing. DISCHARGE DIET: Regular diet. DISCHARGE MEDICATIONS: 1. Continue on her home medications. 2. Metoprolol 12.5 mg p.o. daily, this may go to b.i.d. if needed. 3. Her antibiotics will probably be switched to Cipro 400 mg p.o. b.i.d. THERAPY: She will continue Occupational and Physical Therapy and ostomy care draining.
== END 2018-01-06 13:34 | disposition swing bed (61) | DRG 329 ==
PROVIDERS: Family Medicine; Internal Medicine; Surgery; Admitting Provider Surgery; Emergency Provider Emergency Medicine; PCP Internal Medicine; Visit Provider Surgery
DX: K55.032 Diffuse acute (reversible) ischemia of large intestine (principal); K65.8 Other peritonitis; K65.1 Peritoneal abscess; A41.9 Sepsis, unspecified organism; K56.7 Ileus, unspecified; I47.1 Supraventricular tachycardia; T81.32XA Disruption of internal operation (surgical) wound, not elsewhere classified, initial encounter; I10 Essential (primary) hypertension; R94.31 Abnormal electrocardiogram [ECG] [EKG]; R12 Heartburn; Z90.49 Acquired absence of other specified parts of digestive tract; Z98.0 Intestinal bypass and anastomosis status; E78.5 Hyperlipidemia, unspecified; F41.9 Anxiety disorder, unspecified; E02 Subclinical iodine-deficiency hypothyroidism; Z86.010 Personal history of colon polyps; R41.0 Disorientation, unspecified; I51.7 Cardiomegaly; Z53.31 Laparoscopic surgical procedure converted to open procedure; B96.89 Other specified bacterial agents as the cause of diseases classified elsewhere; B95.2 Enterococcus as the cause of diseases classified elsewhere; Z16.19 Resistance to other specified beta lactam antibiotics; K66.0 Peritoneal adhesions (postprocedural) (postinfection); R73.9 Hyperglycemia, unspecified; E87.6 Hypokalemia
CPT/HCPCS: 44140; 44310; 45000; 36415 ×11; 80048 ×9; 80053 ×7; 82247; 80061; 86140; 83735 ×11; 80202; 83690; 83721; 83036; 84443; 84484 ×4; 81015 ×2; 85025 ×15; 85652; 85610; 85730; 85007; 85027; 81003 ×2; 87077 ×3; 87070 ×2; 87205 ×2; 87086; 87186 ×6; 87075 ×2; 87040 ×4; 88307; 71045 ×3; 71046; 74019; 74177 ×2; 70450; 93306; 97530; 97110; 97163; 97166; 97535 ×2; 99284; 96365; 96361 ×2; 96375; 96376; 93010 ×4; A0425 ×2; A0426 ×2; J1940 ×2; J1630 ×2; J1644 ×21; J2370 ×6; J2543 ×2; J7042; J2405 ×4; J1100; J3480 ×14; J3010 ×2; J3475; Q9967 ×2; 36569; 99285; 84132; 93005; 99223; 99232; 99233; 99291; 99306; J0131; J1941; J3490

== ENCOUNTER → 2018-05-01 12:03 | Outpatient (CLI) | payer MEDICARE, OTHER, SELFPAY | PROVIDERS: PCP Internal Medicine; Visit Provider Surgery | DX: T81.4XXD Infection following a procedure, subsequent encounter (principal); L02.211 Cutaneous abscess of abdominal wall; B96.20 Unspecified Escherichia coli [E. coli] as the cause of diseases classified elsewhere; B95.4 Other streptococcus as the cause of diseases classified elsewhere; Z90.49 Acquired absence of other specified parts of digestive tract | CPT/HCPCS: 99212 ==

== ENCOUNTER → 2018-05-22 12:44 | Outpatient (REF) | payer MEDICARE, OTHER, SELFPAY ==
[2018-05-22 22:28] LABS: Potassium 4.1 mmol/L (3.5-5.1)
[2018-05-22 22:32] LABS: HCT 39.7 % (36.0-46.0); HGB 12.3 g/dL (12.0-15.5); Mean Corpuscular Hemoglobin 28.3 pg (27.0-33.0); Mean Corpuscular Volume 91.3 fL (80-95); Mean Platelet Volume 13.4 fL (8.0-11.0); Platelet Count 184 x1000/uL (130-400); RBC 4.35 m/cumm (4.00-5.20); RBC Distribution Width 14.3 % (11.7-14.6); White Blood Cell Count 6.43 k/cumm (4.4-10.8)
== END ==
LOC: NCHCN 12:44
PROVIDERS: PCP Internal Medicine; Visit Provider Internal Medicine
DX: D12.6 Benign neoplasm of colon, unspecified (principal)
CPT/HCPCS: 85027; 84132

== ENCOUNTER → 2018-11-14 14:38 | Outpatient (BNVA) | payer MEDICARE, OTHER, SELFPAY | PROVIDERS: PCP Internal Medicine; Visit Provider Surgery | DX: R14.0 Abdominal distension (gaseous) (principal); M79.2 Neuralgia and neuritis, unspecified | CPT/HCPCS: 99213 ==

== ENCOUNTER 2019-05-07 18:57 | Emergency (ER) | payer MEDICARE, OTHER, SELFPAY ==
[2019-05-07 19:05] VITALS: PULSE 90; RESP 16; TEMP 36.8; O2SAT 98
--- NOTE | 2019-05-07 20:02 | ED.GENADUL_ITS ---
Discharge Plan Disposition Patient Disposition: HOME Condition: Good Discharge Details Chief Complaint: Laceration Clinical Impression: Laceration Primary Care Provider: Andre Davidson ED Provider: Alvaro Samuels Home Meds and New Rx's Prescriptions: New sulfamethoxazole-trimethoprim [Bactrim DS] 800-160 mg tablet 1 tab PO BID 7 Days Qty: 14 RF: 0 No Action coenzyme Q10 [Co Q-10] 30 mg capsule 30 mg PO DAILY RF: 0 simvastatin 20 MG tablet 40 mg PO DAILY RF: 0 cholecalciferol (vitamin D3) 1,000 UNIT capsule 1 cap PO DAILY RF: 0 cyanocobalamin (vitamin B-12) 2,500 MCG tablet 5,000 mcg PO DAILY RF: 0 Discharge Instructions Instructions: Laceration (ED), Staple Care (ED) Additional Instructions: Your laceration has been brought together as much as possible, however there is still a high risk that it will not heal well. Please leave the dressing on for 24 hours, then you may remove and begin cleaning the wound at least twice a day with soap and water. Continue to apply antibiotic ointment. Do not directly soak the area. Watch for any signs of infection and return if any increasing redness, swelling, pain, drainage. PLEASE FOLLOW UP WITH YOUR FAMILY DOCTOR (OR HERE) IN THE NEXT 48 HOURS for wound check. Please take the antibiotic as directed. If you notice any worsening of your symptoms, or any new symptoms such as vomiting, diarrhea, fever, chills, shortness of breath, chest pain, numbness, weakness, or fainting , please return immediately to the emergency department for reevaluation. Please follow up with your primary care provider as soon as possible for reassessment and reevaluation. As always, it was a pleasure participating in your medical care today. Referrals: Andre Davidson MD [Primary Care Provider] - Medical Decision Making This is a pleasant 79-year-old female whose tetanus status is up-to-date who presents today for evaluation of a skin laceration to her right anterior blakely. Roughly 10 hours ago she cut it on a door, but attended to the needs of her son down at [facility] for the next 6 or so hours. She then went to the [facility] ED, waited for 2 hours in the lobby per the patient, and left to come here for further assessment. Exam demonstrates a notable V-shaped laceration with a total length of roughly 6 to 7 cm. Skin is paper thin, notable involvement of the subcutaneous fat. No evidence of tendon ligamentous or muscle involvement. Due to the nature of the laceration and the patient's very thin skin great care was utilized in bringing the wound edge borders back together. Unfortunately either secondary to the duration that it took to come for wound repair or just secondary to the patient's cutaneous nature, were unable to bring all the wound edges back together. 5 ankit were used, one horizontal mattress suture, and 1 vertical mattress suture. After this the area was bandaged and wrapped. Due to the length of time that it took for the patient to come for evaluation we did spend a notable amount of time irrigating and cleaning the area. We will start the patient on Bactrim secondary to a penicillin allergy, for her risk of infection. Tetanus is up-to-date. Because of the nature of the wound, and the patient's skin and age we recommend close follow-up in the next 48 to 72 hours with her PCP. I have extensively reviewed the treatment plan and discharge instructions with the patient. I have addressed all patient concerns at this time. The patient was made aware of what symptoms to monitor for that would warrant a return to the emergency department. Discussed the plan with the patient, they demonstrate verbal understanding and agreement with our assessment and plan at this time. HPI General Date/Time Provider Initiated Documentation: 05/07/19 19:07 . HPI Narrative: This is an 79-year-old female with a past medical history of high cholesterol multiple previous abdominal surgeries, and up-to-date tetanus status who presents today for laceration to her right blakely. Patient states that earlier this morning she was driving her son down to [facility] on the edge of the door caught her anterior right blakely. She was attending to the needs of her son and had a delay of roughly 10-hour until arriving here. She initially did go down and register at the emergency department at [facility], however after a 2-hour wait in the lobby she decided she would come appear to be seen and assessed. She denies any numbness tingling or weakness. She denies any fever or chills. She has no other complaints at this time. No other modifying factors. Related Data Home Medications Medication Instructions Recorded Confirmed cholecalciferol (vitamin D3) 1 cap PO DAILY 12/25/13 05/07/19 simvastatin 40 mg PO DAILY 12/25/13 05/07/19 cyanocobalamin (vitamin B-12) 5,000 mcg PO DAILY 11/30/17 05/07/19 coenzyme Q10 30 mg capsule 30 mg PO DAILY 11/14/18 05/07/19 sulfamethoxazole-trimethoprim 1 tab PO BID 7 Days #14 tab 05/07/19 [Bactrim DS] Previous Rx's Medication Instructions Recorded sulfamethoxazole-trimethoprim 1 tab PO BID 7 Days #14 tab 05/07/19 [Bactrim DS] Allergies Allergy/AdvReac Type Severity Reaction Status Date / Time Penicillins Allergy Mild Skin Rash Verified 05/07/19 19:13 General Stated Complaint: Laceration JOYCE: 4 Review of Systems Review of Systems All systems reviewed & are unremarkable except as noted in HPI and below PFSH Social History Smoking/Tobacco Use Status: Former Tobacco Use Drug use: Never Do you feel safe at home: Yes Do you feel safe in your relationship?: Yes Exam Narrative Exam Narrative: 1.Const: Well-nourished, Well-developed, appearing stated age 2.Eyes: PERRL, no conjunctival injection, and symmetrical lids. 3.ENT: Atraumatic external nose and ears. Moist MM. Neck: Symmetric, trachea midline, No thyromegaly. 4.CVS: +S1/S2, No murmurs or gallops. Peripheral pulses 2+ and equal in all extremities. Brisk capillary refill in all extremities. 5.RESP: Unlabored respiratory effort. Clear to auscultation bilaterally. No wheezes rales or rhonchi 6.GI: Soft, Nontender/Nondistended, No hepatosplenomegaly. No guarding or rebound. 7.MSK: Normocephalic, No cyanosis or clubbing, Normal movement of all extremities. Normal sensation distal to the laceration site on the right blakely. Notable laceration on the anterior right blakely. Flexion extension of the foot and ankle is normal, dorsalis pedis posterior tibial pulse +2 bilaterally. Brisk capillary refill. 8.Skin: Warm, Dry. Notable V-shaped laceration to the patient's right anterior blakely, each wing is 3 to 4 cm in length. Skin is paper thin, laceration includes the skin, and the subcutaneous tissues. No evidence of muscle or fascial involvement is present. No evidence of severe active bleeding. No other significant abnormalities. 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 Sensation grossly intact, no focal neurologic deficits. 10.Psych: (AAO) x3. Appropriate mood and affect Course Vital Signs Temperature 36.8 C 05/07/19 19:05 Pulse 90 05/07/19 19:05 Respiratory Rate 16 05/07/19 19:05 Pulse Oximetry 98 05/07/19 19:05 Temperature 36.8 C 05/07/19 19:05 Temperature Source Skin 05/07/19 19:05 Pulse 90 05/07/19 19:05 Respiratory Rate 16 05/07/19 19:05 Respiratory Effort Non-Labored 05/07/19 19:13 Blood Pressure Position Sitting 05/07/19 19:05 Pulse Oximetry 98 05/07/19 19:05 Oxygen Delivery Method Room Air 05/07/19 19:05 Oxygen Flow Rate 0 05/07/19 19:05 Comment 05/07/19 19:05 Procedures Laceration Laceration 1: Site: lower extremity Side (If applicable): right Size (cm): 7 Description: flap and irregular Depth: simple, single layer Local Anesthetic: Lidocaine 1% Amount of anesthesia used (mL): 12 Pre-repair: wound explored, irrigated extensively (Extensive irrigation with copious amounts of normal saline and chlorhexidine) and deep structures intact Skin layer closed with: nylon Size (cm): 4-0 Number of sutures: 2 Technique: horizontal mattress and other (verticle mattress, horizontal mattress, and 5 ankit)
[2019-05-07] MEDS: Sulfameth/Trimeth DS TAB 1 TAB PO (20:17)
[2019-05-07 20:29] VITALS: BP 173/98; PULSE 90; RESP 16; TEMP 36.8; O2SAT 98
== END 2019-05-07 20:29 | disposition home or self-care (01) ==
PROVIDERS: Emergency Provider Student in an Organized Health Care Education/Training Program; PCP Internal Medicine
DX: S81.811A Laceration without foreign body, right lower leg, initial encounter (principal); W22.8XXA Striking against or struck by other objects, initial encounter
CPT/HCPCS: 12002

== ENCOUNTER 2020-04-03 10:54 | Outpatient (REF) | payer MEDICARE, OTHER, SELFPAY ==
[2020-04-03 21:03] LABS: ALT 26 U/L (14-59); AST 26 U/L (15-37); Calculated LDL 102 mg/dL (<100); Cholesterol 180 mg/dL (<200); HDL Cholesterol 49 mg/dL (40-60); Triglyceride 148 mg/dL (<150)
== END 2020-04-03 11:14 ==
LOC: NCHCN 10:54
PROVIDERS: PCP Internal Medicine; Visit Provider Internal Medicine
DX: E78.5 Hyperlipidemia, unspecified (principal)
CPT/HCPCS: 80061; 84450; 84460

== ENCOUNTER 2020-04-08 20:44 | Outpatient (REF) | payer MEDICARE, OTHER, SELFPAY ==
[2020-04-08 21:33] LABS: FREE T4 1.02 ng/dL (0.76-1.46); TSH 3.86 uIU/mL (0.36-3.74)
== END 2020-04-08 21:04 ==
LOC: NCHCN 20:44
PROVIDERS: PCP Internal Medicine; Visit Provider Internal Medicine
DX: R63.5 Abnormal weight gain (principal)
CPT/HCPCS: 84439; 84443

== ENCOUNTER 2020-09-02 10:20 | Outpatient (REF) | payer MEDICARE, OTHER, SELFPAY ==
[2020-09-02 21:30] LABS: Abs Immature Grans 0.02 10^3/uL (0.0-0.06); Absolute Basophil Count 0.01 10^3/uL (0.0-0.2); Absolute Eosinophil Count 0.01 10^3/uL (0.0-0.7); Absolute Monocyte Count 0.63 10^3/uL (0.1-0.8); Basophils % 0.1; Eosinophils % 0.1; HCT 43.8 % (36.0-46.0); HGB 14.6 g/dL (11.2-15.7); Immature Grans % 0.3; Lymphocytes % 21.5; MCHC 33.3 % (32.0-36.0); MPV 13.1 fL (8.0-11.0); Nucleated RBC 0 %; Platelet Count 166 10^3/uL (130-400); RBC 4.71 10^6/uL (3.93-5.22); RDW 12.5 % (11.7-14.6); RDW-SD 43.2 fL; WBC 6.97 10^3/uL (4.4-10.8)
[2020-09-02 22:00] LABS: ALT 22 U/L (14-59); AST 19 U/L (15-37); Albumin 4.3 g/dL (3.4-5.0); Alkaline Phosphatase 70 U/L (46-116); Anion Gap 12.9 mmol/L (3-11); BUN 16 mg/dL (7-18); Bilirubin, Total 0.8 mg/dL (0.2-1.0); CO2 25.1 mmol/L (21.0-32.0); CREATININE 1.09 mg/dL (0.55-1.02); Calcium 9.2 mg/dL (8.5-10.1); Chloride 102 mmol/L (98-107); Estimated GFR 48.18 (mL/min/1.73m2); Glucose 106 mg/dL (74-106); Potassium 4.4 mmol/L (3.5-5.1); Sodium 140 mmol/L (136-145); Total Protein 7.3 g/dL (6.4-8.2); Vitamin B12 592 pg/mL (193-986)
[2020-09-04 11:54] LABS: SS-A Antibody 1.5 Units (<20.0); SS-B (La) Ab, IgG 1.6 Units (<20.0)
[2020-09-04 15:13] LABS: ANA Interpretation Positive (Negative); ANA Titer Pattern 1:80 Homogeneous
== END 2020-09-02 10:40 ==
LOC: NCHCN 10:20
PROVIDERS: PCP Internal Medicine; Visit Provider Internal Medicine
DX: K13.79 Other lesions of oral mucosa (principal); K14.0 Glossitis
CPT/HCPCS: 80053; 82607; 85025; 86038; 86235

== ENCOUNTER 2020-10-07 15:28 | Outpatient (REF) | payer MEDICARE, OTHER, SELFPAY ==
[2020-10-09 10:15] LABS: IgA 242 mg/dL (85-499); IgG 666 mg/dL (610-1,616); IgM 157 mg/dL (35-242)
[2020-10-13 12:16] LABS: IgA 230 mg/dL (85-499); Interpretation (See Note); Tissue Transglutaminase IgA <1.2 U/mL (<4.0)
== END 2020-10-07 15:48 ==
LOC: NCHCN 15:28
PROVIDERS: PCP Internal Medicine; Visit Provider Internal Medicine
DX: K13.79 Other lesions of oral mucosa (principal); R43.2 Parageusia
CPT/HCPCS: 82784; 83516

== ENCOUNTER 2020-11-07 18:10 | Outpatient (REF) | payer MEDICARE, OTHER, SELFPAY ==
--- NOTE | 2020-11-07 11:27 | TONG_PTH ---
PATIENT: Vannessa Grant LOC: [facility] U#:[id number] AGE/SX: 80/F ROOM: RE11/07/[address]: Jonathan Neil MD : 1940 BED: DIS: 11/07/2020 SPEC #: [id number] RECD: 11/07/20 18:17 STATUS: JUAN REMichelle #: [id number] HORTENSIA: 11/07/20 11:[address]: Jonathan Neil DEPT: Surgical Specimen RECD BY: Chiquis Nash ENTERED: 11/07/20 18:18 SP TYPE: DANIEL JUNE DR: Andre Davidson Tissues: 1 - TONGUE BIOPSY Procedures: GROSS AND MICRO LEVEL 4 IMMUNOPEROXIDASE STAIN Comments: [id number]
== END 2020-11-07 18:11 | disposition home or self-care (01) ==
LOC: LBN 18:10
PROVIDERS: PCP Internal Medicine; Visit Provider Otolaryngology
DX: K13.29 Other disturbances of oral epithelium, including tongue (principal)
CPT/HCPCS: 88305; 88361

== ENCOUNTER 2021-04-09 16:17 | Outpatient (REF) | payer MEDICARE, OTHER, SELFPAY ==
[2021-04-09 21:28] LABS: FREE T4 0.94 ng/dL (0.76-1.46); TSH 2.68 uIU/mL (0.36-3.74)
== END 2021-04-09 16:18 | disposition home or self-care (01) ==
LOC: NCHCN 16:17
PROVIDERS: PCP Internal Medicine; Visit Provider Internal Medicine
DX: E78.5 Hyperlipidemia, unspecified (principal); R43.2 Parageusia; K14.0 Glossitis; E02 Subclinical iodine-deficiency hypothyroidism
CPT/HCPCS: 84439; 84443

== ENCOUNTER 2022-02-19 18:44 | Outpatient (REF) | payer MEDICARE, OTHER, SELFPAY ==
[2022-02-20 10:52] LABS: COVID-19 RT-PCR UVMMC Result Positive (Negative)
== END 2022-02-19 18:45 | disposition home or self-care (01) ==
LOC: NCHCN 18:44
PROVIDERS: PCP Internal Medicine; Visit Provider Internal Medicine
DX: Z20.822 Contact with and (suspected) exposure to COVID-19 (principal)
CPT/HCPCS: U0003; U0005

== ENCOUNTER 2022-04-22 13:06 | Outpatient (REF) | payer MEDICARE, OTHER, SELFPAY ==
[2022-04-22 15:01] LABS: Anion Gap 10.9 mmol/L (3-11); BUN 16 mg/dL (7-18); CO2 23.1 mmol/L (21.0-32.0); CREATININE 1.2 mg/dL (0.55-1.02); Calcium 8.9 mg/dL (8.5-10.1); Calculated LDL 111 mg/dL (<100); Chloride 105 mmol/L (98-107); Cholesterol 187 mg/dL (<200); Glucose 102 mg/dL (74-106); HDL Cholesterol 51 mg/dL (40-60); Potassium 4.1 mmol/L (3.5-5.1); Sodium 139 mmol/L (136-145); Triglyceride 129 mg/dL (<150)
== END 2022-04-22 13:07 | disposition home or self-care (01) ==
LOC: NCHCN 13:06
PROVIDERS: PCP Internal Medicine; Visit Provider Internal Medicine
DX: E78.5 Hyperlipidemia, unspecified (principal); R63.5 Abnormal weight gain; F41.9 Anxiety disorder, unspecified
CPT/HCPCS: 80048; 80061

== ENCOUNTER → 2022-04-23 00:48 | Outpatient (CLI) | payer MEDICARE, OTHER, SELFPAY ==
--- NOTE | 2022-04-23 | DI.RAD_ITS ---
Exam(s) XR KNEE LT 4V+ EXAM: XR KNEE LT 4V+ CLINICAL HISTORY: OSTEOARTHRITIS LT KNEE, M17.9. TECHNIQUE: 2D digital imaging was performed of the left knee. Four images were obtained. Merchant, AP, lateral and PA tunnel views were obtained. COMPARISON: No exams were available for comparison FINDINGS: BONES: No acute fracture is present. No bony destructive lesion is seen. The bones appear osteopenic . JOINTS: There is mild joint space narrowing in the medial femoral tibial and patellofemoral joints. Periarticular spurring is seen in all 3 joint compartments. There is a very small joint effusion. SOFT TISSUE: Atherosclerosis is present. IMPRESSION: Mild osteoarthritis of the knee. DATA REPOSITORY: RADIATION DOSE DELIVERED:
--- OUTSIDE RECORDS SUMMARY | 2022-04-23 00:49 | XMS_ITS | Clinical Summary ---
:1940 Author Organization [facility] [place] [address] Care Team Providers Name Role Phone Andre Davidson MD Primary Care Provider Allergies No known active allergies Medications Medication Sig Dispensed Refills Start Date End Date Status simvastatin (ZOCOR) 20 mg tablet 0 008 Active Social History Tobacco Use Types Packs/Day Years Used Date Never Assessed Sex Assigned at Date Recorded Not on file Last Filed Vital Signs Vital Sign Reading Time Taken Comments Blood Pressure 170/101 05/07/2019 4:38 PM EDT Pulse 116 05/07/2019 4:38 PM EDT Temperature 36.8 ??C (98.2 ??F) 05/07/2019 4:38 PM EDT Respiratory Rate 16 05/07/2019 4:38 PM EDT Oxygen Saturation 99% 05/07/2019 4:38 PM EDT Inhaled Oxygen Concentration - - Weight 72.6 kg (160 lb) 05/07/2019 4:38 PM EDT Height 165.1 cm (5' 5) 05/07/2019 4:38 PM EDT Body Mass Index 26.63 05/07/2019 4:38 PM EDT Plan of Treatment Health Maintenance Due Date Last Done Comments Covid-19 Vaccine (#1) 1944 Tdap adult 1958 Tetanus vaccine 1958 Zoster vaccine (1 of 2) 1989 Advance Directive 1994 Bone Density Scan 2004 Pneumoccocal Vaccine: 65+ (1 - PCV) 2004 Influenza (Flu) vaccine (1 of 1 - Influenza standard 05/27/2022 series) Insurance Payer Benefit Plan / Subscriber ID Effective Dates Phone Addre ss Type Group MEDICARE MEDICARE PART [id number] 2004-Presen [phone] [facility] [place] [phone] FOR FOR [id number] 2019-Presen [phone] [address] [place] [address] Advance Directives Latest Code Status on File Code Status Date Activated Date Inactivated Comments Full Code 01/03/2018 9:21 AM 01/04/2018 4:35 AM Does patient have capacity to make decision: Yes Care Teams Radio Dispatcher Relationship Specialty Start Date End Date Andre Davidson MD PCP - General 08/18/10 [address] [place] [address]
--- OUTSIDE RECORDS SUMMARY | 2022-04-23 00:49 | XMS_ITS | Encounter Summary ---
:1940 Author Organization [facility] [place] [address] Care Team Providers Name Role Phone Andre Davidson MD Primary Care Provider Encounter Details Date Type Department Care Team Description 11/28/2019 Hospital [place] [address] Social History Tobacco Use Types Packs/Day Years Used Date Never Assessed Sex Assigned at Date Recorded Not on file documented as of this encounter Medications at Time of Discharge Medication Sig Dispensed Refills Start Date End Date simvastatin (ZOCOR) 20 mg tablet 0 11/2007 documented as of this encounter Plan of Treatment Not on filedocumented as of this encounter Procedures Procedure Name Priority Date/Time Associated Diagnosis Comme [facility] SURGICAL PATHOLOGY Routine 11/28/2019 10:10 AM Loree velasquez for this REPORT EST procedure are i n the results section. documented in this encounter Results Surgical Pathology Report (11/28/2019 10:10 AM EST) Component Value Ref Test Analysis Performed At [facility] Method Time Signature Surgical [id number] ? Location: [facility] Report The signing pathologist has (i) examined the relevant preparation(s) for the [facility]ORIAL specimen(s) and (ii) rendered or confirmed the diagnosis(es) . HOSPITAL LABORATORY . ?Surgic al Pathology DIAGNOSIS Skin, left ala nasi, shave biopsy: - ??Basal cell carcinoma, moreno perficial and nodular types, present at the specimen edges Electronically signed by: ??Marielena Renner MD Verified: ??12/03/2019 ?Dermatopathologist Performed at: ??[facility] Dept. of Pathology, [place], [place] CLINICAL INFORMATION Specimen Submitted: A - Skin, l ala nasi, skin shave biopsy, (1) Clinical History and Diagnosis: 5 mm pearly nodule, BCC? Referring Identifier: ?(not provided) SPECIMEN PROCESSING A - Labeled/Fixative: Left ala nasi, formalin. Quantity/Size: ??Single, 0.3 x 0.2 x 0.1 cm. Tissue Description: Shave of granular, corcoran-white skin. Sections/Processing: Submitted en toto ??in 1 cassette labeled A1. ??PPS Specimen (Source) Anatomical Collection Method Collection Time Re ceived Time Location / / Volume Laterality 11/28/2019 10:10 AM EST Socorro Srivastava MD PATHOLOGY/CYTOLOGY ORDERABLE S Performing Organization Address City/State/[place] [address] [facility] documented in this encounter Visit Diagnoses Not on filedocumented in this encounter Care Teams Metal Pickling Equipment Operator Relationship Specialty Start Date End Date Andre Davidson MD PCP - General 08/18/10 [address] [place] [address] documented as of this encounter
--- OUTSIDE RECORDS SUMMARY | 2022-04-23 00:49 | XMS_ITS | Encounter Summary ---
:1940 Author Organization [place] [address] Care Team Providers Name Role Phone Andre Davidson MD Primary Care Provider Reason for Visit Reason Comments Wound Check Laceration-sent to ED Consultation (Routine) - Closed Specialty Diagnoses / Procedures Referred By Contact Refer red To Contact Orthopaedics Diagnoses Right Leg laceration [facility] Orthopaedics 3a Procedures mail [place], [place] [phone] Phone: Fax: Referral ID Status Reason Start Date Expiration Date Visits Requ ested Visits Authorized [id number] Closed 05/07/2019 05/06/2020 1 1 Encounter Details Date Type Department Care Team Description 05/07/2019 Office Visit Orthopaedics at [facility] Alice Law PA Skin abrasion [facility] Minh lucas [facility] [place] [address] ORTHOPAEDIC SURGERY [phone] [place], [place] [address] (Wo rk) Social History Tobacco Use Types Packs/Day Years Used Date Never Assessed Sex Assigned at Date Recorded Not on file documented as of this encounter Last Filed Vital Signs Vital Sign Reading Time Taken Comments Blood Pressure 147/94 05/07/2019 4:05 PM EDT Pulse 86 05/07/2019 4:05 PM EDT Temperature 37.1 ??C (98.7 ??F) 05/07/2019 4:05 PM EDT Respiratory Rate - - Oxygen Saturation - - Inhaled Oxygen Concentration - - Weight 74.8 kg (165 lb) 05/07/2019 4:05 PM EDT Height 165.1 cm (5' 5) 05/07/2019 4:05 PM EDT Body Mass Index 27.46 05/07/2019 4:05 PM EDT documented in this encounter Progress Notes Alice Law PA - 05/07/2019 4:10 PM EDT PATIENT NAME: Vannessa Grant AGE: 79 y.o. MR#: [id number] DATE OF VISIT: 05/07/2019 CHIEF COMPLAINT: right anterior blakely wound HISTORY OF PRESENT ILLNESS: Ms. Grant is a 79 y.o. female who comes into clinic today for evaluation of the right leg. She reports striking her leg on her car door earlier in the day. She had some bleeding and dressed this with a large bandaid. She thought that this was a superficial skin wound. Past medical history: There are no active problems to display for this patient. Medications: ??? simvastatin (ZOCOR) 20 mg tablet Allergies: Allergies no known allergies Social history: Social History Tobacco Use ??? Smoking status: Not on file Substance Use Topics ??? Alcohol use: Not on file Review of systems: No chest pain or shortness of breath No fevers, night sweats or chills Vital signs: Blood pressure (!) 147/94, pulse 86, temperature 37.1 ??C (98.7 ??F), height 165.1 cm (5' 5), weight 74.8 kg (165 lb). Physical exam: Ms. Grant is a 79 y.o. female who is alert and oriented. She is in no acute discomfort and is resting comfortably in the exam room. Band-aid was removed in clinic showing a 3 cm x 3 cm by 2 cm degloving type injury. The injury is roughly 2 cm deep and freely bleeding. This was redressed with gauze for transport to the ED for sutures. Assessment and plan:: 79 y.o. year-old female with large gouge injury in the anterior aspect of the blakely in need of suture material. We had a long discussion regarding the nature of Vannessa Grant's chief complaint. We reviewed the imaging together which is described above. Clinically Vannessa Grant has a fairly large injury to the anterior aspect of the blakely. I initially planned to simply irrigate the wound with saline, however when I saw the depth of the wound, I felt that this was likely to need sutures and potentially antibiotic coverage. She did report to flow staff that she has a tendency to get superficial infections. This plan was discussed with the patient and they are in agreement. All of the patient's questions were answered. The patient understand to contact us if they have any other questions or concerns. FU: To the ED. Alice Law PA-C The above dictation was made with voice recogonition software documented in this encounter Plan of Treatment Not on filedocumented as of this encounter Visit Diagnoses Diagnosis Skin abrasion Abrasion or friction burn of other, mult iple, and unspecified sites, without mention of infection documented in this encounter Care Teams Weight Caller Relationship Specialty Start Date End Date Andre Davidson MD PCP - General 08/18/10 [address] [place] [address] documented as of this encounter
--- OUTSIDE RECORDS SUMMARY | 2022-04-23 00:49 | XMS_ITS | Encounter Summary ---
:[address] [facility] [place] [address] Care Team Providers Name Role Phone Andre Davidson MD Primary Care Provider Reason for Visit Reason Comments Laceration Encounter Details Date Type Department Care Team Description 05/07/2019 Emergency Emergency Department [facility] [place] [address] Social History Tobacco Use Types Packs/Day [...] Mass Index 26.63 05/07/2019 4:38 PM EDT documented in this encounter Medications at Time of Discharge Medication Sig Dispensed Refills Start Date End Date simvastatin (ZOCOR) 20 mg tablet 0 11/2007 documented as of this encounter Miscellaneous Notes ED Triage - Duke Milner RN - 05/07/2019 4:39 PM EDT Patient ambulating independently and tolerating well. Pt has 3cm lac to right lower leg over the tibial area. Laceration is not actively bleeding at this time and is covered with clean gauze. Pt skin is pwd. Pt A&Ox4 documented in this encounter Plan of Treatment Not on filedocumented as of this encounter Visit Diagnoses Not on filedocumented in this encounter Care Teams Business Systems Advisor Relationship Specialty Start Date End Date Andre Davidson MD PCP - General 08/18/10 [address] [place] [address] documented as of this encounter
--- OUTSIDE RECORDS SUMMARY | 2022-04-23 00:49 | XMS_ITS | Encounter Summary ---
:1940 Author Organization [facility] [place] [address] Care Team Providers Name Role Phone Andre Davidson MD Primary Care Provider Encounter Details Date Type Department Care Team Description 11/29/2019 External Results Medical Records Provider, Scanning [facility] [place] [address] Social History Tobacco Use Types Packs/Day Years Used Date Never Assessed Sex Assigned at Date Recorded Not on file documented as of this encounter Plan of Treatment Not on filedocumented as of this encounter Procedures Procedure Name Priority Date/Time Associated Diagnosis Comme nts SURGICAL PATHOLOGY Routine 11/29/2019 Results f or this SCAN procedure are i n the results section . documented in this encounter Results Scan Doc: Surgical Pathology (11/29/2019) Narrative This result has an attachment that is no t available. Historical Provider MEDIA MGR SCAN EXT ORDR/RSLT documented in this encounter Visit Diagnoses Not on filedocumented in this encounter Care Teams Passenger Interline Clerk Relationship Specialty Start Date End Date Andre Davidosn MD PCP - General 08/18/10 [address] [place] [address] documented as of this encounter
--- OUTSIDE RECORDS SUMMARY | 2022-04-23 00:50 | XMS_ITS | Encounter Summary ---
:1940 Author Organization [facility] [place] [address] Care Team Providers Name Role Phone Andre Davidson MD Primary Care Provider Encounter Details Date Type Department Care Team Description 01/02/2018 Notes Only [place] [facility] [place] [facility] [place] [address] [place] [address] Radiology Dept [phone] [place], [place] [address] (Wo rk) Social History Tobacco Use Types Packs/Day Years Used Date Never Assessed Sex Assigned at Date Recorded Not on file documented as of this encounter H&P Notes Chago Chong MD - 01/02/2018 2:49 PM EDT Images from the original note were not included. PRE-PROCEDURE VIR NOTE: Referring Physician: Dr. Ceja at [facility] [phone] PCP: Andre Davidson MD Planned Procedure: Perihepatic and peritoneal abscess drain placements with CT guidance & IV moderate sedation Procedure Indication: Right hemicolectomy complicated by anastomotic leak and large perihepatic and pelvic abscesses. Presenting Diagnosis/ Complaint: Vannessa Grant is a 77 y.o. female with a history of a right colon tubulovillous adenoma and underwent a right hemicolectomy at [facility] on December 20, 2017 which was complicated by an anastomotic leak. She went back for an ex-lap and washout on POD 5, December 26, 2017. Subseque nt CT January 01, 2018 demonstrated recurrent or large residual abscesses perihepatic and in the pelvis. Dr. Ceja (primary surgeon) placed a pelvic collection drain via a transrectal approach today in apelvic peritoneal abscess. We have been consulted for a drain placement into the perihepatic abscess. The patient will return to [facility] under his care following our procedure. Past Medical/Surgical History Hyperlipidemia Hypothyroidism Tubulovillous adenoma, right colon Right hemicolectomy December 20, 2017 and ex-lap with washout and loop ileostomy December 25, 2017 for an anastomotic leak Medications: Current Outpatient Prescriptions on File Prior to Visit Medication Sig Dispense Refill ??? simvastatin (ZOCOR) 20 mg tablet No current facility-administered medications on file prior to visit. Allergies: Review of patient's allergies indicates no known allergies. Social History and Habits: Significant Family History: No family history on file. Physical Exam: Pending Labs: Platelets 286, December 27, 2017 Prior relevant imaging: Assessment/Plan: 77 year old female status post right hemicolectomy with anastomotic leak with a perihepatic abscess and a separate abscess in the lower pelvis has a transrectal drain placed by Dr. Ceja. We have been consulted for CT guided drain placement into the perihepatic abscecss with IV moderate sedation. Plan is for the patient to return to [facility] under Dr. Ceja's care following drain placement. Biopsy/drain access site: Perihepatic/Right ventral abdomen Patient Position: Supine Cytopathology presence needed: No General anesthesia required: [no]; plan for IV moderate sedation Medications to discontinue (and days): None Labs: None NPO, patient is on TPN Plan for up and back to [facility] under Dr. Ceja (surgeon) care upon return. Discussed with Dr. Clayton. Chago Chong MD documented in this encounter Plan of Treatment Not on filedocumented as of this encounter Visit Diagnoses Not on filedocumented in this encounter Care Teams Surg Nurse Relationship Specialty Start Date End Date Andre Davidson MD PCP - General 08/18/10 [address] [place] [address] documented as of this encounter
--- OUTSIDE RECORDS SUMMARY | 2022-04-23 00:50 | XMS_ITS | Encounter Summary ---
:1940 Author Organization [facility] [place] [address] Care Team Providers Name Role Phone Andre Davidson MD Primary Care Provider Reason for Referral Diagnostic Test (Routine) - Closed Specialty Diagnoses / Procedures Referred By Contact Refer red To Contact Radiology Diagnoses Intra-abdominal abscess Hugo Gallegos MD [facility] Rad Ct Scan Procedures CT Guided Drain Peritoneal [facility] [place] [address] [place] [address] Referral ID Status Reason Start Date Expiration Date Visits V isits Requested Authorized [id number] Closed Specialty 01/02/2018 01/02/2019 1 1 Service Requested Reason for Visit Diagnostic Test (Routine) - Closed Specialty Diagnoses / Procedures Referred By Contact Refer red To Contact Radiology Diagnoses Intra-abdominal abscess Hugo Gallegos MD [facility] Rad Ct Scan Procedures CT Guided Drain Peritoneal [facility] [place] [address] [place] [address] Referral ID Status Reason Start Date Expiration Date Visits V isits Requested Authorized [id number] Closed Specialty 01/02/2018 01/02/2019 1 1 Service Requested Encounter Details Date Type Department Care Team Description 01/03/[address] Scan at [facility] Hugo Gallegos, Intra-abdominal [facility] abscess [address] [facility] [id number] DIAGNOSTIC [phone] [place] [address] Social History Tobacco Use Types Packs/Day Years Used Date Never Assessed Sex Assigned at Date Recorded Not on file documented as of this encounter Last Filed Vital Signs Vital Sign Reading Time Taken Comments Blood Pressure 155/72 01/03/2018 11:45 AM EDT Pulse 99 01/03/2018 11:05 AM EDT Temperature 36 ??C (96.8 ??F) 01/03/2018 11:25 AM EDT Respiratory Rate 21 01/03/2018 11:05 AM EDT Oxygen Saturation 97% 01/03/2018 11:45 AM EDT Inhaled Oxygen Concentration - - Weight - - Height - - Body Mass Index - - documented in this encounter Discharge Instructions Discharge InstructionsTeKassy tovar RN - 01/03/2018 10:43 AM EDT Images from the original note were not included. INTERVENTIONAL RADIOLOGY DRAIN CARE INSTRUCTIONS Drains help to keep fluid from collecting by removing the extra blood and fluid from under the skin or from an abscess within the body. A drain is temporary. It stays in place until the drainage has slowed down or stopped. Your Provider will decide when each drain should be removed. This is usually after each drain has 30cc or less in 24 hours for 2-3 days in a row. You will then be scheduled for what is called a Sinogram to check and see if the fluid collection has gotten smaller. How do I care for the drains at home? Pin your drain/s to your clothing by using a safety pin through the plastic loop on the top of the bulb. If the drain is not attached to your clothing, it may pullout from under your skin. Also, a drain usually feels more comfortable when it???s attached. To carefor the drain at home, you will have to empty the drain, ???strip?? the drain tubing, and change the dressing if applicable. * See the following information on instructions on how to do this. What problems may I have with my drain? The bulb is not compressed- The bulb may not be squeezed tightly enough, the plug may not be closed securely, or the tube has slipped out a bit and is leaking. Follow the instructions on how to empty the drain. If the bulb remains expanded, then notify your doctor or nurse during business hours. ??? No drainage or sudden decrease in amount of drainage- This may be due to a plug in the drain. Please notify your doctor or nurse during business hours. ??? The tube accidentally falls out- If this happens, place a dry gauze dressing over the drain siteand notify your doctor or nurse during business hours. ??? Increased redness, swelling, or heat around the tube insertion site- This may be a sign of infection. Take your temperature: if it is higher than 101F or 38.8C, call your doctor or nurse immediately. Otherwise, notify your doctor or nurse during business hours and keep the dressing clean and dry. How to Empty Your Drain and flush drain Note: Wash your hands thoroughly before emptying your drain(s). Unpin the drain from your clothing. 1. Turn the white stopcock so it is not parallel (in line) with the tubing. 2. Unscrew the tubing with the bulb attached from stopcock. Make sure you keep everything clean 3. Do not flush drain 4. Invert the bulb and pull open the plug. 5. Have the plastic measuring cup from the hospital ready to collect and measure the drainage. Please measure the output at the same time every 24 hours and record the amount. 6 Turn the drain upside down and squeeze the contents of the bulb into the measuring cup. Be sure toempty the bulb as completely as possible. Flush the contents in the toilet. 7.. Use the drain output log chart to record the amount of drainage twice a day or any time the bulbis full. Record the total for 24 hours for each drain you have. 8.. If you have more than one drain, remember to record the drainage from each drain separately. 9.. To prevent infection, do not let the stopper or top of the bottle touch the measuring cup or anyother surface. 1. 2. Use one hand to squeeze all of the air from the drain. With the drain still squeezed, use your other hand to replace the top. This creates the suction necessary to remove the fluids from your body. 3. Pin the drain back on your clothing to avoid pulling it out accidently. 4. Wash your hands again. Remember to wash your hands before and after the procedure to reduce the risk of infection. Flushing the Drain: Do not flush drain per Dr. Clayton. When to call the Interventional Radiology Department: Please call with any questions or concerns. Ifit is during regular office hours, please call [phone]. If it is after regular office hours, oron weekends or holidays, please call [phone] and ask to speak to the Oracle Reports Developer on callfor Interventional Radiology. XX You have received medication during your procedure to help lessen anxiety and keep you comfortable. These medications affect judgement and reaction time. We recommend that you do not drive, operateequipment, sign any important documents, or smoke unattended for 24 hours following your procedure. Because of the sedation, be careful on stairs, as you may be unsteady on your feet. You may resume your regular diet as tolerated. IV site -- slight redness, or tenderness is normal, you can use a warm compress. If tenderness and redness increases or foul drainage occurs, please contact your M. D. Revised 10/10/15 Drainage Record NAME: Date of Surgery: Date: Time: If more than one drain, which one: Drainage Amount (per drain) Total Amount (per drain; in 24 hours) documented in this encounter Medications at Time of Discharge Medication Sig Dispensed Refills Start Date End Date simvastatin (ZOCOR) 20 mg tablet 0 11/2007 documented as of this encounter Progress Notes Kassy Blum RN - 01/03/2018 9:48 AM EDT [address] via stretcher. Onto table in supine position. All monitors, O2, safety strap in place. Med's per protocol. Michael Vallejo - 01/03/2018 9:17 AM EDT PRE-SEDATION ASSESSMENT / FOCUSED H&P Addendum: The patient's history and physical exam have been reviewed and completed. There has been no intervalchange from that of the pre-operative history and physical exam done within the last 30 days. Risks (including hemorrhage, infection, allergic reaction, respiratory depression), and benefits discussed and patient consented to the procedure. I have reviewed with the patient, their prior experience with sedation. The patient has been NPO perprotocol I have reviewed the sedation plan for this patient???s case and concur that Fentanyl and Versed are appropriate choices for sedation and will be provided per the protocoled order set for this case Physical Exam Heart: RRR Lungs: clear ASA Classification: ASA 2 - Patient with mild systemic disease with no functional limitations Mallampati Classification: II (soft palate, uvula, fauces visible) Michael [place] Oracle Reports Developer Kassy Blum RN - 01/02/2018 3:50 PM EDT @[facility] ANGIO NURSING DATABASE Name: VANNESSA SIMMONS Date of : 1940 AGE 77 y.o. Address: [address] [address] (home) Mobile: No relevant phone numbers on file. Referring Provider: Hugo Gallegos REASON FOR VISIT: CT PERITONEAL DRAINAGE [[id number]] Order Questions Answers Where will study be performed? [facility] [120] Is the patient on anticoagulant / anitplatelet therapy ? No Reason for exam and clinical history: anastomotic leak with abd abscesses, right a definite for drain, Dr. Gregor Ceja will try to drain pelvic abscess there, if unsuccessful will want drain in pelviccollection as well. Other pertinent information: Inpt at [facility], med surg floor number is [phone], pt on TPN, Dr. Ceja will fax info. (Assessment/plan from provider's note, bottom of workup) Copy/paste from provider's note Biopsy/drain access site: Perihepatic/Right ventral abdomen & Pelvic peritoneal collection/Transgluteal vs. Ventral abdomen Patient Position: Supine for perihepatic, possibly prone for pelvic Cytopathology presence needed: No General anesthesia required: [no]; plan for IV moderate sedation ?? Medications to discontinue (and days): None Labs: None ? Plan for up and back to [facility] under Dr. Ceja (surgeon) care upon return. ?? Discussed with Dr. Clayton. Anticoagulant/antiplatelet/herbal med. stopped on per MD order. Allergies no known allergies Pertinent PMH: There is no problem list on file for this patient. Pertinent PSH: No past surgical history on file. Date/Procedure Med's given/comments 01/03/2018 CT guided pelvic drain placement and aspiration at second site. No fluid at second site. Versed 2.5 mg IV, Fentanyl 125 mcg IV Laboratory Results: Platelets 286, December 27, 2017 Medications: Prior to Admission medications Medication Sig Start Date End Date Taking? Authorizing Provider simvastatin (ZOCOR) 20 mg tablet 08/28/08 documented in this encounter Plan of Treatment Not on filedocumented as of this encounter Procedures Procedure Name Priority Date/Time Associated Comments Diagnosis CT PERITONEAL Routine 01/03/2018 11:33 AM Intra-abdominal Resu lts for this DRAINAGE EDT abscess procedure are i n the results section. ANAEROBIC CULTURE Routine 01/03/2018 11:00 AM Res ults for this EDT procedure are i n the results section. BODY FLUID CULTURE, Routine 01/03/2018 11:00 AM AEROBIC & ANAEROBIC EDT BODY FLUID CULTURE, Routine 01/03/2018 11:00 AM R esults for this AEROBIC EDT procedure are i n the results section. POCT GLUCOSE Routine 01/03/2018 9:11 AM Results f or this EDT procedure are i n the results section. documented in this encounter Results CT Guided Drain Peritoneal (01/03/2018 11:33 AM EDT) Anatomical Region Laterality Modality Computed Tomography Specimen (Source) Anatomical Location Collection Method / Collectio n Time Received Time / Laterality Volume Impressions 01/03/2018 12:38 PM EDT Impression: Successful CT-guided drain placement in perihepatic collection. Aspiration with no fluid return in a sec ond more superior perihepatic collection. Plan/Disposition: 1) To Angio recovery room, may discharge to [facility] when meets criteria. 2) Record output daily. Computer Hardware Designer(s): Resident/Fellow: Yoni Attending: Dr. Benny Clayton Procedure/Teaching Attestation: I was pr esent for the procedure. Moderate Sedation Attestation: I was pre sent during the intra-service time as documented by IR nurse. I have personally reviewed the image(s) and the residents interpretation and agree with the findings, Benny Loepz s at 01/03/2018 12:38 PM Narrative 01/03/2018 12:38 PM EDT RADIOLOGY PROCEDURE NOTE Procedure: 1. CT-guided drain placement in inferior right perihepatic fluid collection. 2. Aspiration of superior right perihepa tic fluid collection. Indication for Procedure: anastomotic le ak with abd abscesses, right a definite for drain, Dr. Gregor Ceja will try to drain pelvic abscess there.. Right hemicolectomy complicated by anastomotic leak and large perihepatic and pelvic abscesses. Drain was placed in the pelvi c abscess on 01/02/2018 at [facility]. Consent: After discussing the risks (inc luding infection, hemorrhage, damage to surrounding structures, respiratory depr ession) and benefits, the patient consented to the procedure. Method of Sedation: ??Due to the painful nature of the procedure, patient received split doses of intravenous fent anyl and versed from the IR nurse while pulse, pressure, and oxygen saturation w ere continuously monitored. 1% lidocaine was used for local analgesia. Technique: Prior to beginning the proced ure, a standard time out Moment of Truth was performed. The patient was po sitioned supine on CT table. ??An initial non-contrast localizing CT scan was obta ined. ??A site for drain placement was identified on the skin with the assistan ce of the CT laser lights. ??The skin was marked, prepped, and local anesthesia pr ovided with 1% lidocaine. ??Maximum sterile barrier technique was used throu ghout the procedure. ??An 18 ga needle was directed into the collection with in termittent CT fluoroscopy. Perihepatic fluid was aspirated. ??A 0.035? guide wi re was placed through the needle and position within the collection was confi rmed with CT. The needle was removed over the wire, the access tract was dila rocio and a 10 Fr locking pigtail drainage catheter was placed. Post placement CT s howed the catheter tip located within the target collection. ?? 90 mL of purulent fluid was aspirated an d the catheter connected to bulb drainage. ??A sample sent for gram stain and cultures. The drainage catheter was secured to the skin with suture. A steri le dressing was applied. After aspiration of this collection, a p ostprocedural CT was performed and demonstrated persistent fluid collection in the more superior perihepatic region. Attention was turned to this col lection. The skin was marked, prepped, and local anesthesia provided with 1% li docaine. ??Maximum sterile barrier technique was used throughout the proced ure. ??An 18 ga needle was directed into the collection with intermittent CT fluo roscopy. Aspiration was attempted, with no fluid obtained, so a drain was not pl aced in this second collection. Medications: Lidocaine 1% <10 mL SQ, Dale sed 2.5 mg IV, Fentanyl 125 mcg IV Contrast: None EBL: <5 cc Complications: No immediate Specimens: Specimen sent to microbiology lab Findings: Pre-procedure CT showed perihe patic. Final CT showed a 10 Fr drain positioned in the right perihepatic beto ection, decreased in size. 90 mL of purulent fluid removed. Procedure Note Benny Clayton MD - 01/03/2018Form atting of this note might be different from the original. RADIOLOGY PROCEDURE NOTE Procedure: 1. CT-guided drain placement in inferior right perihepatic fluid collection. 2. Aspiration of superior right perihepa tic fluid collection. Indication for Procedure: anastomotic le ak with abd abscesses, right a definite for drain, Dr. Gregor Ceja will try to drain pelvic abscess there.. Right hemicolectomy complicated by anastomotic leak and large perihepatic and pelvic abscesses. Drain was placed in the pelvi c abscess on 01/02/2018 at [facility]. Consent: After discussing the risks (inc luding infection, hemorrhage, damage to surrounding structures, respiratory depr ession) and benefits, the patient consented to the procedure. Method of Sedation: Due to the painful n ature of the procedure, patient received split doses of intravenous fent anyl and versed from the IR nurse while pulse, pressure, and oxygen saturation w ere continuously monitored. 1% lidocaine was used for local analgesia. Technique: Prior to beginning the proced ure, a standard time out Moment of Truth was performed. The patient was po sitioned supine on CT table. An initial non-contrast localizing CT scan was obta ined. A site for drain placement was identified on the skin with the assistan ce of the CT laser lights. The skin was marked, prepped, and local anesthesia pr ovided with 1% lidocaine. Maximum sterile barrier technique was used throu ghout the procedure. An 18 ga needle was directed into the collection with in termittent CT fluoroscopy. Perihepatic fluid was aspirated. A 0.035? guide wire was placed through the needle and position within the collection was confi rmed with CT. The needle was removed over the wire, the access tract was dila rocio and a 10 Fr locking pigtail drainage catheter was placed. Post placement CT s howed the catheter tip located within the target collection. 90 mL of purulent fluid was aspirated an d the catheter connected to bulb drainage. A sample sent for gram stain a nd cultures. The drainage catheter was secured to the skin with suture. A steri le dressing was applied. After aspiration of this collection, a p ostprocedural CT was performed and demonstrated persistent fluid collection in the more superior perihepatic region. Attention was turned to this col lection. The skin was marked, prepped, and local anesthesia provided with 1% li docaine. Maximum sterile barrier technique was used throughout the proced ure. An 18 ga needle was directed into the collection with intermittent CT fluo roscopy. Aspiration was attempted, with no fluid obtained, so a drain was not pl aced in this second collection. Medications: Lidocaine 1% <10 mL SQ, Dale sed 2.5 mg IV, Fentanyl 125 mcg IV Contrast: None EBL: <5 cc Complications: No immediate Specimens: Specimen sent to microbiology lab Findings: Pre-procedure CT showed perihe patic. Final CT showed a 10 Fr drain positioned in the right perihepatic beto ection, decreased in size. 90 mL of purulent fluid removed. IMPRESSION Impression: Successful CT-guided drain placement in perihepatic collection. Aspiration with no fluid return in a sec ond more superior perihepatic collection. Plan/Disposition: 1) To Angio recovery room, may discharge to [facility] when meets criteria. 2) Record output daily. Computer Hardware Designer(s): Resident/Fellow: Yoni Attending: Dr. Benny Clayton Procedure/Teaching Attestation: I was pr esent for the procedure. Moderate Sedation Attestation: I was pre sent during the intra-service time as documented by IR nurse. I have personally reviewed the image(s) and the residents interpretation and agree with the findings, Benny Lopez s at 01/03/2018 12:38 PM Hugo Gallegos MD IMG CT ORDERABLES Anaerobic Culture (01/03/2018 11:00 AM EDT) [facility] gist Method Time Signature Anaerobic No anaerobic [facility] Culture organisms [facility] LABORATORY Specimen (Source) Anatomical Collection Method Collection Time Re ceived Time Location / / Volume Laterality Specimen from 01/03/2018 11:00 01/03/2018 abdominal cavity AM EDT 11:44 AM ED T (specimen) Comment: CT GUIDED ABSCESS DRAIN Resulting Agency Comment Spec In Lab Hugo Gallegos MD MICROBIOLOGY - GENERAL ORDER PAULINO Performing Organization Address City/State/ZIP Code Phon e Number [address] Body Fluid Culture, Aerobic (01/03/2018 11:00 AM EDT) Component Value Ref Test Analysis Performed At [facility] Range Method Time Signature Body Fluid No growth KAMALJIT Culture [facility] LABORATORY Gram Stain Cytocentrifuge Gram Stain performed [facility] White Blood Cells seen [facility] CK No microorganisms seen. [facility] LABORATORY Specimen (Source) Anatomical Collection Method Collection Time Re ceived Time Location / / Volume Laterality Specimen from 01/03/2018 11:00 01/03/2018 abdominal cavity AM EDT 11:44 AM ED T (specimen) Comment: CT GUIDED ABSCESS DRAIN Resulting Agency Comment Spec In Lab Hugo Gallegos MD MICROBIOLOGY - GENERAL ORDER PAULINO Performing Organization Address City/State/[place] [address] POCT Glucose (01/03/2018 9:11 AM EDT) P athologist Signature POC Glucose 123 65 - 199 [facility] mg/dL [facility] LABORATORY Comment: Supplemental ranges: <140 mg/dL before meals <180 mg/dL all other times of the day Specimen Anatomical Collection Method Collection Time Receive d Time (Source) Location / / Volume Laterality Blood specimen 01/03/2018 9:11 AM 018 9:11 (specimen) EDT AM EDT Hugo Gallegos MD POINT OF CARE TEST ORDERABLE S Performing Organization Address City/State/[place] [address] documented in this encounter Visit Diagnoses Diagnosis Intra-abdominal abscess Peritoneal abscess documented in this encounter Administered Medications Inactive Administered Medications - up to 3 most recent administrations Medication Order MAR Action Action Date Dose Rate Site fentaNYL 50 mcg/mL multi-dose Given 01/03/2018 11:00 AM EDT 25 m cg injection 25-50 mcg, Intravenous, EVERY 5 MIN PRN, Starting on Tue01/03/18 at 0907, Until Tue01/03/18 at 1108, Pain, per unit protocol, - Start dose 50 mcg (reduce dose to 25 mcg if history of sedation sensitivity). - Titration dose 25-50 mcg IV, (based on patient response) every 3 minutes PRN, to maintain procedural pain less than 2 per pain Scale. Maximum dose: 50 mcg/dose, 250 mcg/hour For use in Interventional Radiology (IR) only for procedural sedation with direct provider supervision and verbal order., Angio/IR (Intra-Procedure), Routine Given 01/03/2018 10:34 AM EDT 50 mcg Given 01/03/2018 10:15 AM EDT 25 mcg lidocaine (XYLOCAINE) 10 mg/mL (1 %) Given 01/03/2018 10:30 AM E DT 10 mg injection 10 mg 10 mg, Subcutaneous, ONCE, 1 dose, On Tue01/03/18 at 0930, For use in Interventional Radiology (IR) only for procedure with direct provider supervision and verbal order., Angio/IR (Intra-Procedure), Routine midazolam (PF) (VERSED) 1 mg/mL multi-dose Given 01/03/2018 11:00 AM EDT 0.5 mg injection 0.5-1 mg 0.5-1 mg, Intravenous, EVERY 3 MIN PRN, Starting on Tue01/03/18 at 0907, Until Tue01/03/18 at 1108, Sleep, - Start dose; 1 mg (Reduce dose to 0.5 mg if history of sedation sensitivity). - Titration dose: 0.5 mg - 1 mg (based on patient response) every 3 minutes PRN to obtain RASS score of -3. Maximum dose: 1 mg per dose, 5 mg/hour. For use in Interventional Radiology (IR) only for procedural sedation with direct provider supervision and verbal order., Angio/IR (Intra-Procedure), Routine Given 01/03/2018 10:34 AM EDT 1 mg Given 01/03/2018 10:15 AM EDT 0.5 mg documented in this encounter Care Teams Coach Driver Relationship Specialty Start Date End Date Andre Davidson MD PCP - General 08/18/10 [address] [place] [address] documented as of this encounter
--- OUTSIDE RECORDS SUMMARY | 2022-04-23 00:50 | XMS_ITS | Encounter Summary ---
:1940 Author Organization [place] [address] Care Team Providers Name Role Phone Andre Davidson MD Primary Care Provider Encounter Details Date Type Department Care Team Description 10/27/2010 Hospital Encounter Laboratory Rolo Yeager MD [address] [address] [place] [address] [phone] (Wo rk) Social History Tobacco Use Types [...] Procedure Name Priority Date/Time Associated Diagnosis Comme [facility] SURGICAL PATHOLOGY Routine 10/27/2010 6:51 PM Res ults for this REPORT EST procedure are i n the results section. documented in this encounter Results PATHOLOGY SURGICAL PATHOLOGY FINAL REPORT (10/27/2010 6:51 PM EST) Component Value Ref Test Analysis Performed At [facility] Range Method Time Signature Surgical CERNER Pathology ? [facility] Report ? Provider: ?? ROLO YEAGER ?? Pt. Name: ?? VANNESSA SIMMONS ? Acc #: ?[id number] ? Pt. ? Col Date: ?? 10/27/2010 ?/Sex: ?1940,(70 years),Female ? Rec Date: ?? 10/27/2010 ?LOC: ?[facility] ? SURGICAL PATHOLOGY ? ---Pathologic Diagnosis--- ? Skin of nape of neck, punch biopsy: ? Follicular pluggin g with ruptured acute folliculitis, naked hair shafts, ? and perifollicular ly mphohistiocytic infiltrate with multinucleated giant ? cells, plasma cells and eosinophils, see comment. ? CR-0 ? Dictated by: ? Calixto Cormier MD ?Dermatopathology Fellow ? As the attending phys ician, I attest that I examined the histologic slides, ? and confirm Dr. Calixto Cormier's diagnosis. ? 10/29/10 ? GLW ? 10/29/10 Verified by: ? Moises Lemus MD. ? Dermatopatholo gist ? (Electronic Si gnature) ? The attending pathologist whose signature appears o n this report has ? reviewed all diagnostic slides and has edited the regan ss and/or ? microscopic portion of the report in rendering the fi nal pathologic ? diagnosis. ? ---Comment--- ? The findings are supp ortive of a ruptured acute folliculitis with foreign ? body reaction to keratin. The findings are not diagno stic of lichen ? planopilaris. ??Multi ple deeper levels have been examined. ??A PAS fungal ? stain is negative. ? ---Microscopic Description--- ? Slides reviewed, microscopic description not recorded . ? Special stains are performed. ? Block ? Stain ? Result ( Positive / Negative ) ? A1 ?PAS/f ? Negative ? ---Gross Description--- ? Labeled/Fixative: ? Nape of neck, formalin. ? Qty/Size/Weight: ?Single punch, 0.4 cm, levy, focally hair bearing, ? unoriented, without a definitive discrete cutaneous ? [facility] ? Provider: ?? ROLO YEAGER ?? Pt. Name: ?? TROY, VANNESSA A ? Acc #: ?[id number] ? Pt. ? Col Date: ?? 10/27/2010 ?/Sex: ?1940,(70 years),Female ? Rec Date: ?? 10/27/2010 ?LOC: ?[facility] ? SURGICAL PATHOLOGY ? lesion. ? Sections/Processing: ??Bisected. ??(T1) aje/SHB ? ---Clinical Information--- ? Specimen Submitted: ? A - Nape of neck, 4 mm punch ? Clinical History: ? 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 Report to: ? Rolo Yeager MD, III ? [facility] ? Dermatology ? . [place], [place] ??[address] Specimen (Source) Anatomical Collection Method Collection Time Re ceived Time Location / / Volume Laterality 10/27/2010 6:51 PM EST Rolo Yeager MD PATHOLOGY/CYTOLOGY ORDERABLE S Performing Organization Address City/State/ZIP Code Phon e Number [address] [facility] documented in this encounter Visit Diagnoses Not on filedocumented in this encounter Care Teams Meat Team Member Relationship Specialty Start Date End Date Andre Davidson MD PCP - General 08/18/10 [address] [place] [address] documented as of this encounter
--- OUTSIDE RECORDS SUMMARY | 2022-04-23 00:50 | XMS_ITS | Encounter Summary ---
:1940 Author Organization [facility] [address] Care Team Providers Name Role Phone Andre Davidson MD Primary Care Provider Reason for Referral Diagnostic Test (Routine) - Closed Specialty Diagnoses / Procedures Referred By Contact Refer red To Contact Radiology Diagnoses Intra-abdominal abscess Hugo Gallegos MD [facility] Rad Ct Scan Procedures CT Guided Drain Peritoneal [facility] [place] [address] [place] [address] Referral ID Status Reason Start Date Expiration Date Visits V isits Requested Authorized [id number] Closed Specialty 01/02/2018 01/02/2019 1 1 Service Requested Encounter Details Date Type Department Care Team Description 01/02/2018 Orders Only Radiology at [facility] Hugo Gallegos MD Intra-abdominal [facility] [address] DIAGNOSTIC [phone] RADIOLOGY [place], [place] [address] Social History Tobacco Use Types Packs/Day Years Used Date Never Assessed Sex Assigned at Date Recorded Not on file documented as of this encounter Plan of Treatment Not on filedocumented as of this encounter Results CT Guided Drain Peritoneal [...] To Angio recovery room, may discharge to [facility] when meets criteria. 2) Record output daily. Trailer Tank Truck Driver(s): Resident/Fellow: Yoni Attending: Dr. Benny Clayton Procedure/Teaching Attestation: I was pr esent for the procedure. Moderate Sedation Attestation: I was pre sent during the intra-service time as documented by IR nurse. I have personally reviewed the image(s) and the residents interpretation and agree with the findings, Benny Lopez s at 01/03/2018 12:38 PM Narrative 01/03/2018 [...] the pelvi c abscess on 01/02/2018 at [facility]. Consent: After discussing the risks (inc luding [...] the pelvi c abscess on 01/02/2018 at [facility]. Consent: After discussing the risks (inc luding [...] To Angio recovery room, may discharge to [facility] when meets criteria. 2) Record output daily. Trailer Tank Truck Driver(s): Resident/Fellow: Yoni Attending: Dr. Benny Clayton Procedure/Teaching Attestation: I was pr esent for the procedure. Moderate Sedation Attestation: I was pre sent during the intra-service time as documented by IR nurse. I have personally reviewed the image(s) and the residents interpretation and agree with the findings, Benny ajcobson at 01/03/2018 12:38 PM Hugo Gallegos MD IMG CT ORDERABLES documented in this encounter Visit Diagnoses Diagnosis Intra-abdominal abscess Peritoneal abscess Intra-abdominal abscess Peritoneal abscess documented in this encounter Care Teams Hearing Instrument Specialist Relationship Specialty Start Date End Date Andre Davidson MD PCP - General 08/18/10 [address] [place] [address] documented as of this encounter
--- OUTSIDE RECORDS SUMMARY | 2022-04-23 00:50 | XMS_ITS | Encounter Summary ---
:1940 Author Organization [facility] [place] [address] Care Team Providers Name Role Phone Andre Davidson MD Primary Care Provider Encounter Details Date Type Department Care Team Description 10/27/2010 Office Visit Dermatology Tong Cha MD [address] DERMATOLOGY [place], [place] [address] [place] [address] [phone] (Wo rk) Social History Tobacco Use Types Packs/Day Years Used Date Never Assessed Sex Assigned at Date Recorded Not on file documented as of this encounter Plan of Treatment Not on filedocumented as of this encounter Visit Diagnoses Not on filedocumented in this encounter Care Teams Acquisition Editor Relationship Specialty Start Date End Date Andre Davidson MD PCP - General 08/18/10 [address] [place] [address] documented as of this encounter
--- OUTSIDE RECORDS SUMMARY | 2022-04-23 00:50 | XMS_ITS | Encounter Summary ---
:1940 Author Organization [facility] [place] [address] Care Team Providers Name Role Phone Andre Davidson MD Primary Care Provider Encounter Details Date Type Department Care Team Description 11/03/2010 Office Visit Dermatology Tong Cha MD [address] DERMATOLOGY [place], [place] [address] [place] [address] [phone] (Wo rk) Social History Tobacco Use Types Packs/Day Years Used Date Never Assessed Sex Assigned at Date Recorded Not on file documented as of this encounter Plan of Treatment Not on filedocumented as of this encounter Visit Diagnoses Not on filedocumented in this encounter Care Teams Roller Coaster Operator Relationship Specialty Start Date End Date Andre Davidson MD PCP - General 08/18/10 [address] [place] [address] documented as of this encounter
--- OUTSIDE RECORDS SUMMARY | 2022-04-23 00:51 | XMS_ITS | Encounter Summary ---
:1940 Author Organization [facility] Address [address] [place] [address] Care Team Providers Name Role Phone Unavailable Primary Care Provider Unavailable Encounter Details Date Type Department Care Team Description 11/01/2014 Hospital Encounter [facility]- [place]izabeth Unknown, Provider, [facility] [address] [facility] [phone] [place] [address] (Work) [phone] Social History Tobacco Use Types Packs/Day Years Used Date Never Assessed Sex Assigned at Date Recorded Not on file documented as of this encounter Discharge Disposition Disposition Code Departure Means Destination Home or Self [facility] documented in this encounter Plan of Treatment Not on filedocumented as of this encounter Visit Diagnoses Not on filedocumented in this encounter
--- OUTSIDE RECORDS SUMMARY | 2022-04-23 00:51 | XMS_ITS | Encounter Summary ---
:1940 Author Organization [facility] Address [address] [place] [address] Care Team Providers Name Role Phone Andre Davidson MD Primary Care Provider Encounter Details Date Type Department Care Team Description 12/26/2017 Results Only [facility]- [facility] Juli Ceja, DO [phone] [facility] [facility] [place] [address] (Wo rk) Social History Tobacco Use Types Packs/Day Years Used Date Never Assessed Sex Assigned at Date Recorded Not on file documented as of this encounter Plan of Treatment Not on filedocumented as of this encounter Procedures Procedure Name Priority Date/Time Associated Diagnosis Comme [facility] SURGICAL PATHOLOGY Routine 12/26/2017 10:29 Resul ts for this EDT procedure are i n the results section. documented in this encounter Results SURGICAL PATHOLOGY (12/26/2017 10:29 EDT) Pathology Report: SURGICAL PATHOLOGY REPORT [facility] Reports generated via electronic interface contain gloria ginal data; LABORATORY however they are lacking the format of the original re port. SERVICES Caution should be taken when reading/interpreting unfo rmatted reports. Name: ? VON SIMMONS ? Accession #: ? [id number] ? : ? 1940 (Age: [age]) ??F ? Collect Date: ? 12/26/2017 ? Location: ? [facility] ? Receive Date: ? 8 ? Provider: JULI CEJA DO Copy to: ANDRE DAVIDSON MD ? Final Pathologic Diagnosis: ILEOCOLONIC ANASTOMOSIS, RESECTION: - Ischemic ileocolitis with transmural necrosis and diffuse acute necrotizing serositis/peritonitis. - Omental abscess formation. - Negative for dysplasia or malignancy. Document reviewed and electronically signed by: JULIO C YEE MD Report ??Date: 12/29/2017 17:22 By the signature above, the attending physician certif ies that he/she has personally conducted a gross and/or microscopic examin ation of the described specimens and rendered or confirmed the above diagnosi s. Specimen(s) Received: Ileocolonic anastomosis Clinical History: Intra-abdominal abscess Gross Description: ? Received in formalin labelled with proper patient identification (initials C, T) and ileocolonic anast omosis are two partially opened bowel segments. The first is an 8.5 cm in length segment of small bowel an d attached mesentery, stapled at one end. The opened end is ragged, ir regular and shows a thickened wall. The serosal surfaces a re dusky brown and coated by green-yellow material. The segment averages 2.2 cm in diameter. Perpendicular sections through the opened end of the segment displays embedded suture mat erial and metallic ankit, consistent with region of anast omosis. The mucosa within this area is dusky brown-soriano. Elsewhere the mucosa is glistening t an and shows normal circular folds. The second bowel segment is an 8 cm in length segment of colon and attached pericolic and omental adipose tissu e, stapled along one end. The opened end is ragged and similar to that described on the small bowel segment. The serosal surfaces are dusky brown-corcoran and focally c oated by green-yellow material. The segment averages 2.5 cm in diameter. Per pendicular sections through the opened end of th e segment displays a thickened hemorrhagic wall with embedded surgical ankit, c onsistent with the region of anastomosis. Elsewhere the mucosa is glistening corcoran and shows n ormal intestinal folds. The submucosal tissues appear slightly edematous. Assistant Research Scientist sect ions are submitted as follows: BLOCK LORA 1- ??resection margin small bowel segment 2- ??perpendicular section region of anastomosis, smal l bowel segment 3- ??resection margin colonic segment 4- ??perpendicular section region of anastomosis, colo tristan segment 5- ??customer development representative section attached omental tissue SERENITY Castro (ASCP) 12/27/2017 1:33 PM End of Report Specimen Performing Organization Address City/State/ZIP Code Phon e Number [facility] [address] [place] [address] SERVICES documented in this encounter Visit Diagnoses Not on filedocumented in this encounter Care Teams Senior Engineering Tech Relationship Specialty Start Date End Date Andre Davidson MD PCP - General 11/06/14 documented as of this encounter
--- OUTSIDE RECORDS SUMMARY | 2022-04-23 00:51 | XMS_ITS | Encounter Summary ---
:1940 Author Organization [facility] Address [address] [place] [address] Care Team Providers Name Role Phone Andre Davidson MD Primary Care Provider Encounter Details Date Type Department Care Team Description 12/20/2017 Results Only [facility]- [facility] Juli Ceja, DO [phone] [facility] [facility] [address] [address] (Wo rk) Social History Tobacco Use Types Packs/Day Years Used Date Never Assessed Sex Assigned at Date Recorded Not on file documented as of this encounter Plan of Treatment Not on filedocumented as of this encounter Procedures Procedure Name Priority Date/Time Associated Diagnosis Comme [facility] SURGICAL PATHOLOGY Routine 12/20/2017 9:19 EDT Re sults for this procedure are i n the results section. documented in this encounter Results SURGICAL PATHOLOGY (12/20/2017 9:19 EDT) Pathology Report: SURGICAL PATHOLOGY REPORT [facility] Reports generated via electronic interface contain gloria ginal data; LABORATORY however they are lacking the format of the original re port. SERVICES Caution should be taken when reading/interpreting unfo rmatted reports. Name: ? VON SIMMONS ? Accession #: ? [id number] ? : ? 1940 (Age: 6 8) ??F ? Collect Date: ? 12/20/2017 ? Location: ? [facility] ? Receive Date: ? 12/21/19 18 ? Provider: JULI CEJA DO Copy to: ANDRE DAVIDSON MD ? 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 See comment. - Tubular adenomas. - Appendix with fibrofatty obliteration of the distal tip. - Colonic mucosa with focal melanosis coli. - Twelve benign reactive lymph nodes (0/12). - Resection margins viable and without adenomatous epi thelium. Comment: Deeper sections have been examined. ?? Dr. Mcmillan 12/23/2017 11:49 AM Document reviewed and electronically signed by: JAIRON RAMIREZ MD Report ??Date: 12/24/2017 10:16 By the signature above, the attending physician certif ies that he/she has personally conducted a gross and/or microscopic examin ation of the described specimens and rendered or confirmed the above diagnosi s. Specimen(s) Received: Right colon Clinical History: Tubulovillous adenoma cecum Gross Description: ? Received in formalin labelled with proper patient identification (initials C, T) and right colon is a segment of bowel, r eceived closed, that includes terminal ileum (3.2 cm in length x 3.5 c m in luminal circumference), cecum and ascending colon (14.7 cm in length x 7.1 cm in luminal circumference), appendix (5.3 cm in length x 0.5 cm in diameter) and with a moderate amount of attached unremarkable mesentery. ? There is a sessile, l obulated polyp (3.3 x 2.8 x 0.7cm) in the cecum. The polyp is located 1.0 cm from the ileocecal valve, 4.6 cm from the proximal margin, and 17.2 cm from the distal margin. The serosa at the tumor is corcoran-pink and smooth. Sectioning the polyp shows it is con fined to the mucosa. A tattoo site is not identified. ? Within the cecum and ascending colon, there are several corcoran-white, sessile polyps (ranging from 0.1 cm to 0.4 cm in greatest dimension). The polyp nearest the proximal margin is at a distance of 9.5 cm, the po lyp nearest the larger lobulated polyp is at a dist ance of 1.3 cm, and polyp nearest the distal margin is at a distance of 3.6 cm. ? The uninvolved colon mucosa is pink-corcoran with th e usual folds and the average wall thickness is 0.4 cm. The mu cosa of the terminal ileum is pink-corcoran and velvety with the usual folds and the average wall thickness is 0.7 cm. The serosa is pink-corcoran and ed h. The appendix is unremarkable. Several mesenteric lymph nodes are identified (0.1-0.7cm in greatest dime nsion). ? Travel Registered Nurse Oncology sections are submitted as follow s: INK LORA Blue-serosa over the mass BLOCK LORA 1- ??proximal margin, en face 2- ??distal margin, en face 3- ??uninvolved small bowel and colonic mucosa 4- ??ileocecal valve 5- ??appendix 6-9- ??large lobulated polyp, entirely submitted 10-11- ??one bisected polyp per cassette 12-13- ??polyps ?? 14- ??vascular pedicle 15-16- ??one bisected lymph node per cassette 17- ??one lymph node, serially sectioned 18-19- ??four probable lymph nodes per cassette 20- ??two lymph nodes per cassette Dr. Mcmillan 12/21/2017 4:09 PM End of Report Specimen Performing Organization Address City/State/ZIP Code Phon e Number [facility] [address] [place] [id number] SERVICES documented in this encounter Visit Diagnoses Not on filedocumented in this encounter Care Teams Quality Internship Relationship Specialty Start Date End Date Andre Davidson MD PCP - General 11/06/14 documented as of this encounter
--- OUTSIDE RECORDS SUMMARY | 2022-04-23 00:51 | XMS_ITS | Encounter Summary ---
:1940 Author Organization [facility] Address [address] [place] [address] Care Team Providers Name Role Phone Unavailable Primary Care Provider Unavailable Encounter Details Date Type Department Care Team Description 01/17/2006 Results Only [facility] - Harpreet Mcconnell MD Maple conversion [address] [facility] [address] [id number] [phone] Social History Tobacco Use Types Packs/Day Years Used Date Never Assessed Sex Assigned at Date Recorded Not on file documented as of this encounter Plan of Treatment Not on filedocumented as of this encounter Procedures Procedure Name Priority Date/Time Associated Diagnosis Comme nts SURGICAL PATHOLOGY Routine 01/17/2006 0:00 EDT Re sults for this procedure are i n the results section. documented in this encounter Results SURGICAL PATHOLOGY (01/17/2006 0:00 EDT) Pathology Report: SURGICAL PATHOLOGY REPORT [facility] Reports generated via electronic interface contain gloria ginal data; LAB however they are lacking the format of the original re port. Caution should be taken when reading/interpreting unfo rmatted reports. Name: ? VANNESSA SIMMONS ? Accession #: ? [id number] ? : ? 1940 (Age: 65) ??F ? Collect Date: ? 01/17/2006 ? Location: ? [facility] ? Receive Date: ? 006 ? Provider: HARPREET MCCONNELL MD Copy to: RANDELL HANNON MD ? Final Pathologic Diagnosis: A. ?Colon, 100 cm, biopsy: 1. ?Hyperplastic polyp. 2. ?No adenomatous mucosa identified. B. ?Colon, hepatic flexure, biopsy: 1. ?Tubular adenoma. 2. ?No high grade dysplasia or carcinoma identified. C. ?Colon, 25 cm, biopsy: 1. ?Tubular adenoma. 2. ?No high grade dysplasia or carcinoma identified. Document reviewed and electronically signed by: RATNA ALVAREZ MD Report ??Date: 01/19/2006 16:54 By the signature above, the attending physician certif ies that he/she has personally conducted a gross and/or microscopic examin ation of the described specimens and rendered or confirmed the above diagnosi s. Specimen(s) Received: A. ?100 cm (#1) B. ?Hep flex (#2) C. ?25 cm (#3) Clinical History: ? Screening Gross Description: ? Received in [place]' s fixative labeled Rudy and bx 100 cm colon are three fragments of soft tissue that average 0.3 x 0.2 x 0.2 cm. ??Entirely submitted as (A). Received in [place]' s fixa tive labeled Rudy and bx hepatic flexure are two fragments of soft tissue luan t average 0.4 x 0.3 x 0.2 cm. ??Entirely submitted as (B). Received in [place]e' s fixa tive labeled Rudy and bx 25 cm colon is a 0.6 x 0.6 x 0.5 cm polypoid fragme nt of soft tissue. ??Trisected and entirely submitted as (C). ??(Dr. Simmons)/[facility] End of Report Specimen Performing Organization Address City/State/ZIP Code Phon e Number [facility] [address] [place] [address] SERVICES [facility] [address] [place] [address] documented in this encounter Visit Diagnoses Not on filedocumented in this encounter
--- OUTSIDE RECORDS SUMMARY | 2022-04-23 00:51 | XMS_ITS | Encounter Summary ---
:1940 Author Organization [facility] Address [address] [place] [address] Care Team Providers Name Role Phone Andre Davidson MD Primary Care Provider Encounter Details Date Type Department Care Team Description 03/07/2018 Hospital Encounter [facility]- [place] Unknown, Provider, [facility] [phone] [place] [address] (Work) [phone] Social History Tobacco Use Types Packs/Day Years Used Date Never Assessed Sex Assigned at Date Recorded Not on file documented as of this encounter Discharge Disposition Disposition Code Departure Means Destination Home or Self Skilled Nursing documented in this encounter Plan of Treatment Not on filedocumented as of this encounter Visit Diagnoses Not on filedocumented in this encounter Care Teams Treating And Pumping Supervisor Relationship Specialty Start Date End Date Andre Davidson MD PCP - General 11/06/14 documented as of this encounter
--- OUTSIDE RECORDS SUMMARY | 2022-04-23 00:51 | XMS_ITS | Encounter Summary ---
:1940 Author Organization [facility] Address [address] [place] [address] Care Team Providers Name Role Phone Andre Davidson MD Primary Care Provider Encounter Details Date Type Department Care Team Description 10/08/2020 Lab Requisition [facility] Outr Resulting Lab, Pathology & Laboratory Provider [facility] [address] [place] [address] Social History Tobacco Use Types Packs/Day Years Used Date Never Assessed Sex Assigned at Date Recorded Not on file documented as of this encounter Plan of Treatment Not on filedocumented as of this encounter Procedures Procedure Name Priority Date/Time Associated Diagnosis Comme nts CELIAC DISEASE Routine 10/07/2020 11:52 Results f or this PANEL EST procedure are i n the results section. documented in this encounter Results CELIAC DISEASE PANEL (10/07/2020 11:52 EST) Tissue <1.2 <4.0 U/mL [facility] Transglutaminase Comment: CENTER Antibody IGA A negative result may be due to IgA deficiency and does not rule out celiac disease. LABORATORY SERVICES ? Negative: ??<4.0 U/mL ? Weak Positive: ??4.0 - 10.0 U/mL ? Positive: ??>10.0 U/mL Results were obtained with [employer] QUANTA Lite R h-tTG IgA HAYLEY assay on the Lasso DSX. IgA 230 85 - 499 [facility] mg/dL CENTER LABORATORY SERVICES Celiac Disease Negative Serology. [facility] Interpretation Celiac disease CENTER unlikely. LABORATORY Approximately 10% of SERVICES patients with celiac disease are seronegative. Patients who are already adhering to a gluten-free diet may also be seronegative. If celiac disease is highly clinically suspected, referral to gastroenterology for additional evaluation is recommended. Specimen Blood - Venous blood (substance) Performing Organization Address City/State/ZIP Code Phon e Number [facility] [address] [place] [address] SERVICES documented in this encounter Visit Diagnoses Not on filedocumented in this encounter Additional Health Concerns Infection Onset Date Last Indicated Resolved Time COVID-19 02/19/2022 02/19/2022 03/11/2022 22:15 EDT documented as of this encounter Care Teams Sandwich Peddler Relationship Specialty Start Date End Date Andre aDvidson MD PCP - General 11/06/14 documented as of this encounter
--- OUTSIDE RECORDS SUMMARY | 2022-04-23 00:51 | XMS_ITS | Encounter Summary ---
:1940 Author Organization [facility] Address [address] [place] [address] Care Team Providers Name Role Phone Andre Davidson MD Primary Care Provider Encounter Details Date Type Department Care Team Description 12/02/2017 Results Only [facility] Juli Ceja, DO [phone] [facility] [place] [address] (Wo rk) Social History Tobacco Use Types Packs/Day Years Used Date Never Assessed Sex Assigned at Date Recorded Not on file documented as of this encounter Plan of Treatment Not on filedocumented as of this encounter Procedures Procedure Name Priority Date/Time Associated Diagnosis Comme [facility] SURGICAL PATHOLOGY Routine 12/02/2017 17:24 Resul ts for this EST procedure are i n the results section. documented in this encounter Results SURGICAL PATHOLOGY (12/02/2017 17:24 EST) Pathology Report: SURGICAL PATHOLOGY REPORT [facility] Reports generated via electronic interface contain gloria ginal data; LABORATORY however they are lacking the format of the original re port. SERVICES Caution should be taken when reading/interpreting unfo rmatted reports. Name: ? VON SIMMONS ? Accession #: ? [id number] ? : ? 1940 (Age: [age]) ??F ? Collect Date: ? 12/02/2017 ? Location: ? [facility] ? Receive Date: ? 8 ? Provider: JULI CEJA DO Copy to: ANDRE DAVIDSON MD ? 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 See comment. Comment: Deeper sections of the specimen were examined. Dr. Londono 12/06/2017 3:37 PM Document reviewed and electronically signed by: JAIRON LONDONO MD Report ??Date: 12/06/2017 15:38 By the signature above, the attending physician certif ies that he/she has personally conducted a gross and/or microscopic examin ation of the described specimens and rendered or confirmed the above diagnosi s. Specimen(s) Received: Cecal mass bx Clinical History: Hx colon polyps; heme (+) stool; clinical diagnosis co de: Z86.010, R19.5 Gross Description: ? Received in formalin labelled with proper patient identification (initials C, T) and cecal mass biopsies are mult iple pink-corcoran tissues (0.1 x 0.1 x 0.1 cm to 0.5 x 0.2 x 0.2 cm). Entirely submitted in 1-3. Dr. Crow 12/03/2017 8:46 AM End of Report Specimen Performing Organization Address City/State/ZIP Code Phon e Number [facility] [address] [place] [address] SERVICES documented in this encounter Visit Diagnoses Not on filedocumented in this encounter Care Teams Wastewater Analyst Lab Analyst Relationship Specialty Start Date End Date Andre Davidson MD PCP - General 11/06/14 documented as of this encounter
--- OUTSIDE RECORDS SUMMARY | 2022-04-23 00:51 | XMS_ITS | Encounter Summary ---
:1940 Author Organization [facility] Address [address] [place] [address] Care Team Providers Name Role Phone Andre Davidson MD Primary Care Provider Encounter Details Date Type Department Care Team Description 03/07/2018 Results Only [facility] Juli Ceja, DO [phone] [facility] [place] [address] (Wo rk) Social History Tobacco Use Types Packs/Day Years Used Date Never Assessed Sex Assigned at Date Recorded Not on file documented as of this encounter Plan of Treatment Not on filedocumented as of this encounter Procedures Procedure Name Priority Date/Time Associated Diagnosis Comme [facility] SURGICAL PATHOLOGY Routine 03/07/2018 10:01 Resul ts for this EDT procedure are i n the results section. documented in this encounter Results SURGICAL PATHOLOGY (03/07/2018 10:01 EDT) Pathology Report: SURGICAL PATHOLOGY REPORT [facility] Reports generated via electronic interface contain gloria ginal data; LABORATORY however they are lacking the format of the original re port. SERVICES Caution should be taken when reading/interpreting unfo rmatted reports. Name: ? VON SIMMONS ? Accession #: ? [id number] ? : ? 1940 (Age: 6 8) ??F ? Collect Date: ? 03/07/2018 ? Location: ? [facility] ? Receive Date: ? 03/08/20 18 ? Provider: JULI CEJA DO Copy to: ANDRE DAVIDSON MD ? Final Pathologic Diagnosis: A. ??LOOP ILEOCOLOSTOMY, RESECTION: - Segment of small bowel and skin with ostomy-related changes. - Negative for dysplasia or malignancy. B. ??SMALL INTESTINE, ANASTOMOSIS, PARTIAL RESECTION : - Histologically unremarkable small bowel. ?? Document reviewed and electronically signed by: JULIO C YEE MD Report ??Date: 03/10/2018 10:25 By the signature above, the attending physician certif ies that he/she has personally conducted a gross and/or microscopic examin ation of the described specimens and rendered or confirmed the above diagnosi s. Specimen(s) Received: A. ??Loop ileocolotomy (#1) B. 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 ?Received in formalin labelled with proper p atient identification (initials C, T) and loop il eocolotomy is a segment of bowel (1.5 cm in length x 2.0 cm in diameter), received open at both ends, wit h one open lumen being surrounded by an ellipse of corcoran-pink skin measuring 6.0 x 3.0 cm. The segment of bowel is surrounded by a mod erate amount of fibroadipose tissue (7.5 x 3.5 x 3.0 cm). The mucosa adjacent to the skin is corcoran-brown with usual folds. Opening the specimen reveals the remaining mucosa is corcoran-brown wit h the usual folds. The wall is 0.3 cm in average th ickness. Beef Splitter sections of the ostomy site to include skin are submitted in A1-A4. B. ?Received in formalin labelled with proper p atient identification (initials C, T) and anastomosis, staple common channel is a portion of bowel received closed (6.5 x 1.8 x 1.0 cm) with a staple line occupying one aspect of the specimen (6.5 cm in length). The staple line is in ked blue. Removing the staple line reveals corcoran-brown mucosa with the usual fo lds. The average wall thickness is 0.2 cm. The ove rlying serosa is corcoran-pink and smooth. Beef Splitter sections are submitted in B1. Dr. Smith 03/08/2018 11:17 AM End of Report Specimen Performing Organization Address City/State/ZIP Code Phon e Number [facility] [address] [place] [address] SERVICES documented in this encounter Visit Diagnoses Not on filedocumented in this encounter Care Teams Spot Cleaner Relationship Specialty Start Date End Date Andre Davidson MD PCP - General 11/06/14 documented as of this encounter
--- OUTSIDE RECORDS SUMMARY | 2022-04-23 00:51 | XMS_ITS | Encounter Summary ---
:1940 Author Organization [facility] Address [address] [place] [address] Care Team Providers Name Role Phone Unavailable Primary Care Provider Unavailable Encounter Details Date Type Department Care Team Description 11/01/2014 Results Only [facility]- Tony Nguyen, [address] [place] [address] [place] [address] (Wo rk) Social History Tobacco Use Types Packs/Day Years Used Date Never Assessed Sex Assigned at Date Recorded Not on file documented as of this encounter Plan of Treatment Not on filedocumented as of this encounter Procedures Procedure Name Priority Date/Time Associated Diagnosis Comme [facility] SURGICAL PATHOLOGY Routine 11/01/2014 8:59 EST Re sults for this procedure are i n the results section. documented in this encounter Results SURGICAL PATHOLOGY (11/01/2014 8:59 EST) Pathology Report: SURGICAL PATHOLOGY REPORT [facility] Reports generated via electronic interface contain gloria ginal data; LABORATORY however they are lacking the format of the original re port. SERVICES Caution should be taken when reading/interpreting unfo rmatted reports. Name: ? VANNESSA SIMMONS ? Accession #: ? [id number] ? : ? 1940 (Age: 74) ??F ? Collect Date: ? 11/01/2014 ? Location: ? [facility] ? Receive Date: ? 015 ? Provider: TONY MALONE MD Copy to: RANDELL HANNON MD ? Final Pathologic Diagnosis: A. ??SKIN OF NOSE, RIGHT ALA, SHAVE BIOPSY: - Melanocytic nevus, predominantly intradermal type. - Lesion focally extends to base of biopsy specimen. B. ??SKIN OF CANTHUS, LEFT, SHAVE BIOPSY: - Seborrheic keratosis. ?? Document reviewed and electronically signed by: GRACE BENAVIDES MD Report ??Date: 11/04/2014 16:27 By the signature above, the attending physician certif ies that he/she has personally conducted a gross and/or microscopic examin ation of the described specimens and rendered or confirmed the above diagnosi s. Specimen(s) Received: A. ??Rt ala of nose skin lesion B. ??Lt eye canthus skin lesion Clinical History: A. ala of nose Rt side skin lesion; B. L eye canthus s kin lesion, ? squamous cell Gross Description: A. ?Received in formalin labelled with proper p atient identification (initials C, T) and nose le luna is a shave biopsy of a corcoran-yellow papule (0.4 x 0.2 x 0.2 cm). ??The specimen is submitted intact in A1. B. ?Received in formalin labelled with proper p atient identification (initials C, T) and left eye skin lesion is a shave biopsy of pink-corcoran skin (0.7 x 0.3 x 0.1 cm). ??Ther e is a central corcoran-red papule that measures 0.6 x 0.3 x 0.1 cm. ??The specimen is trisected and entirely sub mitted in B1. Pernell Umanzor 11/04/2014 9:20 AM End of Report Specimen Performing Organization Address City/State/ZIP Code Phon e Number [facility] [address] [place] [id number] SERVICES documented in this encounter Visit Diagnoses Not on filedocumented in this encounter
--- OUTSIDE RECORDS SUMMARY | 2022-04-23 00:51 | XMS_ITS | Encounter Summary ---
:1940 Author Organization [facility] Address [address] [place] [address] Care Team Providers Name Role Phone Andre Davidson MD Primary Care Provider Encounter Details Date Type Department Care Team Description 02/19/2022 Lab Requisition [facility] Outr Resulting Lab, Pathology & Laboratory Provider [facility] [address] [place], [place] [address] Social History Tobacco Use Types Packs/Day Years Used Date Never Assessed Sex Assigned at Date Recorded Not on file documented as of this encounter Plan of Treatment Not on filedocumented as of this encounter Procedures Procedure Name Priority Date/Time Associated Diagnosis Comme nts COVID-19 [facility] Today 02/19/2022 9:25 EDT LAB PCR COVID-19 TESTING Routine 02/19/2022 9:25 EDT Resu lts for this procedure are i n the results section. documented in this encounter Results COVID-19 TEST [facility] PCR (02/19/2022 9:25 EDT) Specimen Swab Performing Organization Address City/State/ZIP Code Phon e Number [facility] [address] [place] [address] SERVICES (ABNORMAL) COVID-19 TESTING (02/19/2022 9:25 EDT) COVID-19 rt-PCR Positive (AA) Negative [facility] Result Comment: LABORATORY This test has not been FDA c leared or approved. This test has been authorized by FDA under an EUA for use by authorized laboratories. This test has been authorized only for detection of nucleic acid fro SERVICES m 2018-nCo, not for any oth er viruses or pathogens. This test is only authorized for the duration of the declaration that circumstances exist justifying the authorization of emergency use of in vitro d iagnostic tests for detectio n and/or diagnosis of 2019-nCoV under section 564(b)(1) of Act, 21 U.S.C ?? 360bbb-3(b) (1), unless the authorization is terminated or revoked sooner. Testing was performed using the omer SARS-CoV-2 assay ([employer] on the Omer 6800 System Performing Lab Omer [address] [facility] Lab [facility] SERVICES Specimen Swab Performing Organization Address City/State/ZIP Code Phon e Number [facility] [address] [place] [address] SERVICES documented in this encounter Visit Diagnoses Not on filedocumented in this encounter Additional Health Concerns Infection Onset Date Last Indicated Resolved Time COVID-19 02/19/2022 02/19/2022 03/11/2022 22:15 EDT documented as of this encounter Care Teams Endless Track Vehicle Supervisor Relationship Specialty Start Date End Date Andre Davidson MD PCP - General 11/06/14 documented as of this encounter
--- OUTSIDE RECORDS SUMMARY | 2022-04-23 00:51 | XMS_ITS | Encounter Summary ---
:1940 Author Organization [facility] Address [address] [place] [address] Care Team Providers Name Role Phone Andre Davidson MD Primary Care Provider Encounter Details Date Type Department Care Team Description 09/03/2020 Lab Requisition [facility] Outr Resulting Lab, Pathology & Laboratory Provider [facility] [address] [place] [address] Social History Tobacco Use Types Packs/Day Years Used Date Never Assessed Sex Assigned at Date Recorded Not on file documented as of this encounter Plan of Treatment Not on filedocumented as of this encounter Procedures Procedure Name Priority Date/Time Associated Comments Diagnosis SSB ANTIBODIES BY Routine 09/02/2020 9:25 EST Res ults for this HAYLEY procedure are i n the results section. SSA ANTIBODIES BY Routine 09/02/2020 9:25 EST Res ults for this HAYLEY procedure are i n the results section. ANTI NUCLEAR AB Routine 09/02/2020 9:25 EST Resul ts for this (JASPREET), IFA procedure are i n the results section. documented in this encounter Results SSB ANTIBODIES BY HAYLEY (09/02/2020 9:25 EST) SSB Antibody 1.6 <20.0 Units [facility] Comment: LABORATORY SERVICES ? Negative: <20.0 Units ? Weak Positive: 20.0 - 39.9 Units ? Moderate Positive: 40.0 - 80.0 Unit s ? Strong Positive: >80.0 Units Results were obtained with t [employer] Lite SS-B HAYLEY. ??SS-B values obtained with different manufacturers' assay methods may not be used interchangeably. ??The magnitude of the reported IgG levels cannot be correlated to an endpoint titer. Specimen Blood - Venous blood (substance) Performing Organization Address [facility]/ZIP Code Phon e Number [facility] [address] [place] [address] SERVICES SSA ANTIBODIES BY HAYLEY (09/02/2020 9:25 EST) SSA Antibody 1.5 <20.0 Units [facility] Comment: LABORATORY SERVICES ? Negative: <20.0 Units ? Weak Positive: 20.0 - 39.9 Units ? Moderate Positive: 40.0 - 80.0 Unit s ? Strong Positive: >80.0 Units Results were obtained with t [employer] QUANTA Lite SS-A HAYLEY. ??SS-A values obtained with different manufacturers' assay methods may not be used interchangeably. ??The magnitude of the reported IgG levels cannot be correlated to an endpoint titer. Specimen Blood - Venous blood (substance) Performing Organization Address [facility]/ZIP [facility] Phon e Number [facility] [address] [place] [address] SERVICES (ABNORMAL) ANTI NUCLEAR AB (JASPREET), IFA (09/02/2020 9:25 EST) JASPREET Interpretation Positive (A) Negative [facility] SERVICES JASPREET Titer and Pattern 1:80 Homogeneous [facility] [address] LABORATORY SERVICES Specimen Blood - Venous blood (substance) Narrative [facility] SERVICES - 09/04/2020 15:07 EST Results were obtained with the [employer] NOV A Lite HEp-2 JASPREET Kit by indirect immunofluorescence. Performing Organization Address [facility]/ZIP [facility] Phon e Number [facility] [address] [place] [address] SERVICES documented in this encounter Visit Diagnoses Not on filedocumented in this encounter Additional Health Concerns Infection Onset Date Last Indicated Resolved Time COVID-19 02/19/2022 02/19/2022 03/11/2022 22:15 EDT documented as of this encounter Care Teams Collar Trimmer Relationship Specialty Start Date End Date Andre Davidson MD PCP - General 11/06/14 documented as of this encounter
--- OUTSIDE RECORDS SUMMARY | 2022-04-23 00:51 | XMS_ITS | Encounter Summary ---
:1940 Author Organization [facility] Address [address] [place] [address] Care Team Providers Name Role Phone Andre Davidson MD Primary Care Provider Encounter Details Date Type Department Care Team Description 12/20/2017 Hospital Encounter [facility] [place] Unknown, Provider, Too [place] [facility] [phone] [place] [address] (Work) [phone] Social History Tobacco Use Types Packs/Day Years Used Date Never Assessed Sex Assigned at Date Recorded Not on file documented as of this encounter Discharge Disposition Disposition Code Departure Means Destination Home or Self Residential documented in this encounter Plan of Treatment Not on filedocumented as of this encounter Visit Diagnoses Not on filedocumented in this encounter Care Teams Center Director Relationship Specialty Start Date End Date Andre Davidson MD PCP - General 11/06/14 documented as of this encounter
--- OUTSIDE RECORDS SUMMARY | 2022-04-23 00:51 | XMS_ITS | Encounter Summary ---
:1940 Author Organization [facility] Address [address] [place] [address] Care Team Providers Name Role Phone Andre Davidson MD Primary Care Provider Encounter Details Date Type Department Care Team Description 10/08/2020 Lab Requisition [facility] Outr Resulting Lab, Pathology & Laboratory Provider [facility] [address] [place], [place] [address] Social History Tobacco Use Types Packs/Day Years Used Date Never Assessed Sex Assigned at Date Recorded Not on file documented as of this encounter Plan of Treatment Not on filedocumented as of this encounter Procedures Procedure Name Priority Date/Time Associated Diagnosis Comme nts IMMUNOGLOBULINS Routine 10/07/2020 11:52 EST Resu lts for this procedure are i n the results section. documented in this encounter Results IMMUNOGLOBULINS (10/07/2020 11:52 EST) Pathologist Sig nature IgG 666 610-1,616 mg/dL [facility] SERVICES IgA 242 85 - 499 mg/dL [facility] SERVICES IgM 157 35 - 242 mg/[facility] Specimen Blood - Venous blood (substance) Performing Organization Address City/State/ZIP Code Phon e Number [facility] [address] [place] [address] SERVICES documented in this encounter Visit Diagnoses Not on filedocumented in this encounter Additional Health Concerns Infection Onset Date Last Indicated Resolved Time COVID-19 02/19/2022 02/19/2022 03/11/2022 22:15 EDT documented as of this encounter Care Teams Material Mixer Relationship Specialty Start Date End Date Andre Davidson MD PCP - General 11/06/14 documented as of this encounter
--- OUTSIDE RECORDS SUMMARY | 2022-04-23 00:51 | XMS_ITS | Clinical Summary ---
:1940 Author Organization [facility] Address [address] [place] [address] Care Team Providers Name Role Phone Andre Davidson MD Primary Care Provider Encounters Date Type Specialty Care Team Description 02/19/2022 Lab Requisition Clinical Laboratory Outr Resulting Lab , Provider from Last 3 Months Social History Tobacco Use Types Packs/Day Years Used Date Never Assessed Sex Assigned at Date Recorded Not on file Plan of Treatment Health Maintenance Due Date Last Done Comments Fall Risk Screening 2004 Procedures Procedure Name Priority Date/Time Associated Diagnosis Comme nts COVID-19 TEST [facility] Today 02/19/2022 9:25 EDT LAB PCR COVID-19 TESTING Routine 02/19/2022 9:25 EDT Resu lts for this procedure are i n the results section. from Last 3 Months Results COVID-19 TEST [facility] PCR (02/19/2022 9:25 EDT) Specimen Swab Performing Organization Address City/State/ZIP Code Phon e Number [facility] [address] [place] [address] SERVICES (ABNORMAL) COVID-19 TESTING (02/19/2022 9:25 EDT) COVID-19 rt-PCR Positive (AA) Negative [facility] Result Comment: LABORATORY This test has not been FDA c leared or approved. This test has been authorized by FDA under an EUA for use by authorized laboratories. This test has been authorized only for detection of nucleic acid fro SERVICES m 2019-nCoV, not for any oth er viruses or [...] was performed using the omer SARS-CoV-2 assay ([employer] on the Omer 6800 System Performing Lab Omer [address] [facility] Lab [facility] SERVICES Specimen Swab Performing Organization Address City/State/ZIP Code Phon e Number [facility] [address] [place] [address] SERVICES from Last 3 Months Insurance Payer Benefit Plan Subscriber ID Effective Phone Address Typ e / Group Dates MEDICARE MEDICARE A/B [id number] 2004-Prese [address] [place] [id number] FOR [id number] 2020-Prese [phone] [address] [employer] [address] [place] [address] Vannessa Grant Personal/Family Self 1940 [address] [place] [address] Vannessa Grant Personal/Family Self 1940 [address] [place] [address] Vannessa Grant Personal/Family Self 1940 [address] [place] [address] Vannessa Grant Personal/Family Self 1940 [address] [place] [address] Care Teams Chore Tender Relationship Specialty Start Date End Date Andre Davidson MD PCP - General 11/06/14
== END ==
PROVIDERS: PCP Internal Medicine; Visit Provider Internal Medicine
DX: M17.12 Unilateral primary osteoarthritis, left knee (principal)
CPT/HCPCS: 73564

== ENCOUNTER 2023-05-06 08:34 | Outpatient (REF) | payer MEDICARE, OTHER, SELFPAY ==
[2023-05-05 17:03] LABS: TSH (W/Ref FT4) 3.88 uIU/mL (0.36-3.74)
[2023-05-05 17:26] LABS: Vitamin D 25 Total 60.3 ng/mL (30-100)
[2023-05-05 17:38] LABS: FREE T4 0.95 ng/dL (0.76-1.46)
[2023-05-05 18:15] LABS: Vitamin B12 > 2000 pg/mL (193-986)
== END 2023-05-06 08:35 | disposition home or self-care (01) ==
LOC: NCHCN 08:34
PROVIDERS: PCP Internal Medicine; Visit Provider Internal Medicine
DX: E03.9 Hypothyroidism, unspecified (principal); F41.8 Other specified anxiety disorders; E78.5 Hyperlipidemia, unspecified; Z86.79 Personal history of other diseases of the circulatory system; E55.9 Vitamin D deficiency, unspecified; E53.8 Deficiency of other specified B group vitamins
CPT/HCPCS: 82306; 82607; 84439; 84443

== ENCOUNTER 2023-11-03 12:20 | Outpatient (REF) | payer MEDICARE, OTHER, SELFPAY ==
[2023-11-03 14:51] LABS: Abs Immature Grans 0.02 10^3/uL (0.0-0.06); Absolute Basophil Count 0.01 10^3/uL (0.0-0.2); Absolute Lymphocyte Count 1.49 10^3/uL (1.2-3.4); Absolute Neutrophil Count 5.75 10^3/uL (1.2-6.7); Basophils % 0.1; HCT 43.1 % (36.0-46.0); HGB 14.5 g/dL (11.2-15.7); Immature Grans % 0.3; Lymphocytes % 18.7; MCH 30.9 pg (27.0-33.0); MCHC 33.6 % (32.0-36.0); MCV 92 fL (80-95); MPV 12.2 fL (8.0-11.0); Monocytes % 8.8; Neutrophils % 72.1; Platelet Count 217 10^3/uL (130-400); RDW 12.9 % (11.7-14.6); RDW-SD 43.8 fL; WBC 7.97 10^3/uL (4.4-10.8)
[2023-11-03 15:25] LABS: ALT 26 U/L (14-59); AST 20 U/L (15-37); Albumin 4.4 g/dL (3.4-5.0); Alkaline Phosphatase 68 U/L (46-116); Anion Gap 13.9 mmol/L (3-11); BUN 20 mg/dL (7-18); CO2 22.1 mmol/L (21.0-32.0); CREATININE 1.1 mg/dL (0.55-1.02); Calcium 9.6 mg/dL (8.5-10.1); Chloride 104 mmol/L (98-107); Estimated GFR 49.55 (mL/min/1.73m2); Glucose 116 mg/dL (74-106); Potassium 4.1 mmol/L (3.5-5.1); Sodium 140 mmol/L (136-145); TSH (W/Ref FT4) 3.43 uIU/mL (0.36-3.74); Total Protein 7.5 g/dL (6.4-8.2)
== END 2023-11-03 12:21 | disposition home or self-care (01) ==
LOC: NCHCN 12:20
PROVIDERS: PCP Family Medicine; Visit Provider Family Medicine
DX: Z86.2 Personal history of diseases of the blood and blood-forming organs and certain disorders involving the immune mechanism (principal); N18.30 Chronic kidney disease, stage 3 unspecified
CPT/HCPCS: 80053; 84443; 85025

== ENCOUNTER 2025-03-12 16:00 | Outpatient (CLI) | payer MEDICARE, OTHER, SELFPAY ==
--- NOTE | 2025-03-12 | DI.RAD_ITS ---
Exam(s) XR ANKLE LT COMPLETE EXAM: XR ANKLE LT COMPLETE CLINICAL HISTORY: Pain in lt ankle M25.572 TECHNIQUE: 2D digital imaging was performed. Three views. COMPARISON: No exams were available for comparison FINDINGS: BONES: No acute fracture is present. No bony destructive lesion is seen. Small heel spurs. JOINTS:The ankle mortise is normally aligned. No joint space narrowing. SOFT TISSUE: Significant soft tissue swelling. IMPRESSION: Soft tissue swelling. DATA REPOSITORY: RADIATION DOSE DELIVERED:
== END 2025-03-12 16:20 ==
PROVIDERS: PCP Family Medicine; Visit Provider Family Medicine
DX: M25.572 Pain in left ankle and joints of left foot (principal)
CPT/HCPCS: 73610

== ENCOUNTER 2025-04-09 11:04 | Outpatient (CLI) | payer MEDICARE, OTHER, SELFPAY ==
--- NOTE | 2025-04-09 | DI.RAD_ITS ---
Exam(s) XR CHEST 2V PA LATERAL EXAM: XR CHEST 2V PA LATERAL CLINICAL HISTORY: HERNANDEZ R06.09 TECHNIQUE: 2D digital imaging was performed of the chest. Two images were obtained. PA and lateral views were obtained. COMPARISON: CR CHEST 2 VIEWS PA,LAT from 12/25/2017 CR PORTABLE CHEST ONE VIEW from 12/31/2017 CR CHEST 2 VIEWS PA,LAT from 01/20/2018 FINDINGS: MEDIASTINUM: Normal. HEART: Normal. PULMONARY VASCULATURE: Normal. LUNGS: Clear. PLEURAL SPACE: No pleural effusion or pneumothorax. BONE:Within normal limits for the patient's age. OTHER FINDINGS:Normal. IMPRESSION: No acute pulmonary findings. DATA REPOSITORY: RADIATION DOSE DELIVERED:
== END 2025-04-09 11:24 ==
LOC: DI 11:05
PROVIDERS: PCP Family Medicine; Visit Provider Family Medicine
DX: R06.09 Other forms of dyspnea (principal)
CPT/HCPCS: 71046

== ENCOUNTER 2025-04-09 16:49 | Outpatient (REF) | payer MEDICARE, OTHER, SELFPAY ==
[2025-04-09 15:55] LABS: Abs Immature Grans 0.03 10^3/uL (0.0-0.06); HCT 42.7 % (36.0-46.0); HGB 14.0 g/dL (11.2-15.7); Immature Grans % 0.4 %; MCH 30.8 pg (27.0-33.0); MCHC 32.8 % (32.0-36.0); MCV 94 fL (80-95); MPV 12.1 fL (8.0-11.0); Platelet Count 189 10^3/uL (130-400); RBC 4.54 10^6/uL (3.93-5.22); RDW 12.5 % (11.7-14.6); RDW-SD 43.3 fL; WBC 6.82 10^3/uL (4.4-10.8)
[2025-04-09 16:25] LABS: ALT 23 U/L (14-59); AST 19 U/L (15-37); Albumin 4.2 g/dL (3.4-5.0); Alkaline Phosphatase 100 U/L (46-116); Anion Gap 11.6 mmol/L (3-11); BUN 16 mg/dL (7-18); Bilirubin, Total 0.7 mg/dL (0.2-1.0); CO2 24.4 mmol/L (21.0-32.0); Calcium 9.4 mg/dL (8.5-10.1); Chloride 104 mmol/L (98-107); Estimated GFR 62.65 (mL/min/1.73m2); Glucose 107 mg/dL (74-106); Potassium 4.3 mmol/L (3.5-5.1); Sodium 140 mmol/L (136-145); Total Protein 7.1 g/dL (6.4-8.2)
== END 2025-04-09 16:50 | disposition home or self-care (01) ==
LOC: NCHCN 16:49
PROVIDERS: PCP Family Medicine; Visit Provider Family Medicine
DX: R06.09 Other forms of dyspnea (principal)
CPT/HCPCS: 80053; 85025

== ENCOUNTER → 2025-08-28 01:09 | Outpatient (CLI) | payer MEDICARE, OTHER, SELFPAY ==
--- NOTE | 2025-08-28 | DI.DEXA_ITS ---
Exam(s) XR DEXA BONE DENSITY W/WO CORY EXAM: XR DEXA BONE DENSITY W/WO CORY CLINICAL HISTORY: ASYMPTOMATIC MENOPAUSAL STATE Z78.0 POST MENOPAUSAL TECHNIQUE: COMPARISON: DX DEXA BONE DENSITY WITH CORY from 11/29/2017 FINDINGS: Lateral Spine Image: Unremarkable. No compression deformities identified. Left hip: Total T-Score: -2.9. This compares to -2.4 on the prior examination. Total Z-Score: -0.6 T- and Z-scores: The findings have progressed and now are consistent with osteoporosis. Lumbar Spine: Total T-Score: -1.3. This compares to -1.6 on the prior examination. Total Z-Score: 1.6 T- and Z-scores: The findings are consistent with osteopenia. There is osteoporosis in the left forearm with a total T-score of -3.7. This compares to -2.4 on the prior examination. IMPRESSION: Worsening bone mineral density with osteoporosis now seen in the left hip and left forearm.
== END ==
LOC: DI 01:09
PROVIDERS: PCP Family Medicine; Visit Provider Family Medicine
DX: Z78.0 Asymptomatic menopausal state (principal)
CPT/HCPCS: 77080

== ENCOUNTER 2025-09-10 11:14 | Outpatient (REF) | payer MEDICARE, OTHER, SELFPAY ==
[2025-09-10 15:45] LABS: Vitamin D 25 Total 43 ng/mL (30-100)
== END 2025-09-10 11:15 | disposition home or self-care (01) ==
LOC: NCHCN 11:14
PROVIDERS: PCP Family Medicine; Visit Provider Family Medicine
DX: M81.0 Age-related osteoporosis without current pathological fracture (principal)
CPT/HCPCS: 82306